=== PATIENT | female | born 1955 | race Caucasian/White ===

== ENCOUNTER 2017-01-02 12:28 | Observation (INO) | payer MEDICARE, MEDICAID ==
[~2017-01-02] VITALS: Ht 167.6 cm; Wt 125.7 kg
[2017-01-02] VITALS (7 sets, daily range): BP systolic 88–100; BP diastolic 48–63; PULSE 71–82; RESP 20; TEMP 95.6–98.7; O2SAT 95–99; Ht 167.6 cm; Wt 125.7 kg
[~2017-01-02 12:28] MED LIST: ACET-62 PO; ASPI-725 PO; CARV3.12 PO; FURO20TA4 PO; HYDR-4246 PO; LISI-625 PO; METF500T7 PO; MINO100C43 PO; NITR0.4T28 SL; POTA10TA14 PO; PRAV40TA3 PO; SODI45SP EA NOSTRIL; SOTA80TA PO; SPIR25TA4 PO
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
--- OUTSIDE RECORDS SUMMARY | 2017-01-02 12:34 | XMS REPORT | Referral Summary ---
Author Author [facility] Organization [facility] Address Unknown Phone Unavailable Care Team Providers Care Sports Teacher Name Role Phone Ady Garza Primary Care Physician [phone] Encounter VC Date(s): 05/13/15 - 05/13/15 [facility] [address] [place] [address]- Discharge Diagnosis: Hyperlipidemia Discharge Diagnosis: Benign essential hypertension Discharge Diagnosis: Type 2 diabetes mellitus Discharge Diagnosis: Congestive heart failure Discharge Disposition: 01-Home or Self Care Attending Physician: Surya Garza MD Admitting Physician: Surya Garza MD Vital Signs Most recent to 1 oldest [Reference Range]: Temperature Tympanic 36.2 degC [36.6-38.1 degC] *LOW* (05/13/15 10:17 AM) Peripheral Pulse 84 bpm Rate [60-100 bpm] (05/13/15 10:17 AM) Blood Pressure 106/60 mmHg [90-140/60-90 mmHg] (05/13/15 10:17 AM) Problem List Condition Effective Dates Status Health Status Informant Allergic Active rhinitis(Confirmed) Hay fever(Confirmed) Active Arthritis(Confirmed) Active Benign essential Active hypertension (disorder)(Confirmed ) Sleep related Active hypoventilation/hypo xemia in other disease(Confirmed) Congestive heart Active failure (disorder)(Confirmed ) Degenerative disk 1992 Active disease(Confirmed) Osteoarthritis(Confi 1981 Active rmed) Gall bladder Active disease(Confirmed) Hearing Active loss(Confirmed) Heart Active failure(Confirmed) High 2010 Active cholesterol(Confirme d) Hypertension(Confirm 2011 Active ed) Irregular heart 2010 Active rhythm(Confirmed) Hyperlipidemia(Confi Active rmed) Morbid Active patient obesity(Confirmed) Severe obstructive Active sleep apnea(Confirmed) Overweight(Confirmed Active ) Pneumonia(Confirmed) Active Rheumatic 1956 [...] 0 Refill(s) Start Date: 03/04/14 Status: Ordered Glucometer strips (DME) DME Item test strips test daily fasting dx E11.9, See Instructions, # 100 Each , 11 Refill(s), Pharmacy: [facility] [id number], test strips; test daily fasting; dx E11.9, Supply Start Date: 09/23/15 Status: Ordered Lubricant Eye Drops ophthalmic solution 1 drops, Eye-Both, BID, as needed for dry eyes, # 30 mL, 0 Refill(s) Start Date: 07/23/14 Status: Ordered metFORMIN 500 mg oral tablet, extended release See Instructions, TAKE 1 TABLET BY MOUTH EVERY DAY, # 30 tabs, 1 Refill(s), eRx : [facility] [id number], TAKE 1 TABLET BY MOUTH EVERY DAY Start Date: 09/26/15 Status: Ordered nitroglycerin 0.4 mg sublingual tablet See Instructions, as needed for chest pain, 1 tab by sublingual route at the 1st sign of attack; may repeat every 5 min until relief; if pain persists after 3 tab in 15 min prompt medical attention is reccommended, 0 Refill(s) Start Date: 03/04/14 Status: Ordered [place] 5 mg-325 mg oral tablet 1-2 tabs, Oral, q6hr, as needed for pain, # 20 tabs, 0 Refill(s) Start Date: 09/15/15 Status: Ordered potassium chloride 10 mEq oral [...] defibrillator 11/05/11 implantation of pacemaker 11/05/11 section 1976 Knee replacement R Social History Social History Type Response Smoking Status Never smoker Assessment and Plan Extracted from: Title: Ambulatory Patient Education Author: Surya Garza MD Date: Family Medicine Diabetes and Foot Care Diabetes may cause you to have problems because of poor blood supply ( circulation) to your feet and legs. This may cause the skin on your feet to become thinner, break easier, and heal more slowly. Your skin may become dry, and the skin may peel and crack. You may also have nerve damage in your legs and feet causing decreased feeling in them. You may not notice minor injuries to your feet that could lead to infections or more serious problems. Taking care of your feet is one of the most important things you can do for yourself. HOME CARE INSTRUCTIONS Wear shoes at all times, even in the house. Do not go barefoot. Bare feet are easily injured. Check your feet daily for blisters, cuts, and redness. If you cannot see the bottom of your feet, use a mirror or ask someone for help. Wash your feet with warm water (do not use hot water) and mild soap. Then pat your feet and the areas between your toes until they are completely dry. Do not soak your feet as this can dry your skin. Apply a moisturizing lotion or petroleum jelly (that does not contain alcohol and is unscented) to the skin on your feet and to dry, brittle toenails. Do not apply lotion between your toes. Trim your toenails straight across. Do not dig under them or around the cuticle. File the edges of your nails with an emery board or nail file. Do not cut corns or calluses or try to remove them with medicine. Wear clean socks or stockings every day. Make sure they are not too tight. Do not wear knee-high stockings since they may decrease blood flow to your legs. Wear shoes that fit properly and have enough cushioning. To break in new shoes, wear them for just a few hours a day. This prevents you from injuring your feet. Always look in your shoes before you put them on to be sure there are no objects inside. Do not cross your legs. This may decrease the blood flow to your feet. If you find a minor scrape, cut, or break in the skin on your feet, keep it and the skin around it clean and dry. These areas may be cleansed with mild soap and water. Do not cleanse the area with peroxide, alcohol, or iodine. When you remove an adhesive bandage, be sure not to damage the skin around it. If you have a wound, look at it several times a day to make sure it is healing. Do not use heating pads or hot water bottles. They may burn your skin. If you have lost feeling in your feet or legs, you may not know it is happening until it is too late. Make sure your health care provider performs a complete foot exam at least annually or more often if you have foot problems. Report any cuts, sores, or bruises to your health care provider immediately. SEEK MEDICAL CARE IF: You have an injury that is not healing. You have cuts or breaks in the skin. You have an ingrown nail. You notice redness on your legs or feet. You feel burning or tingling in your legs or feet. You have pain or cramps in your legs and feet. Your legs or feet are numb. Your feet always feel cold. SEEK IMMEDIATE MEDICAL CARE IF: There is increasing redness, swelling, or pain in or around a wound. There is a red line that goes up your leg. Pus is coming from a wound. You develop a fever or as directed by your health care provider. You notice a bad smell coming from an ulcer or wound. Document Released: 08/16/2001 Document Revised: 04/21/2014 Document Reviewed: ExitCare Patient Information 2015 [employer]. This information is not intended to replace advice given to you by your health care provider. Make sure you discuss any questions you have with your health care provider. No follow up information was provided. Extracted from: Title: Office Visit Note Author: Surya Garza MD Date: 05/13/15 Assessment/Plan Benign essential hypertension Blood pressures adequately controlled. Medications and treatments reviewed no changes are recommended. Report card reviewed and provided. Follow-up in 3 months. Ordered: Office Visit Level 4 Est 01850 Congestive heart failure Overall she appears to be stable and well compensated. She'll continue to follow with Dr. Caballero as well. Follow-up in 3 months. Ordered: Office Visit Level 4 Est 56095 Hyperlipidemia Recent laboratory studies reviewed overall stable continue current treatment plan. Recheck in 6 months. Ordered: Office Visit Level 4 Est 74421 Type 2 diabetes mellitus Overall stable A1c is 5.7. Medications reviewed no changes are recommended. Report card reviewed and provided. Follow-up in 3 months. Ordered: Office Visit Level 4 Est 00562
--- OUTSIDE RECORDS SUMMARY | 2017-01-02 12:34 | XMS REPORT | Referral Summary ---
Author Author [facility] Organization [facility] Address Unknown Phone Unavailable Care Team Providers Care Regional Sales Consultant Name Role Phone Ady Garza Primary Care Physician [phone] Encounter VC Date(s): 10/06/15 - 10/06/15 [facility] [address] [place] [address] [[email or web address]] Discharge Diagnosis: Strain of left knee Discharge Disposition: 01-Home or Self Care Attending Physician: Surya Garza MD Admitting Physician: Surya Garza MD Vital Signs Most recent to 1 oldest [Reference Range]: Temperature Tympanic 36.5 degC [36.6-38.1 degC] *LOW* (10/06/15 9:55 AM) Peripheral Pulse 80 bpm Rate [60-100 bpm] (10/06/15 9:55 AM) Respiratory Rate 16 br/min [14-20 br/min] (10/06/15 9:55 AM) Blood Pressure 96/66 mmHg [90-140/60-90 mmHg] (10/06/15 9:55 AM) Problem List Condition Effective Dates Status Health Status Informant Allergic Active rhinitis(Confirmed) Hay fever(Confirmed) Active Arthritis(Confirmed) Active Benign essential Active hypertension (disorder)(Confirmed ) Sleep related Active hypoventilation/hypo xemia in other disease(Confirmed) Congestive heart Active failure (disorder)(Confirmed ) Degenerative disk 1992 Active disease(Confirmed) Gall bladder Active disease(Confirmed) Hearing Active loss(Confirmed) Heart Active failure(Confirmed) High 2011 Active cholesterol(Confirme d) Hyperlipidemia(Confi Active rmed) Hypertension(Confirm 2011 Active ed) Irregular heart 2011 Active rhythm(Confirmed) Morbid Active patient obesity(Confirmed) Severe obstructive Active sleep apnea(Confirmed) Osteoarthritis(Confi 1981 Active rmed) Overweight(Confirmed Active ) Pneumonia(Confirmed) Active Rheumatic 1956 Active fever(Confirmed) Scarlet 1956 Active fever(Confirmed) Sinus 1956 Active infection(Confirmed) Sleep 2011 Active apnea(Confirmed) Type 2 diabetes 2002 Active mellitus(Confirmed) Ulcers(Confirmed) 1991 Active Chicken 1957 [...] # 100 Each , 11 Refill(s), Pharmacy: [facility] [id number], test strips; test daily fasting; dx E11.9, Supply Start Date: 09/23/15 Status: Ordered lisinopril 5 mg oral tablet 5 mg 1 tabs, Oral, Daily, ON HOLD, 0 Refill(s) Start Date: 04/15/14 Status: Ordered Lubricant Eye Drops ophthalmic solution 1 drops, Eye-Both, BID, as needed for dry eyes, # 30 mL, 0 Refill(s) Start Date: 07/23/14 Status: Ordered metFORMIN 500 mg oral tablet, extended release See Instructions, TAKE 1 TABLET BY MOUTH EVERY DAY, # 30 tabs, 1 Refill(s), eRx : [facility] [id number], TAKE 1 TABLET BY MOUTH EVERY DAY Start Date: 09/26/15 Status: Ordered nitroglycerin 0.4 mg sublingual tablet See Instructions, as needed for chest pain, 1 tab by sublingual route at the 1st sign of attack; may repeat every 5 min until relief; if pain persists after 3 tab in 15 min prompt medical attention is reccommended, 0 Refill(s) Start Date: 03/04/14 Status: Ordered [place] 5 mg-325 mg oral tablet 1-2 tabs, [...] Patient Education Author: Surya Garza MD Date: Musculoskeletal Knee Sprain A knee sprain is a tear in the strong bands of tissue that connect the bones ( ligaments) of your knee. HOME CARE Raise (elevate) your injured knee to lessen puffiness (swelling). To ease pain and puffiness, put ice on the injured area. Put ice in a plastic bag. Place a towel between your skin and the bag. Leave the ice on for 20 minutes, 23 times a day. Only take medicine as told by your doctor. Do not leave your knee unprotected until pain and stiffness go away ( usually 46 weeks). If you have a cast or splint, do not get it wet. If your doctor told you to not take it off, cover it with a plastic bag when you shower or bathe. Do not swim. Your doctor may have you do exercises to prevent or limit permanent weakness and stiffness. GET HELP RIGHT AWAY IF: Your cast or splint becomes damaged. Your pain gets worse. You have a lot of pain, puffiness, or numbness below the cast or splint. MAKE SURE YOU: Understand these instructions. Will watch your condition. Will get help right away if you are not doing well or get worse. Document Released: 08/07/2010 Document Revised: 08/24/2014 Document Reviewed: [facility] Patient Information 2015 [employer]. This information is not intended to replace advice given to you by your health care provider. Make sure you discuss any questions you have with your health care provider. No follow up information was provided. Extracted from: Title: Office Visit Note Author: Surya Garza MD Date: 10/06/15 Assessment/Plan Strain of left knee Think this is a lateral collateral ligament strain. She seems to beimproving. No further interventions are recommended. I encouraged her to be careful with her walking and twisting. I think he'll continue to improve. If she has worsening symptoms or further problems she'll let us know. She'll keep her routine follow-up for other chronic health problems. Ordered: Office Visit Level 3 Est 27591
--- OUTSIDE RECORDS SUMMARY | 2017-01-02 12:34 | XMS REPORT | Referral Summary ---
Author Author [facility] Organization [facility] Address Unknown Phone Unavailable Care Team Providers Care Home Care Associate Name Role Phone Ady Garza Primary Care Physician [phone] Encounter Date(s): 02/11/15 - 02/11/15 [facility] [address] [place] [address] Discharge Diagnosis: Type 2 diabetes mellitus Discharge Diagnosis: Congestive heart failure Discharge Diagnosis: Osteoarthritis Discharge Diagnosis: Severe obstructive sleep apnea Discharge Diagnosis: High cholesterol Discharge Diagnosis: Benign essential hypertension Discharge Disposition: 01-Home or Self Care Attending Physician: Surya Garza MD Admitting Physician: Surya Garza MD Vital Signs Most recent to 1 oldest [Reference Range]: Temperature Tympanic 36.3 degC [36.6-38.1 degC] *LOW* (02/11/15 10:27 AM) Peripheral Pulse 76 bpm Rate [60-100 bpm] (02/11/15 10:27 AM) Blood Pressure 102/74 mmHg [90-140/60-90 mmHg] (02/11/15 10:27 AM) Problem List Condition Effective Dates Status [...] DAY, # 30 tabs, 5 Refill(s), Pharmacy: [facility] #[id number], TAKE ONE TABLET BY MOUTH ONCE A [...] Garza MD Date: Family Medicine Diabetes and Exercise Exercising regularly is important. It is not just about losing weight. It has many health benefits, such as: Improving your overall fitness, flexibility, and endurance. Increasing your bone density. Helping with weight control. Decreasing your body fat. Increasing your muscle strength. Reducing stress and tension. Improving your overall health. People with diabetes who exercise gain additional benefits because exercise: Reduces appetite. Improves the body's use of blood sugar (glucose ). Helps lower or control blood glucose. Decreases blood pressure. Helps control blood lipids (such as cholesterol and triglycerides). Improves the body's use of the hormone insulin by: Increasing the body's insulin sensitivity. Reducing the body's insulin needs. Decreases the risk for heart disease because exercising: Lowers cholesterol and triglycerides levels. Increases the levels of good cholesterol (such as high-density lipoproteins [HDL]) in the body. Lowers blood glucose levels. YOUR ACTIVITY PLAN Choose an activity that you enjoy and set realistic goals. Your health care provider or clinical unit educator can help you make an activity plan that works for you. You can break activities into 2 or 3 sessions throughout the day. Doing so is as good as one long session. Exercise ideas include: Taking the dog for a walk. Taking the stairs instead of the elevator. Dancing to your favorite song. Doing your favorite exercise with a friend. RECOMMENDATIONS FOR EXERCISING WITH TYPE 1 OR TYPE 2 DIABETES Check your blood glucose before exercising. If blood glucose levels are greater than 240 mg/dL, check for urine ketones. Do not exercise if ketones are present. Avoid injecting insulin into areas of the body that are going to be exercised. For example, avoid injecting insulin into: The arms when playing tennis. The legs when jogging. Keep a record of: Food intake before and after you exercise. Expected peak times of insulin action. Blood glucose levels before and after you exercise. The type and amount of exercise you have done. Review your records with your health care provider. Your health care provider will help you to develop guidelines for adjusting food intake and insulin amounts before and after exercising. If you take insulin or oral hypoglycemic agents, watch for signs and symptoms of hypoglycemia. They include: Dizziness. Shaking. Sweating. Chills. Confusion. Drink plenty of water while you exercise to prevent dehydration or heat stroke. Body water is lost during exercise and must be replaced. Talk to your health care provider before starting an exercise program to make sure it is safe for you. Remember, almost any type of activity is better than none. Document Released: 11/08/2004 Document Revised: 04/21/2014 Document Reviewed: [facility] Patient Information 2014 [employer]. No follow up information was provided. Extracted from: Title: Office Visit Note Author: Surya Garza MD Date: 02/11/15 Assessment/Plan Benign essential hypertension Blood pressures well-controlled on current regimen. No changes recommended. Recent laboratory studies reviewed. Report card reviewed and provided. Follow-up in 3 months. Congestive heart failure She appears to be well compensated. No change in current treatment is recommended. Follow-up in 3 months. High cholesterol Previous laboratory studies reviewed no changes in current treatment recommended. Fasting lab prior to next appointment in 3 months. Osteoarthritis Stable no change in current treatment. Severe obstructive sleep apnea She continues on CPAP she has a new sleep Dr. continue current treatment plan. Type 2 diabetes mellitus Hemoglobin A1c is 5.9 indicating good control. Murmurs.. Continue current treatment plan and follow-up in 3 months. Report card reviewed and provided. Fasting lab prior to next appointment. Extracted from: Title: MED-CARE FAX Author: Suzanna Wilson Date: 11/17/14 Called patient to verify if she gets supplies from this company. Patient stated that she does not, she gets her supplies from [employer].
--- OUTSIDE RECORDS SUMMARY | 2017-01-02 12:34 | XMS REPORT | Continuity of Care Document ---
Author Author Ileana Burns [facility] Ambulatory Address [address] [place] [address] Phone Care Team Providers Care Surgical Garment Inspector Name Role Phone Surya Garza PP Unavailable Payers Payer name Insurance type Covered constitution party ID Authorization(s) Unknown Problems Condition Effective Dates (start - stop) Clinical Status Diabetes Mellitus Type 2, Uncomplicated - *Chronic Hypertension, Benign - *Chronic Other and unspecified hyperlipidemia - *Chronic Right Heart Failure - *Chronic Diabetes Mellitus Type 2, Uncomplicated - Chronic Hypertension, Benign - Chronic Other and unspecified hyperlipidemia - Chronic Right Heart Failure - Chronic Hypoxia - *Chronic Sleep Apnea - *Chronic Diabetes Mellitus Type 2, Uncomplicated - *Controlled Right Heart Failure - *Chronic Hypertension, Benign - *Controlled Other and unspecified hyperlipidemia - *Controlled Diabetes Mellitus Type 2, Uncomplicated - *Chronic Right Heart Failure - *Chronic Hypertension, Benign - *Chronic Other and unspecified hyperlipidemia - *Chronic Diabetes Mellitus Type 2, Uncomplicated - Chronic Right Heart Failure - Chronic Hypertension, Benign - Chronic Other and unspecified hyperlipidemia - Chronic Diabetes Mellitus Type 2, Uncomplicated - *Chronic Right Heart Failure - *Chronic Hypertension, Benign - *Chronic Other and unspecified hyperlipidemia - *Chronic Diabetes Mellitus Type 2, Uncomplicated - Chronic Right Heart Failure - Chronic Hypertension, Benign - Chronic Other and unspecified hyperlipidemia - Chronic Sleep Apnea, Obstructive - *Controlled Right Heart Failure - *Chronic Hypertension, Benign - *Chronic Other and unspecified hyperlipidemia - *Chronic Right Heart Failure - Chronic Hypertension, Benign - Chronic Other and unspecified hyperlipidemia - Chronic Right Heart Failure - *Chronic Hypertension, Benign - *Chronic Other and unspecified hyperlipidemia - *Chronic Sleep Apnea, Obstructive - Improved Sleep Related Hypoventilation/Hypoxemia - Improved Diabetes Mellitus Type 2, Uncomplicated - *Chronic Hypertension, Benign - *Chronic Other and unspecified hyperlipidemia - *Chronic Right Heart Failure - *Chronic Diabetes Mellitus Type 2, Uncomplicated - Chronic Hypertension, Benign - Chronic Other and unspecified hyperlipidemia - Chronic Right Heart Failure - Chronic Diabetes Mellitus Type 2, Uncomplicated - *Chronic Right Heart Failure - *Chronic Hypertension, Benign - *Chronic Other and unspecified hyperlipidemia - *Chronic Diabetes Mellitus Type 2, Uncomplicated - Chronic Right Heart Failure - Chronic Hypertension, Benign - Chronic Other and unspecified hyperlipidemia - Chronic Family History Family Member Diagnosis Age At Onset Status Unknown Social History Social History Element Description Quantity Unknown Allergies, Adverse Reactions, Alerts Substance Reaction Severity Status ASPIRIN HIGHER DOSES - ULCER Unknown CAFFEINE HIGHER DOSES - ULCER Unknown CODEINE GI problems Unknown PENICILLINS GI problems Unknown SULFANILAMIDE GI problems Unknown ASPIRIN GI Bleeding Unknown Medications Medication Instructions Dosage Effective Dates (start - stop) Status spironolactone 25 mg tablet take 1 tablet (25MG) by oral route every day 25 MG - Active carvedilol 6.25 mg tablet take 1 tablet (6.25MG) by oral route every day with food 6.25 MG - Active pravastatin 80 mg tablet take 1 tablet (80MG) by oral route every day 80 MG - Active lisinopril 5 mg tablet take 1 tablet (5MG) by oral route every day 5 MG - Active Aspirin Low Dose 81 mg tablet,delayed release take 1 tablet (81MG) by oral route every day 81 MG - Active Saline Nasal 0.65 % spray aerosol as directed - Active acetaminophen 500 mg tablet take 1 Tablet (500MG) by oral route every 6 hours as needed as needed 500 MG - Active as directed - Active nitroglycerin 0.[address] 1 tablet (0.4MG) by sublingual route at the 1st sign of attack; may repeat every 5 min until relief; if pain persists after 3 tablets in 15 min, prompt medical attention is recommended 0.4 MG - Active Immunizations Vaccine Date Status Comments Tdap completed - Completed reason: source unspecified pneumo (2 yrs or older) (PPV23) completed - Completed reason: other registry Zoster completed - Completed reason: other registry Results Test Name Date and Time Measure Units Reference Range Abnormal Flag Comments Panel Description: CBC WBC 10:54:00 11.1 K/uL 4.8-10.8 H RBC 10:54:00 4.39 M/uL 4.00-5.20 HGB 10:54:00 13.4 g/dl 12.0-16.0 HCT 10:54:00 40.9 % 37.0-47.0 MCV 10:54:00 93.2 fL 82.0-99.0 MCH 10:54:00 30.5 pg 27.0-32.0 MCHC 10:54:00 32.8 g/dL 32.0-36.0 RDW 10:54:00 13.8 % 11.5-14.5 MPV 10:54:00 10.0 fL 8.8-14.8 Platelet Count 10:54:00 259 K/uL 150-400 Immature Granulocytes 10:54:00 0.4 % 0.0-1.0 Absolute Neutrophils 10:54:00 7.10 THOUS 1.90-7.00 H Absolute Lymphocytes 10:54:00 2.42 THOUS 0.80-3.30 Absolute Monocytes 10:54:00 1.09 THOUS 0.30-1.00 H Absolute Eosinophils 10:54:00 0.36 THOUS 0.00-0.50 Absolute Basophils 10:54:00 0.06 THOUS 0.00-0.20 Neutrophils 10:54:00 64 % 51-75 Lymphocytes 10:54:00 22 % 20-46 Monocytes 10:54:00 10 % 4-11 Eosinophils 10:54:00 3 % 0-4 Basophils 10:54:00 1 % 0-2 Testing performed at [facility] Reference Lab [address] [address] Wafer Fabricator Edwin Ren MD Vital Signs Date / Time: Height Weight Pulse Rate Blood Pressure Temperature /10:18:00 67.50 in 282.00 lbs 76 /min 110/64 mm[Hg] 96.3 F Procedures Procedure Date Unknown Encounters Encounter Location Date Patient Visit [facility] Patient Visit [facility] Patient Visit [facility] Patient Visit [facility] Patient Visit [facility] Patient Visit [facility] Patient Visit [facility] Patient Visit [facility] Patient Visit [facility] Patient Visit [place] Patient Visit [facility] Shavon Armando Advance Directives Directive Effective Date Unknown
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
--- OUTSIDE RECORDS SUMMARY | 2017-01-02 12:34 | XMS REPORT | Referral Summary ---
Author Author [facility] Organization [facility] Address Unknown Phone Unavailable Care Team Providers Care Apprentice Jockey Name Role Phone Ady Garza Primary Care Physician [phone] Encounter VC Date(s): 08/12/15 - 08/12/15 [facility] [place] [address] [place] [address] Discharge Diagnosis: High cholesterol Discharge Diagnosis: Benign essential hypertension Discharge Diagnosis: Congestive heart failure Discharge Diagnosis: Sleep apnea Discharge Diagnosis: Type 2 diabetes mellitus Discharge Disposition: 01-Home or Self Care Attending Physician: Surya Garza MD Admitting Physician: Surya Garza MD Vital Signs Most recent to 1 oldest [Reference Range]: Temperature Tympanic 36.5 degC [36.6-38.1 degC] *LOW* (08/12/15 9:17 AM) Peripheral Pulse 72 bpm Rate [60-100 bpm] (08/12/15 9:17 AM) Respiratory Rate 18 br/min [14-20 br/min] (08/12/15 9:17 AM) Blood Pressure 94/60 mmHg [90-140/60-90 mmHg] (08/12/15 9:17 AM) Problem List Condition Effective Dates Status [...] Sleep 2011 Active apnea(Confirmed) Type 2 diabetes 2003 Active [...] tablet 5 mg 1 tabs, Oral, Daily, 0 Refill(s) Start Date: 04/15/14 Status: Ordered Lubricant Eye Drops ophthalmic solution 1 drops, Eye-Both, BID, as needed for dry eyes, # 30 mL, 0 Refill(s) Start Date: 07/23/14 Status: Ordered metFORMIN 500 mg oral tablet, extended release See Instructions, TAKE ONE TABLET BY MOUTH ONCE A DAY, # 30 tabs, 5 Refill(s), Pharmacy: [facility] #[id number], TAKE ONE TABLET BY MOUTH ONCE A [...] Patient Education Author: Surya Garza MD Date: 08/12/15 Family Medicine Diabetes and Foot Care Diabetes [...] 04/21/2014 Document Reviewed: ExitCare Patient Information 2015 [email or web address]. This information is not intended to replace advice given to you by your health care provider. Make sure you discuss any questions you have with your health care provider. No follow up information was provided. Extracted from: Title: Office Visit Note Author: Surya Garza MD Date: 08/12/15 Assessment/Plan Benign essential hypertension Blood pressure appears to be well controlled. Medications and treatments reviewed no changes are recommended. Report card reviewed and provided. Follow-up in 3 months. Ordered: Office Visit Level 4 Est 17395 Congestive heart failure Chronic stable compensated. Medications and treatments reviewed no changes are recommended at this time. Recheck in 3 months. Ordered: Office Visit Level 4 Est 00568 High cholesterol Overall stable no change in current treatment. Last lipid studies were done in May and were reviewed today. Ordered: Office Visit Level 4 Est 18989 Sleep apnea She continues to use CPAP no change in current treatment recommended. Ordered: Office Visit Level 4 Est 54176 Type 2 diabetes mellitus Glucometers are well-controlled. A1c is excellent at 5.5. She's not having any breakthrough low blood sugars. Continue current treatment without change. Report card reviewed and provided. Follow-up in 3 months.
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
--- OUTSIDE RECORDS SUMMARY | 2017-01-02 12:34 | XMS REPORT | Referral Summary ---
Author Author [facility] Organization [facility] Address Unknown Phone Unavailable Care Team Providers Care Compounding Assistant Name Role Phone Ady Garza Primary Care Physician [phone] Encounter Date(s): 02/11/15 - 02/11/15 [facility] [place] [address] [place] [address] Discharge Diagnosis: Type 2 diabetes mellitus Discharge [...] # 30 tabs, 5 Refill(s), Pharmacy: [facility] #[id number], TAKE ONE TABLET BY MOUTH ONCE A [...] realistic goals. Your health care provider or health educator can help you make an activity [...] Reviewed: [facility] Patient Information 2014 [place] [employer]. No follow up information was provided. Extracted [...] does not, she gets her supplies from [employer].
--- OUTSIDE RECORDS SUMMARY | 2017-01-02 12:34 | XMS REPORT | Referral Summary ---
Author Author [facility] Organization [facility] Address Unknown Phone Unavailable Care Team Providers Care Set Up Operator Name Role Phone Ady Garza Primary Care Physician [phone] Encounter Date(s): 02/11/15 - 02/11/15 [facility] [place] [address] [place] [address] Discharge Diagnosis: Type 2 diabetes mellitus [...] # 30 tabs, 5 Refill(s), Pharmacy: [facility] #[id number], TAKE ONE TABLET BY MOUTH ONCE A [...] realistic goals. Your health care provider or personal development educator can help you make an activity [...] Released: 11/08/2004 Document Revised: 04/21/2014 Document Reviewed: [facility] [place] Patient Information 2014 [employer]. No follow up information was provided. Extracted [...] does not, she gets her supplies from [employer].
--- OUTSIDE RECORDS SUMMARY | 2017-01-02 12:34 | XMS REPORT | Continuity of Care Document ---
Author Author [facility] Organization [facility] Address Unknown Phone Unavailable Allergies Medications Problems Procedures Results Encounters ACCT No. Visit Date/Time Discharge Status Pt. Type Provider Facility Loc./Unit Complaint [id number] 10/23/2013 10:44:00 10/23/2013 23 :59:59 [facility] Outpatient [id number] 10/08/2013 10:12:00 10/08/2013 23 :59:59 [facility] Outpatient [id number] 09/24/2013 13:12:00 09/24/2013 23 :59:59 CLS Outpatient
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
--- OUTSIDE RECORDS SUMMARY | 2017-01-02 12:35 | XMS REPORT | Referral Summary ---
Author Author [facility] Organization [facility] Address Unknown Phone Unavailable Care Team Providers Care Take Out Waiter/Waitress Name Role Phone Ady Garza Primary Care Physician [phone] Encounter VC Date(s): 05/23/16 - 05/23/16 [facility] [address] [place], [place] [address] Discharge Diagnosis: CONG on CPAP Discharge Disposition: 01-Home or Self Care Attending Physician: Aramis Pineda MD Admitting Physician: Aramis Pineda MD Vital Signs Most recent to 1 oldest [Reference Range]: Peripheral Pulse 84 bpm Rate [60-100 bpm] (05/23/16 11:39 AM) Blood Pressure 108/62 mmHg [90-140/60-90 mmHg] (05/23/16 11:39 AM) SpO2 92 % (05/23/16 11:39 AM) Problem List Condition Effective Dates Status [...] Status: Ordered furosemide 40 mg oral tablet 40 mg 1 tabs, Oral, Daily, # 30 tabs, 0 Refill(s) Start Date: 03/04/14 Status: Ordered Glucometer strips (DME) DME Item test strips test daily fasting dx E11.9, See Instructions, # 100 Each , 11 Refill(s), Pharmacy: [facility] [id number], test strips; test daily fasting; dx E11.9, Supply Start Date: 09/23/15 Status: Ordered lisinopril 2.5 mg oral tablet 2.5 mg 1 tabs, Oral, Daily, 0 Refill(s) Start Date: 05/11/16 Status: Ordered Lubricant Eye Drops ophthalmic solution 1 drops, Eye-Both, BID, as needed for dry eyes, # 30 mL, 0 Refill(s) Start Date: 07/23/14 Status: Ordered metFORMIN 500 mg oral tablet, extended release See Instructions, TAKE 1 TABLET BY MOUTH TWICE DAILY, # 60 tabs, 10 Refill(s), Pharmacy: [facility] [id number], TAKE 1 TABLET BY MOUTH TWICE DAILY Start Date: 05/11/16 Status: Ordered nitroglycerin 0.4 mg sublingual tablet [...] Procedures Procedure Date Related Diagnosis Body Site Diabetic foot examination1 02/10/16 Implantation of defibrillator 11/05/11 implantation of pacemaker 11/05/11 section 1976 Knee replacement R 1CALLOUSE TO RIGHT GREAT TOE. SWELLING TO LEFT FOOT AND ANKLE. DRYNESS NOTED ON BILATERAL FEET. Social History Social History Type Response Smoking Status Never smoker Assessment and Plan Extracted from: Title: Ambulatory Patient Education Author: Aramis Pineda MD Date: Family Medicine CPAP and BIPAP Information CPAP and BIPAP are methods of helping you breathe with the use of air pressure. CPAP stands for "continuous positive airway pressure." BIPAP stands for "bi- level positive airway pressure." In both methods, air is blown into your air passages to help keep you breathing well. With CPAP, the amount of pressure stays the same while you breathe in and out. CPAP is most commonly used for obstructive sleep apnea. For obstructive sleep apnea, CPAP works by holding your airways open so that they do not collapse when your muscles relax during sleep. BIPAP is similar to CPAP except the amount of pressure is increased when you inhale. This helps you take larger breaths. Your health care provider will recommend whether CPAP or BIPAP would be more helpful for you. WHY ARE CPAP AND BIPAP TREATMENTS USED? CPAP or BIPAP can be helpful if you have: Sleep apnea. Chronic obstructive pulmonary disease (COPD). Diseases that weaken the muscles of the chest, including muscular dystrophy or neurological diseases such as amyotrophic lateral sclerosis (ALS). Other problems that cause breathing to be weak, abnormal, or difficult. HOW IS CPAP OR BIPAP ADMINISTERED? Both CPAP and BIPAP are provided by a small machine with a flexible plastic tube that attaches to a plastic mask. The mask fits on your face, and air is blown into your air passages through your nose or mouth. The amount of pressure that is used to blow the air into your air passages can be set on the machine. Your health care provider will determine the pressure setting that should be used based on your individual needs. WHEN SHOULD CPAP OR BIPAP BE USED? In most cases, the mask is worn only when sleeping. Generally, you will need to wear the mask throughout the night and during the daytime if you take a nap. In a few cases involving certain medical conditions, people also need to wear the mask at other times when they are awake. Follow your health care provider's instructions for when to use the machine. USING THE MASK Because the mask needs to be snug, some people feel a trapped or closed- in feeling (claustrophobic) when first using the mask. You may need to get used to the mask gradually. To do this, you can first hold the mask loosely over your nose or mouth. Gradually apply the mask more snugly. You can also gradually increase the amount of time that you use the mask. Masks are available in various types and sizes. Some fit over your mouth and nose, and some fit over just your nose. If your mask does not fit well, talk to your health care provider about getting a different one. If you are using a nasal mask and you tend to breathe through your mouth , a chin strap may be applied to help keep your mouth closed. The CPAP and BIPAP machines have alarms that may sound if the mask comes off or develops a leak. If you have trouble with the mask, it is very important that you talk to your health care provider about finding a way to make the mask easier to tolerate. Do not stop using the mask. This could have a negative impact on your health. TIPS FOR USING THE MACHINE Place your CPAP or BIPAP machine on a secure table or stand near an electrical outlet. Know where the on-off switch is located on the machine. Follow your health care provider's instructions for how to set the pressure on your machine and when you should use it. Do not eat or drink while the CPAP or BIPAP machine is on. Food or fluids could get pushed into your lungs by the pressure of the CPAP or BIPAP. Do not smoke. Tobacco smoke residue can damage the machine. For home use, CPAP and BIPAP machines can be rented or purchased through home health care companies. Many different brands of machines are available. Renting a machine before purchasing may help you find out which particular machine works well for you. SEEK IMMEDIATE MEDICAL CARE IF: You have redness or open areas around your nose or mouth where the mask fits. You have trouble operating the CPAP or BIPAP machine. You cannot tolerate wearing the CPAP or BIPAP mask. This information is not intended to replace advice given to you by your health care provider. Make sure you discuss any questions you have with your health care provider. Document Released: 05/17/2005 Document Revised: 09/09/2015 Document Reviewed: [facility] Patient Information 2016 [email or web address], [facility]. No follow up information was provided.
--- OUTSIDE RECORDS SUMMARY | 2017-01-02 12:35 | XMS REPORT | Referral Summary ---
Author Author [facility] Organization [facility] Address Unknown Phone Unavailable Care Team Providers Care Real Estate Rep Name Role Phone Ady Garza Primary Care Physician [phone] Encounter Date(s): 04/17/16 - 04/17/16 [facility] [address] [place], [place] [address] Discharge Disposition: 01-Home or Self Care Attending Physician: Aramis Pineda MD Admitting Physician: Aramis Pineda MD Vital Signs No data available for this section Problem List Condition Effective Dates Status Health Status Informant Allergic Active rhinitis(Confirmed) Hay fever(Confirmed) Active Arthritis(Confirmed) Active Benign essential Active hypertension (disorder)(Confirmed ) Sleep related Active hypoventilation/hypo xemia in other disease(Confirmed) Congestive heart Active failure (disorder)(Confirmed ) Degenerative disk 1992 Active disease(Confirmed) Osteoarthritis(Confi 1982 Active rmed) Gall bladder Active disease(Confirmed) Hearing [...] # 100 Each , 11 Refill(s), [id number], test strips; test daily fasting; dx E11.9, Supply Start Date: 09/23/15 Status: Ordered Lubricant Eye Drops ophthalmic solution 1 drops, Eye-Both, BID, as needed for dry eyes, # 30 mL, 0 Refill(s) Start Date: 07/23/14 Status: Ordered metFORMIN 500 mg oral tablet, extended release See Instructions, TAKE 1 TABLET BY MOUTH EVERY DAY, # 30 tabs, 5 Refill(s), eRx : [id number], TAKE 1 TABLET BY MOUTH EVERY DAY [...] pacemaker 11/05/11 section 1975 Knee replacement R 1CALLOUSE TO RIGHT GREAT TOE. SWELLING TO LEFT FOOT AND ANKLE. DRYNESS NOTED ON BILATERAL FEET. Social History Social History Type Response Smoking Status Never smoker Assessment and Plan No data available for this section
--- OUTSIDE RECORDS SUMMARY | 2017-01-02 12:35 | XMS REPORT | Continuity of Care Document ---
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 Morbid obesity - *Worse Bronchiectasis - *Chronic Diabetes Mellitus Type 2, Uncomplicated - *Chronic Hypertension, Benign - *Chronic Other and unspecified hyperlipidemia - *Chronic Right Heart Failure - *Chronic Diabetes Mellitus Type 2, Uncomplicated - Chronic Hypertension, Benign - Chronic Other and unspecified hyperlipidemia - Chronic Right Heart Failure - Chronic Hypoxia - *Chronic Sleep Apnea - *Chronic Diabetes Mellitus Type 2, Uncomplicated - *Chronic [...] Dosage Effective Dates (start - stop) Status as directed - No Longer Active spironolactone 25 mg tablet take 1 tablet (25MG) by oral route every day 25 MG - Active carvedilol 6.25 mg tablet take 1 tablet (6.25MG) by oral route every day with food 6.25 MG - Active pravastatin 80 mg tablet take 1 tablet (80MG) by oral route every day 80 MG - Active Aspirin Low Dose 81 mg tablet,delayed release take 1 tablet (81MG) by oral route every day 81 MG - Active Saline Nasal 0.65 % spray aerosol as directed - Active acetaminophen 500 mg tablet take 1 Tablet (500MG) by oral route every 6 hours as needed as needed 500 MG - Active nitroglycerin 0.[address] 1 tablet (0.4MG) by sublingual route at the 1st sign of attack; may repeat every 5 min until relief; if pain persists after 3 tablets in 15 min, prompt medical attention is recommended 0.4 MG - Active CPAP with O2 @ 3LPM - Active lisinopril 10 mg tablet take 1 tablet (10MG) by oral route every day 10 MG - Active furosemide 40 mg tablet take 1 tablet (40MG) by oral route every day 40 MG - Active potassium chloride ER 10 mEq tablet,extended release take 1 Tablet (10MEQ) by oral route every day with food 10 MEQ - Active Betapace 80 mg tablet take 0.5 Tablet (40MG) by oral route 2 times every day 40 MG - Active Immunizations Vaccine Date Status Comments pneumo (2 yrs or older) (PPV23) completed - Completed reason: other registry Zoster completed - Completed reason: other registry Tdap completed - Completed reason: source unspecified Results Test Name Date and Time Measure Units Reference Range Abnormal Flag Comments Unknown Vital Signs Date / Time: Height Weight Pulse Rate Blood Pressure Temperature /11:03:00 108 /min /10:48:00 67.50 in 282.00 lbs 80 /min 90/64 mm[Hg] 97.6 F Procedures Procedure Date Unknown Encounters Encounter Location Date Patient Visit [facility] Patient [facility] Patient [facility] Patient Visit [facility] Patient Visit [facility] Patient Visit [facility] Patient Visit [facility] Patient Visit [facility] Patient Visit [facility] Patient [facility] Patient Visit [facility] Patient Visit [facility] Patient Visit [facility] Patient Visit [facility] Shavon Roberts Advance Directives Directive Effective Date Unknown
--- OUTSIDE RECORDS SUMMARY | 2017-01-02 12:35 | XMS REPORT | Referral Summary ---
Author Organization Unknown Address Unknown Phone Unavailable Care Team Providers Care Quantitative Researcher Name Role Phone Ady Garza Primary Care Physician [phone] Encounter VC Date(s): 11/05/14 - 11/05/14 [facility] [address] [place] [address] Discharge Diagnosis: Benign essential hypertension Discharge Diagnosis: Type 2 diabetes mellitus Discharge Diagnosis: Congestive heart failure Discharge Diagnosis: High cholesterol Discharge Diagnosis: Osteoarthritis Discharge Disposition: Home or Self Care Attending Physician: Surya Garza MD Admitting Physician: Surya Garza MD Vital Signs Most recent to 1 oldest [Reference Range]: Temperature Tympanic 36.1 degC [36.6-38.1 degC] *LOW* (11/05/14 10:12 AM) Peripheral Pulse 76 bpm Rate [60-100 bpm] (11/05/14 10:12 AM) Respiratory Rate 16 br/min [14-20 br/min] (11/05/14 10:12 AM) Blood Pressure 112/66 mmHg [90-140/60-90 mmHg] (11/05/14 10:12 AM) Problem List Condition Effective Dates Status [...] Active ed) Irregular heart 2011 Active rhythm(Confirmed) Severe obstructive Active sleep apnea(Confirmed) Osteoarthritis(Confi 1982 [...] Status: Ordered carvedilol 6.25 mg oral tablet 1 tabs, Oral, BID, 0 Refill(s) Start Date: 03/04/14 Status: Ordered furosemide 40 mg oral tablet 1 tabs, Oral, Daily, # 30 tabs, 0 Refill(s) Start Date: 03/04/14 Status: Ordered lisinopril 5 mg oral tablet 1 tabs, Oral, Daily, 0 Refill(s) Start Date: 04/15/14 Status: Ordered Lubricant Eye Drops ophthalmic solution 1 drops, Eye-Both, BID, as needed for dry eyes, # 30 mL, 0 Refill(s) Start Date: 07/23/14 Status: Ordered metFORMIN 500 mg oral tablet, extended release See Instructions, TAKE ONE TABLET BY MOUTH ONCE A DAY, # 30 tabs, 5 Refill(s), eRx: [facility] #[id number], TAKE ONE TABLET BY MOUTH ONCE A DAY Special Instructions: TAKE ONE TABLET BY MOUTH ONCE A DAY Start Date: 10/05/14 Status: Ordered nitroglycerin 0.4 mg sublingual tablet See Instructions, as needed for chest pain, 1 tab by sublingual route at the 1st sign of attack; may repeat every 5 min until relief; if pain persists after 3 tab in 15 min prompt medical attention is reccommended, 0 Refill(s) Special Instructions: 1 tab by sublingual route at the 1st sign of attack; may repeat every 5 min until relief; if pain persists after 3 tab in 15 min prompt medical attention is reccommended Start Date: 03/04/14 Status: Ordered potassium chloride 10 mEq oral capsule, extended release 1 caps, Oral, Daily, # 30 caps, 0 Refill(s) Start Date: 03/04/14 Status: Ordered pravastatin 80 mg oral tablet 1 tabs, Oral, Daily, # 30 tabs, 0 Refill(s) Start Date: 03/04/14 Status: Ordered Saline Mist 0.65% nasal spray See Instructions, as directed, 0 Refill(s) Special Instructions: as directed Start Date: 03/04/14 Status: Ordered spironolactone 25 [...] Author: Surya Garza MD Date: Family Medicine Hypertension As your heart beats, it forces blood through your arteries. This force is your blood pressure. If the pressure is too high, it is called hypertension (HTN) or high blood pressure. HTN is dangerous because you may have it and not know it. High blood pressure may mean that your heart has to work harder to pump blood. Your arteries may be narrow or stiff. The extra work puts you at risk for heart disease, stroke, and other problems. Blood pressure consists of two numbers, a higher number over a lower, 110/72, for example. It is stated as "110 over 72." The ideal is below 120 for the top number (systolic ) and under 80 for the bottom (diastolic ). Write down your blood pressure today. You should pay close attention to your blood pressure if you have certain conditions such as: Heart failure. Prior heart attack. Diabetes Chronic kidney disease. Prior stroke. Multiple risk factors for heart disease. To see if you have HTN, your blood pressure should be measured while you are seated with your arm held at the level of the heart. It should be measured at least twice. A one-time elevated blood pressure reading (especially in the Emergency Department) does not mean that you need treatment. There may be conditions in which the blood pressure is different between your right and left arms. It is important to see your caregiver soon for a recheck. Most people have essential hypertension which means that there is not a specific cause. This type of high blood pressure may be lowered by changing lifestyle factors such as: Stress. Smoking. Lack of exercise. Excessive weight. Drug/tobacco/alcohol use. Eating less salt. Most people do not have symptoms from high blood pressure until it has caused damage to the body. Effective treatment can often prevent, delay or reduce that damage. TREATMENT When a cause has been identified, treatment for high blood pressure is directed at the cause. There are a large number of medications to treat HTN. These fall into several categories, and your caregiver will help you select the medicines that are best for you. Medications may have side effects. You should review side effects with your caregiver. If your blood pressure stays high after you have made lifestyle changes or started on medicines, Your medication(s) may need to be changed. Other problems may need to be addressed. Be certain you understand your prescriptions, and know how and when to take your medicine. Be sure to follow up with your caregiver within the time frame advised ( usually within two weeks) to have your blood pressure rechecked and to review your medications. If you are taking more than one medicine to lower your blood pressure, make sure you know how and at what times they should be taken. Taking two medicines at the same time can result in blood pressure that is too low. SEEK IMMEDIATE MEDICAL CARE IF: You develop a severe headache, blurred or changing vision, or confusion. You have unusual weakness or numbness, or a faint feeling. You have severe chest or abdominal pain, vomiting, or breathing problems. MAKE SURE YOU: Understand these instructions. Will watch your condition. Will get help right away if you are not doing well or get worse. Document Released: 08/19/2006 Document Revised: 11/10/2012 Document Reviewed: [employer] Patient Information 2014 [employer]. No follow up information was provided. Extracted from: Title: Office Visit Note Author: Surya Garza MD Date: 11/05/14 Assessment/Plan Benign essential hypertension Blood pressure is well-controlled. Continue current medications. Recent laboratory studies reviewed. Report reviewed and provided. Follow-up in 3 months. Ordered: Office Visit Level 4 Est 82602 Congestive heart failure She appears to be stable and well-controlled. No change in current treatment plan recommended. Recheck in 3 months. Ordered: Office Visit Level 4 Est 52678 High cholesterol Recent laboratory studies reviewed cholesterol levels are reasonable. Continue current treatment without change. Follow-up in 3 months. Ordered: Office Visit Level 4 Est 12585 Osteoarthritis Stable no change in current treatment. Ordered: Office Visit Level 4 Est 66947 Diabetes mellitus type II Medications reviewed recent laboratory studies reviewed no change in current treatment plan A1c is well-controlled 5.6. Follow-up in 3 months. Future Scheduled TestsReferral* Return to Clinic 04/21/14 10:40 AM Referrals to Other Providers Referred by: Martha Mayes MD
--- OUTSIDE RECORDS SUMMARY | 2017-01-02 12:35 | XMS REPORT | Referral Summary ---
Author Author [facility] Organization [facility] Address Unknown Phone Unavailable Care Team Providers Care College Athletic Director Name Role Phone Ady Garza Primary Care Physician [phone] Encounter Date(s): 02/11/15 - 02/11/15 [facility] [place] [address] [place] [address] Discharge Diagnosis: Type 2 diabetes mellitus Discharge [...] DAY, # 30 tabs, 5 Refill(s), Pharmacy: [facility] #[id number], TAKE ONE TABLET BY MOUTH ONCE A [...] realistic goals. Your health care provider or staff development educator can help you make an [...] Released: 11/08/2004 Document Revised: 04/21/2014 Document Reviewed: [facility] Patient Information 2014 [employer]. No follow up information was provided. Extracted [...] does not, she gets her supplies from [employer].
--- OUTSIDE RECORDS SUMMARY | 2017-01-02 12:35 | XMS REPORT | Referral Summary ---
Author Author [facility] Organization [facility] Address Unknown Phone Unavailable Care Team Providers Care Sales Route Driver Name Role Phone Ady Garza Primary Care Physician [phone] Encounter VC Date(s): 02/10/16 - 02/10/16 [facility] [address] [place] [address] Discharge Diagnosis: Congestive heart failure (disorder) Discharge Diagnosis: Hyperlipidemia Discharge Diagnosis: Osteoarthritis Discharge Diagnosis: Benign essential hypertension Discharge Diagnosis: High cholesterol Discharge Disposition: 01-Home or Self Care Attending Physician: Surya Garaz MD Admitting Physician: Suray Garza MD Vital Signs Most recent to 1 oldest [Reference Range]: Temperature Tympanic 36.2 degC [36.6-38.1 degC] *LOW* (02/10/16 10:54 AM) Peripheral Pulse 68 bpm Rate [60-100 bpm] (02/10/16 10:54 AM) Blood Pressure 112/64 mmHg [90-140/60-90 mmHg] (02/10/16 10:54 AM) Problem List Condition Effective Dates Status [...] d) Hypertension(Confirm 2011 Active ed) Irregular heart 2011 Active rhythm(Confirmed) Hyperlipidemia(Confi Active rmed) Morbid Active [...] # 100 Each , 11 Refill(s), Pharmacy: [facility] [id number], test strips; test daily fasting; dx E11.9, Supply Start Date: 09/23/15 Status: Ordered Lubricant Eye Drops ophthalmic solution 1 drops, Eye-Both, BID, as needed for dry eyes, # 30 mL, 0 Refill(s) Start Date: 07/23/14 Status: Ordered metFORMIN 500 mg oral tablet, extended release See Instructions, TAKE 1 TABLET BY MOUTH EVERY DAY, # 30 tabs, 5 Refill(s), eRx : [facility] [id number], TAKE 1 TABLET BY MOUTH EVERY DAY [...] Author: Surya Garza MD Date: Family Medicine Cholesterol Cholesterol is a fat. Your body needs a small amount of cholesterol. Cholesterol may build up in your blood vessels. This increases your chance of having a heart attack or stroke. You cannot feel your cholesterol levels. The only way to know your cholesterol level is high is with a blood test. Keep your test results. Work with your doctor to keep your cholesterol at a good level. WHAT DO THE TEST RESULTS MEAN? Total cholesterol is how much cholesterol is in your blood. LDL is bad cholesterol. This is the type that can build up. You want LDL to be low. HDL is good cholesterol. It cleans your blood vessels and carries LDL away. You want HDL to be high. Triglycerides are fat that the body can burn for energy or store. WHAT ARE GOOD LEVELS OF CHOLESTEROL? Total cholesterol below 200. LDL below 100 for people at risk. Below 70 for those at very high risk. HDL above 50 is good. Above 60 is best. Triglycerides below 150. HOW CAN I LOWER MY CHOLESTEROL? Diet. Follow your diet programs as told by your doctor. Choose fish, white meat chicken, roasted turkey, or baked turkey. Try not to eat red meat, fried foods, or processed meats such as sausage and lunch meats. Eat lots of fresh fruits and vegetables. Choose whole grains, beans, pasta, potatoes, and cereals. Use only small amounts of olive, corn, or canola oils. Try not to eat butter, mayonnaise, shortening, or palm kernel oils. Try not to eat foods with trans fats. Drink skim or nonfat milk. Eat low-fat or nonfat yogurt and cheeses. Try not to drink whole milk or cream. Try not to eat ice cream, egg yolks, and full- fat cheeses. Healthy desserts include cristian food cake, get snaps, animal crackers, hard candy, popsicles, and low-fat or nonfat frozen yogurt. Try not to eat pastries, cakes, pies, and cookies. Exercise. Follow your exercise programs as told by your doctor. Be more active. You can try gardening, walking, or taking the stairs. Ask your doctor about how you can be more active. Medicine. Take medicine as told by your doctor. This information is not intended to replace advice given to you by your health care provider. Make sure you discuss any questions you have with your health care provider. Document Released: 11/15/2009 Document Revised: 09/09/2015 Document Reviewed: [facility] Patient Information 2016 [employer]. No follow up information was provided. Extracted from: Title: Office Visit Note Author: Surya Garza MD Date: 02/10/16 Assessment/Plan 1.Benign essential hypertension The pressures well-controlled. Medications and treatments reviewed no changes are recommended. Recent laboratory studies and report card reviewed and provided. Follow-up in 3 months. Ordered: Office Visit Level 4 Est 94730 2.Congestive heart failure (disorder) She appears euvolemic today. I don 't think dyspnea is related to worsening of CHF at this point. Continue current treatment plan without change. Recheck in 3 months. If she has worsening dyspneaover the next few weeks she'll let us now. Ordered: Office Visit Level 4 Est 82759 3.Hyperlipidemia Chronic stable no change in current treatment. Recent laboratory studies reviewed and provided. Ordered: Office Visit Level 4 Est 42947 5.Osteoarthritis Chronic and stable no change in current treatment is recommended. Ordered: Office Visit Level 4 Est 39459 Diabetes mellitus type 2 A1c is 6.3 showing good control. Vacations and treatments reviewed no changes are recommended. Recent laboratory studies reviewed report card reviewed and provided. Follow-up in 3 months.
--- OUTSIDE RECORDS SUMMARY | 2017-01-02 12:35 | XMS REPORT | Referral Summary ---
Author Author [facility] Organization [facility] Address Unknown Phone Unavailable Care Team Providers Care Wood Tank Erector Name Role Phone Ady Garza Primary Care Physician [phone] Encounter VC Date(s): 11/11/15 - 11/11/15 [facility] [address] [place] [address] Discharge Diagnosis: Type 2 diabetes mellitus Discharge Diagnosis: Sleep apnea Discharge Diagnosis: Osteoarthritis Discharge Diagnosis: Hyperlipidemia Discharge Diagnosis: Congestive heart failure (disorder) Discharge Diagnosis: Benign essential hypertension Discharge Disposition: 01-Home or Self Care Attending Physician: Surya Garza MD Admitting Physician: Surya Garza MD Vital Signs Most recent to 1 oldest [Reference Range]: Temperature Tympanic 36.7 degC [36.6-38.1 degC] (11/11/15 9:52 AM) Peripheral Pulse 80 bpm Rate [60-100 bpm] (11/11/15 9:52 AM) Respiratory Rate 16 br/min [14-20 br/min] (11/11/15 9:52 AM) Blood Pressure 102/64 mmHg [90-140/60-90 mmHg] (11/11/15 9:52 AM) Problem List Condition Effective Dates Status Health Status Informant Allergic Active rhinitis(Confirmed) Hay fever(Confirmed) Active Arthritis(Confirmed) Active Benign essential Active hypertension (disorder)(Confirmed ) Sleep related Active hypoventilation/hypo xemia in other disease(Confirmed) Congestive heart Active failure (disorder)(Confirmed ) Degenerative disk 1992 Active disease(Confirmed) Osteoarthritis(Confi 1981 Active rmed) Gall bladder Active disease(Confirmed) Hearing Active loss(Confirmed) Heart Active failure(Confirmed) High 2011 Active cholesterol(Confirme d) Hypertension(Confirm 2010 Active ed) Irregular heart 2010 [...] # 100 Each , 11 Refill(s), Pharmacy: [facility], test strips; test daily fasting; dx E11.9, Supply Start Date: 09/23/15 Status: Ordered Lubricant Eye Drops ophthalmic solution 1 drops, Eye-Both, BID, as needed for dry eyes, # 30 mL, 0 Refill(s) Start Date: 07/23/14 Status: Ordered metFORMIN 500 mg oral tablet, extended release See Instructions, TAKE 1 TABLET BY MOUTH EVERY DAY, # 30 tabs, 1 Refill(s), eRx : [facility] [id number], TAKE 1 TABLET BY MOUTH EVERY DAY Start Date: 09/26/15 Status: Ordered nitroglycerin 0.4 mg sublingual tablet See Instructions, as needed for chest pain, 1 tab by sublingual route at the 1st sign of attack; may repeat every 5 min until relief; if pain persists after 3 tab in 15 min prompt medical attention is reccommended, 0 Refill(s) Start Date: 03/04/14 Status: Ordered [place] 5 mg-325 mg oral tablet 1-2 tabs, [...] Visit Note Author: Surya Garza MD Date: 11/11/15 Assessment/Plan Benign essential hypertension Blood pressure gavino the low side. I think discontinuing carvedilol is reasonable. She'll continue to monitor blood pressures at home. Recent laboratory studies report card reviewed and provided. Follow-up in 3 months. Ordered: Office Visit Level 4 Est 23707 Congestive heart failure (disorder) She appears euvolemicno change in current treatment is recommended. Ordered: Office Visit Level 4 Est 43867 Hyperlipidemia Recent laboratory studies show good control oflipids. No change in current treatment is recommended. Report card reviewed and provided. Ordered: Office Visit Level 4 Est 31486 Osteoarthritis Chronic stable no change in current treatment. Sleep apnea She continues on CPAP no change in current treatment. Ordered: Office Visit Level 4 Est 95600 Type 2 diabetes mellitus Glucometers are well-controlled. A1c is 5.9. No change in current treatment is recommended. She's had nohypoglycemic episodes. Recheck in 3 months.
--- OUTSIDE RECORDS SUMMARY | 2017-01-02 12:35 | XMS REPORT | Referral Summary ---
Author Author [facility] Organization [facility] Address Unknown Phone Unavailable Care Team Providers Care Claims Collector Name Role Phone Ady Garza Primary Care Physician [phone] Encounter VC Date(s): 05/11/16 - 05/11/16 [facility] [address] [place] [address]- Discharge Diagnosis: Allergic rhinitis Discharge Diagnosis: Congestive heart failure (disorder) Discharge Diagnosis: Type 2 diabetes mellitus Discharge Diagnosis: Benign essential hypertension Discharge Diagnosis: Hyperlipidemia Discharge Disposition: 01-Home or Self Care Attending Physician: Surya Garza MD Admitting Physician: Surya Garza MD Vital Signs Most recent to 1 oldest [Reference Range]: Temperature Tympanic 36.4 degC [36.6-38.1 degC] *LOW* (05/11/16 10:39 AM) Peripheral Pulse 64 bpm Rate [60-100 bpm] (05/11/16 10:39 AM) Blood Pressure 100/54 mmHg [90-140/60-90 mmHg] (05/11/16 10:39 AM) Problem List Condition Effective Dates [...] # 100 Each , 11 Refill(s), Pharmacy: [facility] [id number], test strips; test daily fasting; dx E11.9, [...] DAILY, # 60 tabs, 10 Refill(s), Pharmacy: [facility] [id number], TAKE 1 TABLET BY MOUTH TWICE DAILY [...] smell coming from an ulcer or wound. This information is not intended to replace advice given to you by your health care provider. Make sure you discuss any questions you have with your health care provider. Document Released: 08/16/2001 Document Revised: 04/21/2014 Document Reviewed: [employer] Patient Information 2016 [employer]. No follow up information was provided. Extracted from: Title: Office Visit Note Author: Surya Garza MD Date: 05/11/16 Assessment/Plan 1.Allergic rhinitis, Allergic rhinitis, unspecified Chronic relatively stable. Mtoc-rav-npoewve antihistamines may be used as needed. Ordered: Office Visit Level 4 Est 32964 2.Benign essential hypertension, Essential (primary) hypertension Blood pressures well-controlled. Medications and treatments reviewed no changes are recommended. Follow-up in 3 months. Ordered: Office Visit Level 4 Est 08168 3.Congestive heart failure (disorder), Chronic systolic (congestive) heart failure Recent echo showed some mildworsening. She does continue to follow Dr. Caballero. She appears euvolemic no change in current treatment is recommended. Follow-up in 3 months. Ordered: Office Visit Level 4 Est 13670 4.Hyperlipidemia, Mixed hyperlipidemia Chronic and relatively stable. Medications and treatments reviewed no changes are recommendedrecent laboratory studies reviewed. Ordered: Office Visit Level 4 Est 78457 5.Type 2 diabetes mellitus, Type 2 diabetes mellitus without complications A1c shows good control at 6.5 but that is up from where she's been. I recommended increasingmetforminto 500 mgtwice daily. Vitamin know if glucometersin the a.m. don't improve. Follow-up in 3 months. Ordered: Office Visit Level 4 Est 80451 Orders: metFORMIN, See Instructions, TAKE 1 TABLET BY MOUTH TWICE DAILY, # 60 tabs, 10 Refill(s), Pharmacy: [facility] [id number], TAKE 1 TABLET BY MOUTH TWICE DAILY
--- OUTSIDE RECORDS SUMMARY | 2017-01-02 12:36 | XMS REPORT | Referral Summary ---
Author Organization Unknown Address Unknown Phone Unavailable Care Team Providers Care Certified Income Tax Preparer Name Role Phone Ady Garza Primary Care Physician [phone] Encounter VC Date(s): 09/29/14 - 09/29/14 [facility], [facility] [address] [place], [place] [address] Discharge Disposition: Home or Self Care Attending Physician: Homero Pink MD Vital Signs No data available for [...] rmed) Hypertension(Confirm 2011 Active ed) Irregular heart 2010 Active rhythm(Confirmed) Severe obstructive Active sleep apnea(Confirmed) Osteoarthritis(Confi 1981 Active rmed) Overweight(Confirmed Active ) Pneumonia(Confirmed) Active Rheumatic 1956 Active fever(Confirmed) Scarlet 1956 Active fever(Confirmed) Sinus 1956 Active infection(Confirmed) Sleep 2012 Active apnea(Confirmed) Type 2 diabetes 2003 Active mellitus(Confirmed) Ulcers(Confirmed) 1992 Active Chicken 195 Active pox(Confirmed) Allergies, Adverse Reactions, Alerts Substance [...] metFORMIN 500 mg oral tablet, extended release 1 tabs, Oral, Daily, # 90 tabs, 3 Refill(s), Pharmacy: [facility], 1 tabs Oral Daily Start Date: 07/15/14 Status: Ordered nitroglycerin 0.4 mg sublingual tablet [...] smoker Assessment and Plan Extracted from: Title: CPAP CHANGE Author: Monica Alatorre AUTO TUNE UP MECHANIC Date: 09/29/14 Decrease cpap pressure to auto 5-12 cm h20 per Violeta Ag Future Scheduled TestsReferral* Return to Clinic 04/21/14 10:40 AM Referrals to Other Providers Referred by: Martha Mayes MD
--- OUTSIDE RECORDS SUMMARY | 2017-01-02 12:36 | XMS REPORT | Referral Summary ---
Author Author [facility] Organization [facility] Address Unknown Phone Unavailable Care Team Providers Care Exhibit Display Representative Name Role Phone Ady Garza Primary Care Physician [phone] Encounter VC Date(s): 05/26/15 - 05/26/15 [facility] [address] [place], [place] [address] Discharge Disposition: 01-Home or [...] # 100 Each , 11 Refill(s), [facility]: [facility] [address], test strips; test daily fasting; dx E11.9, Supply Start Date: 09/23/15 Status: Ordered Lubricant Eye Drops ophthalmic solution 1 drops, Eye-Both, BID, as needed for dry eyes, # 30 mL, 0 Refill(s) Start Date: 07/23/14 Status: Ordered metFORMIN 500 mg oral tablet, extended release See Instructions, TAKE 1 TABLET BY MOUTH EVERY DAY, # 30 tabs, 5 Refill(s), eRx : [facility] [id number], TAKE 1 TABLET BY MOUTH EVERY DAY Start Date: 11/30/15 Status: Ordered nitroglycerin 0.4 mg sublingual tablet See Instructions, as needed for chest pain, 1 tab by sublingual route at the 1st sign of attack; may repeat every 5 min until relief; if pain persists after 3 tab in 15 min prompt medical attention is reccommended, 0 Refill(s) Start Date: 03/04/14 Status: Ordered [place] 5 mg-325 mg oral tablet 1-2 tabs, [...]
--- OUTSIDE RECORDS SUMMARY | 2017-01-02 12:36 | XMS REPORT | Referral Summary ---
Author Author [facility] Organization [facility] Address Unknown Phone Unavailable Care Team Providers Care Strategy Analyst Name Role Phone Ady Garza Primary Care Physician [phone] Encounter VC Date(s): 03/26/16 - 03/26/16 [facility], [facility] [place] [address] [place], [place] [address] Discharge Diagnosis: CONG on CPAP Discharge Diagnosis: Nocturnal hypoxemia Discharge Disposition: 01-Home or Self Care Attending Physician: Aramis Pineda MD Admitting Physician: Aramis Pineda MD Vital Signs Most recent to 1 oldest [Reference Range]: Peripheral Pulse 94 bpm Rate [60-100 bpm] (03/26/16 10:01 AM) Blood Pressure 112/60 mmHg [90-140/60-90 mmHg] (03/26/16 10:01 AM) SpO2 95 % (03/26/16 10:01 AM) Problem List Condition Effective Dates Status [...] # 100 Each , 11 Refill(s), Pharmacy: [facility] [id number], test strips; test daily fasting; dx E11.9, Supply Start Date: 09/23/15 Status: Ordered Lubricant Eye Drops ophthalmic solution 1 drops, Eye-Both, BID, as needed for dry eyes, # 30 mL, 0 Refill(s) Start Date: 07/23/14 Status: Ordered metFORMIN 500 mg oral tablet, extended release See Instructions, TAKE 1 TABLET BY MOUTH EVERY DAY, # 30 tabs, 5 Refill(s), eRx : [facility] [id number], TAKE 1 TABLET BY MOUTH EVERY DAY [...]
--- OUTSIDE RECORDS SUMMARY | 2017-01-02 12:36 | XMS REPORT | Referral Summary ---
Author Organization Unknown Address Unknown Phone Unavailable Care Team Providers Care Roller Structural Mill Name Role Phone Ady Garza Primary Care Physician [phone] Encounter VC Date(s): 09/29/14 - 09/29/14 [facility], [id number] [place] [address] Discharge Diagnosis: Sleep related hypoventilation/hypoxemia in other disease Discharge Diagnosis: Severe obstructive sleep apnea Discharge Disposition: Home or Self Care Attending Physician: Violeta Martinez Admitting Physician: Violeta Martinez Vital Signs Most recent to 1 oldest [Reference Range]: Peripheral Pulse 84 bpm Rate [60-100 bpm] (09/29/14 12:59 PM) Blood Pressure 106/66 mmHg [90-140/60-90 mmHg] (09/29/14 12:59 PM) Most recent to 1 oldest [Reference Range]: SpO2 95 % (09/29/14 12:59 PM) Problem List Condition Effective Dates Status [...] Daily, # 90 tabs, 3 Refill(s), Pharmacy: [facility], 1 tabs Oral Daily Start Date: [...] Office Visit Note Author: Violeta Martinez Date: 09/29/14 Assessment/Plan Severe obstructive sleep apnea - Adequate treatment with CPAP symptomatically and per objective download at current pressure withexcellent adherence to therapy. Continue CPAP with all sleep. Will narrow auto range to 5-12cm. Order for supplies to [facility]. -CPAP download reviewed with the patient and patient is complying with and benefitting from treatment. -Avoid driving , partaking in hazardous activities, or operating heavy machinery if drowsy. -Continue appropriate cleaning of the machine/humidifier and update of all supplies including mask , tubing , and filters . -Return for follow-up in [address] Live . Return/call sooner if any problems arise in the meantime. Sleep related hypoventilation/hypoxemia in other disease -Order for oxygen at 3LPM bled into CPAP sent to [facility]. Overnight oximetry to be done on APAP at 5-12cm and 3LPM of oxygen in 1month. Will call her with these results. F/ u in [address] Live for oxygen recertification and Medicare follow-up. Future Scheduled TestsReferral* Return to Clinic 04/21/14 10:40 AM Referrals to Other Providers Referred by: Martha Mayes MD
--- OUTSIDE RECORDS SUMMARY | 2017-01-02 12:36 | XMS REPORT | Referral Summary ---
Author Author [facility] Organization [facility] Address Unknown Phone Unavailable Care Team Providers Care Automobile Mechanic Motor Name Role Phone Ady Garza Primary Care Physician [phone] Encounter VC Date(s): 05/26/15 - 05/26/15 [facility], [facility] [address] [place], [place] [address] Discharge Disposition: 01-Home or Self Care Attending [...] DAY, # 30 tabs, 5 Refill(s), Pharmacy: [facility] #[id number], TAKE ONE TABLET BY MOUTH ONCE A [...]
--- OUTSIDE RECORDS SUMMARY | 2017-01-02 12:36 | XMS REPORT | Continuity of Care Document ---
Author Author [facility] Address Unknown Phone Unavailable Care Team Providers Care Pan Washer Name Role Phone Surya Garza PP Unavailable Payers Payer name Insurance type Covered democrat ID Authorization(s) Unknown Problems Condition Effective Dates (start - stop) Clinical Status Sleep Apnea, Obstructive - *Controlled Diabetes Mellitus Type 2, Uncomplicated - *Controlled [...] Dosage Effective Dates (start - stop) Status acetaminophen 500 mg tablet take 1 Tablet (500MG) by oral route every 6 hours as needed as needed 500 MG - Active spironolactone 25 mg tablet take 1 [...] % spray aerosol as directed - Active as directed - Active Immunizations Vaccine Date Status Comments pneumo (2 yrs or older) (PPV23) completed - Completed reason: other registry Zoster completed - Completed reason: other registry Tdap completed - Completed reason: source unspecified Results Test Name Date and Time Measure Units Reference Range Abnormal Flag Comments Unknown Vital Signs Date / Time: Height Weight Pulse Rate Blood Pressure Temperature /13:20:00 67.50 in 281.00 lbs 83 /min 120/62 mm[Hg] Procedures Procedure Date Unknown Encounters Encounter Location Date Patient Visit [facility] Patient Visit [facility] Patient Visit [facility] Patient Visit [facility] Patient Visit [facility] Patient Visit [facility] Patient Visit [facility] Patient Visit [facility] Patient Visit [facility] Patient Visit [facility] Shavon Roberts Advance Directives Directive Effective Date Unknown
--- NOTE | 2017-01-02 12:55 | NUR ---
ADMISSION PT ARRIVES THE UNIT WALKING. PT IS ALERT AND ORIENTED X3. LUNGS ARE CLEAR. BP A LITTLE BIT LOW CHARTED. PT REPORTED THAT BP USUALLY RUNS LOW. PT IS HERE BECAUSE OF VENTRICULAR TACHYCARDIA. IV IS IN THE LEFT WRIST. PT GETS UP BY HERSELF.
[2017-01-02] MEDS ORDERED: AMIODARONE 900 MG in NORMAL SALINE 500 ML IV SCH ×2 (13:06→19:45)
[2017-01-02] MEDS ORDERED: AMIODARONE 150 MG in NORMAL SALINE 100 ML IV ONE (13:06)
[2017-01-02 13:46] LABS: BASOPHILS % (AUTO) 0.5 % (0-2); EOSINOPHILS # (AUTO) 0.2 T/MM3 (0-0.5); EOSINOPHILS % (AUTO) 2.9 % (0-4); HCT - HEMATOCRIT 38.1 % (36-46); HGB - HEMOGLOBIN 12.5 GM/DL (12-16); IMMATURE GRANULOCYTE # (AUTO) 0.02 T/MM3 (0.00-0.03); IMMATURE GRANULOCYTE % (AUTO) 0.2 % (0.0-0.5); LYMPHOCYTES # (AUTO) 1.7 T/MM3 (1-4.8); LYMPHOCYTES % (AUTO) 20.1 % (23-45); MEAN CORPUSCULAR HGB 30.9 UUG (26-34); MEAN CORPUSCULAR HGB CONC(MCHC 32.8 GM/DL (31-37); MEAN CORPUSCULAR VOLUME 94.1 UM3 (80-100); MONOCYTES # (AUTO) 0.6 T/MM3 (0-0.8); MONOCYTES % (AUTO) 7.3 % (0-9.0); NEUTROPHILS #(AUTO)-ABSOLUTE 5.7 T/MM3 (1.8-7.7); RED BLOOD COUNT 4.05 M/MM3 (4.00-5.20); WBC - WHITE BLOOD COUNT 8.2 T/MM3 (4.5-11.0)
[2017-01-02 13:58] LABS: ALBUMIN 3.7 G/DL (3.5-5.0); ALBUMIN/GLOBULIN RATIO 1.1 RATIO (1.1-2.2); ALKALINE PHOSPHATASE 56 U/L (38-126); ALT (SGPT) 32 U/L (9-52); ANION GAP 12 MEQ/L (5-15); AST (SGOT) 21 U/L (14-36); BUN/CREATININE RATIO 14 RATIO (6-26); CALCIUM 9.3 MG/DL (8.4-10.2); CHLORIDE 101 MEQ/L (98-107); CO2 - CARBON DIOXIDE 29 MEQ/L (22-30); GLOMERULAR FILTRATION RATE 56; GLUCOSE 104 MG/DL (65-110); MAGNESIUM 1.9 MG/DL (1.6-2.3); SODIUM 142 MEQ/L (134-144); TOTAL PROTEIN 7.1 G/DL (6.3-8.2)
[2017-01-02] MEDS ORDERED: LISI2.5T2 PO (14:20)
[2017-01-02 14:27] LABS: THYROID STIM HORMONE-TSH 2.57 MIU/L (0.47-4.68)
[2017-01-02] MEDS: ENOXAPARIN 40 MG/0.4 ML INJECTION SQ SCH (14:30)
[2017-01-02] MEDS ORDERED: SODI88SP6 EA NOSTRIL (14:39)
[2017-01-02] MEDS ORDERED: --POM--ACETAMINOPHEN 500 MG TABLET PO PRN (15:15)
[2017-01-02] MEDS ORDERED: NITROGLYCERIN 0.4 MG SL PRN (15:15)
--- NOTE | 2017-01-02 16:00 | DI ---
INDICATION: ITS.REASON: arrhythmia PROCEDURE: CHEST 2-VIEWS UPRIGHT (PA \T\ LAT) Encounter: Initial COMPARISON: September 07, 2015 FINDINGS: Lungs are stable and grossly clear. Left cardiac pacemaker defibrillator. No pneumothorax or pleural effusion. Cardiac silhouette remains severely enlarged. Mediastinal contours are stable. Pulmonary vascularity appears normal. Impression: Stable chest with severe cardiomegaly. .
[2017-01-02] MEDS ORDERED: NORMAL SALINE 500 ML IV SCH (16:15)
--- NOTE | 2017-01-02 16:15 | NUR ---
BP PETER SOLANO, NURSE PRACTITIONER WAS NOTIFIED OF PT'S LOW BP CHARTED. ORDERS RECEIVED CHARTED.
[2017-01-02] MEDS: --POM--FUROSEMIDE 20 MG TABLET PO SCH (16:27)
--- NOTE | 2017-01-02 17:25 | NUR ---
BP NERY DIETZ, NURSE PRACTITIONER WAS NOTIFIED ABOUT THE PT 'S LOW BP AFTER BOLUS CHARTED. ORDERS RECEIVED FOR AN ONE TIME ORTHOSTATIC VITAL SIGNS AND STOP LISINOPRIL AND COREG CHARTED.
[2017-01-02] MEDS ORDERED: --POM--CARVEDILOL 3.125 MG TABLET PO SCH (17:30)
--- NOTE | 2017-01-02 17:52 | NUR ---
SHIFT SUMMARY PT IS LAYING IN THE BED AT THIS TIME WAITING FOR HER DINNER. PT IS PLEASANT AND COOPERATE WITH TREATMENTS AND CARE. PT IS ALERT AND ORIENTED. RA. IV IS IN THE LEFT WRIST. PT GETS UP BY HERSELF.
[2017-01-02] MEDS: METFORMIN 500 MG PO SCH (18:11)
[2017-01-02] MEDS ORDERED: SALINE EA NOSTRIL SCH (22:00)
[2017-01-02] MEDS ORDERED: --POM--PRAVASTATIN 40 MG TABLET PO SCH (22:00)
[2017-01-03] VITALS: BP 101/55; PULSE 70; RESP 16; TEMP 97.9; O2SAT 95
[2017-01-03 04:12] VITALS: BP 102/48; PULSE 76; RESP 16; TEMP 97.6; O2SAT 94
--- NOTE | 2017-01-03 05:20 | NUR ---
shift summary up in room with good balance. Denies dizziness as up. Sleeps off and on during night. Pt. does not have her CPAP here, O2 sats monitored all night with occasional brief drops to upper 80s, mostly mid 90s. Tele. indicated paced beats with occas. PVCs. Pt. denies chest pain or pressure
[2017-01-03 08:00] VITALS: BP 102/54; PULSE 71; PULSE 76; RESP 16; RESP 18; TEMP 96.9; O2SAT 96
[2017-01-03] MEDS ORDERED: SPIRONOLACTONE 50 MG PO SCH (08:00)
[2017-01-03] MEDS ORDERED: --POM--POTASSIUM CHLORIDE 10 MEQ TABLET PO SCH (08:00)
--- NOTE | 2017-01-03 08:00 | NUR ---
RECEIVED REPORT PATIENT IS ALERT AND ORIENTED. VERY TALKATIVE. CONTINUES WITH AMIODARONE DRIP AT 16.7ML/HR PER LEFT FOREARM PERIPHERAL IV. PATIENT DENIES PAIN OR ANY OTHER CONCERNS, PATIENT IS PACED 100%. RA. VSS AT THIS TIME.
[2017-01-03] MEDS: ENOXAPARIN 40 MG/0.4 ML INJECTION SQ SCH (08:27)
[2017-01-03] MEDS: --POM--FUROSEMIDE 20 MG TABLET PO SCH (08:28)
[2017-01-03] MEDS: METFORMIN 500 MG PO SCH (08:30)
[2017-01-03] MEDS ORDERED: --POM--ASPIRIN 81 MG CHEWABLE TABLET PO SCH (09:00)
[2017-01-03] MEDS ORDERED: --POM--LISINOPRIL 2.5 MG TABLET PO SCH (09:00)
--- NOTE | 2017-01-03 09:02 | NUR ---
CM IN TO VISIT PATIENT, SHE IS A&O. NO FAMILY IS PRESENT. PATIENT PLANS TO GO HOME UPON DISCHARGE. SHE CURRENTLY HAS A RADIO BOARD OPERATOR ANNOUNCER, BRIGITTE, WITH [employer] AND HAD PREVIOUSLY HAD HELP WITH HOUSEWORK BUT THAT DIDN'T WORK OUT, SHE WILL CONTACT BRIGITTE ABOUT FURTHER HELP. PATIENT DOES NEED TRANSPORTATION HOME, STATES THAT [facility] HELPS IF THEY HAVE 3-4 DAYS NOTICE. WILL SET UP WITH [employer] IF NEEDED. THIS CM CONTACT INFORMATION GIVEN. Addendum: 01/03/17 at 0904 by GARRETT GRAVES RN Amended: Links added.
--- NOTE | 2017-01-03 09:05 | NUR ---
CM LACE SCORE IS 3, NO FURTHER FOLLOW UP IS NEEDED.
--- NOTE | 2017-01-03 11:46 | NUR ---
DONNIE I SPOKE WITH DONNIE BRIGGS AT [facility] REGARDING TRANSPORTATION HOME. SHE STATES THAT IT IS REQUIRED TO SCHEDULE 3 DAYS IN ADVANCE. I ALSO TALKED TO HER ABOUT PATIENT WANTING TO SET BACK UP HOUSEKEEPING ASSISTANCE, SHE WILL FOLLOW UP WITH PATIENT ON SATURDAY. I RELAYED INFORMATION TO PATIENT, SHE HAS TRANSPORTATION SET UP WITH A FRIEND OF HER SON, TAXI VOUCHER FILLED OUT AND LEFT ON CHART IF TRANSPORTATION ISN'T AVAILABLE.
[2017-01-03 12:00] VITALS: BP 110/57; PULSE 76; RESP 16; TEMP 98; O2SAT 96
[2017-01-03] MEDS ORDERED: LISINOPRIL 2.5 MG TABLET PO SCH (13:00)
[2017-01-03] MEDS ORDERED: AMIODARONE 200 MG TABLET PO SCH (13:00)
[2017-01-03] MEDS ORDERED: CARVEDILOL 3.125 MG TABLET PO SCH (13:00)
[2017-01-03] MEDS ORDERED: AMIO200T7 PO (13:03)
--- NOTE | 2017-01-03 14:30 | NUR ---
DISCHARGED PATIENT DISCHARGE AND MEDICATION INSTRUCTIONS ARE GIVEN, PATIENT IS WHEELED OUT TO FROM DOOR WHERE SHE AND HER SON AWAITS IN THE LOBBY FOR A FRIEND TO PICK THEM UP TO HOME. PATIENT IS AMBULATORY. SHE IS CAPABLE OF WALKING TO THE CAR ON HER OWN. NO CONCERNS NOTED AT THIS TIME.
--- NOTE | 2017-01-08 10:46 | NUR ---
[facility]ED [facility] FOLLOW UP PHONE CALL #1, NO VOICE MESSAGE.
== END 2017-01-03 14:30 | disposition home or self-care (01) ==
LOC: MED 12:28
PROVIDERS: ADMIT Internal Medicine Cardiovascular Disease; ATTEND Internal Medicine Cardiovascular Disease
DX: I47.2 Ventricular tachycardia (principal); R55 Syncope and collapse; Z95.810 Presence of automatic (implantable) cardiac defibrillator; I42.9 Cardiomyopathy, unspecified; G47.30 Sleep apnea, unspecified; I25.10 Atherosclerotic heart disease of native coronary artery without angina pectoris; E78.2 Mixed hyperlipidemia; E11.9 Type 2 diabetes mellitus without complications; Z79.82 Long term (current) use of aspirin; Z79.84 Long term (current) use of oral hypoglycemic drugs; Z79.899 Other long term (current) drug therapy
CPT/HCPCS: 36415; 71020; 80053; 83735; 84443; 84484; 85025; 93005; 96365; 96366; 96372; 96375; A9270; G0378; G0379; J0282; J1650; J7050; 99218

== ENCOUNTER 2017-09-06 11:31 | Inpatient (IN) ==
--- OUTSIDE RECORDS SUMMARY | 2017-09-06 12:02 | External Medical Summary | Encounter Summary ---
:1955 Author Organization [facility] Address [address] [facility] [address] [place] [address] Phone Care Team Providers Name Role Phone Unavailable Primary Care Provider Unavailable Encounter Details Date Type Department Care Team Description 08/29/2017 Telephone [facility] Alban Aragon, RN [address] [facility] [address] [place], [place] [id number] Social History Tobacco Use Types Packs/Day Years Used Date Never Smoker Smokeless Tobacco: Never Used Alcohol Use Drinks/Week oz/Week Comments No Sex Assigned at Date Recorded Not on file as of this encounter Functional Status Functional Status Response Date of Assessment Does the patient have a hearing impairment: No 08/12/2017 Does the patient have a visual impairment: Yes 08/12/2017 Does the patient have impaired ambulation: No 08/12/2017 Does the patient have an activity of daily living (ADL) No 08/12/2017 impairment: Does the patient have an instrumental activity of daily No 08/12/2017 living (IADL) impairment: Cognitive Status Response Date of Assessment Does the patient have a cognitive impairment: No 08/12/2017 as of this encounter Miscellaneous Notes Telephone Encounter - Alban Aragon RN - 08/29/2017 8:59 AM CSTCase Management Note Plan/Intervention: JOSSIE verified with Jo Ann from [facility] that referral hasbeen received and that the pt is actually scheduled for PICC maintenance care on 09/03/2017. JOSSIE relayed this information to HHRN. Josie ([phone]). Outpt Infusion Clinic: [facility] ; fax: ) Home Infusion Company: [facility] ([phone]) (fax : [phone]) Alban Aragon RN, BSN Nurse [employer] [phone] in this encounter Plan of Treatment Not on fileas of this encounter Visit Diagnoses Not on filein this encounter
--- OUTSIDE RECORDS SUMMARY | 2017-09-06 12:02 | External Medical Summary | Encounter Summary ---
:1955 Author Organization [facility] Address [address] [facility] [address] [place] [address] Phone Care Team Providers Name Role Phone Unavailable Primary Care Provider Unavailable Reason for Visit Reason Comments Other LVAD Caregiver support Encounter Details Date Type Department Care Team Description 08/29/2017 Telephone Center for Veronica Rios RN Other ([facility] Caregiver Transplantation-Heart support) Clinic [address] [facility] [place] [address] Social History Tobacco Use Types Packs/Day Years [...] this encounter Miscellaneous Notes Telephone Encounter - Veronica Rios RN - 08/29/2017 1:55 PM CSTReceived a message from Judith HENSON regarding some concerns Radha had called with earlier this morning. Upon calling Radha back she states that her Home Health person from [facility] just "up and quit" this morning. She states she has her support defined, except for the 12-5pm slot on - because of Sydnie quitting. She sent an e-mail copy of her calendar of coverage from her caregiver team and states that her son will step up and do as much as is necessary. She states she can tell her heart failure symptoms are worsening. She has a cough, which is getting worse, and she's having frequent pvc'swhich she can feel and feels like she's going to pass out from these symptoms but hasn 't yet. She knows she's getting worse and the stress of finding a caregiver is making it worse. She can't drive but she's put up a sign in her apartment complex requesting someone to step up as support and will have someone help her put up signs at the grocery store and her holiness. This caller called and spoke with Lex Chance who states he is now agreeable to committing to extended support. Confirmed the timesoutlined on the calendar which he agrees to. He also verbalizes that he can't drive and relies on medicaid transportation. Radha informed this caller that her son relies on Medicaid transportation, her other caregiver Cuate relies on his mother for transportation, and her last caregiver Thomas cannot drive and walks. This caller attempted to reach Mckayla the [facility] for [place] to discuss emergencytransportation that had previously been discussed but she was on vacation. VM left. Expressed to Radha that having support that cannot drive could potentially be a barrier to implant as well. She states that Jessica another [facility] at [place] recommended she do 12 weeks of recovery in inpatient rehab.Educated Radha that there is no guarantee that she would qualify for inpatient rehab and that the PT/OT and our team have to deem it necessary for her to go to rehab she can't just go because she doesn't have support at home. She continued to state that [place] agreed to it and we just need to plana date for surgery. Informed Radha that we needed clearly defined support and two people needed to be called still, the transportation could be an issue, and that we can't schedule surgery until all other issues are worked out. She verbalized understanding. Informed her this caller would call back next Saturday after the holidays.in this encounter Plan of Treatment Not on fileas of this encounter Visit Diagnoses Not on filein this encounter
--- OUTSIDE RECORDS SUMMARY | 2017-09-06 12:02 | External Medical Summary | Clinical Summary ---
:1955 Author Organization [facility] Address [address] [place] [address] Phone Care Team Providers Name Role Phone Unavailable Primary Care Provider Unavailable Source Comments Some departments are not documenting in the electronic medical record. If you do not see the information that you expected, contact Release of Information in the Health Information Management department at [phone] for further assistance in locating additional records.[facility] Allergies Active Allergy Reactions Severity Noted Date Comments Codeine ANAPHYLAXIS High 05/22/2017 Morphine ANAPHYLAXIS High 05/22/2017 Penicillins ANAPHYLAXIS High 04/19/2017 Aspirin UNKNOWN Low 04/19/2017 Sulfa (Sulfonamide Antibiotics) UNKNOWN Low 04/19/2017 Current Medications Prescription Sig. Disp. Refills Start End Date Status Date sodium chloride Apply 2 sprays to Active (NASAL SPRAY each nostril as (SODIUM CHLORIDE)) directed daily. 0.65 % nasal spray nitroglycerin Place 0.4 mg under Active (NITROSTAT) 0.4 mg tongue every 5 tablet minutes as needed for Chest Pain. Max of 3 tablets, call 911. Miscellaneous Manual inflation 1 Device 0 Active [facility] blood pressure 7 monitor with digital reading and large adult cuff. vitamins, B complex Take 1 tablet by 90 tablet 3 Active tab mouth daily. 7 cholecalciferol Take 2 tablets by 90 tablet 1 Active (VITAMIN D-3) 1,000 mouth daily. 7 units tablet potassium chloride Take 1 tablet by 30 tablet 5 Active SR (K-DUR) 10 mEq mouth daily. Take 7 tablet with a meal and a full glass of water. rosuvastatin Take 1 tablet by 30 tablet 5 Active (CRESTOR) 10 mg mouth daily. 7 tablet 0.9 % SODIUM Administer 5-10 mL Active CHLORIDE (SODIUM through vein 7 CHLORIDE PF 0.9%) daily. 0.9 % flush metoprolol XL Take 0.5 tablets 90 tablet 3 Active (TOPROL XL) 25 mg by mouth daily. 7 extended release tablet milrinone Administer 29.975 100 mL Active (PRIMACOR) 200 mcg/min through 7 mcg/mL infusion vein Continuous (Port Captain from Rx). spironolactone Take 0.5 tablets 60 tablet 5 Active (ALDACTONE) 25 mg by mouth daily. 7 tablet amiodarone Take 2 tablets by Active (CORDARONE) 200 mg mouth daily. 7 tablet amiodarone TAKE 2 TABLETS BY 90 tablet 6 Active (CORDARONE) 200 mg MOUTH 2 TIMES A 7 tablet DAY UNTIL 06-23-17 AND THEN TAKE 2 TABS DAILY furosemide (LASIX) Take 2 tablets by 120 tablet 3 Active 20 mg tablet mouth twice daily. 7 aspirin EC 81 mg Take 1 tablet by 90 tablet 3 Active tablet mouth daily. Take 7 with food. levothyroxine TAKE 1 TABLET BY 90 tablet 0 Active (SYNTHROID) 50 mcg MOUTH DAILY 30 7 tablet MINUTES BEFORE BREAKFAST FOR HYPOTHYROIDISM ferrous gluconate TAKE 1 TABLET BY 90 tablet 0 Active 324 mg (38 mg iron) MOUTH DAILY WITH 7 tab BREAKFAST potassium chloride TK 1/2 T PO QD WF 10 Active (K-DUR) 10 mEq 7 tablet senna/docusate Take 1 tablet by 30 tablet 3 08/12/20 Discontinued (SENOKOT-S) 8.6/50 mouth daily. 7 17 mg tablet Active Problems Problem Noted Date Class 3 obesity in adult 07/18/2017 Cardiogenic shock (HCC) 06/10/2017 CHF (congestive heart failure) ([facility]) 06/07/2017 Paroxysmal VT ([facility]) 06/07/2017 Stage 3 chronic kidney disease 05/29/2017 Chronic combined systolic and diastolic congestive heart failure (HCC) 2016 Cardiorenal syndrome 05/02/2017 Dental decay 05/02/2017 Overview: Added automatically from request for surgery [id number] CONG and Central apnea treated with BiPAP 04/19/2017 Overview: a. ..2014 - CPAP - 5-12 cm H2O b. .2015 - BiPAP - 5-15 cm pressure c. 01.22.2016- BiPap - 10-18 cm median pressure 12.5cm She has central and obstructive apnea, schedule procedures with anesthesiology present. Diabetes type 2, controlled (HCC) 04/19/2017 Overview: a. Taking Metformin Essential hypertension 04/19/2017 Mixed hyperlipidemia 04/19/2017 Overview: a. Pravachol 40 mg HS Pulmonary hypertension 03/08/2014 Overview: a. ..2013 - Echo PAP 32 mmHg b. 04.19.2014 - Echo PAP 38 mmHg c. 04.19.2015 - Echo PAP 35 mmHg D. 05.14.2016 - Echo PAP Tr TR, unmeasured E. 05.14.2017 RHC - Right atrial pressure 16 mm at end-expiration. Right ventricular pressure 46/8 with end-diastolic 13 mmHg. PWP at end-expiration 25 mmHg. PAP at end-expiration 43/25, mean 27 mmHg. CO 4.8 L/min, CI 2.1 L/min per sq m. Mild coronary artery disease 08/15/2011 Overview: a. 08.15.2011 - [facility]: LVG 35% / LVEDP 9 - No significant coronary obstructive disease. b. 11.11.2013 - [facility] - LVEF 28% - abnl - multivessel dx vs cardiomyopathy c. 11.18.2013 - [facility]: No significant coronary obstructive disease --> preformed at [facility], [place], [place] via Madi Parmar MD d. 07.21.2015 - [facility] - LVEF 43% - abnl - sm perfusion defect w/ questionable mild anteroapical ischemia Nonischemic cardiomyopathy (HCC) 08/15/2011 Overview: a. 06.26.1999 - Echo - EF 52% - Nl RV b. 06.21.2011 - Echo - EF 36%, Lt atrial enlargement, ischemic CM w/ evidence suggestive of prior anterior MO, Nl PAP c. 215.2011 - Echo - EF 25-30% / LVIDd 4.7 cm, LVE, mild LVH, severe hypokinesis, diastolic dysfx, trace TR, RVSP 18 mmHgd. d. 3.5.2011 - BiV-ICD - Medtronic - Model [id number] (Serial: [id number]), Artial Lead Model 4076-52 (serial: [id number], RV lead Model 6947-65 (serial [id number] ), LV lead: pin plug implanted via Sidney Napier MD @ [place], [place] e.2.6.2012 - Echo - EF 35-40% / LVIDd 6.0 cm, mild LVE, mild LVH, mod global hypokinesis, diastolic dysfx, mod LAE, trace MR/TR/PI, RVSP 18 mmHg f. 2.11.2013 - EF 40-45% / LVIDd 5.9 cm, mild LVD, mild LVH, mod global hypokinesis, diastolic dysfx, Mild LAE/ALIREZA, trace MR/PI g. 3..2013 - LVG: Global hypokinesia w/ EF 35 - 40% w/ LV dilatation h. 7.17.2013 - EF 40% / LVIDd 5.5 cm, mod LV hypokinesis, diastolic dysfx, mild LAE, trace MR/TR, PAP 32 mmHg i. 8.18.2015 - EF 38% / LVIDd 6.0 cm, mild LVE/LAE, mod LV hypokinesis, mild MR , trace TR/PI, PAP 38 mmHg j. 8.18.2016 - EF 33%/ LVIDd 6.0 cm mild LVE, mod hypokinesis of anterseptum/ inferoseptum/anterior diastolic dysfx, mild LAE, mild MR, trace TR/PI, PAP 35 mmHg k. 8.16.2017 - EF 40%, LVE 6.3 cm, LVH, mod LAE, trace TR=23 mmHg Primary osteoarthritis of both knees 01/12/2005 Overview: a. x3 knee surgeries Calculus of gallbladder without cholecystitis 11/07/2000 Overview: a. 3.9.2000 - a. 3.9.2000 - Laparoscopic Cholecystectomy via Little Huang MD @ [facility] Resolved Problems Problem Noted Date Resolved Date Hypotension 06/07/2017 06/10/2017 Acute on chronic combined systolic (congestive) and 05/15/2017 06/10/2017 diastolic (congestive) heart failure Encounters Date Type Specialty Care Team Description 09/04/2017 Telephone Transplant Veronica Rios Other (Caregiver Surgery RN support for LVAD) 09/03/2017 Telephone Cardiology Tracy Vazquez LPN 08/29/2017 Telephone Transplant Veronica Riso Other (LVAD Caregiver Surgery RN support) 08/29/2017 Telephone Cardiology Alban Aragon RN 08/27/2017 Telephone Transplant Shanika Paz Other (LVAD discharge Surgery RN care plan) 08/24/2017 Telephone Transplant Veronica Rios Other (caregiver Surgery RN support for lvad) 08/19/2017 Telephone Transplant Veronica Rios Other Surgery RN 08/14/2017 Documentation Cardiology Alban Aragon RN 08/14/2017 Telephone Transplant Veronica Rios Other ([facility] Surgery RN Update) 08/13/2017 Telephone Cardiology Cleveland Bateman, Palliative Care WARPING MILL OPERATOR-PRINCIPAL SOFTWARE ENGINEER 08/13/2017 Documentation Transplant Veronica Rios, Surgery RN 08/13/2017 Orders Only Cardiology Shannon Murphy RN 08/12/2017 Office Visit Cardiology Cleveland Bateman, Palliative Care WARPING MILL OPERATOR-PRINCIPAL SOFTWARE ENGINEER (cooperative care coordination visit) 08/12/2017 Office Visit Transplant Yogi Fernández Pulmonary hypertension Surgery MD Carolyn (Primary Dx);Chronic combined systolic and diastolic congestive heart failure (HCC);Nonischemic cardiomyopathy (HCC);Stage 3 chronic kidney disease;Paroxysmal VT (HCC) 08/12/2017 Hospital Encounter Cardiology Yogi Fernández MD 08/12/2017 Hospital Encounter Lab Yogi Fernández MD systolic (congestive) and diastolic (congestive) heart failure (HCC) 08/09/2017 Orders Only Transplant Veronica Rios Chronic combined Surgery RN systolic and diastolic congestive heart failure (HCC) (Primary Dx) 08/08/2017 Pharmacy Visit 07/29/2017 Refill Transplant Hossein, Delfin Henson MD 07/22/2017 Telephone Cardiology Alban Aragon RN 07/19/2017 Telephone Transplant Veronica Rios Other (Status update Surgery RN for candidacy for LVAD) 07/18/2017 Telephone Transplant Breanne Colunga Financial/Insurance Surgery Questions (BENEFITS / INSURANCE INFORMATION ) 07/18/2017 Telephone Transplant Breanne Colunga Financial/Insurance Surgery Questions (BENEFITS / INSURANCE ) 07/18/2017 Telephone Transplant Breanne Colunga Financial/Insurance Surgery Questions (BENEFITS / INSURANCE INFORMATION ) 07/18/2017 Telephone Cardiology Cleveland Bateman, Palliative Care WARPING MILL OPERATOR-PRINCIPAL SOFTWARE ENGINEER 07/18/2017 Telephone Transplant Veronica Rios Other (24hr Care Surgery RN Approval by Insurance) 07/16/2017 Procedure visit Infusion Yogi Fernández MD 07/16/2017 Hospital Encounter Lab Yogi Fernández combined MD Carolyn systolic (congestive) and diastolic (congestive) heart failure (HCC) 07/16/2017 Office Visit Cardiology Yogi Fernández Palliative Care MD Fransico Leon Blake, WARPING MILL OPERATOR-PRINCIPAL SOFTWARE ENGINEER 07/16/2017 Office Visit Cardiology Yogi Fernández Cardiac Eval (5 week MD Carolyn f/u ) 07/16/2017 Pharmacy Visit 07/15/2017 Telephone Marci Doll 07/15/2017 Telephone Cardiology Taylor, Follow-up Phone Call NATIVIDAD Mckeon 07/11/2017 Documentation Cardiology Pedrito Lobo, Lab Results ADDICTION SOCIAL WORKER 07/05/2017 Pharmacy Visit 07/03/2017 Telephone Cardiology Pedrito Lobo, Lab Request ADDICTION SOCIAL WORKER 07/02/2017 Office Visit Cardiology Mukesh Emmanuel, Follow Up (3 week EVELYNE LARIOS-Vaibhav recheck); Labs Only; Heart Failure; Medications Only; Chest Pain; Palpitations; Dizziness 07/02/2017 Hospital Encounter Lab Alan Forte Other cardiomyopathies MD Vaibhav (HCC) 07/02/2017 Orders Only Cardiology Mukesh Emmanuel Chronic combined ISIDRO LARIOSP-C systolic and diastolic congestive heart failure (HCC) (Primary Dx) 06/28/2017 Pharmacy Visit 06/27/2017 Pharmacy Visit 06/25/2017 Telephone Marci Doll 06/25/2017 Pharmacy Visit 06/24/2017 Pharmacy Visit 06/21/2017 Telephone Marci Doll 06/18/2017 Pharmacy Visit 06/17/2017 Telephone Marci Doll 06/14/2017 Telephone Marci Doll 06/14/2017 Telephone Transplant Breanne Colunga Financial/Insurance Surgery Questions (BENEFITS / INSURANCE INFORMATION ) 06/13/2017 Telephone Marci Doll 06/13/2017 Telephone Transplant Roberto Albright (PICC line Surgery GEREMIAS Llamas problem) 06/12/2017 Telephone Cardiology Taylor, Medical Question (by NATIVIDAD Mckeon HHRN) 06/10/2017 Hospital Encounter Cardiology Alton Cronin MBBS 06/07/2017 Hospital Encounter Alton Cronin, CHF (congestive heart - MBBS failure) ([facility]) 06/11/2017 Evelio Catalan MD Weiford, Brian C, MD 06/07/2017 Office Visit Cardiology Lupe Couch, Follow Up (4 week PA-C recheck per July Ordaz) 06/07/2017 Documentation Cardiology Mily Su from Last 3 Months Immunizations Name Dates Previously Given Next Due Flu Vaccine=>6 Months Quadrivalent PF 06/09/2017 Pneumococcal Vaccine (23-Juliet Adult) 04/04/2012 Tdap Vaccine 07/18/2017, 09/02/2004 Varicella-Zoster Vaccine (Shingles) 04/04/2012 Social History Tobacco Use Types Packs/Day Years Used Date Never Smoker Smokeless Tobacco: Never Used Alcohol Use Drinks/Week oz/Week Comments No Sex Assigned at Date Recorded Not on file Last Filed Vital Signs Vital Sign Reading Time Taken Blood Pressure 112/56 08/12/2017 3:10 PM BUSINESS TRAVEL CONSULTANT Pulse 86 08/12/2017 3:10 PM BUSINESS TRAVEL CONSULTANT Temperature 36.3 C (97.4 F) 06/11/2017 6:26 AM CDT Respiratory Rate 18 05/22/2017 2:53 PM CDT Oxygen Saturation 93% 08/12/2017 3:10 PM BUSINESS TRAVEL CONSULTANT Inhaled Oxygen Concentration - - Weight 119.7 kg (264 lb) 08/12/2017 3:10 PM BUSINESS TRAVEL CONSULTANT Height 170.2 cm (5' 7") 08/12/2017 3:10 PM BUSINESS TRAVEL CONSULTANT Body Mass Index 41.35 08/12/2017 3:10 PM BUSINESS TRAVEL CONSULTANT Plan of Treatment Health Maintenance Due Date Last Done Comments PHYSICAL (COMPREHENSIVE) EXAM 1962 DILATED EYE EXAM 1973 FOOT EXAM 1973 CERVICAL CANCER SCREENING 1985 BREAST CANCER SCREENING 1995 COLORECTAL CANCER SCREENING 2005 HBA1C 11/11/2017 05/14/2017 MICROALBUMIN 05/14/2018 05/14/2017 TETANUS VACCINE 07/18/2027 07/18/2017, 09/02/2004 PNEUMONIA VACCINE (DM) Completed 04/04/2012 SHINGLES VACCINE Completed 04/04/2012 HEPATITIS C SCREENING Completed 05/14/2017 INFLUENZA VACCINE Completed 06/09/2017 PERTUSSIS VACCINE Completed 07/18/2017, 09/02/2004 Procedures Procedure Name Priority Date/Time Associated Diagnosis Comments ECG-SCAN 07/29/2017 2:23 PM Results for this BUSINESS TRAVEL CONSULTANT procedure are in the results section. ECG-SCAN 06/14/2017 10:43 AM Results for this CDT procedure are in the results section. ECG-SCAN 06/14/2017 10:23 AM Results for this CDT procedure are in the results section. ECG-SCAN 06/14/2017 10:23 AM Results for this CDT procedure are in the results section. ECG-SCAN 06/14/2017 10:23 AM Results for this CDT procedure are in the results section. ECG-SCAN 06/14/2017 10:23 AM Results for this CDT procedure are in the results section. ECG-SCAN 06/14/2017 10:22 AM Results for this CDT procedure are in the results section. ECG-SCAN 06/14/2017 10:22 AM Results for this CDT procedure are in the results section. ECG-SCAN 06/14/2017 10:22 AM Results for this CDT procedure are in the results section. ECG-SCAN 06/14/2017 10:22 AM Results for this CDT procedure are in the results section. ECG-SCAN 06/14/2017 10:22 AM Results for this CDT procedure are in the results section. ECG-SCAN 06/10/2017 2:15 PM Results for this CDT procedure are in the results section. CONSULT IV THERAPY STAT 06/07/2017 4:58 PM TEAM CDT from Last 3 Months Results 2-D + DOPPLER ECHOCARDIOGRAM (08/12/2017 2:39 PM) Component Value Ref Range BSA 2.38 m2 Referring Provider Surya Garza CV ECHO PV ULTRASONIC SEAMING MACHINE OPERATOR Татьяна RN LVIDD 6.3 3.9 - 5.3 cm IVS 1.0 0.6 - 0.9 cm PW 1.0 0.6 - 0.9 cm LVIDS 5.5 cm LA volume 44.0 22 - 52 mL LA size 4.6 2.7 - 3.8 cm AV peak velocity 1.2 m/s TDI e' 0.100 m/s Vn Nyquist 0.34 m/s Radius 0.4 cm Mr max gene 4.6 m/s TV rest pulmonary artery pressure 36 mmHg Right Ventricular Basal Diameter 3.1 2.5 - 4.1 cm Right Ventricular Mid Diameter 2.6 1.9 - 3.5 cm Right Ventricular Long Diameter 7.9 5.9 - 8.3 cm Right Atrial Area 14.8 <=18 cm2 Right Atrial Major Dimension 5.4 <=5.3 cm Right Heart Systolic Mmode TAPSE 1.7 cm MV Peak E Gene PW 0.900 m/s MV Peak A Gene 1.100 m/s FS 12.70 28 - 44 % EF 21.59 % Left Atrium Index 18.49 10 - 32 MR PISA EROA 0.07 cm2 E/A ratio 0.82 E/E' ratio 9.00 MV vena contracta 0.50 cm ECHO EF 25 % Specimen Performing Laboratory OTHER OUTSIDE LAB Narrative Severe LV systolic dysfunction Mild LV diastolic dysfunction Spherical, mildly dilated LV Mild bi-atrial enlargement Mild pulmonary hypertension Compared to 05/14/17 the appearance is similar CBC AND DIFF (08/12/2017 12:41 PM)Only the most recent of2 resultswithin the time period is included. Component Value Ref Range White Blood Cells 11.6 (H) 4.5 - 11.0 K/UL RBC 4.02 4.0 - 5.0 M/UL Hemoglobin 12.1 12.0 - 15.0 GM/DL Hematocrit 35.6 (L) 36 - 45 % MCV 88.5 80 - 100 FL MCH 30.1 26 - 34 PG MCHC 34.0 32.0 - 36.0 G/DL RDW 15.1 (H) 11 - 15 % Platelet Count 339 150 - 400 K/UL MPV 6.8 (L) 7 - 11 FL Neutrophils 77 41 - 77 % Lymphocytes 13 (L) 24 - 44 % Monocytes 8 4 - 12 % Eosinophils 1 0 - 5 % Basophils 1 0 - 2 % Absolute Neutrophil Count 8.90 (H) 1.8 - 7.0 K/UL Absolute Lymph Count 1.50 1.0 - 4.8 K/UL Absolute Monocyte Count 0.90 (H) 0 - 0.80 K/UL Absolute Eosinophil Count 0.10 0 - 0.45 K/UL Absolute Basophil Count 0.10 0 - 0.20 K/UL Specimen Performing Laboratory Blood MAIN LAB [address] [place] [address] BASIC METABOLIC PANEL (08/12/2017 12:41 PM)Only the most recent of12 resultswithin the time period is included. Component Value Ref Range Sodium 139 137 - 147 MMOL/L Potassium 3.6 3.5 - 5.1 MMOL/L Chloride 99 98 - 110 MMOL/L CO2 30 21 - 30 MMOL/L Anion Gap 10 3 - 12 Glucose 175 (H) 70 - 100 MG/DL Blood Urea Nitrogen 18 7 - 25 MG/DL Creatinine 1.39 (H) 0.4 - 1.00 MG/DL Calcium 9.5 8.5 - 10.6 MG/DL eGFR Non 39 (L) >60 mL/min Comment: The eGFR is not validated for use in drug dosing adjustments.Continue to use estimated creatinine clearance per dosing reference text.Please contact the Clinical Pharmacist for questions. eGFR 47 (L) >60 mL/min Comment: The eGFR is not validated for use in drug dosing adjustments.Continue to use estimated creatinine clearance per dosing reference text.Please contact the Clinical Pharmacist for questions. Specimen Performing Laboratory Blood MAIN LAB [address] [place] [id number] ECG-SCAN (07/29/2017 2:23 PM) Narrative Ordered by an unspecified provider. MAGNESIUM (07/16/2017 1:28 PM)Only the most recent of6 resultswithin the time period is included. Component Value Ref Range Magnesium 2.1 1.6 - 2.6 mg/dL Specimen Performing Laboratory Blood MAIN LAB [address] [place] [address] CBC (07/02/2017 12:31 PM)Only the most recent of5 resultswithin the time period is included. Component Value Ref Range White Blood Cells 9.1 4.5 - 11.0 K/UL RBC 4.31 4.0 - 5.0 M/UL Hemoglobin 13.1 12.0 - 15.0 GM/DL Hematocrit 38.9 36 - 45 % MCV 90.3 80 - 100 FL MCH 30.4 26 - 34 PG MCHC 33.6 32.0 - 36.0 G/DL RDW 15.0 11 - 15 % Platelet Count 309 150 - 400 K/UL MPV 6.8 (L) 7 - 11 FL Specimen Performing Laboratory Blood [facility] MAIN LAB [address] [place], [place] [address] [address] ECG-SCAN (06/14/2017 10:43 AM) Narrative Ordered by an unspecified provider. ECG-SCAN (06/14/2017 10:23 AM) Narrative Ordered by an unspecified provider. ECG-SCAN (06/14/2017 10:23 AM) Narrative Ordered by an unspecified provider. ECG-SCAN (06/14/2017 10:23 AM) Narrative Ordered by an unspecified provider. ECG-SCAN (06/14/2017 10:23 AM) Narrative Ordered by an unspecified provider. ECG-SCAN (06/14/2017 10:22 AM) Narrative Ordered by an unspecified provider. ECG-SCAN (06/14/2017 10:22 AM) Narrative Ordered by an unspecified provider. ECG-SCAN (06/14/2017 10:22 AM) Narrative Ordered by an unspecified provider. ECG-SCAN (06/14/2017 10:22 AM) Narrative Ordered by an unspecified provider. ECG-SCAN (06/14/2017 10:22 AM) Narrative Ordered by an unspecified provider. DEVICE EVALUATION - ICD (06/10/2017 5:40 PM) Component Value Ref Range Generator Solar Installer Technician Medtronic Generator Model # viva s BAGGAGE SCREENER-D [id number] Generator Serial # [id number] Generator Implnat Date 09/06/2015 Device Mode DDDR Lower Rate Limit 60 Atrial Lead Solar Installer Technician Medtronic Atrial Lead Model # 4076 52cm Atrial Lead Serial # [id number] Atrial Lead Implant Date 11/05/2011 RV Lead Solar Installer Technician Medtronic RV Lead Model # 6947 65cm RV Lead Serial # [id number] RV Lead Implant Date 11/05/2011 LV Lead Solar Installer Technician Medtronic LV Lead Model # 4968-35 (epicardial) LV Lead Serial # [id number] LV Lead Implant Date 12/06/2011 Upper Rate Limit 130 Sensor Rate Limit 120 Pace AV Delay 130 Sense AV Delay 110 VT Monitor 133 VT Detect Rate (bpm) 167 VF Detect Rate (bpm) 188 Device Type BAGGAGE SCREENER-D Device Implanted By [facility] Date of Last Programming 05/30/17 HF Patient Yes EP Device Followed By Other Device [place] Transmitter Compatible Carelink Express EP Device Followed by Name NAH Specimen Performing Laboratory OTHER OUTSIDE LAB Narrative [facility] IP Check by MDT rep for report of palpitations. Report since 06/07/17. There is no documentation of check on 06/07/17. One VT episode on 06/07/17 terminated by #1 burst. V rates 188 bpm. 18 sec duration. Optivol indicates possible fluid retention. LV outputs changed based on thresholds. Remainder of check WNL. See attached for more information. Routed to [facility] for review. ECG-SCAN (06/10/2017 2:15 PM) Narrative Ordered by an unspecified provider. TROPONIN-I (06/07/2017 11:45 PM)Only the most recent of2 resultswithin the time period is included. Component Value Ref Range Troponin-I 0.03 0.0 - 0.05 NG/ML Specimen Performing Laboratory MAIN LAB [address] [place] [address] POC GLUCOSE (06/07/2017 9:10 PM) Component Value Ref Range Glucose, POC 107 (H) 70 - 100 MG/DL Specimen Performing Laboratory MAIN LAB [address] [place] [address] LINE PLCMT 1V CXR (06/07/2017 7:37 PM) Specimen Performing Laboratory [facility] RAD RESULTS Impressions 1.Interval placement of right PICC with the distal tip obscured by the cardiac conduction leads but with the tip at least in the region of the upper to mid SVC. 2.Prominence of bilateral nay, which could represent adenopathy as seen on CT chest from May 14, 2017. 3.Stable enlargement of the cardiac silhouette. Preliminary findings were discussed with the IV therapy team at 8:45 PM on 06/07. By my electronic signature, I attest that I have personally reviewed the images for this examination and formulated the interpretations and opinions expressed in this report Finalized by Aramis Harding M.D. on 06/07/2017 9:28 PM. Dictated by Chris Trinh M.D. on 06/07/2017 8:52 PM. Narrative Procedure: LINE PLCMT 1V CXR Clinical Indication: PICC line placement Comparison: Chest radiograph from May 14, 2017. CT chest from May 14, 2017. Findings: Interval placement of right PICC with the distal tip obscured by the cardiac conduction leads. The tip of the PICC is at least within the upper to mid SVC. Left chest wall cardiac conduction device remains in similar position. There is stable enlargement of the cardiac silhouette without pulmonary vascular congestion. No pleural effusion, pneumothorax, or focal consolidation. There is prominence of bilateral nay. Procedure Note Interface, Radiant Results - 06/07/2017 9:31 PM CDT Procedure: LINE PLCMT 1V CXR Clinical Indication: PICC line placement Comparison: Chest radiograph from May 14, 2017. CT chest from May 14, 2017. Findings: Interval placement of right PICC with the distal tip obscured by the cardiac conduction leads. The tip of the PICC is at least within the upper to mid SVC. Left chest wall cardiac conduction device remains in similar position. There is stable enlargement of the cardiac silhouette without pulmonary vascular congestion. No pleural effusion, pneumothorax, or focal consolidation. There is prominence of bilateral nay. IMPRESSION 1. Interval placement of right PICC with the distal tip obscured by the cardiac conduction leads but with the tip at least in the region of the upper to mid SVC. 2. Prominence of bilateral nay, which could represent adenopathy as seen on CT chest from May 14, 2017. 3. Stable enlargement of the cardiac silhouette. Preliminary findings were discussed with the IV therapy team at 8:45 PM on 06/07. By my electronic signature, I attest that I have personally reviewed the images for this examination and formulated the interpretations and opinions expressed in this report Finalized by Aramis Harding M.D. on 06/07/2017 9:28 PM. Dictated by Chris Trinh M.D. on 06/07/2017 8:52 PM. URINALYSIS, MICROSCOPIC (06/07/2017 5:02 PM) Component Value Ref Range WBCs,UA 2-10 0 - 2 /HPF RBCs,UA 0-2 0 - 3 /HPF MucousUA TRACE Bacteria,UA PACKED (A) NEG-NEG Squamous Epithelial Cells 0-2 0 - 5 Specimen Performing Laboratory Urine MAIN LAB [address] [place] [address] URINALYSIS DIPSTICK (06/07/2017 5:02 PM) Component Value Ref Range Color,UA YELLOW Turbidity,UA 1+ (A) CLEAR-CLEAR Specific [place]-Urine 1.006 1.003 - 1.035 pH,UA 6.0 5.0 - 8.0 Protein,UA NEG NEG-NEG Glucose,UA NEG NEG-NEG Ketones,UA 1+ (A) NEG-NEG Bilirubin,UA NEG NEG-NEG Blood,UA NEG NEG-NEG Urobilinogen,UA NORMAL NORM-NORMAL Nitrite,UA POS (A) NEG-NEG Leukocytes,UA TRACE (A) NEG-NEG Urine Ascorbic Acid, UA NEG NEG-NEG Specimen Performing Laboratory Urine MAIN LAB [address] [place] [address] BNP (B-TYPE NATRIURETIC PEPTI) (06/07/2017 5:02 PM) Component Value Ref Range B Type Natriuretic Peptide 94.0 0 - 100 PG/ML Specimen Performing Laboratory Blood MAIN LAB [address] [place] [id number] LACTIC ACID(LACTATE) (06/07/2017 5:02 PM) Component Value Ref Range Lactic Acid 1.0 0.5 - 2.0 MMOL/L Specimen Performing Laboratory Blood MAIN LAB [address] [place] [address] COMPREHENSIVE METABOLIC PANEL (06/07/2017 5:02 PM) Component Value Ref Range Sodium 137 137 - 147 MMOL/L Potassium 4.1 3.5 - 5.1 MMOL/L Chloride 101 98 - 110 MMOL/L Glucose 116 (H) 70 - 100 MG/DL Blood Urea Nitrogen 11 7 - 25 MG/DL Creatinine 1.18 (H) 0.4 - 1.00 MG/DL Calcium 9.5 8.5 - 10.6 MG/DL Total Protein 7.4 6.0 - 8.0 G/DL Total Bilirubin 0.7 0.3 - 1.2 MG/DL Albumin 3.8 3.5 - 5.0 G/DL Alk Phosphatase 42 25 - 110 U/L AST (SGOT) 16 7 - 40 U/L CO2 26 21 - 30 MMOL/L ALT (SGPT) 5 (L) 7 - 56 U/L Anion Gap 10 3 - 12 eGFR Non 47 (L) >60 mL/min Comment: The eGFR is not validated for use in drug dosing adjustments.Continue to use estimated creatinine clearance per dosing reference text.Please contact the Clinical Pharmacist for questions. eGFR 56 (L) >60 mL/min Comment: The eGFR is not validated for use in drug dosing adjustments.Continue to use estimated creatinine clearance per dosing reference text.Please contact the Clinical Pharmacist for questions. Specimen Performing Laboratory Blood MAIN LAB [address] [place] [id number] from Last 3 Months
--- OUTSIDE RECORDS SUMMARY | 2017-09-06 12:02 | External Medical Summary | Encounter Summary ---
:1955 Author Organization [facility] Address [address] [place] [address] Phone Care Team Providers Name Role Phone Unavailable Primary Care Provider Unavailable Reason for Visit Reason Comments Weight Gain Encounter Details Date Type Department Care Team Description 09/03/2017 Telephone [facility] Linda Vazquez LPN Weight Gain [address] [facility] BH [address] [place], [place] [id number] Social History Tobacco Use Types Packs/Day Years [...] this encounter Miscellaneous Notes Telephone Encounter - Linda Vazquez LPN - 09/03/2017 10:56 AM AUTO BODY WORKER Formatting of this note may be different from the original. Call received from pt reporting weight gain over night. Pt reports weights below. BS running high ranging from 134-185. Pt reports she had 5 pre-syncopal episodes with nausea and visual changes lastingabout 10 minutes then she had a "a little" chest pain. Pt describes as "just a little discomfort". Pt did not need to take any nitrates. Pt admits she is having increased SOA that is worse when she first lies down then resolves. Pt report palpitations when she first lies down that resolves after 20-30minutes. Increase dry cough. Pt reports increased edema to ankles and increased abdominal ankles. Reviewed medications with pt and pt reports compliance. Pt reports compliance with low Na diet and 1.5 L fluid restriction. Pt reports "aching" to L chest rating 6.5/10. Pt states she will try a nitrate. Pt advised is chest pain is significant and will call 911 if CP/SOA does not resolve. Routing to JESSICA pool. Date Weight B/P Pulse 09/03/17 260.4 113/69 77 09/02/17 260.2 110/70 77 09/01/17 257.8 117/70 77 08/31/17 256.6 107/80 79 08/30/17 256.0 111/74 79 08/29/17 256.8 111/67 80 08/28/17 257.0 112/69 79 08/25/17 257.2 114/62 77 08/12/17 OV weight 264.0 in this encounter Plan of Treatment Not on fileas of this encounter Visit Diagnoses Not on filein this encounter
--- OUTSIDE RECORDS SUMMARY | 2017-09-06 12:02 | External Medical Summary | Continuity of Care Document ---
:1955 Author Organization [facility] Care Team Providers Name Role Phone [employer] Unavailable Unavailable Encounters Location Location Encounter Encounter Reason Attending ADM DC Status Source Details Type Number For Provider Date Date Visit OUTPATIENT [id number] SEBAS 05/01 05/01 Active The DENISE /2016 [facility] OP SURGERY [id number] YESI 05/17 Active The SWETABACH [facility] OUTPATIENT [id number] MARIO 05/22 05/22 Active The JAYLYN /2016 [facility] OUTPATIENT [id number] DANYEL KEAST 05/30 05/30 Active The [facility] OUTPATIENT [id number] DANYEL KEAST 05/30 05/30 Active The [facility] OUTPATIENT [id number] PEMA GAMA 06/07 Active [facility] INPATIENT [id number] DELIO 06/07 06/11 Active The JORDI /2016 [facility] OUTPATIENT [id number] SIOBHAN 06/10 Active The MUÑIZ [facility] OUTPATIENT [id number] SEP 11 Active The MARCIA [facility] OUTPATIENT [id number] SEBAS 07/16 07/16 Active The DENISE [facility] OUTPATIENT [id number] JOSTIN 07/16 07/16 Active The RAJI /2016 [facility] OUTPATIENT [id number] SEBAS 07/16 07/16 Active The DENISE [facility] OUTPATIENT [id number] SEBAS 08/12 08/12 Active The [facility] O Active The [facility]
--- OUTSIDE RECORDS SUMMARY | 2017-09-06 12:03 | External Medical Summary | Encounter Summary ---
:1955 Author Organization [facility] Address [address] [facility] [address] [place] [address] Phone Care Team Providers Name Role Phone Unavailable Primary Care Provider Unavailable Reason for Visit Reason Comments Palliative Care Encounter Details Date Type Department Care Team Description 08/13/2017 Telephone [facility] Cleveland Bateman, Palliative Care [address] FRANCISCON-PARLIAMENTARY ARCHIVIST [facility] [address] [place] [address] [place] [address] [phone] Social History Tobacco Use Types Packs/Day Years [...] this encounter Miscellaneous Notes Telephone Encounter - Cleveland Bateman APRN-NP - 08/13/2017 4:19 PM INTERNET SOURCER Palliative Care Note Spoke with Renetta Bowers ([phone]), [facility] Palliative HH Nurse, in f/u to yesterday's OV. Reviewed that patient does not have social support to allow for proceeding with LVAD & is not a transplant candidate. Ongoing supportive plan of care continuous inotrope infusion for symptom palliation, and assessment of evolution of condition and related goals of care discussions. May contact myself orHF team for support as care progresses. Verbalizes understanding. Renetta explains that patient will actually likely not continue to qualify for ongoing HH support in the next couple/few weeks. She is working with patient on proper pump use, med bag change, etc and plan for outpatient establishment for PICC line care. She will contact team when aware of discharge date. Informed Renetta that we have an RNCM as a good contact for related arrangements. Will provide update to RNCM. Cleveland Bateman APRN, PARLIAMENTARY ARCHIVIST-C Palliative Care--Outpatient Heart Failure Pager: Office: in this encounter Plan of Treatment Not on fileas of this encounter Visit Diagnoses Not on filein this encounter
--- OUTSIDE RECORDS SUMMARY | 2017-09-06 12:03 | External Medical Summary | Encounter Summary ---
:1955 Author Organization [facility] Address [address] [place] [address] Phone Care Team Providers Name Role Phone Unavailable Primary Care Provider Unavailable Encounter Details Date Type Department Care Team Description 08/12/2017 Hospital Encounter Clinlab Yogi Fernández, Chronic combined [address] MD systolic [place], [place] [address] [place] (congestive) and [address] diastolic [place] [address] (congestive) heart [place], [place] failure (HCC) [address] [phone] Social History Tobacco Use Types Packs/Day Years [...] impairment: No 08/12/2017 as of this encounter Medications at Time of Discharge Medication Sig. Disp. Refills Start Date End Date 0.9 % SODIUM CHLORIDE Administer 5-10 mL 06/11/2017 (SODIUM CHLORIDE PF through vein daily. 0.9%) 0.9 % flush amiodarone (CORDARONE) TAKE 2 TABLETS BY 90 tablet 6 06/11/2017 200 mg tablet MOUTH 2 TIMES A DAY UNTIL 06-23-17 AND THEN TAKE 2 TABS DAILY amiodarone (CORDARONE) Take 2 tablets by 07/02/2017 200 mg tablet mouth daily. aspirin EC 81 mg tablet Take 1 tablet by mouth 90 tablet 3 07/16/2017 daily. Take with food. cholecalciferol (VITAMIN Take 2 tablets by 90 tablet 1 05/17/2017 D-3) 1,000 units tablet mouth daily. ferrous gluconate 324 mg TAKE 1 TABLET BY MOUTH 90 tablet 0 07/29/2017 (38 mg iron) tab DAILY WITH BREAKFAST furosemide (LASIX) 20 mg Take 2 tablets by 120 tablet 3 07/16/2017 tablet mouth twice daily. levothyroxine TAKE 1 TABLET BY MOUTH 90 tablet 0 07/29/2017 (SYNTHROID) 50 mcg DAILY 30 MINUTES tablet BEFORE BREAKFAST FOR HYPOTHYROIDISM metoprolol XL (TOPROL Take 0.5 tablets by 90 tablet 3 06/12/2017 XL) 25 mg extended mouth daily. release tablet milrinone (PRIMACOR) 200 Administer 29.975 100 mL 06/11/2017 mcg/mL infusion mcg/min through vein Continuous (Atmospheric Sciences Professor from Rx). Miscellaneous Medical Manual inflation blood 1 Device 0 05/07/2017 Supply [facility] pressure monitor with digital reading and large adult cuff. nitroglycerin Place 0.4 mg under (NITROSTAT) 0.4 mg tongue every 5 minutes tablet as needed for Chest Pain. Max of 3 tablets, call 911. potassium chloride TK 1/2 T PO QD WF 10 07/03/2017 (K-DUR) 10 mEq tablet potassium chloride SR Take 1 tablet by mouth 30 tablet 5 05/30/2017 (K-DUR) 10 mEq tablet daily. Take with a meal and a full glass of water. rosuvastatin (CRESTOR) Take 1 tablet by mouth 30 tablet 5 05/30/2017 10 mg tablet daily. sodium chloride (NASAL Apply 2 sprays to each SPRAY (SODIUM CHLORIDE)) nostril as directed 0.65 % nasal spray daily. spironolactone Take 0.5 tablets by 60 tablet 5 07/02/2017 (ALDACTONE) 25 mg tablet mouth daily. vitamins, B complex tab Take 1 tablet by mouth 90 tablet 3 05/17/2017 daily. as of this encounter Plan of Treatment Not on fileas of this encounter Results CBC AND DIFF (08/12/2017 12:41 PM) Component Value Ref Range White Blood Cells [...] - 0.20 K/UL Specimen Performing Laboratory Blood [facility] MAIN LAB [address] [place] [address] BASIC METABOLIC PANEL (08/12/2017 12:41 PM) Component Value Ref Range Sodium 139 137 [...] Pharmacist for questions. Specimen Performing Laboratory Blood [facility] MAIN LAB [address] [place] [address] in this encounter Visit Diagnoses Diagnosis Chronic combined systolic and diastolic congestive heart failure (HCC) Chronic combined systolic and diastolic heart failure in this encounter Admitting Diagnoses Diagnosis Chronic combined systolic (congestive) and diastolic (congestive) heart failure (HCC) Chronic combined systolic (congestive) and diastolic (congestive) heart failure in this encounter
--- OUTSIDE RECORDS SUMMARY | 2017-09-06 12:03 | External Medical Summary | Encounter Summary ---
:1955 Author Organization [facility] Address [address] [facility] [address] [place] [address] Phone Care Team Providers Name Role Phone Unavailable Primary Care Provider Unavailable Encounter Details Date Type Department Care Team Description 08/14/2017 Documentation [facility] Ablan Aragon, RN [address] [facility] [address] [place], [place] [id number] Social History Tobacco Use Types Packs/Day Years [...] impairment: No 08/12/2017 as of this encounter Progress Notes Alban Aragon RN - 08/14/2017 9:43 AM CSTCase Management Note Plan: Pt on inotrope drip. HH will stop soon and pt will need maintenance PICC care set up at an outpt infusion clinic. NCM to assist with referral. Intervention: EMR reviewed. Pt familiar to NCM from previous encounter. Pt is a 61 y/o F who has combined systolic and diastolic HF. She is currently on continuous milrinone infusion. [facility] [place] follows pt and has informed the clinic that pt will meet her HH goal soon and therefore will not qualify for HH by next month. SERGE spoke with Phuong her plan was to see pt in the next couple of weeks to reassess pt's competency in changing the bag, battery, and flushing the line daily. Phuong stated that pt has been used to managing the line minus the dressing changes. SERGEM has reached out to [facility] and spoke to Katrina. Per Katrina, they accept outside provider's order and just have their hospitalist sign off on it. [facility] verified that pt has active Medicare and [place] Medicaid ([place]). The infusion clinic accepts pt's insurance and will be able to provide weekly maintenance PICC care. [facility] notified pt of above plan. Pt stated she is getting used to the PICC care and understands that the dressing changes and biweekly lab draws will be performed at [facility]. NC spent over half an hour on the phone redirecting pt on above plan. Pt is apprehensive after hisappointment with Dr. Fernández when she was informed that she will not be candidate for VAD due to lack of home support. Pt stated several times that she is a fighter and will not give up. Pt will have a family meeting in a month to address these concerns. Pt verbalized understanding of above PICC maintenance care. Pt denied current CM needs. NCM will f/u with pt before the end of the month to remind herof the set up for the outpt infusion clinic. HH Agency: [facility] (O) [phone] --stopping by the end of the month.-- Home Infusion Company: [facility] ([phone]) (fax: [phone]) Outpt Infusion Clinic beginning September 02: [facility] ; fax: [phone]) Alban Aragon RN, BSN Nurse Electrical Appliance Servicer [phone] this encounter Plan of Treatment Not on fileas of this encounter Visit Diagnoses Diagnosis Combined systolic and diastolic heart failure, unspecified heart failure chronicity (HCC) - Primary in this encounter
--- OUTSIDE RECORDS SUMMARY | 2017-09-06 12:03 | External Medical Summary | Encounter Summary ---
:1955 Author Organization [facility] Address [address] [facility] [address] [place] [address] Phone Care Team Providers Name Role Phone Unavailable Primary Care Provider Unavailable Reason for Visit Reason Comments Other LVAD discharge care plan Encounter Details Date Type Department Care Team Description 08/27/2017 Telephone Center for Shanika Paz RN Other (LVAD discharge Transplantation-Heart [phone] care plan) Clinic (Fax) [address] [facility] [place] [address] Social History Tobacco Use Types [...] this encounter Miscellaneous Notes Telephone Encounter - Shanika Paz RN - 08/27/2017 10:27 AM CSTReceived call back from Hillary, staff director, at [facility] (call back number ext [phone]). Clarified [facility] involvement with care planning for Radha with Hillary. [facility] does not provide nursing care. Radha is moving to a self-directed plan, which means Radha is in charge of hiring & firing care givers. Radha fills out a time sheet, then [facility] is responsible to distribute Medicare/ Medicaid funds appropriately according to the time sheet. [facility] would not assume liability for the conduct of Radha's caregivers, nor the training. Anyone who works at [facility] but is also providing care to Radha would be as a layperson, not as an [facility] employee.in this encounter Plan of Treatment Not on fileas of this encounter Visit Diagnoses Not on filein this encounter
--- OUTSIDE RECORDS SUMMARY | 2017-09-06 12:03 | External Medical Summary | Encounter Summary ---
:1955 Author Organization [facility] Address [address] [facility] [address] [place] [address] Phone Care Team Providers Name Role Phone Unavailable Primary Care Provider Unavailable Reason for Visit Reason Comments Other caregiver support for lvad Encounter Details Date Type Department Care Team Description 08/24/2017 Telephone Center for Veronica Rios RN Other (caregiver support Transplantation-Heart for lvad) Clinic [address] [facility] [place] [address] Social History Tobacco Use Types [...] Telephone Encounter - Veronica Rios RN - 08/24/2017 9:38 AM CSTReceived a call from Radha regarding defining support for the VAD. She states she has a cousin thatcan work on the weekends when needed and her son and his friend are going to split the weekends 6-6 shifts. She also has a few other friends in the apartment complex that will split shifts and her primary caregiver is Sydnie who will do 8 hour shifts throughout the week so she can get paid by [employer]. I expressed that I appreciate her having worked on defining support however she still needs firm support people for 16 hours out of 24 hours in a day during the week. She began crying and stated, "I don't know what you guys want from me! Zora threw this in my lap too and there's only so much I can do. " She also informed this caller that she's only getting sicker, she's throwing PVCs all thetime now. She verbalizes her frustration which this caller acknowledged and informed her that it's understandable that she feels stressed during this, however she has define support before we can moveforward with placing the VAD. She discusses that she will be in the hospital for a few weeks and then probably go to a SNF or rehab facility for a few weeks and then she would only need a few weeks ofsupport and it's difficult to get people to agree if they don't know the dates. She then stated, "I'll probably just while I wait for the VAD." Informed Radha that this caller doesn't want that to happen and will call back tomorrow while Sydnie is there to see if Sydnie can help nail down some firm support. Radha states, "No, it's fine, I' ll just go " and hung up on this caller. Upon calling Radha back, she was crying and continued to state that she was going to . Instructed Radha that this caller was working just as hard as her to get this aligned and that our team would call back tomorrow while Sydnie was there. Another call was received on by the coronary clinical specialist that stated that Radha has requested to speak with a different caller due to Veronica mistreating her. All information relayed to Vaibhav Kumar NP who states she will call Radha and speak with her when she has time today.in this encounter Plan of Treatment Not on fileas of this encounter Visit Diagnoses Not on filein this encounter
--- OUTSIDE RECORDS SUMMARY | 2017-09-06 12:03 | External Medical Summary | Encounter Summary ---
:1955 Author Organization [facility] Address [address] [facility] [address] [place] [address] Phone Care Team Providers Name Role Phone Unavailable Primary Care Provider Unavailable Encounter Details Date Type Department Care Team Description 08/13/2017 Documentation Center Veronica Rodriguez RN Transplantation-Heart Clinic [address] [facility] [place], [place] [id number] Social History Tobacco Use Types Packs/Day Years [...] impairment: No 08/12/2017 as of this encounter Plan of Treatment Not on fileas of this encounter Visit Diagnoses Not on filein this encounter
--- OUTSIDE RECORDS SUMMARY | 2017-09-06 12:03 | External Medical Summary | Encounter Summary ---
:1955 Author Organization [facility] Address [address] [place] [address] Phone Care Team Providers Name Role Phone Unavailable Primary Care Provider Unavailable Encounter Details Date Type Department Care Team Description 08/13/2017 Orders Only [facility] Shannon Murphy, RN [address] [place] [facility] [address] [place] [address] Social History Tobacco Use Types Packs/Day Years [...]
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
--- OUTSIDE RECORDS SUMMARY | 2017-09-06 12:03 | External Medical Summary | Encounter Summary ---
:1955 Author Organization [facility] Address [address] [facility] [address] [place] [address] Phone Care Team Providers Name Role Phone Unavailable Primary Care Provider Unavailable Reason for Visit Reason Comments Other [facility] Update Encounter Details Date Type Department Care Team Description 08/14/2017 Telephone Center for Veronica Rios RN Other ([facility] Transplantation-Heart Update) Clinic [address] [facility] [place] [address] Social History Tobacco Use Types [...] Telephone Encounter - Veronica Rios RN - 08/14/2017 8:22 AM CSTReceived a call from Elen from [facility] regarding follow up from Radha's office visit on Saturday. She expressed that she had recently spoken with Radha and was receiving mixed messages. Clarified with Mckayla that per our discussion on Saturday in clinic Radha is currently unable to establish a solid support plan. Her son accompanied her to the clinic and verbalized that him living with Radha was not a good idea for either of them. They lived together for almost 30 years and he cannot go back. He's enjoyed his freedom and independence and wouldn't want to cause stress on his mother after getting the VAD. He also stated that he currently lives in a one bedroom apartment that is section 8 housing and per their standards he cannot have another person living with him or he could lose his section 8 standing. He is also too young to move in with his mother because she lives in a senior housing center. Dr Fernández explained at length that his mother is dying and that if a support system cannot be determined then we are left with home inotropes and no one can give an exact estimate of how long those will help to continue giving her the quality of life she's currently experiencing. Radha stated that per her [facility] Zora she should look for assisted living spaces but not tell them she is going to be a VAD candidate so they can't deny her return once implanted. Dr Fernández educated Kellyat this is not the best way to approach this situation. He would encourage honesty with assisted living facilities and that finding an assisted living facility that would take ownership and liability of a VAD would be very difficult. They concluded the meeting with explaining to Radha that our office ([facility]) would continue to see her and she should inform us if anything changes with defining support system. Discussed with Mckayla that per Saturday's Echo Jias EF is now estimated per Dr Fernández at 10-15% which would approve her for a DT VAD per our financial coordinators assessment. Mckayla verbalized that she would forward this information to Zora the other [facility] for [facility] and be in contact with this caller if any changes came about. Radha's care has been transferred back to Dr Fernández's Heart Failure RN Shannon.in this encounter Plan of Treatment Not on fileas of this encounter Visit Diagnoses Not on filein this encounter
--- OUTSIDE RECORDS SUMMARY | 2017-09-06 12:03 | External Medical Summary | Encounter Summary ---
:1955 Author Organization [facility] Address [address] [place] [address] Phone Care Team Providers Name Role Phone Unavailable Primary Care Provider Unavailable Reason for Visit Reason Comments Cardiac Eval Encounter Details Date Type Department Care Team Description 08/12/2017 Office Visit Center for Yogi Fernández, Pulmonary hypertension Transplantation-[facility] (Primary Dx);Chronic t Clinic [address] combined systolic and [address] [place] [address] diastolic congestive [facility] [place] heart failure TRANSPLANTATION [address] (HCC);Nonischemic [place] [phone] cardiomyopathy [address] (HCC);Stage 3 chronic kidney disease;Paroxysmal VT ([facility]) Social History Tobacco Use Types Packs/Day Years Used Date Never Smoker Smokeless Tobacco: Never Used Alcohol Use Drinks/Week oz/Week Comments No Sex Assigned at Date Recorded Not on file as of this encounter Last Filed Vital Signs Vital Sign Reading Time Taken Blood Pressure 112/56 08/12/2017 2:43 PM CLARIFIER OPERATOR HELPER Pulse 86 08/12/2017 2:43 PM CLARIFIER OPERATOR HELPER Temperature - - Respiratory Rate - - Oxygen Saturation 93% 08/12/2017 2:43 PM CLARIFIER OPERATOR HELPER Inhaled Oxygen Concentration - - Weight 119.7 kg (264 lb) 08/12/2017 2:43 PM CLARIFIER OPERATOR HELPER Height 170 cm (5' 6.93") 08/12/2017 2:43 PM CLARIFIER OPERATOR HELPER Body Mass Index 41.43 08/12/2017 2:43 PM CLARIFIER OPERATOR HELPER in this encounter Functional Status Functional Status Response Date of Assessment Does the patient have a hearing impairment: Yes 08/12/2017 Does the patient have a visual impairment: Yes 08/12/2017 Does the patient have impaired ambulation: Yes 08/12/2017 Does the patient have an activity of daily living (ADL) No 08/12/2017 impairment: Does the patient have an instrumental activity of daily Yes 08/12/2017 living (IADL) impairment: Cognitive Status Response Date of Assessment Does the patient have a cognitive impairment: No 08/12/2017 as of this encounter Instructions Patient Instructions - Loly Loredo - 08/12/2017 3:30 PM CSTFormatting of this note may be different from the original. Center for Transplantation: [facility] [phone] Heart Failure Team Please bring a current list of medications, and daily weights with you to every clinic appointment. Visit Summary 1. Review of Systems, Review of Medications, Review Labs 2. Medication Changes: none today We look forward to seeing you for your next clinic visit! We will call you to schedule you an appointment with Dr. Fernández and Palliative. Heart Failure Education Summary You have been diagnosed with heart failure. The termheart failuresounds scary because it suggests the heart is no longer working. But it actually means the heart isn't doing its job as well as it should. Heart failure happens when your heart muscle can't keep up with your body's need for blood flow. Symptoms of heart failure can be controlled by changes in your lifestyle and by following your doctor's advice. Additional education resources are available. Please contact your nurse if you would like more information. Home care Activity Ask your health care provider about an exercise program. You can benefit from simple activities suchas walking or gardening. Exercising most days of the week can make you feel better. Don't be discouraged if your progress is slow at first. Rest as needed and stop activity if you develop symptoms suchas chest pain, lightheadedness, or significant shortness of breath. Diet Follow a heart healthy diet. And make sure to limit the salt (sodium) in your diet. Salt causes yourbody to hold water. This makes your heart work harder. Limit your salt by doing the following: Limit canned, dried, packaged, and fast foods. Don't add salt to your food. Season foods with herbs instead of salt. Watch how much liquids you drink. Drinking too much can make heart failure worse. Talk with your health care provider about how much you should drink each day. Limit the amount of alcohol you drink. It may harm your heart. Women should have no more than 1 drink a day and men should have no more than two. Tobacco If you smoke, you'll need to quit. Smoking increases your chances of having a heart attack, which makes heart failure worse. Quitting smoking is the number one thing you can do to improve your health. Enroll in a stop-smoking program to improve your chances of success. Talk with your health care providerabout medicines or nicotine replacement therapy to help you quit smoking. Medicine Take your medicines exactly as prescribed. Learn the names and purpose of each of your medicines. Keep an accurate medicine list and current dosages with you at all times. Don't skip doses. If you quang dose of your medicine, take it as soon as you remember. If you miss a dose andit's almost time for your next dose, just wait and take your next dose at the normal time. Don't take a double dose. Ifyou are unsure, call your doctor's office. Beta-blockers (examples: carvedilol, metoprolol XL, bisoprolol) These medicines help reduce heart rate and blood pressure. Taking a beta- isaura long-term may reduce the harmful effects of heart failure and may stop it from getting worse. Possible side effects: Fatigue, low blood pressure, dizziness, feeling lightheaded How to take: Take carvedilol (Coreg) with food. All others may be taken without regards to meals Angiotensin-converting enzyme inhibitors (GISSELLE inhibitors examples: lisinopril, ramipril, fosinopril) or Angiotensin-receptor blockers (ARBs examples: losartan, valsartan, olmesartan) They help to decrease blood pressure and block certain hormones that can put stress on the heart. Like beta-blockers, taking an GISSELLE inhibitor or an ARB may reduce the harmful effects of heart failure and may prevent heart failure from getting worse. Possible side effects: Dry cough, low blood pressure, dizziness How to take: Take captopril and moexipril on an empty stomach. All others may be taken without regards to meals. Vasodilators (examples: hydralazine, nitrates) These medicines open up blood vessels in the body. This makes it easier for the heart to pump blood.These medicines improve heart failure symptoms and may prevent your heart failure from getting worse. Hydralazine and a nitrate may be used when an GISSELLE inhibitor or ARB cannot be taken. Possible side effects: Headache, dizziness, low blood pressure How to take: Do not crush or chew. Imdur and Isordil may be cut in half. Take with a full glass of water Digoxin Digoxin is a medicine that helps the heart pump. It can help patients with heart failure stay out ofthe hospital. It may also help improve heart failure symptoms. Possible side effects: nausea, vomiting, blurred vision, low heart rate, dizziness How to take: Take without regards to meals. Diuretics (examples: furosemide, bumetanide, torsemide) Also known as water pills, these medications help to rid the body of extra water and salt. They can also reduce swelling. Diuretics make it easier for your heart to pump, because there is less fluid in your body that the heart has to pump. Possible side effects: Increased urination, headache, muscle cramps, dizziness, photosensitivity How to take: Take early in the day, with or without food. Aldosterone Antagonists (examples: spironolactone, eplerenone) Aldosterone antagonists work by blocking certain hormones that can put stress on the heart. Possible side effects: rash, muscle cramps, dizziness, enlarged or tender breasts How to take: Spironolactone should be taken with food to increase absorption. Eplerenone can be taken without regards to meals. Weight monitoring Weigh yourself every day. A sudden weight gain can mean your heart failure is getting worse. Weigh yourself at the same time of day and in the same kind of clothes. Ideally, weigh yourself first thing in the morning after you empty your bladder, but before you eat breakfast. Your health care provider will show you how to track your weight. He or she will also discuss with you when you should call if you have a sudden, unexpected increase in your weight. In general your health care provider may ask you to report if your weight goes up by more than3 pounds in 1 day or 5 pounds in 1 week, or whatever weight gain you were told by your doctor. This is a sign that you are retaining more fluid than you should be. Follow-up care Make a follow-up appointment as directed. Depending on the type and severity of heart failure you have, you may need follow-up as early as 7 days from hospital discharge. Keep appointments for checkupsand lab tests that are needed to check your medicines and condition. Recognize that your health and even survival depend on your following medical recommendations. Symptoms Heart failure can cause a variety of symptoms, including: Shortness of breath Difficulty breathing at night Swelling in the legs and feet or in the belly (abdomen) Becoming easily fatigued Irregular or rapid heartbeat Weakness or lightheadedness It is important to know what to do if symptoms get worse or if you develop signs of worsening heart failure. When to call your doctor Call your doctor right away if you have any of these signs of worsening heart failure: Sudden weight gain (more than3 pounds in 1 day or 5pounds in 1 week, or whatever weight gain you were told to report by your doctor) Trouble breathing not related to being active New or increased swelling of your legs or ankles Swelling or pain in your abdomen Breathing trouble at night (waking up short of breath, needing more pillows to breathe) Frequent coughing that doesn't go away Feeling much more tired than usual When to seek emergency medical attention Call 911 right away if you have: Severe shortness of breath, such that you can't catch your breath even while resting Severe shortness of breath Severe chest pain that does not resolve with rest or nitroglycerin [place], foamy mucus with cough and shortness of breath A continuous rapid or irregular heartbeat Passing out or fainting Stroke symptoms such as sudden numbness or weakness on one side of your face , arm, or leg or sudden confusion, trouble speaking or vision changes Heart Failure in this encounter Progress Notes Yogi Fernández MD - 08/12/2017 3:30 PM CSTFormatting of this note may be different from the original. Date of Service: 08/12/2017 Radha Chance is a 61 y.o. female. HPI I had the pleasure of seeing Ms Chance for follow-up consultation at [facility]. She was initially referred by Dr.Hossein Johansen at [facility] [place], [place]. Her PCP is Dr. Surya Garza. Her PMH is significant for pulmonary hypertension, chronic combined heart failure, LV dilatation with LVIDD6.3 cm,ventricular tachycardia on Amiodarone (previously was on Sotalol), ischemic cardiomyopathy, prior anterior SC per MPI on 07/21/15, non-obstructive CAD per heart cath on 3/19/14, Medtronic BiV-ICD implantation on 11/05/11with generator change in 09/2015, obstructive sleep apneauses CPAP, DM II, hypertension, dyslipidemia, prior rheumatic fever, and obesity. She denies tobacco, alcohol, and drug use. Her EF used to be 25-30% per echo on 10/17/2011.However, the most recent echocardiogram on 04/17/17in [place], [place] showed EFhas improved to 40%. She also had LV dilatation with LVIDD6.3 cm,LV diastolic dysfunction, normal RV size &function, LVH, mod LAE, trace TR, and PASP of 23 mmHg. She has been following with her primary paint spray inspector, Dr. Johansen on routine basis and has been on guideline-directed medical therapies. On 04/17, Dr. Johansen started her on Entresto 24/26 mg BID (after discontinuing Lisinopril), increased her Coreg to 6.25 mg BID, and FINANCIAL CONTROLLER Spironolactone 25 mg daily,Lasix 20 mg daily, and KCl 5 mEq daily, ASA 81 mg daily, Amiodarone 200 mg daily, and Pravastatin 40mg daily were continued. Patient currently reports NHYA class IIIb-IVsymptoms with dyspnea on rest and with exertion, fatigue, decreased appetite, abdominal fullness, palpitation, and positional dizziness. She reports her symptoms have been worsening over last 6-9 months despite being on GDMT. She denies orthopnea, PND,edema, chest pain, palpitation, syncope, or receiving shocks from her device. Clinic weight today is 272.4 lbs, BP 111/65, and pulse 83. She states she eatsa low-salt diet and watches herfluid intake. She has one son, Lex, who is 41 years old and is mentally challenged due to complication during that lead to emergent . She does have a lot of community and friend support although. Her son Lex comes to clinic today to discuss support and he states that he cannot allow patient to live with him or vice versa as they do not get along when living together. He requests that we not implant an LVAD if it will require or be dependent on his contribution to her care. He is aware that his mother may while on inotropic infusion at home. Vitals: 08/12/17 1443 BP: 112/56 Pulse: 86 SpO2: 93% Weight: 119.7 kg (264 lb) Height: 1.7 m (5' 6.93") Body mass index is 41.43 kg/(m^2). Past Medical History Patient Active Problem List Diagnosis Date Noted Class 3 obesity in adult 07/18/2017 Cardiogenic shock ([facility]) 06/10/2017 CHF (congestive heart failure) ([facility]) 06/07/2017 Paroxysmal VT ([facility]) 06/07/2017 Stage 3 chronic kidney disease 05/29/2017 Chronic combined systolic and diastolic congestive heart failure ([facility]) 05/02 Cardiorenal syndrome 05/02/2017 Dental decay 05/02/2017 Added automatically from request for surgery [id number] CONG and Central apnea treated with BiPAP 04/19/2017 a. 1..2014 - CPAP - 5-12 cm H2O b. 9.2015 - BiPAP - 5-15 cm pressure c. ..2016- BiPap - 10-18 cm median pressure 12.5cm She has central and obstructive apnea, schedule procedures with anesthesiology present. Diabetes type 2, controlled ([facility]) 04/19/2017 a. Taking Metformin Essential hypertension 04/19/2017 Mixed hyperlipidemia 04/19/2017 a. Pravachol 40 mg HS Pulmonary hypertension 03/08/2014 a. 7.17.2013 - Echo PAP 32 mmHg b. .18.2014 - Echo PAP 38 mmHg c. .18.2015 - Echo PAP 35 mmHg D. 05.14.2016 - Echo PAP Tr TR, unmeasured E. 05.14.2017 RHC - Right atrial pressure 16 mm at end-expiration. Right ventricular pressure 46/8 with end-diastolic 13 mmHg. PWP at end-expiration 25 mmHg. PAP at end-expiration 43/25, mean 27 mmHg. CO 4.8 L/min, CI 2.1 L/min per sq m. Mild coronary artery disease 08/15/2011 a. ..2010 - LHC: LVG 35% / LVEDP 9 - No significant coronary obstructive disease. b. 11.11.2013 - MPI - LVEF 28% - abnl - multivessel dx vs cardiomyopathy c. 11.18.2013 - LHC: No significant coronary obstructive disease --> preformed at [facility], [place], [place] via MD samara Esteves. 07.21.2014 - MPI - LVEF 43% - abnl - sm perfusion defect w/ questionable mild anteroapical ischemia Nonischemic cardiomyopathy (HCC) 08/15/2011 a. 10..1999 - Echo - EF 52% - Nl RV b. 06.21.2010 - Echo - EF 36%, Lt atrial enlargement, ischemic CM w/ evidence suggestive of prior anterior SC, Nl PAP c. 2.15.2011 - Echo - EF 25-30% / LVIDd 4.7 cm, LVE, mild LVH, severe hypokinesis, diastolic dysfx, trace TR, RVSP 18 mmHgd. d. 3.5.2011 - BiV-ICD - Medtronic - Model [id number] (Serial: [id number]), Artial Lead Model 4076-52 (serial: [id number], RV lead Model 6947-65 (serial [id number] ), LV lead: pin plug implanted via Sidney Napier MD @ [facility], [place], [place] e.2..2012 - Echo - EF 35-40% / LVIDd 6.0 cm, mild LVE, mild LVH, mod global hypokinesis, diastolic dysfx, mod LAE, trace MR/TR/PI, RVSP 18 mmHg f. 10.13.2013 - EF 40-45% / LVIDd 5.9 cm, mild LVD, mild LVH, mod global hypokinesis, diastolic dysfx, Mild LAE/ALIREZA, trace MR/PI g. 11.18.2013 - LVG: Global hypokinesia w/ EF 35 - 40% w/ LV dilatation h. 7..2013 - EF 40% / LVIDd 5.5 cm, mod LV hypokinesis, diastolic dysfx, mild LAE, trace MR/TR, PAP 32 mmHg i. 8.2014 - EF 38% / LVIDd 6.0 cm, mild LVE/LAE, mod LV hypokinesis, mild MR , trace TR/PI, PAP 38mmHg j. 8.2015 - EF 33%/ LVIDd 6.0 cm mild LVE, mod hypokinesis of anterseptum/ inferoseptum/anterior diastolic dysfx, mild LAE, mild MR, trace TR/PI, PAP 35 mmHg k. 8.16.2017 - EF 40%, LVE 6.3 cm, LVH, mod LAE, trace TR=23 mmHg Primary osteoarthritis of both knees 01/12/2005 a. x3 knee surgeries Calculus of gallbladder without cholecystitis 11/07/2000 a. 3.9.2000 - a. 3.9.2000 - Laparoscopic Cholecystectomy via Little Huang MD @ [facility] Review of Systems Constitution: Negative. HENT: Negative. Eyes: Negative. Cardiovascular: Positive for chest pain, dyspnea on exertion and palpitations. No present chest pain, but she c/o symptoms 08/11/17, but believes that it may be due to her recent fall Respiratory: Negative. Endocrine: Negative. Hematologic/Lymphatic: Negative. Skin: Negative. Musculoskeletal: Negative. Gastrointestinal: Negative. Genitourinary: Negative. Neurological: Negative. Psychiatric/Behavioral: Negative. Allergic/Immunologic: Negative. Physical Exam Vitals: 08/12/17 1443 BP: 112/56 Pulse: 86 SpO2: 93% General Appearance: well-appearing, in no acute distress Skin: warm, dry Digits: no cyanosis or clubbing Eyes: conjunctivae and lids normal, pupils are equal and round, sclera non- icteric Lips &Oral Mucosa: no pallor or cyanosis Neck: JVP ~8cm, -HJR Pulmonology/Chest: CTAB, no rales/ rhonchi/ wheezing, cardiac device in left upper chest with well-healed scar Cardiac: RRR, no rub or gallop noted, no obvious murmur GI: soft, non-tender, normal bowel sounds Musculoskeletal: minimal edema in right ankle, otherwise no edema Neurological: A&O x3, no focal deficits, seems to comprehend information Cardiovascular Studies Problems Addressed Today Encounter Diagnoses Name Primary? Pulmonary hypertension Yes Chronic combined systolic and diastolic congestive heart failure (HCC) Nonischemic cardiomyopathy (HCC) Stage 3 chronic kidney disease Paroxysmal VT (HCC) Assessment and Plan We had a family meeting today discussing risks/benefits/alternatives to LVAD implantation as DT. HerEF remains 10-20% on inotropes. She does not have the requisite support at home lined up for her VADcare and her son presents to the family meeting today but does not feel he can contribute to the support. He does understand that this means his mother may prematurely from advanced / Stage D heartfailure. She is still trying to work out options for support but it is looking less likely to occur.Cleveland Bateman and our VAD team were present for the family meeting. WRITTEN INSTRUCTIONS FOR PATIENT: Please bring a current list of medications, and daily weights with you to every clinic appointment. Visit Summary 1. Review of Systems, Review of Medications, Review Labs 2. Medication Changes: none today We look forward to seeing you for your next clinic visit! We will call you to schedule you an appointment with Dr. Fernández and Palliative. Total time 40 minutes. Estimated counseling time 25 minutes including risks/ benefits/alternatives discussion related to plan as outlined and answering all questions related to the care plan while educating on the importance of adherence to recommended therapies, outpatient follow-up, and also addressing prognosis specific to the patient/family concerns. We addressed many questions as a family meetingappointment. Thank you for allowing us to participate in the shared care of your patient. Yogi Fernández MD [facility] Banquet Food Server Design Engineer Productsstacker driver Director, [facility] Primary Transplant Physician Email Producer, Heart Transplantation [facility] [email or web address] Current Medications (including today's revisions) 0.9 % SODIUM CHLORIDE (SODIUM CHLORIDE PF [...] infusion Administer 29.975 mcg/min through vein Continuous ([employer] from Rx). Miscellaneous Medical Supply [employer] Manual inflation blood pressure monitor with digital [...] tab Take 1 tablet by mouth daily. in this encounter Plan of Treatment Not on fileas of this encounter Visit Diagnoses Diagnosis Pulmonary hypertension - Primary Other chronic pulmonary heart diseases Chronic combined systolic and diastolic congestive heart failure (HCC) Chronic combined systolic and diastolic heart failure Nonischemic cardiomyopathy (HCC) Other primary cardiomyopathies Stage 3 chronic kidney disease Paroxysmal VT (HCC) Paroxysmal ventricular tachycardia in this encounter
--- OUTSIDE RECORDS SUMMARY | 2017-09-06 12:04 | External Medical Summary | Encounter Summary ---
:1955 Author Organization [facility] Address [address] [place] [address] Phone Care Team Providers Name Role Phone Unavailable Primary Care Provider Unavailable Reason for Visit Reason Comments Medication Refill Encounter Details Date Type Department Care Team Description 07/29/2017 Refill Center for Evelio Catalan MD Transplantation-Heart Clinic [address] [facility] [address] [place] [address] [facility] [phone] [place] [address] [phone] Social History Tobacco Use Types Packs/Day Years Used Date Never Smoker Smokeless Tobacco: Never Used Alcohol Use Drinks/Week oz/Week Comments No Sex Assigned at Date Recorded Not on file as of this encounter Functional Status Functional Status Response Date of Assessment Does the patient have a hearing impairment: No 07/16/2017 Does the patient have a visual impairment: Yes 07/16/2017 Does the patient have impaired ambulation: No 07/02/2017 Does the patient have an activity of daily living (ADL) No 07/02/2017 impairment: Does the patient have an instrumental activity of daily No 07/02/2017 living (IADL) impairment: Cognitive Status Response Date of Assessment Does the patient have a cognitive impairment: No 07/02/2017 as of this encounter Plan of Treatment Not on fileas of this encounter Visit Diagnoses Not on filein this encounter
--- OUTSIDE RECORDS SUMMARY | 2017-09-06 12:04 | External Medical Summary | Encounter Summary ---
:1955 Author Organization [facility] Address [address] [place] [address] Phone Care Team Providers Name Role Phone Unavailable Primary Care Provider Unavailable Encounter Details Date Type Department Care Team Description 08/09/2017 Orders Only Center for Veronica Rios, [place] combined Transplantation-Heart RN systolic and diastolic Clinic congestive heart [address] failure (HCC) (Primary [facility]) [place] [address] Social History Tobacco Use Types [...] Performing Laboratory Blood [facility] [address] [place] [address] BASIC METABOLIC PANEL (08/12/2017 12:41 PM) Component [...] Performing Laboratory Blood [facility] [address] [place] [address] in this encounter Visit Diagnoses Diagnosis Chronic combined systolic and diastolic congestive heart failure (HCC) - Primary Chronic combined systolic and diastolic heart failure in this encounter
--- OUTSIDE RECORDS SUMMARY | 2017-09-06 12:04 | External Medical Summary | Encounter Summary ---
:1955 Author Organization [facility] Address [address] [place] [address] Phone Care Team Providers Name Role Phone Unavailable Primary Care Provider Unavailable Reason for Referral Test Status Reason Specialty Diagnoses / Procedures Referred By Referred To Contact Contact Closed Cardiology Diagnoses Nonischemic cardiomyopathy (HCC) Yogi Fernández, Bhg Card Echopv Procedures 2-D + DOPPLER ECHOCARDIOGRAM [place] ECHO TTHRC R-T 2D W/WOM-MODE COMPL SPEC&COLR D [address] [place] [address] [place] [address] Phone: Test Status Reason Specialty Diagnoses / Procedures Referred By Referred To Contact Contact Closed Cardiology Diagnoses Nonischemic cardiomyopathy (HCC) Yogi Fernández, Sherry Card Echopv Procedures 2-D + DOPPLER ECHOCARDIOGRAM W[place] ECHO TTHRC R-T 2D W/WOM-MODE COMPL SPEC&COLR Nevin JOAQUIN [address] [place] [address] Phone: Reason for Visit Test Status Reason Specialty Diagnoses / Procedures Referred By Referred To Contact Contact Closed Cardiology Diagnoses Nonischemic cardiomyopathy (HCC) Yogi Fernández Bhg Card Echopv Procedures 2-D + DOPPLER ECHOCARDIOGRAM W[place] ECHO TTHRC R-T 2D W/WOM-MODE COMPL SPEC&COLR D [address] [place] [address] Phone: Encounter Details Date Type Department Care Team Description 08/12/2017 Hospital Encounter [facility] Cardiology Yogi Fernández MD [address] [place] [address] [address] [place] [address] [phone] Social History Tobacco Use Types Packs/Day Years Used Date Never Smoker Smokeless Tobacco: Never Used Alcohol Use Drinks/Week oz/Week Comments No Sex Assigned at Date Recorded Not on file as of this encounter Last Filed Vital Signs Vital Sign Reading Time Taken Blood Pressure 112/62 08/12/2017 2:39 PM HEARING INSTRUMENT SPECIALIST Pulse - - Temperature - - Respiratory Rate - - Oxygen Saturation - - Inhaled Oxygen Concentration - - Weight 120 kg (264 lb 8.8 oz) 08/12/2017 2:39 PM HEARING INSTRUMENT SPECIALIST Height 170 cm (5' 6.93") 08/12/2017 2:39 PM HEARING INSTRUMENT SPECIALIST Body Mass Index 41.52 08/12/2017 2:39 PM HEARING INSTRUMENT SPECIALIST in this encounter Functional Status Functional Status [...] 06/11/2017 mcg/mL infusion mcg/min through vein Continuous (Supervisor [place] from Rx). Miscellaneous Medical Manual inflation blood 1 Device 0 05/07/2017 Supply misc pressure monitor with digital reading and large [...] 3 05/17/2017 daily. as of this encounter Progress Notes Татьяна Cano RN - 08/12/2017 2:20 PM CSTProcedure explained, questions answered and Definity administered per standard without complications. Total of 4 ml of Definity/NS given slow IVP per industrial chemistry teacher direction. in this encounter Plan of Treatment Not on fileas of this encounter Results 2-D + DOPPLER ECHOCARDIOGRAM (08/12/2017 2:39 PM) Component Value Ref Range BSA 2.38 m2 Referring Provider Surya Garza CV ECHO PV BOX PRINTER Татьяна ARCHULETA LVIDD 6.3 3.9 - 5.3 cm IVS [...] Compared to 05/14/17 the appearance is similar in this encounter Visit Diagnoses Diagnosis Nonischemic cardiomyopathy (HCC) Other primary cardiomyopathies in this encounter Administered Medications Inactive Administered Medications - up to 3 most recent administrations Medication Order MAR Action Action Date Dose Rate Site perflutren lipid microspheres Given 08/12/2017 14:20 HEARING INSTRUMENT SPECIALIST 4 Diluted mL (DEFINITY) injection 1-20 Diluted mL 1-20 Diluted mL, Intravenous, ONCE, 1 dose, 12/11/17 at 1415, NOTE: This is a HIGH ALERT Medication. in this encounter
--- OUTSIDE RECORDS SUMMARY | 2017-09-06 12:04 | External Medical Summary | Encounter Summary ---
:1955 Author Organization [facility] Address [address] [facility] [address] [place] [address] Phone Care Team Providers Name Role Phone Unavailable Primary Care Provider Unavailable Reason for Visit Reason Comments Financial/Insurance Questions BENEFITS / INSURANCE Encounter Details Date Type Department Care Team Description 07/18/2017 Telephone Center for Breanne Colunga Financial/Insurance Transplantation-Kidney/Pa Questions (BENEFITS / ncreas Nep INSURANCE ) [address] [facility] [place], [place] [id number] Social History Tobacco Use Types Packs/Day Years [...] impairment: No 07/02/2017 as of this encounter Miscellaneous Notes Telephone Encounter - Breanne Colunga - 07/18/2017 3:52 PM CSTCLD FREDERICK SETHI FARZAD # [phone] OPT 9 in this encounter Plan of Treatment Not on fileas of this encounter Visit Diagnoses Not on filein this encounter
--- OUTSIDE RECORDS SUMMARY | 2017-09-06 12:04 | External Medical Summary | Encounter Summary ---
:1955 Author Organization [facility] Address [address] [place] [address] Phone Care Team Providers Name Role Phone Unavailable Primary Care Provider Unavailable Encounter Details Date Type Department Care Team Description 07/22/2017 Telephone [facility] CARDIOLOGY Alban Aragon, GEREMIAS [address] [facility] [address] [place], [place] [id number] Social History Tobacco Use Types Packs/Day Years [...] Telephone Encounter - Alban Aragon RN - 07/22/2017 10:58 AM CSTNCM received call from pt this am. Pt provided DONNIE Blakely, # [phone]. Pt informed that Veronica, VAD coordinator has already touched base with DONNIE Block. Pt shared with [facility] that she is looking into getting to an AL. Per pt, she was advised not to let AL know that she is a potential VAD candidate as most AL insurance may see her as a potential liability. Pt plans to get in to an AL first pending VAD approval. Pt added that she will bring son, Lex to her appointment with Dr. Fernández on .Pt advised that her questions and concerns will be addressed during the appointment. Telephone call concluded. Alban Aragon RN, BSN Nurse Tutorial Laboratory Supervisor [phone] in this encounter Plan of Treatment Not on fileas of this encounter Visit Diagnoses Not on filein this encounter
--- OUTSIDE RECORDS SUMMARY | 2017-09-06 12:04 | External Medical Summary | Encounter Summary ---
:1955 Author Organization [facility] Address [address] [facility] [address] [place] [address] Phone Care Team Providers Name Role Phone Unavailable Primary Care Provider Unavailable Reason for Referral Test Status Reason Specialty Diagnoses / Procedures Referred By Referred To Contact Contact Closed Cardiology Diagnoses Nonischemic cardiomyopathy (HCC) Yogi Fernández, Bhg Card Echopv Procedures 2-D + DOPPLER ECHOCARDIOGRAM [place] ECHO TTHRC R-T 2D W/WOM-MODE COMPL SPEC&COLR D [address] [place] [address] [facility] [address] [place] [address] Phone: Reason for Visit Reason Comments Other Status update for candidacy for LVAD Encounter Details Date Type Department Care Team Description 07/19/2017 Telephone Center Veronica Rodriguez RN Other (Status update for Transplantation-Heart candidacy for LVAD) Clinic [address] [facility] [place] [address] Social History Tobacco Use Types Packs/Day Years [...] Telephone Encounter - Veronica Rios RN - 07/19/2017 9:35 AM CSTReceived a call from Mckayla SETHI with [employer] regarding Radha. She states there have been multiple people involved in this case and wanted to get some information for herself. Upon talking, we discussed that radha is not a transplant candidate at this time due to her BMI and support status. Mckayla states that there is a program they are looking to enroll Radha in called the [employer] program which works with patients on diet and weight loss. We also discussed insurance approval being a barrier to her receiving an LVAD. Our patient financial counselor Breanne is working on determining eligibility for LVAD coverage. Previous notes state that DT/BTT VAD are covered through medicare. Most recent communication states that her EF must be <25% to be covered for DT VAD. This caller updated Mckayla that Radha has been on Milrinone home IV infusion for the last month and is on Metoprololand attempted Entresto trial in the past. We discussed Radha's support being an issue as well. Herdevelopmentally disabled son is not able to provide the care and support necessary post-op as well as transport Radha to and from appointments. Mckayla advised that Radha is working on potentially moving to [facility] if she is approved for the VAD and they agree to take on the liability of caring for a VAD pt post-op. She also states that they can apply for a crisis exception for emergent transportation if necessary so she won't have to wait the full three days to receive a ride through Medicaid. This caller informed Mckayla that I would update her as soon as there is a final answer from Financial on approval and coverage. Her follow up email is [email or web address]. Also updated Mckayla that our department would schedule a follow up ECHO the same day as herfollow up appt with Dr Fernández on 08/12.in this encounter Plan of Treatment Not on fileas of this encounter Results 2-D + DOPPLER ECHOCARDIOGRAM (08/12/2017 2:39 PM) Component Value Ref Range BSA 2.38 m2 Referring Provider Surya Garza CV ECHO PV DIE MOUNTER Татьяна ARCHULETA LVIDD 6.3 3.9 - 5.3 [...] encounter Visit Diagnoses Diagnosis Nonischemic cardiomyopathy (HCC) - Primary Other primary cardiomyopathies in this encounter
--- OUTSIDE RECORDS SUMMARY | 2017-09-06 12:05 | External Medical Summary | Encounter Summary ---
:1955 Author Organization [facility] Address [address] [place] [address] Phone Care Team Providers Name Role Phone Unavailable Primary Care Provider Unavailable Reason for Visit Reason Comments Cardiac Eval 5 week f/u Encounter Details Date Type Department Care Team Description 07/16/2017 Office Visit [facility] Yogi Fernández, Cardiac Eval (5 week CARDIOLOGY MD f/u ) [address] [place] [address] [place] [address] [facility] [address] [place] [address] [phone] Social History Tobacco Use Types Packs/Day Years Used Date Never Smoker Smokeless Tobacco: Never Used Alcohol Use Drinks/Week oz/Week Comments No Sex Assigned at Date Recorded Not on file as of this encounter Last Filed Vital Signs Vital Sign Reading Time Taken Blood Pressure 130/79 07/16/2017 1:51 PM BILLBOARD POSTER HELPER Pulse 96 07/16/2017 1:51 PM BILLBOARD POSTER HELPER Temperature - - Respiratory Rate - - Oxygen Saturation 99% 07/16/2017 1:51 PM BILLBOARD POSTER HELPER Inhaled Oxygen Concentration - - Weight 120.7 kg (266 lb) 07/16/2017 1:51 PM BILLBOARD POSTER HELPER Height - - Body Mass Index 41.66 07/16/2017 1:51 PM BILLBOARD POSTER HELPER in this encounter Functional Status Functional [...] impairment: No 07/02/2017 as of this encounter Instructions Patient Instructions - Darlene Lerma - 07/16/2017 2:30 PM CSTFormatting of this note may be different from the original. Lets go to lasix 40 mg twice daily (increase from once daily). See me again in 1 month with your son Lex and we can talk together with Palliative care. Lets try to get an hour long meeting in total. We will also work on your PICC. Heart Failure Education Summary You have been [...] does not resolve with rest or nitroglycerin [place], foamy mucus with cough and shortness of breath A continuous rapid or irregular heartbeat Passing out or fainting Stroke symptoms such as sudden numbness or weakness on one side of your face , arm, or leg or sudden confusion, trouble speaking or vision changes Heart Failure in this encounter Progress Notes Yogi Fernández MD - 07/16/2017 2:30 PM CSTFormatting of this note may be different from the original. Date of Service: 07/16/2017 Radha Chance is a 61 y.o. female. HPI I had the pleasure of seeing Ms Chance for follow-up consultation at the [facility]. She was initially referred by Dr.Hossein Johansen at [facility] [place] [place]. Her PCP is Dr. Surya Garza. Her PMH is significant for pulmonary hypertension, chronic combined heart failure, LV dilatation with LVIDD6.3 cm, ventricular tachycardia on Amiodarone (previously was on Sotalol), ischemic cardiomyopathy, prior anterior NJ per MPI on 07/21/15, non-obstructive CAD per heart cath on 11/18/13, Medtronic BiV-ICD implantation on 11/05/11 with generator change in 09/2015, obstructive sleep apnea uses CPAP,DM II, hypertension, dyslipidemia, prior rheumatic fever, and obesity. She denies tobacco, alcohol,and drug use. Her EF used to be 25-30% per echo on 10/17/2011. However, the most recent echocardiogram on 04/17/17 in [place], [place] showed EF has improved to 40%. She also had LV dilatation with LVIDD6.3 cm, LV diastolic dysfunction, normal RV size & amp; function, LVH, mod LAE, trace TR, and PASP of 23 mmHg. She has been following with her primary apartment community manager, Dr. Johansen on routine basis and has been on guideline-directed medical therapies. On 04/17, Dr. Johansen started her on Entresto 24/26 mg BID (after discontinuing Lisinopril), increased her Coreg to 6.25 mg BID, and RUBBER COMPOUNDER FORMULATOR Spironolactone 25 mg daily, Lasix 20 mg daily, and KCl 5 mEq daily, ASA 81 mg daily, Amiodarone 200 mg daily, and Pravastatin 40 mg daily were continued. Patient currently reports NHYA class IIIb-IV symptoms with dyspnea on rest and with exertion, fatigue, decreased appetite, abdominal fullness, palpitation, and positional dizziness. She reports her symptoms have been worsening over last 6-9 months despite being on GDMT. She denies orthopnea, PND, edema, chest pain, palpitation, syncope, or receiving shocks from her device. Clinic weight today is 272.4 lbs, BP 111/65, and pulse 83. She states she eats a low-salt diet and watches her fluid intake. She has one son, Lex, who is 41 years old and is mentally challenged due to complication during that lead to emergent . She does have a lot of community and friend support although. Vitals: 07/16/17 1351 BP: 130/79 Pulse: 96 SpO2: 99% Weight: 120.7 kg (266 lb) Body mass index is 41.66 kg/(m^2). Past Medical History Patient Active Problem List Diagnosis Date Noted Cardiogenic shock (HCC) 06/10/2017 CHF (congestive heart failure) (HCC) 06/07/2017 Paroxysmal VT (HCC) 06/07/2017 Stage 3 chronic kidney disease 05/29/2017 Chronic combined systolic and diastolic congestive heart failure (HCC) 05/02 Cardiorenal syndrome 05/02/2017 Dental decay 05/02/2017 Added automatically from request for surgery [id number] CONG and Central apnea treated with BiPAP 04/19/2017 a. ..2014 - CPAP - 5-12 cm H2O b. 9.2015 - BiPAP - 5-15 cm pressure c. 5.23.2016- BiPap - 10-18 cm median pressure 12.5cm She has central and obstructive apnea, schedule procedures with anesthesiology present. Diabetes type 2, controlled (HCC) 04/19/2017 a. Taking Metformin Essential hypertension 04/19/2017 Mixed hyperlipidemia 04/19/2017 a. Pravachol 40 mg HS Pulmonary hypertension 03/08/2014 a. 7.17.2013 - Echo PAP 32 mmHg b. 8.18.2014 - Echo PAP 38 mmHg c. 04.19.2015 [...] m. Mild coronary artery disease 08/15/2011 a. 08.15.2010 - [facility]: LVG 35% / LVEDP 9 - No significant coronary obstructive disease. b. 11.11.2013 - MPI - LVEF 28% - abnl - multivessel dx vs cardiomyopathy c. 11.18.2013 - [facility]: No significant coronary obstructive disease --> preformed at [facility], [place], [place] via Madi Parmar MD d. 07.21.2015 - MPI - LVEF 43% - abnl - sm perfusion defect w/ questionable mild anteroapical ischemia Nonischemic cardiomyopathy (HCC) 08/15/2011 a. 10..1999 - Echo - EF 52% - Nl RV b. 06.21.2010 - Echo - EF 36%, Lt atrial enlargement, ischemic CM w/ evidence suggestive of prior anterior NJ, Nl PAP c. 2.15.2011 - Echo - EF 25-30% / LVIDd 4.7 cm, LVE, mild LVH, severe hypokinesis, diastolic dysfx, trace TR, RVSP 18 mmHgd. d. 3.5.2011 - BiV-ICD - Medtronic - Model [id number] (Serial: [id number]), Artial Lead Model 4076-52 (serial: [id number], RV lead Model 6947-65 (serial [id number] ), LV lead: pin plug implanted via Sidney Napier MD @ [facility], [place], [place] e.2.6.2012 - Echo - EF 35-40% / LVIDd 6.0 cm, mild LVE, mild LVH, mod global hypokinesis, diastolic dysfx, mod LAE, trace MR/TR/PI, RVSP 18 mmHg f. 2..2013 - EF 40-45% / LVIDd 5.9 cm, mild LVD, mild LVH, mod global hypokinesis, diastolic dysfx, Mild LAE/ALIREZA, trace MR/PI g. 3..2013 - LVG: Global hypokinesia w/ EF 35 - 40% w/ LV dilatation h. 7..2013 - EF 40% / LVIDd 5.5 cm, mod LV hypokinesis, diastolic dysfx, mild LAE, trace MR/TR, PAP 32 mmHg i. 8.18.2014 - EF 38% / LVIDd 6.0 cm, mild LVE/LAE, mod LV hypokinesis, mild MR , trace TR/PI, PAP 38mmHg j. 8.18.2015 - EF 33%/ LVIDd 6.0 cm mild LVE, mod hypokinesis of anterseptum/ inferoseptum/anterior diastolic dysfx, mild LAE, mild MR, trace TR/PI, PAP 35 mmHg k. 8.16.2017 - EF 40%, LVE 6.3 cm, LVH, mod LAE, trace TR=23 mmHg Primary osteoarthritis of both knees 01/12/2005 a. x3 knee surgeries Calculus of gallbladder without cholecystitis 11/07/2000 a. 3.9.2001 - a. 3.9.2000 - Laparoscopic Cholecystectomy via Little Huang MD @ [facility] Review of Systems Constitution: Negative. HENT: Negative. Eyes: Negative. Cardiovascular: Negative. Respiratory: Positive for shortness of breath. Endocrine: Negative. Hematologic/Lymphatic: Negative. Skin: Negative. Musculoskeletal: Negative. Gastrointestinal: Negative. Genitourinary: Negative. Neurological: Negative. Psychiatric/Behavioral: Negative. Allergic/Immunologic: Negative. Physical Exam Vitals: 07/16/17 1351 BP: 130/79 Pulse: 96 SpO2: 99% General Appearance: well-appearing, in no acute distress Skin: warm, dry Digits: no cyanosis or clubbing Eyes: conjunctivae and lids normal, pupils are equal and round, sclera non- icteric Lips & Oral Mucosa: no pallor or cyanosis Neck: JVP ~8 cm, -HJR Pulmonology/Chest: CTAB, no rales/ rhonchi/ wheezing, cardiac device in left upper chest with well-healed scar Cardiac: RRR, no rub or gallop noted, no obvious murmur GI: soft, non-tender, normal bowel sounds Musculoskeletal: minimal edema in right ankle, otherwise no edema Neurological: A&O x3, no focal deficits, seems to comprehend information Cardiovascular Studies Problems Addressed Today Encounter Diagnoses Name Primary? Chronic combined systolic and diastolic congestive heart failure (HCC) Yes Cardiogenic shock (HCC) Paroxysmal VT (HCC) Pulmonary hypertension Nonischemic cardiomyopathy (HCC) Assessment and Plan She has evidence of volume expansion of exam and by history with increased weight discussed increasing her diuretics and she continues on inotropes which she is dependent upon at this point in time. She still has questions about LVAD candidacy and she understands that she has been deemed not a candidate due to lack of support at home she is working with her son to outline possible support. She will also be with her plan of care team today. Would like her to return in 1 month to have a family meeting with patient and her son care team. Continue to have discussions about goals of care prognosis. Total time 40 minutes. Estimated counseling time 25 minutes including risks/ benefits/alternatives discussion related to plan as outlined and answering all questions related to the care plan while educating on the importance of adherence to recommended therapies, outpatient follow-up, and also addressing prognosis specific to the patient/family concerns. Thank you for allowing us to participate in the shared care of your patient. Yogi Fernández MD [facility] Cognos Developer Covering Machine Operator Helpertrains service conductor Director, [facility] Primary Transplant Physician Head Of Academic Technology, Heart Transplantation [facility] [email or web address] Current Medications (including today's revisions) 0.9 % [...] gluconate 324 mg (38 mg iron) tab Take 1 tablet by mouth daily with breakfast. furosemide (LASIX) 20 mg tablet Take 2 tablets by mouth twice daily. levothyroxine (SYNTHROID) 50 mcg tablet Take 1 tablet by mouth daily 30 minutes before breakfast. Indications: HYPOTHYROIDISM metoprolol XL (TOPROL XL) 25 mg extended release tablet Take 0.5 tablets by mouth daily. milrinone (PRIMACOR) 200 mcg/mL infusion Administer 29.975 mcg/min through vein Continuous (Cork Grinder from Rx). Miscellaneous Medical Supply [facility] Manual inflation blood pressure monitor with digital reading and large adult cuff. nitroglycerin (NITROSTAT) 0.[address] 0.4 mg under tongue every 5 minutes as needed for Chest Pain. Max of 3 tablets, call 911. potassium chloride SR (K-DUR) 10 mEq tablet Take 1 tablet by mouth daily. Take with a meal and afull glass of water. rosuvastatin (CRESTOR) 10 mg tablet Take 1 tablet by mouth daily. senna/docusate (SENOKOT-S) 8.6/50 mg tablet Take 1 tablet by mouth daily. sodium chloride (NASAL SPRAY (SODIUM CHLORIDE)) 0.65 % nasal spray Apply 2 sprays to each nostril as directed daily. spironolactone (ALDACTONE) 25 mg tablet Take 0.5 tablets by mouth daily. vitamins, B complex tab Take 1 tablet by mouth daily. in this encounter Plan of Treatment Scheduled Tests Name Priority Associated Diagnoses Order Schedule PICC LINE REPLACEMENT Routine Chronic combined systolic and Ordered: 2016 diastolic congestive heart failure (HCC) Cardiogenic shock (HCC) Paroxysmal VT (HCC) Pulmonary hypertension Nonischemic cardiomyopathy (HCC) as of this encounter Visit Diagnoses Diagnosis Chronic combined systolic and diastolic congestive heart failure (HCC) - Primary Chronic combined systolic and diastolic heart failure Cardiogenic shock (HCC) Cardiogenic shock Paroxysmal VT (HCC) Paroxysmal ventricular tachycardia Pulmonary hypertension Other chronic pulmonary heart diseases Nonischemic cardiomyopathy (HCC) Other primary cardiomyopathies in this encounter
--- OUTSIDE RECORDS SUMMARY | 2017-09-06 12:05 | External Medical Summary | Encounter Summary ---
:1955 Author Organization [facility] Address [address] [facility] [address] [place] [address] Phone Care Team Providers Name Role Phone Unavailable Primary Care Provider Unavailable Reason for Visit Reason Comments Palliative Care Encounter Details Date Type Department Care Team Description 07/18/2017 Telephone [facility] CARDIOLOGY Cleveland Bateman, Palliative Care [address] CAMP ASSISTANT-PIGMENT PUSHER [facility] [address] [place] [address] [place] [address] [phone] Social History Tobacco Use Types Packs/Day Years [...] this encounter Miscellaneous Notes Telephone Encounter - Pedrito Lobo LPN - 07/18/2017 12:54 PM CSTPt returned call, called from [phone] Telephone Encounter - Alban Aragon RN - 07/18/2017 12:45 PM CSTAttempted to contact CM at the # provided. It was not a working extension. Called pt but VM was not set up. Will attempt to contact pt again before the end of the day. Alban Aragon RN, BSN Nurse Technical Specialist Cytology [phone] Telephone Encounter - Cleveland Bateman APRN-PIGMENT PUSHER - 07/18/2017 12:19 PM GARMENT SEWING MACHINE OPERATOR Palliative Care Note Received message from patient requesting HF CM team to contact pt's porter sample case through for ongoingcare coordination to help with social support needs. Will relay to outpatient case management team members. human resources talent managermanager chinese #[phone] (no name provided). Cleveland Bateman APRN, PIGMENT PUSHER-C Palliative Care--Outpatient Heart Failure Pager: Office: in this encounter Plan of Treatment Not on fileas of this encounter Visit Diagnoses Not on filein this encounter
--- OUTSIDE RECORDS SUMMARY | 2017-09-06 12:05 | External Medical Summary | Encounter Summary ---
:1955 Author Organization [facility] Address [address] [place] [address] Phone Care Team Providers Name Role Phone Unavailable Primary Care Provider Unavailable Encounter Details Date Type Department Care Team Description 07/16/2017 Hospital Encounter Clinlab Yogi Fernández, Chronic combined [address] MD systolic [place], [place] [address] (congestive) [address] diastolic [place] 40[address] (congestive) heart [place], [place] failure (HCC) [address] [phone] Social History Tobacco Use Types Packs/Day Years [...] impairment: No 07/02/2017 as of this encounter Medications at Time [...] 81 mg tablet Take 1 tablet by 90 tablet 3 07/16/2017 mouth daily. Take with food. cholecalciferol Take 2 tablets by 90 tablet 1 05/17/2017 (VITAMIN D-3) 1,000 mouth daily. units tablet furosemide (LASIX) 20 Take 2 tablets by 120 tablet 3 07/16/2017 mg tablet mouth twice daily. metoprolol XL (TOPROL Take 0.5 tablets by 90 tablet 3 06/12/2017 XL) 25 mg extended mouth daily. release tablet milrinone (PRIMACOR) Administer 29.975 100 mL 06/11/2017 200 mcg/mL infusion mcg/min through vein Continuous (Appeals Reviewer Veteran from Rx). [facility] inflation 1 Device 0 05/07/2017 Supply [facility] blood pressure monitor with digital reading and large adult cuff. nitroglycerin Place 0.4 mg under (NITROSTAT) 0.4 mg tongue every 5 tablet minutes as needed for Chest Pain. Max of 3 tablets, call 911. potassium chloride TK 1/2 T PO QD WF 10 07/03/2017 (K-DUR) 10 mEq tablet potassium chloride SR Take 1 tablet by 30 tablet 5 05/30/2017 (K-DUR) 10 mEq tablet mouth daily. Take with a meal and a full glass of water. rosuvastatin (CRESTOR) Take 1 tablet by 30 tablet 5 05/30/2017 10 mg tablet mouth daily. sodium chloride (NASAL Apply 2 sprays to SPRAY (SODIUM each nostril as CHLORIDE)) 0.65 % nasal directed daily. spray spironolactone Take 0.5 tablets by 60 tablet 5 07/02/2017 (ALDACTONE) 25 mg mouth daily. tablet vitamins, B complex tab Take 1 tablet by 90 tablet 3 05/17/2017 mouth daily. ferrous gluconate 324 Take 1 tablet by 90 tablet 3 05/17/2017 07/29/2017 mg (38 mg iron) tab mouth daily with breakfast. levothyroxine Take 1 tablet by 90 tablet 3 05/17/2017 07/29/2017 (SYNTHROID) 50 mcg mouth daily 30 tabletIndications: minutes before HYPOTHYROIDISM breakfast. Indications: HYPOTHYROIDISM senna/docusate Take 1 tablet by 30 tablet 3 07/16/2017 08/12/2017 (SENOKOT-S) 8.6/50 mg mouth daily. tablet as of this encounter Plan of Treatment Not on fileas of this encounter Results MAGNESIUM (07/16/2017 1:28 PM) Component Value Ref Range Magnesium 2.1 1.6 - 2.6 mg/dL Specimen Performing Laboratory Blood [facility] [address] [place] [address] BASIC METABOLIC PANEL (07/16/2017 1:28 PM) Component Value Ref Range Sodium 138 137 - 147 MMOL/L Potassium 3.7 3.5 - 5.1 MMOL/L Chloride 100 98 - 110 MMOL/L CO2 27 21 - 30 MMOL/L Anion Gap 11 3 - 12 Glucose 123 (H) 70 - 100 MG/DL Blood Urea Nitrogen 19 7 - 25 MG/DL Creatinine 1.27 (H) 0.4 - 1.00 MG/DL Calcium 10.1 8.5 - 10.6 MG/DL eGFR Non 43 (L) >60 mL/min Comment: The eGFR is not validated for use in drug dosing adjustments.Continue to use estimated creatinine clearance per dosing reference text.Please contact the Clinical Pharmacist for questions. eGFR 52 (L) >60 mL/min Comment: The eGFR is not validated for use in drug dosing adjustments.Continue to use estimated creatinine clearance per dosing reference text.Please contact the Clinical Pharmacist for questions. Specimen Performing Laboratory Blood [facility] [address] [place] [address] in this encounter Visit Diagnoses Diagnosis Chronic combined systolic and diastolic congestive heart failure (HCC) Chronic combined systolic and diastolic heart failure Stage 3 chronic kidney disease in this encounter Admitting Diagnoses Diagnosis Chronic combined systolic (congestive) and diastolic (congestive) heart failure (HCC) Chronic combined systolic (congestive) and diastolic (congestive) heart failure Chronic kidney disease, stage 3 (moderate) in this encounter
--- OUTSIDE RECORDS SUMMARY | 2017-09-06 12:05 | External Medical Summary | Encounter Summary ---
:1955 Author Organization [facility] Address [address] [facility] [address] [place] [address] Phone Care Team Providers Name Role Phone Unavailable Primary Care Provider Unavailable Reason for Visit Reason Comments Financial/Insurance Questions BENEFITS / INSURANCE INFORMATION Encounter Details Date Type Department Care Team Description 07/18/2017 Telephone Center for Breanne Colunga Financial/Insurance Transplantation-Kidney/Pa Questions (BENEFITS / ncreas Nep INSURANCE INFORMATION ) [address] [facility] [place], [place] [id number] Social History Tobacco Use Types Packs/Day Years [...] Telephone Encounter - Breanne Colunga - 07/18/2017 3:50 PM CSTRECEIVED PHONE CALL FROM [facility] REQUESTING CLARIFICATION ON DT AND BTT VAD COVERAGE ON PLAN.in this encounter Plan of Treatment Not on fileas of this encounter Visit Diagnoses Not on filein this encounter
--- OUTSIDE RECORDS SUMMARY | 2017-09-06 12:05 | External Medical Summary | Encounter Summary ---
:1955 Author Organization [facility] Address [address] [facility] [address] [place] [address] Phone Care Team Providers Name Role Phone Unavailable Primary Care Provider Unavailable Encounter Details Date Type Department Care Team Description 07/16/2017 Pharmacy Visit [facility] [address] [place] [address] Social History Tobacco Use Types Packs/Day Years [...]
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
--- OUTSIDE RECORDS SUMMARY | 2017-09-06 12:05 | External Medical Summary | Encounter Summary ---
:1955 Author Organization [facility] Address [address] [facility] [address] [place] [address] Phone Care Team Providers Name Role Phone Unavailable Primary Care Provider Unavailable Encounter Details Date Type Department Care Team Description 07/16/2017 Procedure visit Infusion Therapy Clinic Yogi Fernández MD [address] [facility]. [address] [place] [address] [place] [address] [place] [address] [phone] Social History Tobacco Use Types Packs/Day Years [...] 07/02/2017 as of this encounter Progress Notes Tatiana Garza - 07/16/2017 3:15 PM CSTPICC Line Insertion Procedure Note NAME:Radha Chance :1955 AGE: 61 y.o. ADMISSION DATE: (Not on file) DAYS ADMITTED: @[facility]@ Procedure Details: Informed consent was obtained for the procedure. Risks of infection, blood clot,and nerve or vessel damage were discussed. Indications: Home IV therapy Procedure: Under sterile conditions the skin at the insertion site was prepped with chlorhexadineandcovered with a sterile drape. Local anesthesia was applied to the skin and subcutaneous tissues. A #4 FR, Double, PICC was inserted in theRight Basilic vein per hospital protocol. Blood return: Yes Catheter trimmed , inserted to 43 cm, with 0 cm external. Catheter was flushed with 20 mL NS. Patient did tolerate procedure well. Mid upper arm circumference is 47 cm. Verification: Ada RN over the wire exchanged the PICC and Carmen VAT assisted.Placement confirmed with ECG., Patency verified by positive blood return., Venous location confirmed by ultrasound., Educational material/ teaching instruction given to patient and/or left at bedside. and ACJ/SVC per 3CG in this encounter Plan of Treatment Not on fileas of this encounter Procedures Procedure Name Priority Date/Time Associated Diagnosis Comments ECG-SCAN 07/29/2017 2:23 PM Results for this END FRAZER procedure are in the results section. in this encounter Results ECG-SCAN (07/29/2017 2:23 PM) Narrative Ordered by an unspecified provider. in this encounter Visit Diagnoses Not on filein this encounter
--- OUTSIDE RECORDS SUMMARY | 2017-09-06 12:05 | External Medical Summary | Encounter Summary ---
:1955 Author Organization [facility] Address [address] [facility] [address] [place] [address] Phone Care Team Providers Name Role Phone Unavailable Primary Care Provider Unavailable Reason for Visit Reason Comments Other 24hr Care Approval by Insurance Encounter Details Date Type Department Care Team Description 07/18/2017 Telephone Center for Veronica Rios RN Other (24hr Care Transplantation-Heart Approval by Insurance) Clinic [address] [facility] [place], [place] [id number] Social History Tobacco Use Types Packs/Day Years [...] Telephone Encounter - Veronica Rios RN - 07/18/2017 11:23 AM CSTReceived a call from Radha yesterday stating that she had her support planned out with her son. Upon calling Radha today, she states that Zora braden SW from [facility] needs a doctors order for 24hrs a day 7 days per week care to be provided. Received Zora's phone number and informed Radha that this caller will reach out to Zora to see what can be done to expedite this request. InformedCarol that we set up a follow up appt for her on Aug 12 at 2:30pm with Dr Fernández to discuss moving forward with the VAD.in this encounter Plan of Treatment Not on fileas of this encounter Visit Diagnoses Not on filein this encounter
--- OUTSIDE RECORDS SUMMARY | 2017-09-06 12:06 | External Medical Summary | Encounter Summary ---
:1955 Author Organization [facility] Address [address] [facility] [address] [place] [address] Phone Care Team Providers Name Role Phone Unavailable Primary Care Provider Unavailable Encounter Details Date Type Department Care Team Description 07/15/2017 Telephone Case Management - Social Work Marci Doll [address] [facility] [place] [address] Social History Tobacco Use Types Packs/Day Years Used Date Never Smoker Smokeless Tobacco: Never Used Alcohol Use Drinks/Week oz/Week Comments No Sex Assigned at Date Recorded Not on file as of this encounter Functional Status Functional Status Response Date of Assessment Does the patient have a hearing impairment: No 07/02/2017 Does the patient have a visual impairment: Yes 07/02/2017 Does the patient have impaired ambulation: No 07/02/2017 Does the patient have an activity of daily living (ADL) No 07/02/2017 impairment: Does the patient have an instrumental activity of daily No 07/02/2017 living (IADL) impairment: Cognitive Status Response Date of Assessment Does the patient have a cognitive impairment: No 07/02/2017 as of this encounter Miscellaneous Notes Telephone Encounter - Marci Doll - 07/15/2017 1:05 PM CSTContinuum of Care Case Management Note Continuum of Care CM attempted to contact patient by phone for 30 day post discharge follow up. CM was unable to a message requesting a return call. Marci Doll LMSW [phone] in this encounter Plan of Treatment Not on fileas of this encounter Visit Diagnoses Not on filein this encounter
--- OUTSIDE RECORDS SUMMARY | 2017-09-06 12:06 | External Medical Summary | Encounter Summary ---
:1955 Author Organization [facility] Address [address] [place] [address] Phone Care Team Providers Name Role Phone Unavailable Primary Care Provider Unavailable Reason for Visit Reason Comments Lab Request Encounter Details Date Type Department Care Team Description 07/03/2017 Telephone [facility] Pedrito Lobo LPN Lab Request [address] [facility] [address] [place] [address] Social History Tobacco Use Types Packs/Day Years [...] Telephone Encounter - Pedrito Lobo LPN - 07/08/2017 12:27 PM CSTAlyssa with [facility] called to report that they are seeing the pt on 07/09 and will draw BMP.Telephone Encounter - Pedrito Lobo LPN - 07/03/2017 10:15 AM CDT Formatting of this note may be different from the original. Faxed orders for BMP to be drawn to [facility]. Mukesh Emmanuel APRN,MACHINE STACKER-C P [facility] Nurse Hf Hi; Saw her in clinic today; creat is elevated and I asked her to cut her monika in 1 /2 to 12.5 mg. Please can we ask her [facility] to check BMP next week? She says they typically come out on Tuesdays. Thanks JOSH in this encounter Plan of Treatment Scheduled Tests Name Priority Associated Diagnoses Order Schedule BASIC METABOLIC PANEL Routine Chronic combined systolic Expected: 07/08/2017 and diastolic congestive (Approximate), Expires: heart failure (HCC) 07/03/2018 as of this encounter Visit Diagnoses Diagnosis Chronic combined systolic and diastolic congestive heart failure (HCC) - Primary Chronic combined systolic and diastolic heart failure in this encounter
--- OUTSIDE RECORDS SUMMARY | 2017-09-06 12:06 | External Medical Summary | Encounter Summary ---
:1955 Author Organization [facility] Address [address] [place] [address] Phone Care Team Providers Name Role Phone Unavailable Primary Care Provider Unavailable Encounter Details Date Type Department Care Team Description 06/28/2017 Pharmacy Visit [facility] [address] [place] [address] Social History Tobacco Use Types Packs/Day Years Used Date Never Smoker Smokeless Tobacco: Never Used Alcohol Use Drinks/Week oz/Week Comments No Sex Assigned at Date Recorded Not on file as of this encounter Functional Status Functional Status Response Date of Assessment Does the patient have a hearing impairment: No 06/11/2017 Does the patient have a visual impairment: No 06/11/2017 Does the patient have impaired ambulation: No 06/11/2017 Does the patient have an activity of daily living (ADL) No 06/11/2017 impairment: Does the patient have an instrumental activity of daily No 06/11/2017 living (IADL) impairment: Cognitive Status Response Date of Assessment Does the patient have a cognitive impairment: No 06/11/2017 as of this encounter Plan of Treatment Not on fileas of this encounter Visit Diagnoses Not on filein this encounter
--- OUTSIDE RECORDS SUMMARY | 2017-09-06 12:06 | External Medical Summary | Encounter Summary ---
:1955 Author Organization [facility] Address [address] [place] [address] [place] [address] Phone Care Team Providers Name Role Phone Unavailable Primary Care Provider Unavailable Reason for Visit Reason Comments Follow Up 3 week recheck Labs Only Heart Failure Medications Only Chest Pain Palpitations Dizziness Encounter Details Date Type Department Care Team Description 07/02/2017 Office Visit [facility] Mukseh Emmanuel, Follow Up (3 week CARDIOLOGY FARMWORKER [employer],CRISIS WORKER-C recheck); Labs Only; [address] Heart Failure; [place], [place] Medications Only; [address] [address] Chest Pain; [place] [address] Palpitations; [phone] Dizziness Social History Tobacco Use Types Packs/Day Years Used Date Never Smoker Smokeless Tobacco: Never Used Alcohol Use Drinks/Week oz/Week Comments No Sex Assigned at Date Recorded Not on file as of this encounter Last Filed Vital Signs Vital Sign Reading Time Taken Blood Pressure 100/62 07/02/2017 1:34 PM CDT Pulse 92 07/02/2017 1:34 PM CDT Temperature - - Respiratory Rate - - Oxygen Saturation - - Inhaled Oxygen Concentration - - Weight 119.1 kg (262 lb 9.6 oz) 07/02/2017 1:34 PM CDT Height 170.2 cm (5' 7") 07/02/2017 1:34 PM CDT Body Mass Index 41.13 07/02/2017 1:34 PM CDT in this encounter Functional Status Functional Status [...] of this encounter Instructions Patient Instructions - Rafael Hanna, MA - 07/02/2017 3:00 PM CDT Formatting of this note may be different from the original. Your fluid levels are stable today. Keep working on eating low sodium diet and drinking under 64 ounces of fluid per day. Keep weighing yourself daily and checking your blood pressure daily, bring these values back with you to your next office visit. Your instructions today include: 1. Medications: Start taking 12.5 mg (1/2 tablet) of spironolactone. Try to take your Toprol XL medication before you go to bed. 2. Labs: Your kidney function is slightly elevated today; we will plan to re- check labs in 1 week to make sure your kidney function has improved. 3. Next follow up appointment already scheduled to see Dr Fernández on 07/16/17. 4. Call for any worsening symptoms of shortness of breath, swelling, sudden weight gain, lightheadedness, heart racing or chest pain. 5. Remember to weigh your self daily and call for weight increase greater than 3 pounds overnight or5 pounds in one week. 6. It is very helpful for us to treat you if you keep a log of your weights and blood pressures, andbring with you to your next clinic visit. 7. It is also very helpful for you to bring your medications with you to your next clinic visit. 8. Taking your medications as directed helps keep you out of the hospital: please call if you have concerns about the side effects, cost or refills. 9. Follow low sodium dietary restriction- 2000 mg daily. Thank you for coming to [facility]. Mukesh Emmanuel APRN Nurse Practitioner [phone] Heart Failure Education Summary You have been [...] does not resolve with rest or nitroglycerin Stephen, foamy mucus with cough and shortness of breath A continuous rapid or irregular heartbeat Passing out or fainting Stroke symptoms such as sudden numbness or weakness on one side of your face , arm, or leg or sudden confusion, trouble speaking or vision changes Heart Failure in this encounter Progress Notes Mukesh Emmanuel APRN,CRISIS WORKER-C - 07/02/2017 3:00 PM CDTFormatting of this note may be different from the original. Date of Service: 07/02/2017 Radha Chance is a 61 y.o. female. HPI Ms. Chance was seen today in heart failure clinic as a posthospitalization follow -up visit. She was recently hospitalized from 06/07-06/11/17 for decompensated heart failure and chest discomfort. She had previously been hospitalized in May and underwent right heart catheterization as part of Advanced therapy evaluation. Ultimately it was decided she was not a transplant candidate and she was considered to be a questionable LVAD candidate due to poor social support. With most recent hospitalization she was determined to be in low flow state and initiated on dobutamine infusion however had an episode of NSVT. Dobutamine was discontinued and she was transitioned to milrinone at 0.25 mcg/kg /min.She discharged taking Toprol-XL, spironolactone, and Lasix daily. She had increased dose of amiodarone 400 mg bid for 14 days with instructions to decrease dose to 400 mg daily. Echocardiogram on 05/14/17 shows mildly dilated LV, EF 30-35%, grade I LV diastolic dysfunction, trace TR, trace MR. Today Ms. Chance reports since she left the hospital she has been feeling fairly well. Denies having any shortness of breath, reports occasional cough at night. Describes occasional lightheadedness related to position changes. Reports chest pain and occasional palpitations. Reports her lower extremity edema has improved however continues to have occasional abdominal bloating. Currently sleeping with head of bed flat using one pillow, wearing her CPAP and denies PND. She states she tries to adhere to 1500 mg low-sodium diet and drinks less than 64 ounces of fluid per day. She is multiple concerns including her glucose and her bowel system. Home SBP averaging 93-121 mmHg, HR has been averaging 60-90 bpm. Home weight log shows weights averaging 259-262 pounds. She is upset because home health RN came to change her PICC line dressing and she was concerned about the way they remove the dressingand pulled on the line. She reported this to the reception manager and the home health nurse has not returned to her house. Past medical history includes CAD, NICM, pulmonary HTN, HTN, HLD, cardiorenal syndrome, paroxysmal VT, cardiogenic shock, DM 2, osteoarthritis, dental decay, CONG and central apnea with BiPAP therapy, CKD. Vitals: 07/02/17 1334 BP: 100/62 Pulse: 92 Weight: 119.1 kg (262 lb 9.6 oz) Height: 1.702 m (5' 7") Body mass index is 41.13 kg/(m^2). Review of Systems Constitution: Negative. HENT: Negative. Eyes: Negative. Cardiovascular: Negative. Respiratory: Negative. Endocrine: Negative. Hematologic/Lymphatic: Negative. Skin: Negative. Musculoskeletal: Negative. Gastrointestinal: Negative. Genitourinary: Negative. Neurological: Negative. Psychiatric/Behavioral: Negative. Allergic/Immunologic: Negative. All other systems reviewed and are negative. Physical Exam General Appearance: obese female, in no acute distress Skin: warm, dry Eyes: conjunctivae and lids normal, pupils are equal and round Lips & Oral Mucosa: no pallor or cyanosis Neck Veins: JVP 6 cm, no HJR Chest Inspection: chest is normal in appearance Respiratory Effort: breathing comfortably, no respiratory distress Auscultation: lungs clear to auscultation, no rales or rhonchi, no wheezing Cardiac Rhythm: regular rhythm and normal rate Cardiac Auscultation: S1, S2 normal, no rub, no definite S3 or S4 Murmurs: no murmur Peripheral Circulation: normal peripheral circulation Radial Arteries: normal symmetric radial pulses Pedal Pulses: normal symmetric pedal pulses Lower Extremity Edema: trace bilateral lower extremity edema Abdominal Exam: soft, round, obese, non-tender, no masses, bowel sounds normal Gait & Station: walks without assistance Orientation: oriented to time, place and person Affect & Mood: appropriate and sustained affect Language and Memory: patient responsive and seems to comprehend information Neurologic Exam: neurological assessment grossly intact Vital signs were reviewed Other: R dbl lumen PICC line w/o redness to cath tip insertion site, drsg c/d/i Cardiovascular Studies EKG shows V paced rhythm, HR 74. Problems Addressed Today Encounter Diagnoses Name Primary? Chronic combined systolic and diastolic HFrEF Yes Paroxysmal VT NICM HTN CKD Assessment and Plan 1. HFrEF. Ms. hCance today presents with NYHA functional class IV and AHA stage D symptoms. Medications include Toprol-XL 12.5 mg daily, spironolactone 25 mg daily, furosemide is 40 mg daily, inotrope infusion of milrinone currently infusing at 0.25 mcg/kg/min. Today on exam her volume status is stable , weight has decreased 1 lb since she was discharged. Instructed to start taking her Toprol XL dose at night to prevent symptoms of dizziness/ lightheadness. No medication changes today. 2. Paroxysmal VT. She was recently treated for her VT and is currently taking amiodarone 400 mg daily. Since she was switched from dobutamine to milrinone the VT has resolved. 3. NICM. Recent echocardiogram shows EF of 30-35% with grade I LV diastolic dysfunction. She willneed to remain on her current medications to optimize her medical therapies. 4. HTN. Blood pressure today in clinic is 100/62. Home SBP has been averaging 93-121mmHg. No medication changes today. 5. CKD. Creatinine today is 1.36, recently range has been from 1.01-1.18. Instructed to decrease her Spironolactone dose to 12.5 mg daily. Will plan to have home health recheck labs in approximately 1 week to follow up on renal function. 6. Follow-up. Appointment scheduled to return our clinic to see Dr. Fernández on 07/16/17. Will plan to reassess volume status and renal function at that time. Ms. Chance is in agreement states understanding of this plan. Please see AVS for full patient teaching. Education/care coordination and counseling time spent: 40 minutes of 50 minute visit. Topics included HF disease process, treatment options, treatment risks and benefits, medication instructions, medication interactions, daily weight monitoring, sodium restriction, understanding of HF symptoms, awareness of when and whom call, and when to schedule next office visit. Thank you for the opportunity to participate in this pleasant patient's care. Please contact me withany concerns or questions. Mukesh Emmanuel APRN Pager #[phone] Collaborating MD:AJS Current Medications (including today's revisions) 0.9 % SODIUM CHLORIDE (SODIUM CHLORIDE PF 0.9%) 0.9 % flush Administer 5-10 mL through vein daily. amiodarone (CORDARONE) 200 mg tablet TAKE 1 TABLET BY MOUTH DAILY. (Patient taking differently: Take 400 mg by mouth daily.) aspirin EC 81 mg tablet Take 81 [...] infusion Administer 29.975 mcg/min through vein Continuous (Commercial Sales Director from Rx). Miscellaneous Medical Supply [facility] [place] inflation blood pressure monitor with digital [...] Tests Name Priority Associated Diagnoses Order Schedule ECG 12-LEAD Routine Chronic combined systolic and diastolic Ordered: 2016 HFrEF NICM as of this encounter Visit Diagnoses Diagnosis Chronic combined systolic and diastolic HFrEF - Primary Chronic combined systolic and diastolic heart failure Paroxysmal VT Paroxysmal ventricular tachycardia NICM Other primary cardiomyopathies HTN Unspecified essential hypertension CKD in this encounter
--- OUTSIDE RECORDS SUMMARY | 2017-09-06 12:06 | External Medical Summary | Encounter Summary ---
:1955 Author Organization [facility] Address [address] [place] [address] Phone Care Team Providers Name Role Phone Unavailable Primary Care Provider Unavailable Encounter Details Date Type Department Care Team Description 07/02/2017 [facility] Alan Forte Other cardiomyopathies Encounter [address] MD ([facility]) [place], [place] [address] [place] [address] [phone] Social History Tobacco Use Types Packs/Day Years [...] by 07/02/2017 200 mg tablet mouth daily. cholecalciferol Take 2 tablets by 90 tablet 1 05/17/2017 (VITAMIN D-3) 1,000 mouth daily. units tablet metoprolol XL (TOPROL Take 0.5 tablets by 90 tablet 3 06/12/2017 XL) 25 mg extended mouth daily. release tablet milrinone (PRIMACOR) Administer 29.975 100 mL 06/11/2017 200 mcg/mL infusion mcg/min through vein Continuous (Operations Research Manager from Rx). Miscellaneous Medical Manual inflation blood 1 Device 0 05/07/2017 Supply [facility] [place] monitor with digital reading and large adult cuff. nitroglycerin Place 0.4 mg under (NITROSTAT) 0.4 mg tongue every 5 minutes tablet as needed for Chest Pain. Max of 3 tablets, call 911. potassium chloride SR Take 1 tablet by mouth 30 tablet 5 05/30/2017 (K-DUR) 10 mEq tablet daily. Take with a meal and a full glass of water. rosuvastatin (CRESTOR) Take 1 tablet by mouth 30 tablet 5 05/30/2017 10 mg tablet daily. sodium chloride (NASAL Apply 2 sprays to each SPRAY (SODIUM nostril as directed CHLORIDE)) 0.65 % nasal daily. spray spironolactone Take 0.5 tablets by 60 tablet 5 07/02/2017 (ALDACTONE) 25 mg mouth daily. tablet vitamins, B complex tab Take 1 tablet by mouth 90 tablet 3 05/17/2017 daily. aspirin EC 81 mg tablet Take 81 mg by mouth 07/16/2017 daily. Take with food. ferrous gluconate 324 Take 1 tablet by mouth 90 tablet 3 05/17/20172016 mg (38 mg iron) tab daily with breakfast. furosemide (LASIX) 20 Take 2 tablets by 60 tablet 5 06/11/2017 07/16/2017 mg tablet mouth every morning. levothyroxine Take 1 tablet by mouth 90 tablet 3 05/17/2017 07/29/2017 (SYNTHROID) 50 mcg daily 30 minutes tabletIndications: before breakfast. HYPOTHYROIDISM Indications: HYPOTHYROIDISM spironolactone Take 1 tablet by mouth 60 tablet 5 06/11/2017 07/15/2017 (ALDACTONE) 25 mg daily. take with food tablet as of this encounter Plan of Treatment Not on fileas of this encounter Results BASIC METABOLIC PANEL (07/02/2017 12:31 PM) Component Value Ref Range Sodium 138 137 - 147 MMOL/L Potassium 3.9 3.5 - 5.1 MMOL/L Chloride 101 98 - 110 MMOL/L CO2 28 21 - 30 MMOL/L Anion Gap 9 3 - 12 Glucose 112 (H) 70 - 100 MG/DL Blood Urea Nitrogen 19 7 - 25 MG/DL Creatinine 1.36 (H) 0.4 - 1.00 MG/DL Calcium 10.0 8.5 - 10.6 MG/DL eGFR Non 40 (L) >60 mL/min Comment: The eGFR is not validated for use in drug dosing adjustments.Continue to use estimated creatinine clearance per dosing reference text.Please contact the Clinical Pharmacist for questions. eGFR 48 (L) >60 mL/min Comment: The eGFR is not validated for use in drug dosing adjustments.Continue to use estimated creatinine clearance per dosing reference text.Please contact the Clinical Pharmacist for questions. Specimen Performing Laboratory [facility] [address] [place] [address] CBC (07/02/2017 12:31 PM) Component Value Ref Range White Blood [...] Performing Laboratory [facility] [address] [place] [address] in this encounter Visit Diagnoses Diagnosis Nonischemic cardiomyopathy (HCC) Other primary cardiomyopathies Acute on chronic combined systolic and diastolic congestive heart failure (HCC) Acute on chronic combined systolic and diastolic heart failure Cardiogenic shock (HCC) Cardiogenic shock Chronic combined systolic and diastolic congestive heart failure (HCC) Chronic combined systolic and diastolic heart failure in this encounter Admitting Diagnoses Diagnosis Other cardiomyopathies (HCC) Other cardiomyopathies Acute on chronic combined systolic (congestive) and diastolic (congestive) heart failure (HCC) Acute on chronic combined systolic (congestive) and diastolic (congestive) heart failure Cardiogenic shock (HCC) Cardiogenic shock in this encounter
--- OUTSIDE RECORDS SUMMARY | 2017-09-06 12:06 | External Medical Summary | Encounter Summary ---
:1955 Author Organization [facility] Address [address] [facility] [address] [place] [address] Phone Care Team Providers Name Role Phone Unavailable Primary Care Provider Unavailable Encounter Details Date Type Department Care Team Description 07/05/2017 Pharmacy Visit [facility] [address] [place] [address] Social History Tobacco Use Types Packs/Day Years [...]
--- OUTSIDE RECORDS SUMMARY | 2017-09-06 12:06 | External Medical Summary | Encounter Summary ---
:1955 Author Organization [facility] Address [address] [place] [address] Phone Care Team Providers Name Role Phone Unavailable Primary Care Provider Unavailable Encounter Details Date Type Department Care Team Description 07/02/2017 Orders Only [facility] Emmanuel, Mukesh, Chronic combined [address] [place] WHITE LEAD GRINDER,FIRST SAMPLER-C systolic and diastolic [facility] [address] [place] [address] [place] failure (HCC) (Primary [phone] [id number] Dx) [phone] Social History Tobacco Use Types Packs/Day Years [...] Performing Laboratory Blood [facility] [address] [place] [address] in this encounter Visit Diagnoses Diagnosis Chronic combined systolic and diastolic congestive heart failure (HCC) - Primary Chronic combined systolic and diastolic heart failure in this encounter
--- OUTSIDE RECORDS SUMMARY | 2017-09-06 12:06 | External Medical Summary | Encounter Summary ---
:1955 Author Organization [facility] Address [address] [place] [address] Phone Care Team Providers Name Role Phone Unavailable Primary Care Provider Unavailable Reason for Visit Reason Comments Follow-up Phone Call Encounter Details Date Type Department Care Team Description 07/15/2017 Telephone [facility] Linda Vazquez, Follow-up Phone Call [address] CARTON PACKAGING MACHINE OPERATOR [facility] [address] [place] [address] Social History Tobacco Use Types Packs/Day Years [...] Telephone Encounter - Linda Vazquez LPN - 07/15/2017 4:14 PM ART LIBRARIAN Formatting of this note may be different from the original. Call placed to Dr. Kimble's office and spoke to nurse, Georgette. She informed pt did have some VT episodes for about 3 days prior to 07/03/17. No episodes since then. Georgette will route device report to R fax. Remote monitoring Received: Today GEREMIAS Crabtree LPN; Shannon Murphy, GEREMIAS Caller: Unspecified (Today, 12:14 PM) Remote is not followed by MAC. Per chart - Device is followed by Dr Kimble in [facility]. You would need to contact Dr Kimble office for remote transmission. Telephone Encounter - Linda Vazquez LPN - 07/15/2017 12:14 PM ART LIBRARIAN Formatting of this note may be different from the original. Call placed to pt to follow up on symptoms reported in a MyChart message below. Pt reports she has been having chest pain a couple times a day. Pt states her ICD fired last Saturday night and woke her up. Pt states pain is just under her L breast. Pt describes pain "more like a pressure", "or pinching". Pt states she has not taken any Nitrostat as pain has not been that severe. Pt reports increased abdominal bloating, BLE edema. Pt reports persistent cough with occasional clear expectorant. Pt reports increased SOA at rest, orthopnea. Weights and vitals below. Pt has been compliant with medications, 1500 mg Na and 64 oz fluid restriction. Pt also reports recent low blood sugars. Last low blood sugar was 66. Review with Shannon Murphy, GEREMIAS in clinic. Pt was asked to send remote transmission. Pt willcome in at 2:00 pm 07/17/17 before OV with LIZANDRO and Cleveland Bateman APRN for BMP, Mag. Pt educated sheshould go to nearest ED or call 911 if chest pain, SOA continues to worsen. Pt advised to call us inthe future when she has increased symptoms or weight gains and not to send MyChart message. Labs ordered and scheduled. Routing update to RN and to [facility] techs to watch for transmission. Date Weight B/P Pulse 07/15 265.0 107/75 80 07/14 263.6 108/67 88 07/13 262.6 106/63 69 07/12 260.8 109/62 71 07/11 261.6 114/63 84 07/10 260.0 107/78 88 07/10 95/85 Telephone Encounter - Linda Vazquez LPN - 07/15/2017 12:14 PM ART LIBRARIAN----- Message from Una Faustin RN sent at 07/10/2017 5:24 PM ART LIBRARIAN ----- Regarding: FW: Non-Urgent Medical Question Contact: ----- Message ----- From: Radha Chance Sent: 07/10/2017 4:47 PM To: Dick Nurse Triage [place] Subject: Non-Urgent Medical Question Hi this is Radha Chance birthday 1955 This morning when I took my blood pressure it was 95/85 I know this isn't right what may be going on? I also woke to some chest pains, shortly after I took my blood pressure, I will be there next Saturday. Next time if my pressure is like this what should I do? Sincerely Radha Glasgow Robson p.s. my cell phone is charging at this time. It should be charge in about an hour [phone] [email or web address] Plan of Treatment Not on fileas of this encounter Results MAGNESIUM (07/16/2017 1:28 PM) Component Value Ref Range Magnesium 2.1 1.6 - 2.6 mg/dL Specimen Performing Laboratory [facility] [address] [place] [address] BASIC METABOLIC PANEL (07/16/2017 1:28 PM) Component [...] Performing Laboratory Blood [facility] [address] [place] [address] in this encounter Visit Diagnoses Diagnosis Chronic combined systolic and diastolic congestive heart failure (HCC) Chronic combined systolic and diastolic heart failure Stage 3 chronic kidney disease in this encounter
--- OUTSIDE RECORDS SUMMARY | 2017-09-06 12:06 | External Medical Summary | Encounter Summary ---
:1955 Author Organization [facility] Address [address] [place] [address] Phone Care Team Providers Name Role Phone Unavailable Primary Care Provider Unavailable Reason for Visit Reason Comments Lab Results Encounter Details Date Type Department Care Team Description 07/11/2017 Documentation [facility] Pedrito Lobo LPN Lab Results [address] [facility] [address] [place] [address] Social History Tobacco Use Types Packs/Day Years [...] of this encounter Results BASIC METABOLIC PANEL (07/09/2017) Component Value Ref Range Sodium 137 Potassium 3.8 Chloride 101 CO2 27 Blood Urea Nitrogen 19 Creatinine 1.27 (H) 0.57 - 1.11 Glucose 138 (H) 70 - 99 Calcium 9.5 eGFR Non 43 eGFR Anion Gap 9 Specimen Performing Laboratory Blood OTHER OUTSIDE LAB in this encounter Visit Diagnoses Not on filein this encounter
--- OUTSIDE RECORDS SUMMARY | 2017-09-06 12:07 | External Medical Summary | Encounter Summary ---
:1955 Author Organization [facility] Address [address] [facility] [address] [place] [address] Phone Care Team Providers Name Role Phone Unavailable Primary Care Provider Unavailable Encounter Details Date Type Department Care Team Description 06/18/2017 Pharmacy Visit [facility] [address] [place] [address] Social History Tobacco Use Types Packs/Day Years [...]
--- OUTSIDE RECORDS SUMMARY | 2017-09-06 12:07 | External Medical Summary | Encounter Summary ---
:1955 Author Organization [facility] Address [address] [facility] [address] [place] [address] Phone Care Team Providers Name Role Phone Unavailable Primary Care Provider Unavailable Encounter Details Date Type Department Care Team Description 06/27/2017 Pharmacy Visit [facility] [address] [place] [address] Social History Tobacco Use Types Packs/Day Years [...]
--- OUTSIDE RECORDS SUMMARY | 2017-09-06 12:07 | External Medical Summary | Encounter Summary ---
:1955 Author Organization [facility] Address [address] [facility] [address] [place] [address] Phone Care Team Providers Name Role Phone Unavailable Primary Care Provider Unavailable Encounter Details Date Type Department Care Team Description 06/13/2017 Telephone Case Management - Social Work Marci Doll [address] [facility] [place] [address] Social History Tobacco Use Types Packs/Day Years [...] impairment: No 06/11/2017 as of this encounter Miscellaneous Notes Telephone Encounter - Marci Doll - 06/13/2017 2:25 PM [facility] of Care Case Management Note [facility] CM attempted to contact patient by phone for 24-48 hour post discharge follow up. CM left a message requesting a return call. CM will continue attempts to contact patient. Marci Doll LMSW [id number] this encounter Plan of Treatment Not on fileas of this encounter Visit Diagnoses Not on filein this encounter
--- OUTSIDE RECORDS SUMMARY | 2017-09-06 12:07 | External Medical Summary | Encounter Summary ---
:1955 Author Organization [facility] Address [address] [facility] [address] [place] [address] Phone Care Team Providers Name Role Phone Unavailable Primary Care Provider Unavailable Encounter Details Date Type Department Care Team Description 06/14/2017 Telephone Case Management - Social Work Marci Doll [address] [facility] [place] [address] Social History Tobacco Use Types Packs/Day Years [...] Notes Telephone Encounter - Marci Doll - 06/14/2017 1:41 PM CDTContinuum of Care Case Management Note [...]
--- OUTSIDE RECORDS SUMMARY | 2017-09-06 12:07 | External Medical Summary | Encounter Summary ---
:1955 Author Organization [facility] Address [address] [facility] [address] [place] [address] Phone Care Team Providers Name Role Phone Unavailable Primary Care Provider Unavailable Encounter Details Date Type Department Care Team Description 06/21/2017 Telephone Case Management - Social Work Marci Doll [address] [facility] [place] [address] Social History Tobacco Use Types Packs/Day Years [...] Notes Telephone Encounter - Marci Doll - 06/21/2017 2:36 PM CDTContinuum of Care Case Management Note [facility] CM attempted to contact patient by phone for 7-10 day post discharge follow up. CMleft a message requesting a return call. CM will continue attempts to contact patient. Marci Doll LMSW [id number] this encounter Plan of Treatment Not on fileas of this encounter Visit Diagnoses Not on filein this encounter
--- OUTSIDE RECORDS SUMMARY | 2017-09-06 12:07 | External Medical Summary | Encounter Summary ---
:1955 Author Organization [facility] Address [address] [facility] [address] [place] [address] Phone Care Team Providers Name Role Phone Unavailable Primary Care Provider Unavailable Encounter Details Date Type Department Care Team Description 06/24/2017 Pharmacy Visit [facility] [address] [place] [address] Social History Tobacco Use Types Packs/Day Years [...]
--- OUTSIDE RECORDS SUMMARY | 2017-09-06 12:07 | External Medical Summary | Encounter Summary ---
:1955 Author Organization [facility] Address [address] [place] [address] Phone Care Team Providers Name Role Phone Unavailable Primary Care Provider Unavailable Reason for Visit Reason Comments Medical Question by DARINRN Encounter Details Date Type Department Care Team Description 06/12/2017 Telephone [facility] [place] Medical Question (by [address]) [facility] [address] [place] [address] Social History Tobacco Use Types Packs/Day Years [...] Telephone Encounter - Linda Vazquez LPN - 06/12/2017 10:27 AM CDTMessage received from CHRISTOPHER Heart with [employer] requesting cb from Dr. Fernández's nurse. Called Una back and she informed she had just spoken with Judith regarding her question.in this encounter Plan of Treatment Not on fileas of this encounter Visit Diagnoses Not on filein this encounter
--- OUTSIDE RECORDS SUMMARY | 2017-09-06 12:07 | External Medical Summary | Encounter Summary ---
:1955 Author Organization [facility] Address [address] [facility] [address] [place] [address] Phone Care Team Providers Name Role Phone Unavailable Primary Care Provider Unavailable Encounter Details Date Type Department Care Team Description 06/25/2017 Telephone Case Management - Social Work Marci Doll [address] [facility] [place] [address] Social History Tobacco Use Types Packs/Day Years [...] Notes Telephone Encounter - Marci Doll - 06/25/2017 2:56 PM CDTContinuum of Care Case Management Note [facility] CM attempted to contact patient by phone for 7-10 day post discharge follow up. CMwas unable to leave a message requesting a return call. CM will continue attempts to contact patient. Marci Doll LMSW [phone] this encounter Plan of Treatment Not on fileas of this encounter Visit Diagnoses Not on filein this encounter
--- OUTSIDE RECORDS SUMMARY | 2017-09-06 12:07 | External Medical Summary | Encounter Summary ---
:1955 Author Organization [facility] Address [address] [facility] [address] [place] [address] Phone Care Team Providers Name Role Phone Unavailable Primary Care Provider Unavailable Encounter Details Date Type Department Care Team Description 06/25/2017 Pharmacy Visit [facility] [address] [place] [address] Social History Tobacco Use Types Packs/Day Years [...]
--- OUTSIDE RECORDS SUMMARY | 2017-09-06 12:08 | External Medical Summary | Encounter Summary ---
:1955 Author Organization [facility] Address [address] [place] [address] Phone Care Team Providers Name Role Phone Unavailable Primary Care Provider Unavailable Reason for Visit Auth/Cert Status Reason Specialty Diagnoses / Procedures Referred By Contact Referred To Contact Diagnoses Heart failure CHF (congestive heart failure) (HCC) Hypotension Encounter Details Date Type Department Care Team Description 06/07/2017 - Hospital Encounter CARDIAC AND FAMILY Alton Cronin MBBS [address] [place] [address] [phone] CHF (congestive 06/11/2017 MEDICINE Evelio Catalan MD [address] [place] [address] [phone] heart failure) PROGRESSIVE CARE Delio Bacon MD [address] [facility] [place] [address] [place] [address] [phone] (HCC) [address] [place] [address] Social History Tobacco Use Types Packs/Day Years Used Date Never Smoker Smokeless Tobacco: Never Used Alcohol Use Drinks/Week oz/Week Comments No Sex Assigned at Date Recorded Not on file as of this encounter Last Filed Vital Signs Vital Sign Reading Time Taken Blood Pressure 94/48 06/11/2017 6:26 AM CDT Pulse 77 06/11/2017 7:25 AM CDT Temperature 36.3 C (97.4 F) 06/11/2017 6:26 AM CDT Respiratory Rate - - Oxygen Saturation 95% 06/11/2017 6:26 AM CDT Inhaled Oxygen Concentration - - Weight 119.6 kg (263 lb 9.6 oz) 06/11/2017 4:49 AM CDT Height 170.2 cm (5' 7") 06/07/2017 4:57 PM CDT Body Mass Index 41.29 06/11/2017 4:49 AM CDT in this encounter Functional Status Functional [...] impairment: No 06/11/2017 as of this encounter Discharge Summaries Surya Walsh DO - 06/11/2017 3:09 PM CDTFormatting of this note may be different from the original. Physician Discharge Summary Name: Radha Chance Date Of : 1955 Age: 61 years Admit date: 06/07/2017 Discharge date: 06/11/2017 Attending Physician: Delio Bacon MD Service: Cardiology- Heart Failure Round- 2520 Physician Summary completed by: Surya Walsh DO Reason for hospitalization: chest discomfort, palpitations, and borderline hypotension; admitted forinotrope initiation and continued LVAD/transplant evaluation Radha Chance was admitted 06/07/2017 for fatigue, shortness of breath, dyspnea on exertion, palpitations and chest pain. She was followed by the Advanced Heart Failure Rounding Service for acute on chronic HFrEF heart failure. Echocardiogram Not repeated from 05/14/17 RHC results: Not repeated from 05/14/17 ("Patient had evidence of a normal to low blood pressure throughout the procedure and it was ranging from 98 systolic to 112 systolic. Right atrial pressure was noted to be 16 mm at end-expiration. Right ventricular pressure was noted to be 46/8 with an end-diastolic pressure of 13 mmHg. Pulmonary wedge pressure at end-expiration was 25 mmHg. Pulmonary arterypressure at end-expiration was 43/25 with a mean of 27 mmHg. Cardiac output was noted to be 4.8 L/min with a cardiac index of 2.1 L/min per sq m.)" Inotrope therapy: Milrinone: 0.25 mcg/kg/min was started during the stay and was continued at discharge. Dobutamine 3mcg/kg/min started on admission, but after episode of NSVT that resolved with ATP, Dobutamine was stopped. She will be seen by Heart Failure provider LORRAINE Oliva in post hospital follow up on 07/01/17. Follow up labs will be performed 06/18/17. She will see Dr. Johansen on 06/18/[address] Fernández on 07/16/17. Heart Failure Hospitalization Summary: Admission Discharge Weight 264 lbs Wt Readings from Last 1 Encounters: 06/11/17 119.6 kg (263 lb 9.6 oz) Goal dry weight <263 lbs Diuretic Regimen GEOSPATIAL ANALYST furosemide (Lasix) 20mg twice a day :furosemide (Lasix) 40mg daily BNP 94.0 N/A Creatinine 1.13mg/dL 1.15mg/dL Net I/O for hospitalization -1.5L Significant PMH: Past Medical History: Diagnosis Date CAD (coronary artery disease) 08/15/2011 [facility]: no significant obst. disease Chronic combined systolic and diastolic congestive heart failure (HCC) 2016 Diabetes type 2, controlled ([facility]) Dyslipidemia HTN (hypertension) Ischemic cardiomyopathy 2010 LV dysfunction 06/21/2011 EF 36% Mild coronary artery disease 08/15/2011 a. 08.15.2011 - [facility]: LVG 35% / LVEDP 9 - No significant coronary obstructive disease. b. 11.11.2013 - MPI - LVEF 28% - abnl - multivessel dx vs cardiomyopathy c. 11.18.2013 - [facility]: No significant coronary obstructive disease --> preformed at [facility], [place], [place] via Madi Parmar MD d. 07.21.2015 - MPI - LVEF 43% - abnl - sm perfusion defect w/ questionable mild anteroapical ischemia Nonischemic cardiomyopathy (HCC) 08/15/2011 a. 06.26.2000 - Echo - EF 52% - Nl RV b. 06.21.2011 - Echo - EF 36%, Lt atrial enlargement, ischemic CM w/ evidence suggestive of prior anterior VT, Nl PAP c. 2.15.2011 - Echo - EF 25-30% / LVIDd 4.7 cm, LVE, mild LVH, severe hypokinesis, diastolic dysfx, trace TR, RVSP 18 mmHgd. d. 3.5 - BiV-ICD - Medtronic - Model [id number] (Serial: [id number]), Artial Lead Model 4076-52 (serial: [id number], Pulmonary hypertension 03/08/2014 PAP 38 mmHg via echo Sleep apnea Allergies: Codeine; Morphine; Penicillins; Aspirin; and Sulfa (sulfonamide antibiotics) Admission Physical Exam notable for: Temp 98.3F, HR 68, RR 14, BP 105/46, SpO2 96% w/o supplemental O2 - CONSTITUTIONAL: no acute distress, calm, cooperative, appropriately participative in exam; no diaphoresis; vital signs as above - HEAD: normocephalic and atraumatic; obese neck - EYES: PERRL; EOMI b/l - ENT: moist mucous membranes; no mouth sores; no thrush; poor dentition with multiple areas of decay - VASCULAR: radial pulses 2/4 and regular b/l - LUNGS: clear to auscultation bilaterally; no wheezes, no rales, no rhonchi; no accessory muscle use; no pleurisy; normal respiratory effort; not on supplemental O2 - HEART: normal rate, regular rhythm; no murmur, no rub, no gallop; chest non- tender to palpation; 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 upper 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 - ABD: obese abdomen; soft, non-tender, non-distended; bowel sounds present; no guarding - EXTREMITIES: no lower extremity edema b/l; warm extremities; +5/5 customer complaint clerk strength b/l; +5/5 dorsiflexion b/l; +5/5 plantarflexion b/l - HEME/LYMPH: no active bleeding; no cervical lymphadenopathy; no supraclavicular or infraclavicularlymphadenopathy - SKIN: no rashes; no lesions - NEURO: alert and oriented; converses appropriately; follows simple commands Lines: PICC line RUE Admission Lab/Radiology studies notable for: Na 137, K 4.1, Cl 101, BUN 11, Cr 1.18, AST 16, ALT 5, Alk Phos 42, Total Bili 0.7; BNP 94.0, Troponin-I 0.04, LA 1.0 Brief Hospital Course: 61 y/o female with combined systolic and diastolic CHF who was previously admitted from 05/14/17-05/17/17 for LVAD/transplant evaluation, but deemed non- candidate for transplant due to excessive BMI (~41) was admitted on 06/07/17 for for palpitations, dyspnea, and combined systolic and diastolic CHF who was admitted for inotrope initiation and borderline hypotension. Her RHC (05/14/17) report indicated:"Patient had evidence of a normal to low blood pressure throughout the procedure and it was ranging from 98 systolic to 112 systolic. Right atrial pressure was noted to be 16 mm at end-expiration. Right ventricular pressure was noted to be 46/8 with an end-diastolic pressure of 13 mmHg. Pulmonary wedge pressure at end-expiration was 25 mmHg. Pulmonary artery pressure at end-expiration was 43/25 with a mean of 27 mmHg. Cardiac output was noted to be 4.8 L/min with a cardiac index of 2.1 L/min persq m." The patient was started on Dobutamine 3mcg/kg/min upon admission, but then developed a single episode of non-sustained VT that terminated with ATP. Dobutamine was stopped and Amiodarone gtt was started. After demonstration of adequate urine output with IV diuresis, she was started on Milrinone instead. The patient tolerated the first night of Milrinone without recurrent episodes of VT and seemingly less ectopy. She reported feeling better over the next few days and was able to ambulate to the bathroom and throughout the unit with more endurance than previously. The patient also reported fewer palpitations and less intermittent chest discomfort. At her previous admission, she was deemed not a candidate for transplant and was also a questionable LVAD candidate due to her lack of social support. There were concerns for her lack of commitment to 24 hour post-operative care if she were to get an LVAD. The patient met with the social work administrator multiple times during this brief admission, but still struggled to come up with a dependable plan for LVAD. She will continue to talk to friends and family aboutthis. The patient well educated multiple times about the importance and she admitted she was afraid to burden others (family, friends ) for that level of care. If she is to get an LVAD in the future, she still needs teeth extraction and colonoscopy. She was discharged to home on 06/11/17 after Milrinone pump education. Her rate was and will be 0.25mcg/kg/min (initiated at 0.125mcg/kg/min). GEOSPATIAL ANALYST Heart Failure Medications: Spironolactone 25mg qday, Coreg 3.125mg BID, Lasix 20mg BID, and Amiodarone 200mg qday Discharge Heart Failure Medications: Metoprolol XL 12.5mg qday, Spironolactone 25mg qday, and Lasix 40mg qday; other CHF medications were limited due to hypotension. Amiodarone was also increased to 400g BID x14 days and then 400mg qday. Condition at Discharge: Stable Discharge Diagnoses: Hospital Problems Active Problems Mild coronary artery disease Nonischemic cardiomyopathy (HCC) Pulmonary hypertension CONG and Central apnea treated with BiPAP Diabetes type 2, controlled ([facility]) Chronic combined systolic and diastolic congestive heart failure (HCC) Stage 3 chronic kidney disease CHF (congestive heart failure) ([facility]) Paroxysmal VT ([facility]) Cardiogenic shock ([facility]) Resolved Problems RESOLVED: Hypotension Surgical Procedures: None Significant Diagnostic Studies and Procedures: noted in brief hospital course Consults: None Patient Disposition: Home with Home Health Care Patient instructions/medications: BASIC METABOLIC PANEL Standing Status: Future Standing Exp. Date: 06/10/18 Please have BMP drawn on 06/18 and results faxed to [phone]. Attn. Dr. Fernández and fax to fax # [phone] CBC Standing Status: Future Standing Exp. Date: 06/10/18 Please have CBC drawn on 06/18 and results faxed to [phone]. Attn[address] Dr. Fernández and fax to fax # [phone] Activity as Tolerated It is important to keep increasing your activity level after you leave the hospital. Moving around can help prevent blood clots, lung infection (pneumonia ) and other problems. Gradually increasing the number of times you are up moving around will help you return to your normal activity level more quickly. Continue to increase the number of times you are up to the chair and walking daily to return to your normal activity level. Begin to work towards your normal activity level at discharge. Return Appointment This is a heart failure hospital follow-up visit with a heart failure specialist at the [facility] HF Clinic on the 1st floor of the hospital within the [facility] [address] [place] . This appointment is very important to assess your fluid status, adjust medications, and prevent re-admission to the hospital. Please make every attempt to make it to the appointment. Provider SEBAS FERNÁNDEZ [[id number]] Location Cardiology Clinic Appointment date: 07/16/2017 Appointment time: 2:20 PM Return Appointment This is a heart failure hospital follow-up visit with a heart failure specialist at the [facility] Clinic on the 1st floor of the hospital within [facility] [address] [facility] [address] [place] [facility] This appointment is very important to assess your fluid status, adjust medications, and prevent re-admission to the hospital. Please make every attempt to make it to the appointment. Provider PEMA COUCH [[id number]] Location Cardiology Clinic Appointment date: 07/01/2017 Appointment time: 2:30 PM Return Appointment Outside Provider Dr. Maya in [place] clinic Appointment date: 06/18/2017 Appointment time: 8:40 AM Report These Signs and Symptoms Please contact your doctor if you have any of the following symptoms: *Continue medicines as direct on your discharge medication list. Get an up to date list with every visit and take as instructed. DoNOT stop taking any medications without speaking with your doctor or nurse who knows you. *Remember to weigh yourself first thing in the morning after using the restroom and write it down. Take this record to your doctor appointment. *Chart symptoms such as fatigue, trouble breathing, or swelling. Call your doctor right away if these symptoms get worse. *Remember, do not eat more than 2000 milligrams of sodium a day. Watch out for packaged, processed, canned and restaurant foods. Call your doctor (your stationary engineer, if you have one) if: -you gain more than 2 pounds in 24 hours. -you gain more than 5 pounds in 1 week. -any of your symptoms get worse Do NOT wait to let your doctor know about these changes. and persistent nausea and/or vomiting, difficulty breathing, chest pain or severe abdominal pain Questions About Your Stay For questions or concerns regarding your hospital stay: - DURING BUSINESS HOURS (8:00 AM - 4:30 PM): Call [phone] and asked to be transferred to your discharge attending physician. - AFTER BUSINESS HOURS (4:30 PM - 8:00 AM, on weekends, or holidays): Call [phone] and ask the mold press operator to page the on-call doctor for the discharge attending physician. Discharging attending physician: DELIO BACON [[id number]] Cardiac Diet Limiting unhealthy fats and cholesterol is the most important step you can take in reducing your risk for cardiovascular disease. Unhealthy fats include saturated and trans fats. Monitor your sodium and cholesterol intake. Restrict your sodium to 2g (grams) or 2000mg (milligrams) daily, and your cholesterol to 200mg daily. If you have questions regarding your diet at home, you may contact a dietitian at . Current Discharge Medication List START taking these medications Details 0.9 % SODIUM CHLORIDE (SODIUM CHLORIDE PF 0.9%) 0.9 % flush Administer 5-10 mL through vein daily. PRESCRIPTION TYPE: No Print metoprolol XL (TOPROL XL) 25 mg extended release tablet Take 0.5 tablets by mouth daily. Qty: 90 tablet, Refills: 3 PRESCRIPTION TYPE: Normal milrinone (PRIMACOR) 200 mcg/mL infusion Administer 29.975 mcg/min through vein Continuous (Director Client Services from Rx). Qty: 100 mL PRESCRIPTION TYPE: No Print CONTINUE these medications which have been CHANGED or REFILLED Details amiodarone (CORDARONE) 200 mg tablet Take 400mg (#2-200mg tabs) twice per day until 06/23/17 and then take 400mg (#2-200mg tabs) daily. Qty: 90 tablet, Refills: 6 PRESCRIPTION TYPE: Normal furosemide (LASIX) 20 mg tablet Take 2 tablets by mouth every morning. Qty: 60 tablet, Refills: 5 PRESCRIPTION TYPE: Normal spironolactone (ALDACTONE) 25 mg tablet Take 1 tablet by mouth daily. Take with food. Qty: 60 tablet, Refills: 5 PRESCRIPTION TYPE: Normal CONTINUE these medications which have NOT CHANGED Details aspirin EC 81 mg tablet Take 81 mg by mouth daily. Take with food. PRESCRIPTION TYPE: Historical Med cholecalciferol (VITAMIN D-3) 1,000 units tablet Take 2 tablets by mouth daily. Qty: 90 tablet, Refills: 1 PRESCRIPTION TYPE: Normal ferrous gluconate 324 mg (38 mg iron) tab Take 1 tablet by mouth daily with breakfast. Qty: 90 tablet, Refills: 3 PRESCRIPTION TYPE: Normal levothyroxine (SYNTHROID) 50 mcg tablet Take 1 tablet by mouth daily 30 minutes before breakfast. Indications: HYPOTHYROIDISM Qty: 90 tablet, Refills: 3 PRESCRIPTION TYPE: Normal Miscellaneous Medical Supply [facility] [place] Manual inflation blood pressure monitor with digital reading and large adult cuff. Qty: 1 Device, Refills: 0 PRESCRIPTION TYPE: No Print nitroglycerin (NITROSTAT) 0.[address] 0.4 mg under tongue every 5 minutes as needed for Chest Pain. Max of 3 tablets, call 911. PRESCRIPTION TYPE: Historical Med potassium chloride SR (K-DUR) 10 mEq tablet Take 1 tablet by mouth daily. Take with a meal and a full glass of water. Qty: 30 tablet, Refills: 5 PRESCRIPTION TYPE: Normal rosuvastatin (CRESTOR) 10 mg tablet Take 1 tablet by mouth daily. Qty: 30 tablet, Refills: 5 PRESCRIPTION TYPE: Normal sodium chloride (NASAL SPRAY (SODIUM CHLORIDE)) 0.65 % nasal spray Apply 2 sprays to each nostril asdirected daily. PRESCRIPTION TYPE: Historical Med vitamins, B complex tab Take 1 tablet by mouth daily. Qty: 90 tablet, Refills: 3 PRESCRIPTION TYPE: Normal The following medications were removed from your list. 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 Johansen on 06/18/17 in [place], [place]. Pending items needing follow up: BMP and CBC on 06/18/17 Signed: Surya Walsh DO 06/14/2017 cc: Sebas Fernández MD; Evelio Catalan MD; LORRAINE Oliva; Madi Johansen MD Primary Care Physician: Surya Garza Verified Referring physicians: Surya Garza DO Additional provider(s): Alton Cronin MD; Evelio Catalan MD Associated attestation - Delio Bacon MD - 06/14/2017 7:22 PM CDTI have reviewed the DC summary and agree with the DC plans as expressed by the resident. Delio Bacon M.D., Cardiology Staff Physicianin this encounter Discharge Instructions Discharge Instr - Case Management - Shannon Albright RN - 06/10/2017 3:49 PM CDTYour Home Health Services will be resumed by [facility]. They will contact you to resume your home visits. If you have any questions or concerns, please call them at [phone]. Your Home Infusion Services will be provided by [facility]. They will provide your IV pump and will deliver your IV medications to your home. If you have any questions or problems with yourIV pump or medications, please call them at [phone]. If you have any questions, concerns, or need assistance after discharge, please call claims adjuster crop: Shannon Albright MSN, RN, CCRN [facility] claims adjuster cropChemist Internship Heart Failure Services [email or web address] [phone] Discharge Instr - Appointments - Surya Walsh DO - 06/10/2017 11:44 AM CDT You will have an appointment with Dr. Johansen on 06/18/17 in [place], [place].in this encounter Medications at Time of Discharge Medication Sig. Disp. Refills Start Date End Date 0.9 % SODIUM CHLORIDE Administer 5-10 mL 06/11/2017 (SODIUM CHLORIDE PF through vein daily. 0.9%) 0.9 % flush amiodarone (CORDARONE) TAKE 2 TABLETS BY 90 tablet 6 06/11/2017 200 mg tablet MOUTH 2 TIMES A DAY UNTIL 06-23-17 AND THEN TAKE 2 TABS DAILY cholecalciferol Take 2 tablets by 90 tablet 1 05/17/2017 (VITAMIN D-3) 1,000 mouth daily. units tablet metoprolol XL (TOPROL Take 0.5 tablets by 90 tablet 3 06/12/2017 XL) 25 mg extended mouth daily. release tablet milrinone (PRIMACOR) Administer 29.975 100 mL 06/11/2017 200 mcg/mL infusion mcg/min through vein Continuous (Director Client Services from Rx). Miscellaneous Medical Manual inflation blood 1 Device 0 05/07/2017 Supply [facility] [place] pressure monitor with digital [...] directed CHLORIDE)) 0.65 % nasal daily. spray vitamins, B complex tab Take 1 tablet by mouth 90 tablet 3 05/17/2017 daily. amiodarone (CORDARONE) TAKE 1 TABLET BY MOUTH 30 tablet 5 06/11/201707/02 200 mg tablet DAILY. aspirin EC 81 mg tablet Take 81 [...] 25 mg daily. take with food tablet spironolactone TAKE 1 TABLET BY MOUTH 60 tablet 5 06/12/2017 07/02/2017 (ALDACTONE) 25 mg 2 TIMES A DAY WITH tablet FOOD. as of this encounter Progress Notes Pastora Jung, PHARMD - 06/11/2017 3:09 PM [facility] Medication Delivery Date/Time: Milrinone 0.25 mcg/kg/min (29.975 mcg/min), equipment and supplies delivered to pt room 06.10.17 by [facility] home infusion liaison Start of Care: Patient hooked up to 7 day milrinone bag by NICK WEBSTER RN on 06.11.17 prior to discharge. Teach/Nursing: [facility] Home Infusion liaison discussed home infusion process, home therapy expectations, equipment and supplies with patient prior to discharge. NICK WEBSTER RN hooked up patient to milrinone bag and conducteda bedside teach prior to discharge. [facility] [[phone]] to conduct thorough teach at patient home and will provide ongoing HH nursing.Raegan Cramer RN - 06/11/2017 3:09 PM CDTCarol Myah Chance discharged on 06/11/2017. Equipment Removed: Telepack. Discharge instructions reviewed with patient. Valuables returned: Personal Items / Valuables: Electronics, Clothing, CPAP Machine, Eyeglasses/ Contacts, Valuables/Belongings home with patient, Luggage Electronic Devices: Cell Phone. Pt did not take CPAP machine; the one in room was provided by the hospital. Home medications: Functional assessment at discharge complete: Yes . Raegan Cramer RN - 06/11/2017 2:50 PM CDTFormatting of this note may be different from the original. Heart Failure Nursing Progress Note Admission Date: 06/07/2017 LOS: 4 days Admission Weight: 119.9 kg (264 lb 6.4 oz) Most recent weights (inpatient): Vitals: 06/09/17 0700 06/10/17 1635 06/11/17 0449 Weight: 119.7 kg (264 lb) 119.9 kg (264 lb 6.4 oz) 119.6 kg (263 lb 9.6 oz) Weight change from previous day: - 0.3 kg Fluid restriction ordered: 1.5L Intake/Output Summary: (Last 24 hours) Intake/Output Summary (Last 24 hours) at 06/11/17 1530 Last data filed at 06/11/17 1230 Gross per 24 hour Intake 1205.25 ml Output 900 ml Net 305.25 ml Is patient incontinent No Anticipated discharge date: 06/11 Discharge goals: HF management Daily Assessment of Patient Stated Goals: Short Term Goal Identified by patient (Short Term=during hospitalization): "To stay out of the hospital and manage this medicine by myself." Surya Walsh, DO - 06/11/2017 7:51 AM CDTFormatting of this note may be different from the original. Heart Failure Service Daily Progress Note Name: Radha Chance Admission Date: 06/07/2017 Location: [place] [address] Assessment/Plan: Active Problems: Mild coronary artery disease Nonischemic cardiomyopathy (HCC) Pulmonary hypertension CONG and Central apnea treated with BiPAP Diabetes type 2, controlled (HCC) Chronic combined systolic and diastolic congestive heart failure (HCC) Stage 3 chronic kidney disease CHF (congestive heart failure) (HCC) Paroxysmal VT (HCC) Cardiogenic shock (HCC) Radha Chance is a 61 y.o. female on LOS: 4 days admitted for palpitations, dyspnea, and combined systolic and diastolic CHF who was admitted for inotrope initiation and borderline hypotension. Acute on chronic systolic and diastolic HFrEF, EF: 30%. Major Complications or Comorbidities (SENIOR CARE): acute/ acute on chronic systolic and /or diastolic heart failure NYHA functional class III (marked limitation of physical activity - comfortable at rest, but less than ordinary activity causes symptoms of HF), *arguably clas IV ACC Stage D (refractory HF requiring specialized interventions). She presents with signs of hypervolemia with left ventricular failure without signs of low flow state. Admission BNP: 94.0 Prior to admission diuretic regimen: Lasix 20mg BID Goal Output: -1-2L/24hr Intake/Output: Entire stay net: -2.1L, Last 24 hr net: -533.0mL Goal Dry Weight: ~263lbs; patient will report ~254lbs, but that appears inaccurate Vitals: 06/09/17 0700 06/10/17 1635 06/11/17 0449 Weight: 119.7 kg (264 lb) 119.9 kg (264 lb 6.4 oz) 119.6 kg (263 lb 9.6 oz) Plan: Guideline Based Heart Failure Therapies: HF approved beta blockers: Yes (Carvedilol) Additions/Changes: Discontinued Carvedilol. Continue Metoprolol XL. 12.5mg qday on 06/09/17 (Coreg d/c) GISSELLE-I/ARB: No Hypotension Additions/Changes:none Angiotensin II Receptor Munira Neprilysin Inhibitor:No Additions/Changes: none Aldosterone antagonist: Yes Additions/Changes: Spironolactone 25mg qday Isordil/hydralazine: No (N/A - patient not Black/) Additions/Changes: none Diuretics: Yes Additions/Changes: Lasix 40mg qday PO Ivabradine:No; Not treated with maximally tolerated dose beta blockers or beta blockers contraindicated Additions/Changes: none HRM Device Therapy: Yes (AUTOMATIC OVEN OPERATOR-D) Anticoagulation for current or history of atrial fibrillation/flutter: No A-fib Testing/Procedures: Device Interrogration, more to come BMP twice a day. Magnesium level daily. Keep Potassium greater than 4.0 and Magnesium greater than2.0. 2000mg sodium dietary restriction. Fluid Restriction 1.5L Yes Strict I/O. Standing scale daily weight. Therapeutic Riding Instructor consultation to discuss sodium restricted diet recommended. Pharmacy/Medication counseling recommended. Case Management/Social Work recommended. Co-morbidities: No consult recommended at this time Physical Therapy consult recommended. Will evaluate. Patient Adherence and self-management: No additional plans or changes. Follow Up: appointment with a member of the HF team or PCP within 7 calendar days of discharge. Patient stated goal: to get better, to get an LVAD Acute on chronic combined systolic and diastolic congestive heart failure NICM, EF 30-35% (05/14/17) Paroxysmal VT Pulmonary HTN (group II) - Admission EKG (sinus rhythm with V-pace, rate ~70, PVCs present); troponins 0.03 and 0.04 - Per chart review, EF previously 25-30% in 2011 - Echo at [facility] 05/14/17, please see full report - s/p [employer] Bi-V AUTOMATIC OVEN OPERATOR-D 11/05/11, generator changed September 2015 - Not a candidate for transplant due to BMI; currently undergoing LVAD work-up - Last dose of PO Amiodarone on 06/06/17 - Started Dobutamine at 3mcg/kg/min on admission, but patient had episode of VT ; fortunately ATP outof rhythm; stopped Dobutamine; loaded with Amiodarone and started on continuous gtt (switched to PO on 06/09/17) - Started Milrinone at 0.125mcg/kg/min evening of 06/07/17, increased to 0.250mcg /kg/min on 06/08/17 - PICC line placed 06/07/17 - Device interrogated at bedside and only 1 episode of VT (06/07/17) within detection range since interrogation last week - Home Regimen: Spironolactone 25mg qday, Coreg 3.125mg BID, Lasix 20mg BID, and Amiodarone 200mg qday *PLAN - Continue Milrinone at 0.25 mcg/kg/min at home - Continue Metoprolol XL 12.5mg qday (Coreg d/c) - Continue Spironolactone 25mg qday (from 25mg BID) - Continue Lasix 40mg PO; appears euvolemic - Continue Amiodarone 400mg BID x14 days (first day 06/09/17) and then continue Amiodaorne 400mg qdayindefinitely - Refer to previous admission from 05/14/17-05/17/17 for additional details of LVAD work-up; still needs colonoscopy and teeth extractions; social work administrator met with patient multiple times over the last 3 days trying to help figure out an appropriate perioperative LVAD plan; the patient still demonstrates significant social barriers for candidacy - Optimize electrolytes, Mg and K - Multiple f/u scheduled with Heart Failure team and her primary stationary engineer Dr. Johansen within next few weeks Coronary artery disease - Anterior VT per MPI on 07/21/15 - Non-obstructive per heart cath on 11/18/13 *PLAN - Continue GEOSPATIAL ANALYST Aspirin and Crestor History of Elevated TSH - TSH 18.178 on 05/14/17 - FT4 WNL on 05/14/17 - Per notes, suspicion of Amiodarone induced *PLAN - Continue Levothyroxine 50 mcg qday CONG/Central Sleep Apnea - BPAP qhs Diabetes mellitus type 2 - A1c 5.7 05/14/2017 *PLAN - Hold off on insulin initiation unless sugars on chemistry are persistently elevated to spare patient unnecessary finger stick glucose checks Thrombocytopenia- resolved - Plts 306 on 05/01/17 and 226 on admisison - Plts 129 on 06/08/17; plts increased to 207 on 06/10/17 - Lovenox for DVT prophylaxis, first dose 06/07/17 night *PLAN - Continue to monitor Asymptomatic Bacteriuria - UA 06/07/17 w/ packed bacteria, trace LE, and positive nitrite - Denied symptoms of dysuria, hematuria, or muscle spasms - Was started on Ciprofloxin BID *PLAN - Completed 6th dose of Ciprofloxacin on 06/10/17; denies dysuria and hematuria on 06/11/17 orbid Obesity, Body mass index is 41.29 kg/(m^2). CKD Hypertension Dyslipidemia Normocytic anemia Hepatic Steatosis (biopsy proven 05/17/17) FEN: No IV fluids; Replace lytes PRN; Cardiac + Diabetic +1.5 L fluid restriction Ppx: SCDs, Lovenox Code Status: Full Code Disposition/Family: Discharge to home today after Milrinone teaching. She will follow-up with cardiology as outpatient (in [place] and at ). Patient seen and discussed with Dr. Bacon. Surya Walsh, DO Internal Medicine PGY-3 Pager [phone] Subjective: History of Present Illness: Radha Chance is a 61 y.o. female on day 4. No events overnight. The patient had introductory teaching last night of her Milrinone pump and willhave part two prior to discharge today. Appetite is still poor. She is walking around the unit a little bit and feels a lot less fatigued than on admission. Seems to be tolerating Milrinone just fine. We previously discussed her medication changes yesterday. She is aware she needs to have a better perioperative plan if she were to get an LVAD in the future. Denies fever, chest pain, shortness of breath, abdominal pain, N/V/D, and dysuria. Reports intermittent palpitations and anorexia. Allergies: Codeine; Morphine; Penicillins; Aspirin; and Sulfa (sulfonamide antibiotics) Medications: Scheduled: amiodarone (CORDARONE) tablet 400 mg 400 mg Oral BID aspirin EC tablet 81 mg 81 mg Oral QDAY cholecalciferol (VITAMIN D-3) tablet 2,000 Units 2,000 Units Oral QDAY enoxaparin (LOVENOX) syringe 40 mg 40 mg Subcutaneous BID furosemide (LASIX) tablet 40 mg 40 mg Oral QDAY levothyroxine (SYNTHROID) tablet 50 mcg 50 mcg Oral QDAY 30 min before breakfast metoprolol XL (TOPROL XL) tablet 12.5 mg 12.5 mg Oral QDAY rosuvastatin (CRESTOR) tablet 10 mg 10 mg Oral QHS sodium chloride PF 0.9% flush 5-10 mL 5-10 mL Intravenous FLUSH TID spironolactone (ALDACTONE) tablet 25 mg 25 mg Oral QDAY vitamins, B complex tablet 1 tablet 1 tablet Oral QDAY IV: milrinone (PRIMACOR) 20 mg/D5W 100 mL infusion 0.25 mcg/kg/min (06/11/17 0840) PRN: Objective: Vital Signs (Last Filed) Vital Signs (24-Hour Range) BP: 94/48 (06/11 626) Temp: 36.3 C (97.4 F) (06/11 626) Pulse: 77 (06/11 725) Respirations: 18 PER MINUTE (06/11 626) SpO2: 95 % (06/11 626) O2 Delivery: CPAP/BiPAP (Pt Owned) (06/11 626) BP: (90-119)/(43-63) Temp: [36.3 C (97.4 F)-37 C (98.6 F)] Pulse: [72-110] Respirations: [16 PER MINUTE-20 PER MINUTE] SpO2: [95 %-100 %] O2 Delivery: CPAP/BiPAP (Pt Owned) Vital signs reviewed on 06/11/2017. Intake/Output Summary: (Last 24 hours) Intake/Output Summary (Last 24 hours) at 06/11/17 0954 Last data filed at 06/11/17 0835 Gross per 24 hour Intake 790 ml Output 1500 ml Net -710 ml Physical Exam: - CONSTITUTIONAL: no acute distress, calm, cooperative, appropriately participative in exam; vital signs as above - HEAD: normocephalic and atraumatic; obese neck - ENT: no mouth sores; no thrush; poor dentition with multiple areas of decay - VASCULAR: radial pulses 2/4 and regular b/l - LUNGS: clear to auscultation bilaterally; no wheezes, no rales; no pleurisy; not on supplemental O2 - HEART: normal rate, regular rhythm with intermittent PVCs; no murmur; chest non-tender to palpation; palpable Bi-V AUTOMATIC OVEN OPERATOR-D - ABD: obese abdomen; soft, non-tender, non-distended; bowel sounds present - EXTREMITIES: no lower extremity edema b/l; warm extremities; +5/5 customer complaint clerk strength b/l - NEURO: alert and oriented; converses appropriately; follows simple commands Lines: PICC line RUE Telemetry: brief runs of non-sustained VT (4-6 beats), intermittent PVCs Lab: Labs reviewed on 06/11/2017. 24-hour labs: Results for orders placed or performed during the hospital encounter of (from the past 24 hour(s)) BASIC METABOLIC PANEL Collection Time: 06/10/17 4:25 PM Result Value Ref Range Sodium 137 137 - 147 MMOL/L Potassium 4.0 3.5 - 5.1 MMOL/L Chloride 104 98 - 110 MMOL/L CO2 30 21 - 30 MMOL/L Anion Gap 3 3 - 12 Glucose 132 (H) 70 - 100 MG/DL Blood Urea Nitrogen 8 7 - 25 MG/DL Creatinine 1.13 (H) 0.4 - 1.00 MG/DL Calcium 9.5 8.5 - 10.6 MG/DL eGFR Non 49 (L) >60 mL/min eGFR 59 (L) >60 mL/min CBC Collection Time: 06/11/17 4:45 AM Result Value Ref Range White Blood Cells 6.5 4.5 - 11.0 K/UL RBC 3.67 (L) 4.0 - 5.0 M/UL Hemoglobin 11.1 (L) 12.0 - 15.0 GM/DL Hematocrit 33.3 (L) 36 - 45 % MCV 90.9 80 - 100 FL MCH 30.4 26 - 34 PG MCHC 33.4 32.0 - 36.0 G/DL RDW 15.2 (H) 11 - 15 % Platelet Count 206 150 - 400 K/UL MPV 7.7 7 - 11 FL MAGNESIUM Collection Time: 06/11/17 4:45 AM Result Value Ref Range Magnesium 2.0 1.6 - 2.6 mg/dL BASIC METABOLIC PANEL Collection Time: 06/11/17 4:45 AM Result Value Ref Range Sodium 138 137 - 147 MMOL/L Potassium 4.0 3.5 - 5.1 MMOL/L Chloride 104 98 - 110 MMOL/L CO2 28 21 - 30 MMOL/L Anion Gap 6 3 - 12 Glucose 125 (H) 70 - 100 MG/DL Blood Urea Nitrogen 9 7 - 25 MG/DL Creatinine 1.15 (H) 0.4 - 1.00 MG/DL Calcium 9.4 8.5 - 10.6 MG/DL eGFR Non 48 (L) >60 mL/min eGFR 58 (L) >60 mL/min Glucose: (!) 125 (06/11/17 0445) Radiology and Other Diagnostic Procedures Review: No pertinent radiology on 06/11/2017. Surya Walsh, DO Heart Failure Pager [phone] Associated attestation - Delio Bacon MD - 06/11/2017 9:40 PM CDTTeaching Physician Attestation: I have personally interviewed and examined the patient, have reviewed the documentation, and agree with the assessment and plan of the resident. I believe she is stable for DC. VS stable. Discharge plans, medications, activity , and follow-up discussed with patient. The importance of weight monitoring, Na + restriction, medication compliance, and close follow up for prevention of decompensated heartfailure was discussed in detail. All questions answered. Georgette Ochoa RN - 06/11/2017 6:36 AM CDTFormatting of this note may be different from the original. Heart Failure Nursing Progress Note Admission Date: 06/07/2017 LOS: 4 days Admission Weight: 119.9 kg (264 lb 6.4 oz) Most recent weights (inpatient): Vitals: 06/09/17 0700 06/10/17 1635 06/11/17 0449 Weight: 119.7 kg (264 lb) 119.9 kg (264 lb 6.4 oz) 119.6 kg (263 lb 9.6 oz) Weight change from previous day: -0.3kg Fluid restriction ordered: 1.5L Intake/Output Summary: (Last 24 hours) Intake/Output Summary (Last 24 hours) at 06/11/17 0637 Last data filed at 06/11/17 0500 Gross per 24 hour Intake 967 ml Output 1500 ml Net -533 ml Is patient incontinent No Anticipated discharge date: 06/11 to home on milrinone drip Discharge goals: Better management of heart failure in order to prevent exacerbations, and to complete education in order to be able to discharge on milrinone drip Daily Assessment of Patient Stated Goals: Short Term Goal Identified by patient (Short Term=during hospitalization): To complete education from pharmacy in order to be able to manage milrinone drop at homeSZora sanchez RN - 06/10/2017 4:58 PM CDTFormatting of this note may be different from the original. Heart Failure Nursing Progress Note Admission Date: 06/07/2017 LOS: 3 days Admission Weight: 119.9 kg (264 lb 6.4 oz) Most recent weights (inpatient): Vitals: 06/08/17 0600 06/09/17 0700 06/10/17 1635 Weight: 119.3 kg (263 lb) 119.7 kg (264 lb) 119.9 kg (264 lb 6.4 oz) Weight change from previous day: -0.181 Fluid restriction ordered: 1.5 L Intake/Output Summary: (Last 24 hours) Intake/Output Summary (Last 24 hours) at 06/10/17 1658 Last data filed at 06/10/17 1500 Gross per 24 hour Intake 1160 ml Output 1400 ml Net -240 ml Is patient incontinent No Anticipated discharge date: 06/11 Discharge goals: Comprehensive understanding of HF Daily Assessment of Patient Stated Goals: Short Term Goal Identified by patient (Short Term=during hospitalization): To be able to learn and manage pump at home Lucinda Bundy - 06/10/2017 4:30 PM CDTChaplain Note: Admit Date: 06/07/2017 Reason for visit: Patient request (Shift Production Supervisor referral: 3) Synopsis of visit: Patient is familiar from previous hospitalization and LVAD/ transplant evaluation.Patient talked about her health and the improvement she has made after being admitted to this facility. Patient is very spiritual. She does not feel comfortable referring to herself as "episcopalian." Patient said, "I follow God, not man." Patient's edward is very strong and is a source of meaning and importance in her life. Patient also talked about how she learns, especially in regard to medical information. Patient says she likes to have written material to read before extensive conversation about the topic. She then feels more prepared to both listen and ask questions. Shift Production Supervisor listened actively and offered support regarding patient's edward and health. Shift Production Supervisor also affirmed patient's ability to continue educating herself regarding her health issue. Patient is open and receptive to spiritual support. Shift Production Supervisor will continue to follow for spiritual and emotional support. Please page or use consult order if patient requests visit. Date/Time: User: Pager: [phone] 06/10/2017 4:30 PM Lucinda Bundy U 4 PCU Steele, Tete, RT - 06/10/2017 8:10 AM CDTFormatting of this note may be different from the original. RESPIRATORY THERAPY ADULT PROTOCOL EVALUATION RESPIRATORY PROTOCOL PLAN Medications Note: If indicated by protocol, medication orders will be placed by therapist. Procedures Oxygen/Humidity: O2 to keep SpO2 > 92% PATIENT EVALUATION RESULTS Chart Review * Pulmonary Hx: No pulmonary diagnosis OR no smoking hx * Surgical Hx: No surgery OR last surgery > 6 weeks ago OR trach/stoma (BA) * Chest X-Ray: Clear OR not available * PFT/Oxygenation: FEV1, PEFR > 80% predicted OR physically unable to perform OR Pa02 >80 RA OR Sp02 >95% RA (96% RA) Patient Assessment * Respiratory Pattern: Regular pattern and rate OR good chest excursion with deep breathing * Breath Sounds: Clear and able to auscultate bases posteriorly * Cough / Sputum: Strong, effective cough OR nonproductive * Mental Status: Alert, oriented, cooperative * Activity Level: Non-ambulatory (LE) Priority Index Total Points: 2 Points * Priority Index: 1 PRIORITY INDEX GUIDELINES* Priority Points 1 0-9 points 2 9-18 points 3 > 18 points + Pulm Dx or Home Rx *Higher points indicate higher acuity. Therapist: Tete Steele, Date: 06/10/2017 [place] AC=Airway clearance AM=Aerosolized medication BA=[place] aerosol DB&C=Deep breathe & cough FEV1=Forced expiratory volume in first second) IC=Inspiratory capacity LE=Lung expansion MDI=Metered dose inhaler Neb=Nebulizer O2=Oxygen Oxim=Oximetry PEFR=Peak expiratory flow rate CHOPPER OPERATOR=Rapid Response Team Surya Walsh, DO - 06/10/2017 5:49 AM CDTFormatting of this note may be different from the original. Heart Failure Service Daily Progress Note Name: Radha Chance Admission Date: 06/07/2017 Location: [place] [address] Assessment/Plan: Active Problems: Mild coronary artery disease Nonischemic cardiomyopathy (HCC) Pulmonary hypertension CONG and Central apnea treated with BiPAP Diabetes type 2, controlled (HCC) Chronic combined systolic and diastolic congestive heart failure (HCC) Stage 3 chronic kidney disease CHF (congestive heart failure) ([facility]) Paroxysmal VT (HCC) Cardiogenic shock (HCC) Radha Chance is a 61 y.o. female on LOS: 3 days admitted for palpitations, dyspnea, and combined systolic and diastolic CHF who was admitted for inotrope initiation and borderline hypotension. Acute on chronic systolic and diastolic HFrEF, EF: 30%. Major Complications or Comorbidities ([facility]): acute/ acute on chronic systolic and /or diastolic heart failure NYHA functional class III (marked limitation of physical activity - comfortable at rest, but less than ordinary activity causes symptoms of HF), *arguably clas IV ACC Stage D (refractory HF requiring specialized interventions). She presents with signs of hypervolemia with left ventricular failure without signs of low flow state. Admission BNP: 94.0 Prior to admission diuretic regimen: Lasix 20mg BID Goal Output: -1-2L/24hr Intake/Output: Entire stay net: -1.63L, Last 24 hr net: +263mL Goal Dry Weight: ~263lbs; patient will report ~254lbs, but that appears inaccurate Vitals: 06/07/17 1657 06/08/17 0600 06/09/17 0700 Weight: 119.9 kg (264 lb 6.4 oz) 119.3 kg (263 lb) 119.7 kg (264 lb) Plan: Guideline Based Heart Failure Therapies: HF approved beta blockers: Yes (Carvedilol) Additions/Changes: Discontinued carvedilol. Metoprolol XL 12.5mg qday on 06/09/17 (Coreg d/c) GISSELLE-I/ARB: No Hypotension Additions/Changes:none Angiotensin II Receptor Munira Neprilysin Inhibitor:No Additions/Changes: none Aldosterone antagonist: Yes Additions/Changes: Restarted Spironolactone 25mg qday Isordil/hydralazine: No (N/A - patient not Black/) Additions/Changes: none Diuretics: Yes Additions/Changes: Lasix 40mg qday PO Ivabradine:No; Not treated with maximally tolerated dose beta blockers or beta blockers contraindicated Additions/Changes: none HRM Device Therapy: Yes (AUTOMATIC OVEN OPERATOR-D) Anticoagulation for current or history of atrial fibrillation/flutter: No A-fib Testing/Procedures: Device Interrogration, more to come BMP twice a day. Magnesium level daily. Keep Potassium greater than 4.0 and Magnesium greater than2.0. 2000mg sodium dietary restriction. Fluid Restriction 1.5L Yes Strict I/O. Standing scale daily weight. Therapeutic Riding Instructor consultation to discuss sodium restricted diet recommended. Pharmacy/Medication counseling recommended. Case Management/Social Work recommended. Co-morbidities: No consult recommended at this time Physical Therapy consult recommended. Will evaluate. Patient Adherence and self-management: No additional plans or changes. Follow Up: appointment with a member of the HF team or PCP within 7 calendar days of discharge. Patient stated goal: to get better, to get an LVAD Acute on chronic combined systolic and diastolic congestive heart failure NICM, EF 30-35% (05/14/17) Paroxysmal VT Pulmonary HTN (group II) - Admission EKG (sinus rhythm with V-pace, rate ~70, PVCs present); troponins 0.03 and 0.04 - Per chart review, EF previously 25-30% in 2011 - Echo at [facility] 05/14/17, please see full report - s/p [employer] Bi-V AUTOMATIC OVEN OPERATOR-D 11/05/11, generator changed September 2015 - Not a candidate for transplant due to BMI; currently undergoing LVAD work-up - Last dose of PO Amiodarone on 06/06/17 - Started Dobutamine at 3mcg/kg/min on admission, but patient had episode of VT ; fortunately ATP outof rhythm; stopped Dobutamine; loaded with Amiodarone and started on continuous gtt (switched to PO on 06/09/17) - Started Milrinone at 0.125mcg/kg/min evening of 06/07/17, increased to 0.250mcg /kg/min on 06/08/17 - PICC line placed 06/07/17 - Device interrogated at bedside and only 1 episode of VT (06/07/17) within detection range since interrogation last week - Home Regimen: Spironolactone 25mg qday, Coreg 3.125mg BID, Lasix 20mg BID, and Amiodarone 200mg qday *PLAN - Continue Milrinone at 0.25 mcg/kg/min; this is discharge dose - Continue Metoprolol XL 12.5mg qday (Coreg d/c) - Restarted Spironolactone 25mg qday (from 25mg BID) - Lasix PRN; appears euvolemic, may consider maintenance dose on discharge; ordered Lasix 40mg qday PO - Continue Amiodarone 400mg BID x14 days (first day 06/09/17) and then continue Amiodaorne 400mg qdayindefinitely - Refer to previous admission from 05/14/17-05/17/17 for additional details of LVAD work-up; still needs colonoscopy and teeth extractions; social work administrator met with patient multiple times over the last 3 day trying to help figure out an appropriate perioperative LVAD plan; the patient still demonstrates significant social barriers for candidacy - Optimize electrolytes, Mg and K - Multiple f/u scheduled with Heart Failure team and her primary stationary engineer Dr. Johansen within next few weeks Coronary artery disease - Anterior VT per MPI on 07/21/15 - Non-obstructive per heart cath on 11/18/13 *PLAN - Continue GEOSPATIAL ANALYST Aspirin and Crestor History of Elevated TSH - TSH 18.178 on 05/14/17 - FT4 WNL on 05/14/17 - Per notes, suspicion of Amiodarone induced *PLAN - Continue Levothyroxine 50 mcg qday CONG/Central Sleep Apnea - BPAP qhs Diabetes mellitus type 2 - A1c 5.7 05/14/2017 *PLAN - Hold off on insulin initiation unless sugars on chemistry are persistently elevated to spare patient unnecessary finger stick glucose checks Thrombocytopenia- resolved - Plts 306 on 05/01/17 and 226 on admisison - Plts 129 on 06/08/17; plts increased to 207 on 06/10/17 - Lovenox for DVT prophylaxis, first dose 06/07/17 night *PLAN - Continue to monitor - Consider peripheral smear if there is further decrease Asymptomatic Bacteriuria - UA 06/07/17 w/ packed bacteria, trace LE, and positive nitrite - Denied symptoms of dysuria, hematuria, or muscle spasms - Was started on Ciprofloxin BID *PLAN - Complete 6th dose of Ciprofloxacin on 06/10/17 orbid Obesity, Body mass index is 41.35 kg/(m^2).. CKD Hypertension Dyslipidemia Normocytic anemia Hepatic Steatosis (biopsy proven 05/17/17) FEN: No IV fluids; Replace lytes PRN; Cardiac + Diabetic +1.5 L fluid restriction Ppx: SCDs, Lovenox Code Status: Full Code Disposition/Family: Likely discharge to home today if can get approval for Milrinone as outpatient and transportation back home to [place], [place]. Patient seen and discussed with Dr. Bacon. Surya Walsh, Internal Medicine PGY-3 Pager [phone] Subjective: History of Present Illness: Radha Chance is a 61 y.o. female on day 3. No acute events overnight. She is feeling much better than on admission and walked around the unit today. Previously she could only walk from the restroom to her bed before getting winded, but now she was able to ambulate for even longer distances before feeling symptoms. Her appetite is still poor. The patient reports fewer palpitations, but still notices them intermittently. We discussed her medication changes and follow-up appointments. We also discussed her status with LVAD candidacy. She does not seem to understand that she really needs to figure out a 24 hour care planfor her. The patient is reluctant to ask family members to commit to 24 hour care in the perioperative period. Denies fever, chest pain, shortness of breath, abdominal pain, N/V/D, and dysuria. Allergies: Codeine; Morphine; Penicillins; Aspirin; and Sulfa (sulfonamide antibiotics) Medications: Scheduled: amiodarone (CORDARONE) tablet 400 mg 400 mg Oral BID aspirin EC tablet 81 mg 81 mg Oral QDAY cholecalciferol (VITAMIN D-3) tablet 2,000 Units 2,000 Units Oral QDAY enoxaparin (LOVENOX) syringe 40 mg 40 mg Subcutaneous BID furosemide (LASIX) tablet 40 mg 40 mg Oral QDAY levothyroxine (SYNTHROID) tablet 50 mcg 50 mcg Oral QDAY 30 min before breakfast metoprolol XL (TOPROL XL) tablet 12.5 mg 12.5 mg Oral QDAY rosuvastatin (CRESTOR) tablet 10 mg 10 mg Oral QHS sodium chloride PF 0.9% flush 5-10 mL 5-10 mL Intravenous FLUSH TID spironolactone (ALDACTONE) tablet 25 mg 25 mg Oral QDAY vitamins, B complex tablet 1 tablet 1 tablet Oral QDAY IV: milrinone (PRIMACOR) 20 mg/D5W 100 mL infusion 0.25 mcg/kg/min (06/10/171199) PRN: Objective: Vital Signs (Last Filed) Vital Signs (24-Hour Range) BP: 119/59 (06/10 1200) Temp: 36.8 C (98.3 F) (06/10 1200) Pulse: 72 (06/10 1200) Respirations: 20 PER MINUTE (06/10 1200) SpO2: 95 % (06/10 1200) O2 Delivery: None (Room Air) (06/10 1200) SpO2 Pulse: 68 (06/10 0403) BP: (83-123)/(47-60) Temp: [36.6 C (97.8 F)-36.8 C (98.3 F)] Pulse: [68-89] Respirations: [14 PER MINUTE-26 PER MINUTE] SpO2: [95 %-97 %] O2 Delivery: None (Room Air) Vital signs reviewed on 06/10/2017. Intake/Output Summary: (Last 24 hours) Intake/Output Summary (Last 24 hours) at 06/10/17 1216 Last data filed at 06/10/17 1200 Gross per 24 hour Intake 1196 ml Output 1000 ml Net 196 ml Physical Exam: - CONSTITUTIONAL: no acute distress, calm, cooperative, appropriately participative in exam; vital signs as above - HEAD: normocephalic and atraumatic; obese neck - ENT: no mouth sores; no thrush; poor dentition with multiple areas of decay - NECK: obese, difficult to appreciate JVD - VASCULAR: radial pulses 2/4 and regular b/l - LUNGS: clear to auscultation bilaterally; no wheezes, no rales; no pleurisy; not on supplemental O2 - HEART: normal rate, regular rhythm with intermittent PVCs; no murmur; chest non-tender to palpation; palpable Bi-V AUTOMATIC OVEN OPERATOR-D - ABD: obese abdomen; soft, non-tender, non-distended; bowel sounds present - EXTREMITIES: no lower extremity edema b/l; warm extremities; +5/5 customer complaint clerk strength b/l - NEURO: alert and oriented; converses appropriately; follows simple commands Lines: PICC line RUE, PIV in left AC Telemetry: brief runs of non-sustained VT, intermittent PVCs Lab: Labs reviewed on 06/10/2017. 24-hour labs: Results for orders placed or performed during the hospital encounter of (from the past 24 hour(s)) BASIC METABOLIC PANEL Collection Time: 06/09/17 4:44 PM Result Value Ref Range Sodium 135 (L) 137 - 147 MMOL/L Potassium 4.1 3.5 - 5.1 MMOL/L Chloride 102 98 - 110 MMOL/L CO2 28 21 - 30 MMOL/L Anion Gap 5 3 - 12 Glucose 158 (H) 70 - 100 MG/DL Blood Urea Nitrogen 10 7 - 25 MG/DL Creatinine 1.09 (H) 0.4 - 1.00 MG/DL Calcium 9.8 8.5 - 10.6 MG/DL eGFR Non 51 (L) >60 mL/min eGFR >60 >60 mL/min CBC Collection Time: 06/10/17 4:05 AM Result Value Ref Range White Blood Cells 6.1 4.5 - 11.0 K/UL RBC 3.45 (L) 4.0 - 5.0 M/UL Hemoglobin 10.7 (L) 12.0 - 15.0 GM/DL Hematocrit 31.1 (L) 36 - 45 % MCV 90.3 80 - 100 FL MCH 31.1 26 - 34 PG MCHC 34.4 32.0 - 36.0 G/DL RDW 15.4 (H) 11 - 15 % Platelet Count 207 150 - 400 K/UL MPV 7.5 7 - 11 FL MAGNESIUM Collection Time: 06/10/17 4:05 AM Result Value Ref Range Magnesium 2.1 1.6 - 2.6 mg/dL BASIC METABOLIC PANEL Collection Time: 06/10/17 4:05 AM Result Value Ref Range Sodium 137 137 - 147 MMOL/L Potassium 3.8 3.5 - 5.1 MMOL/L Chloride 104 98 - 110 MMOL/L CO2 28 21 - 30 MMOL/L Anion Gap 5 3 - 12 Glucose 127 (H) 70 - 100 MG/DL Blood Urea Nitrogen 9 7 - 25 MG/DL Creatinine 1.01 (H) 0.4 - 1.00 MG/DL Calcium 9.3 8.5 - 10.6 MG/DL eGFR Non 56 (L) >60 mL/min eGFR >60 >60 mL/min Glucose: (!) 127 (06/10/17 0405) Radiology and Other Diagnostic Procedures Review: No pertinent radiology on 06/10/2017. Surya Walsh DO Heart Failure Pager [phone] Associated attestation - Delio Bacon MD - 06/10/2017 2:10 PM CDTTeaching Physician Attestation: I have personally interviewed and examined the patient, have reviewed the documentation, and agree with the assessment and plan of the resident. We are trying to finalize arrangements for home inotrope therapy, but once that is done , she will be ready to go home. I believe she is stable for DC. VS stable. Discharge plans, medications, activity, and follow-up discussed with patient. The importanceof weight monitoring, Na+ restriction, medication compliance, and close follow up for prevention of decompensated heart failure was discussed in detail. All questions answered. Deja Gonzalez MD - 06/09/2017 4:01 PM CDTFormatting of this note may be different from the original. Heart Failure Service Daily Progress Note Name: Radha Chance Admission Date: 06/07/2017 Location: [place] [address] Assessment/Plan: Active Problems: Mild coronary artery disease Nonischemic cardiomyopathy (HCC) Pulmonary hypertension CONG and Central apnea treated with BiPAP Diabetes type 2, controlled (HCC) Chronic combined systolic and diastolic congestive heart failure (HCC) Stage 3 chronic kidney disease CHF (congestive heart failure) (HCC) Hypotension Paroxysmal VT (HCC) Radha Chance is a 61 y.o. female on LOS: 2 days admitted for palpitations, dyspnea, and combined systolic and diastolic CHF who was admitted for inotrope initiation and borderline hypotension. Acute on chronic systolic and diastolic HFrEF, EF: 30%. Major Complications or Comorbidities (SENIOR CARE): acute/ acute on chronic systolic and /or diastolic heart failure NYHA functional class III (marked limitation of physical activity - comfortable at rest, but less than ordinary activity causes symptoms of HF), *arguably clas IV ACC Stage D (refractory HF requiring specialized interventions). She presents with signs of hypervolemia with left ventricular failure without signs of low flow state. Admission BNP: 94.0 Prior to admission diuretic regimen: Lasix 20mg BID Goal Output: -1-2L/24hr Intake/Output: Entire stay net: -1,563 ml, Last 24 hr net: -695 ml Goal Dry Weight: ~263lbs; patient will report ~254lbs, but that appears inaccurate Vitals: 06/07/17 1657 06/08/17 0600 06/09/17 0700 Weight: 119.9 kg (264 lb 6.4 oz) 119.3 kg (263 lb) 119.7 kg (264 lb) Plan: Guideline Based Heart Failure Therapies: HF approved beta blockers: Yes (Carvedilol) Additions/Changes: Discontinued carvedilol. Started metoprolol XL 12.5mg QD on 06/09/17, with plans to titrate up as tolerated. GISSELLE-I/ARB: No Hypotension Additions/Changes:none Angiotensin II Receptor Munira Neprilysin Inhibitor:No Additions/Changes: none Aldosterone antagonist: Yes Additions/Changes: none Isordil/hydralazine: No (N/A - patient not Black/) Additions/Changes: none Diuretics: Yes Additions/Changes: Holding PO Lasix, No diuresis today, 06/09/17 as patient isfelt to be euvolemic. Ivabradine:No; Not treated with maximally tolerated dose beta blockers or beta blockers contraindicated Additions/Changes: none HRM Device Therapy: Yes (AUTOMATIC OVEN OPERATOR-D) Anticoagulation for current or history of atrial fibrillation/flutter: No A-fib Testing/Procedures: Device Interrogration, more to come BMP twice a day. Magnesium level daily. Keep Potassium greater than 4.0 and Magnesium greater than2.0. 2000mg sodium dietary restriction. Fluid Restriction 1.5L Yes Strict I/O. Standing scale daily weight. Therapeutic Riding Instructor consultation to discuss sodium restricted diet recommended. Pharmacy/Medication counseling recommended. Case Management/Social Work recommended. Co-morbidities: No consult recommended at this time Physical Therapy consult recommended. Will evaluate. Patient Adherence and self-management: No additional plans or changes. Follow Up: appointment with a member of the HF team or PCP within 7 calendar days of discharge. Patient stated goal: to get better Acute on chronic combined systolic and diastolic congestive heart failure NICM, EF 30-35% (05/14/17) Paroxysmal VT Pulmonary HTN (group II) - Per chart review, EF previously 25-30% in 2012 - Echo at [facility] 05/14/17, please see full report - s/p [employer] Bi-V AUTOMATIC OVEN OPERATOR-D 11/05/11, generator changed September 2015 - Not a candidate for transplant due to BMI; currently undergoing LVAD work-up - Last dose of PO Amiodarone on 06/06/17 - Started Dobutamine at 3mcg/kg/min on admission, but patient had episode of VT ; fortunately ATP outof rhythm; stopped Dobutamine; loaded with Amiodarone and started on continuous gtt - Reviewed admission EKG (sinus rhythm with V-pace, rate ~70, PVCs present); troponins 0.03 and 0.04 - PICC line placed 06/07/17 - Device interrogated at bedside and only 1 episode of VT (06/07/17) within detection range since interrogation last week Plan: - Holding GEOSPATIAL ANALYST Spironolactone 25mg qday, Coreg 3.125mg BID, Lasix 20mg BID, and Amiodarone 200mg qday; - Started metoprolol XL 12.5mg QD on 06/09. - Lasix PRN; appears euvolemic, may consider maintenance dose on discharge. No diuresis today 06/09. - Amiodarone gtt 0.5mg/min discontinued on 06/09 and started on amiodarone 400mg BID. - Started Milrinone at 0.125mcg/kg/min evening of 06/07/17, increased to 0.250mcg /kg/min on 06/08. Continue at 0.250 mcg/kg/min, patient will minimal ectopy. - Refer to previous admission from 05/14/17-05/17/17 for additional details of LVAD work-up; still needs colonoscopy and teeth extractions; SW met with patient on 06/08; will continue to f/u on 06/09 at [facility] with RN CM and SW re: initiation of continuous inotropic therapy and social support barriers to LVAD. - Optimize electrolytes, Mg and K Coronary artery disease - Anterior VT per MPI on 07/21/15 - Non-obstructive per heart cath on 11/18/13 Plan: - Continue GEOSPATIAL ANALYST Aspirin and Crestor History of Elevated TSH - TSH 18.178 on 05/14/17 - FT4 WNL on 05/14/17 - Per notes, suspicion of Amiodarone induced Plan: - Continue Levothyroxine 50 mcg qday CONG/Central Sleep Apnea - BPAP [facility] Diabetes mellitus type 2 - A1c 5.7 05/14/2017 Plan: - Hold off on insulin initiation unless sugars on chemistry are persistently elevated to spare patient unnecessary finger stick glucose checks. Blood glucose mildly increased on AM labs compared to previous, 176. Will continue to monitor. If >180 may need to restart POC glucose checks QAM and AC TID. Thrombocytopenia - Plts 306 on 05/01/17 and 226 on admisison - Plts 129 on 06/08/17. Platelets increased to 198K on 06/09. - Lovenox for DVT prophylaxis, first dose 06/07/17 night Plan: - Continue to monitor on AM CBC - Consider peripheral smear if there is further decrease. Morbid Obesity, Body mass index is 41.41 kg/(m^2). CKD Hypertension Dyslipidemia Normocytic anemia Hepatic Steatosis (biopsy proven 05/17/17) FEN: No IV fluids; Replace lytes PRN; Cardiac + Diabetic +1.5 L fluid restriction Ppx: SCDs, Lovenox Code Status: Full Code Disposition/Family: Continue admission to Cardiology for evaluation and treatment of hypotension with know NICM and paroxysmal VT. Transfer to floor on 06/09/17. Possible discharge on 06/10/17 once milrinone continuos therapy is set up for d/c. Patient seen and discussed with Dr. Catalan. Deja Lovelace MD Internal Medicine, PGY-1 Pager Subjective: History of Present Illness: Radha Chance is a 61 y.o. female on day 2. No acute events overnight. She continues to tolerate the milrinone well, even at increased dose. Discussed with the patient barriers to LVAD. She voiced she considered moving to to be closer to [facility]. However, upon further reflection shared she would have even less social support here than athome. She admits her son is reluctant to take on the responsibility of being her caregiver if she were to undergo LVAD. Explained to patient we would continue to have SW explore these issues with her prior to discharge. Denies fever, chills, shortness of breath, abdominal pain, and N/V/D. Allergies: Codeine; Morphine; Penicillins; Aspirin; and Sulfa (sulfonamide antibiotics) Medications: Scheduled: amiodarone (CORDARONE) tablet 400 mg 400 mg Oral BID aspirin EC tablet 81 mg 81 mg Oral QDAY cholecalciferol (VITAMIN D-3) tablet 2,000 Units 2,000 Units Oral QDAY ciprofloxacin (CIPRO) tablet 250 mg 250 mg Oral BID(07-23) enoxaparin (LOVENOX) syringe 40 mg 40 mg Subcutaneous BID influenza (=>6 Months)(QUADrivalent) (FLULAVAL) PF syringe 0.5 mL 0.5 mL Intramuscular ONCE levothyroxine (SYNTHROID) tablet 50 mcg 50 mcg Oral QDAY 30 min before breakfast metoprolol XL (TOPROL XL) tablet 12.5 mg 12.5 mg Oral QDAY rosuvastatin (CRESTOR) tablet 10 mg 10 mg Oral QHS sodium chloride PF 0.9% flush 5-10 mL 5-10 mL Intravenous FLUSH TID vitamins, B complex tablet 1 tablet 1 tablet Oral QDAY IV: milrinone (PRIMACOR) 20 mg/D5W 100 mL infusion 0.25 mcg/kg/min (06/09/17 1200) PRN: albuterol 0.5% Q4H PRN Objective: Vital Signs (Last Filed) Vital Signs (24-Hour Range) BP: 96/58 (06/09 1156) Temp: 36.7 C (98.1 F) (06/09 1156) Pulse: 69 (06/09 1156) Respirations: 18 PER MINUTE (06/09 1156) SpO2: 95 % (06/09 1156) O2 Delivery: None (Room Air) (06/09 1156) SpO2 Pulse: 71 (06/09 1156) BP: (90-115)/(43-71) Temp: [36.4 C (97.5 F)-36.8 C (98.2 F)] Pulse: [69-85] Respirations: [12 PER MINUTE-24 PER MINUTE] SpO2: [93 %-99 %] O2 Delivery: None (Room Air) Vital signs reviewed on 06/09/2017. Intake/Output Summary: (Last 24 hours) Intake/Output Summary (Last 24 hours) at 06/09/17 1602 Last data filed at 06/09/17 1500 Gross per 24 hour Intake 618.27 ml Output 900 ml Net -281.73 ml Physical Exam: - CONSTITUTIONAL: no acute distress, calm, cooperative, appropriately participative in exam; vital signs as above - HEAD: normocephalic and atraumatic; obese neck - ENT: no mouth sores; no thrush; poor dentition with multiple areas of decay - NECK: obese, no JVD, no HJR - VASCULAR: radial pulses 2/4 and regular b/l - LUNGS: clear to auscultation bilaterally; no wheezes, no rales; no pleurisy; normal respiratory effort; not on supplemental O2 - HEART: normal rate, regular rhythm with rare PVCs; no murmur; chest non- tender to palpation; 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 upper chest - ABD: obese abdomen; soft, non-tender, non-distended; bowel sounds present - EXTREMITIES: no lower extremity edema b/l; warm extremities; +5/5 customer complaint clerk strength b/l - HEME/LYMPH: no active bleeding - NEURO: alert and oriented; converses appropriately; follows simple commands Lines: PICC line RUE, PIV in left AC Lab: Labs reviewed on 06/09/2017. 24-hour labs: Results for orders placed or performed during the hospital encounter of (from the past 24 hour(s)) BASIC METABOLIC PANEL Collection Time: 06/08/17 4:16 PM Result Value Ref Range Sodium 137 137 - 147 MMOL/L Potassium 3.8 3.5 - 5.1 MMOL/L Chloride 102 98 - 110 MMOL/L CO2 29 21 - 30 MMOL/L Anion Gap 6 3 - 12 Glucose 152 (H) 70 - 100 MG/DL Blood Urea Nitrogen 11 7 - 25 MG/DL Creatinine 1.07 (H) 0.4 - 1.00 MG/DL Calcium 9.4 8.5 - 10.6 MG/DL eGFR Non 52 (L) >60 mL/min eGFR >60 >60 mL/min CBC Collection Time: 06/09/17 5:15 AM Result Value Ref Range White Blood Cells 6.1 4.5 - 11.0 K/UL RBC 3.62 (L) 4.0 - 5.0 M/UL Hemoglobin 11.3 (L) 12.0 - 15.0 GM/DL Hematocrit 33.0 (L) 36 - 45 % MCV 91.1 80 - 100 FL MCH 31.1 26 - 34 PG MCHC 34.1 32.0 - 36.0 G/DL RDW 15.3 (H) 11 - 15 % Platelet Count 198 150 - 400 K/UL MPV 7.1 7 - 11 FL MAGNESIUM Collection Time: 06/09/17 5:15 AM Result Value Ref Range Magnesium 2.1 1.6 - 2.6 mg/dL BASIC METABOLIC PANEL Collection Time: 06/09/17 5:15 AM Result Value Ref Range Sodium 136 (L) 137 - 147 MMOL/L Potassium 3.8 3.5 - 5.1 MMOL/L Chloride 103 98 - 110 MMOL/L CO2 27 21 - 30 MMOL/L Anion Gap 6 3 - 12 Glucose 176 (H) 70 - 100 MG/DL Blood Urea Nitrogen 9 7 - 25 MG/DL Creatinine 1.09 (H) 0.4 - 1.00 MG/DL Calcium 9.4 8.5 - 10.6 MG/DL eGFR Non 51 (L) >60 mL/min eGFR >60 >60 mL/min Glucose: (!) 176 (06/09/17 0515) Radiology and Other Diagnostic Procedures Review: No pertinent radiology on 06/09/2017. Deja Lovelace MD Heart Failure Pager [phone] Associated attestation - Evelio Catalan MD - 06/10/2017 4:56 AM CDTI personally interviewed and examined the patient. I have reviewed the history, physical examination, impression and plan as outlined by the resident. Ms. Chance is known to me from recent prior admission. She has advanced, nonischemic cardiomyopathy,morbid obesity, cardiorenal syndrome, obstructive sleep apnea on BiPAP, and diabetes type 2, who wasrecently evaluated for LVAD and transplant, and deemed not to be a transplant candidate secondary tomorbid obesity and was deferred in regards to LVAD candidacy given poor social support. She was recently readmitted secondary to palpitations and shortness of breath with mild volume overload. Initially she was started on dobutamine, however this caused multiple runs of NSVT it was discontinued, secondarily she was initiated on milrinone, which she appears to be tolerating at present. JVP 6 cm Warm ext BL No significant PVC/VT events on telemetry on 0.25 mcg milrinone. A/P: Continue milrinone 0.25 mcg/kg/min via RUE PICC (placed this admission). Maintenance PO diuretic as she is currently euvolemic. She will require hospitalization until Saturday, so that home infusion services can be arranged, and social work team can reevaluate her historically poor social / caregiver support options in regards topotential future LVAD therapy. I spent a total of 30 minutes with the patient, of which 20 minutes was spent counseling the patientabout HF. Thank you for involving us in this patient's care. Please call with any questions. Evelio Catalan MD Advanced Heart Failure and Heart Transplant [facility] [email or web address] Walsh DO - 06/08/2017 6:56 AM CDTFormatting of this note may be different from the original. Heart Failure Service Daily Progress Note Name: Radha Chance Admission Date: 06/07/2017 Location: [place] [address] Assessment/Plan: Active Problems: Mild coronary artery disease Nonischemic cardiomyopathy (HCC) Pulmonary hypertension CONG and Central apnea treated with BiPAP Diabetes type 2, controlled (HCC) Chronic combined systolic and diastolic congestive heart failure (HCC) Stage 3 chronic kidney disease CHF (congestive heart failure) ([facility]) Hypotension Paroxysmal VT (HCC) Radha Chance is a 61 y.o. female on LOS: 1 day admitted for palpitations, dyspnea, and combined systolic and diastolic CHF who was admitted for inotrope initiation and borderline hypotension. Acute on chronic systolic and diastolic HFrEF, EF: 30%. Major Complications or Comorbidities (SENIOR CARE): acute/ acute on chronic systolic and /or diastolic heart failure NYHA functional class III (marked limitation of physical activity - comfortable at rest, but less than ordinary activity causes symptoms of HF), *arguably clas IV ACC Stage D (refractory HF requiring specialized interventions). She presents with signs of hypervolemia with left ventricular failure without signs of low flow state. Admission BNP: 94.0 Prior to admission diuretic regimen: Lasix 20mg BID Goal Output: -1-2L/24hr Intake/Output: Entire stay net: +910mL, Last 24 hr net: -1.1L Goal Dry Weight: ~263lbs; patient will report ~254lbs, but that appears inaccurate Vitals: 06/07/17 1657 06/08/17 0600 Weight: 119.9 kg (264 lb 6.4 oz) 119.3 kg (263 lb) Plan: Guideline Based Heart Failure Therapies: HF approved beta blockers: Yes (Carvedilol) Additions/Changes: Likely switch to Metoprolol Tartrate and then to Metoprolol Succinate GISSELLE-I/ARB: No Hypotension Additions/Changes:none Angiotensin II Receptor Munira Neprilysin Inhibitor:No Additions/Changes: none Aldosterone antagonist: Yes Additions/Changes: none Isordil/hydralazine: No (N/A - patient not Black/) Additions/Changes: none Diuretics: Yes Additions/ChangesHolding PO Lasix Ivabradine:No; Not treated with maximally tolerated dose beta blockers or beta blockers contraindicated Additions/Changes: none HRM Device Therapy: Yes (AUTOMATIC OVEN OPERATOR-D) Anticoagulation for current or history of atrial fibrillation/flutter: No A-fib Testing/Procedures: Device Interrogration, more to come BMP twice a day. Magnesium level daily. Keep Potassium greater than 4.0 and Magnesium greater than2.0. 2000mg sodium dietary restriction. Fluid Restriction 1.5L Yes Strict I/O. Standing scale daily weight. Therapeutic Riding Instructor consultation to discuss sodium restricted diet recommended. Pharmacy/Medication counseling recommended. Case Management/Social Work recommended. Co-morbidities: No consult recommended at this time Physical Therapy consult recommended. Will evaluate. Patient Adherence and self-management: No additional plans or changes. Follow Up: appointment with a member of the HF team or PCP within 7 calendar days of discharge. Patient stated goal: to get better Acute on chronic combined systolic and diastolic congestive heart failure NICM, EF 30-35% (05/14/17) Paroxysmal VT Pulmonary HTN (group II) - Per chart review, EF previously 25-30% in 2011 - Echo at [facility] 05/14/17, please see full report - s/p [employer] Bi-V AUTOMATIC OVEN OPERATOR-D 11/05/11, generator changed September 2015 - Not a candidate for transplant due to BMI; currently undergoing LVAD work-up - Last dose of PO Amiodarone on 06/06/17 - Started Dobutamine at 3mcg/kg/min on admission, but patient had episode of VT ; fortunately ATP outof rhythm; stopped Dobutamine; loaded with Amiodarone and started on continuous gtt - Reviewed admission EKG (sinus rhythm with V-pace, rate ~70, PVCs present); troponins 0.03 and 0.04 - PICC line placed 06/07/17 - Device interrogated at bedside and only 1 episode of VT (06/07/17) within detection range since interrogation last week Plan: - Holding GEOSPATIAL ANALYST Spironolactone 25mg qday, Coreg 3.125mg BID, Lasix 20mg BID, and Amiodarone 200mg qday; will consider Metoprolol tartrate 12.5mg BID (and then Metoprolol succinate at discharge) due to blood pressure instead of Coreg - Lasix PRN; appears euvolemic, may consider maintenance dose - Amiodarone gtt 0.5mg/min - Started Milrinone at 0.125mcg/kg/min evening of 06/07/17, increased to 0.250mcg /kg/min - Refer to previous admission from 05/14/17-05/17/17 for additional details of LVAD work-up; still needs colonoscopy and teeth extractions; has social barriers and social work administrator will meet with the patient prior to discharge - Optimize electrolytes, Mg and K Coronary artery disease - Anterior VT per MPI on 07/21/15 - Non-obstructive per heart cath on 11/18/13 Plan: - Continue GEOSPATIAL ANALYST Aspirin and Crestor History of Elevated TSH - TSH 18.178 on 05/14/17 - FT4 WNL on 05/14/17 - Per notes, suspicion of Amiodarone induced Plan: - Continue Levothyroxine 50 mcg qday CONG/Central Sleep Apnea - BPAP qhs Diabetes mellitus type 2 - A1c 5.7 05/14/2017 Plan: - Hold off on insulin initiation unless sugars on chemistry are persistently elevated to spare patient unnecessary finger stick glucose checks Thrombocytopenia - Plts 306 on 05/01/17 and 226 on admisison - Plts 129 on 06/08/17 - Lovenox for DVT prophylaxis, first dose 06/07/17 night Plan: - Repeat CBC with BMP later this afternoon - Consider peripheral smear if still low Morbid Obesity, Body mass index is 41.41 kg/(m^2). CKD Hypertension Dyslipidemia Normocytic anemia Hepatic Steatosis (biopsy proven 05/17/17) FEN: No IV fluids; Replace lytes PRN; DIET CUSTOM COMBINATIONS Ppx: SCDs, Lovenox Code Status: Full Code Disposition/Family: Continue admission to Cardiology for evaluation and treatment of hypotension with know NICM and paroxysmal VT. Likely transfer to floor on 06/09/17. Possible discharge on 06/10/17. Patient seen and discussed with Dr. Catalan. Surya Walsh, DO Internal Medicine PGY-3 Pager [phone] Subjective: History of Present Illness: Radha Chance is a 61 y.o. female on day 1. Still had ectopy on telemetry overnight, but only few episodes of non-sustained VT, also shorter than initial episode on admission. Milrinone started last night and the patient is feeling better with less frequent and shorter PVCs. Still has some chest tightness intermittently. Ate some food last night and this morning, but hesitant because of her history of previous nausea. Despite her UA results, she denies symptoms of dysuria, hematuria, discharge, urgency, back pain, and muscle spasms. Denies fever, chills, shortness of breath, abdominal pain, and N/V/D. Allergies: Codeine; Morphine; Penicillins; Aspirin; and Sulfa (sulfonamide antibiotics) Medications: Scheduled: aspirin EC tablet 81 mg 81 mg Oral QDAY cholecalciferol (VITAMIN D-3) tablet 2,000 Units 2,000 Units Oral QDAY ciprofloxacin (CIPRO) tablet 250 mg 250 mg Oral BID(07-23) enoxaparin (LOVENOX) syringe 40 mg 40 mg Subcutaneous BID influenza (=>6 Months)(QUADrivalent) (FLULAVAL) PF syringe 0.5 mL 0.5 mL Intramuscular ONCE levothyroxine (SYNTHROID) tablet 50 mcg 50 mcg Oral QDAY 30 min before breakfast rosuvastatin (CRESTOR) tablet 10 mg 10 mg Oral QHS sodium chloride PF 0.9% flush 5-10 mL 5-10 mL Intravenous FLUSH TID vitamins, B complex tablet 1 tablet 1 tablet Oral QDAY IV: amiodarone (CORDARONE) 360 mg in dextrose, iso-osm 200 ml infusion 0.5 mg/ min (06/08/17 1034) milrinone (PRIMACOR) 20 mg/D5W 100 mL infusion 0.25 mcg/kg/min (06/08/17 0912) PRN: albuterol 0.5% Q4H PRN Objective: Vital Signs (Last Filed) Vital Signs (24-Hour Range) BP: 107/57 (06/08 1200) Temp: 36.6 C (97.9 F) (06/08 1200) Pulse: 73 (06/08 1200) Respirations: 22 PER MINUTE (06/08 1200) SpO2: 92 % (06/08 1200) O2 Delivery: None (Room Air) (06/08 800) SpO2 Pulse: 75 (06/08 1200) Height: 170.2 cm (67") (06/07 1657) BP: (86-127)/(46-70) Temp: [36.6 C (97.9 F)-36.9 C (98.5 F)] Pulse: [63-97] Respirations: [12 PER MINUTE-22 PER MINUTE] SpO2: [92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 ventilation. 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 BASIC METABOLIC PANEL (06/11/2017 4:45 AM) Component Value Ref Range Sodium 138 137 - 147 MMOL/L Potassium 4.0 3.5 - 5.1 MMOL/L Chloride 104 98 - 110 MMOL/L CO2 28 21 - 30 MMOL/L Anion Gap 6 3 - 12 Glucose 125 (H) 70 - 100 MG/DL Blood Urea Nitrogen 9 7 - 25 MG/DL Creatinine 1.15 (H) 0.4 - 1.00 MG/DL Calcium 9.4 8.5 - 10.6 MG/DL eGFR Non 48 (L) >60 mL/min Comment: The eGFR is not validated for use in drug dosing adjustments.Continue to use estimated creatinine clearance per dosing reference text.Please contact the Clinical Pharmacist for questions. eGFR 58 (L) >60 mL/min Comment: The eGFR is not validated for use in drug dosing adjustments.Continue to use estimated creatinine clearance per dosing reference text.Please contact the Clinical Pharmacist for questions. Specimen Performing Laboratory [facility] [address] [place] [address] MAGNESIUM (06/11/2017 4:45 AM) Component Value Ref Range Magnesium 2.0 1.6 - 2.6 mg/dL Specimen Performing Laboratory [facility] [address] [place] [address] CBC (06/11/2017 4:45 AM) Component Value Ref Range White Blood Cells 6.5 4.5 - 11.0 K/UL RBC 3.67 (L) 4.0 - 5.0 M/UL Hemoglobin 11.1 (L) 12.0 - 15.0 GM/DL Hematocrit 33.3 (L) 36 - 45 % MCV 90.9 80 - 100 FL MCH 30.4 26 - 34 PG MCHC 33.4 32.0 - 36.0 G/DL RDW 15.2 (H) 11 - 15 % Platelet Count 206 150 - 400 K/UL MPV 7.7 7 - 11 FL Specimen Performing Laboratory [facility] [address] [place] [address] DEVICE EVALUATION - ICD (06/10/2017 5:40 PM) Component Value Ref Range Generator [employer] Med[employer]onic Generator Model # viva s AUTOMATIC OVEN OPERATOR-D [id number] Generator Serial # [id number] Generator Implnat Date 09/06/2015 Device Mode DDDR Lower Rate Limit 60 Atrial Lead Nursing [employer] Medtronic Atrial Lead Model # 4076 52cm Atrial Lead Serial # [id number] Atrial Lead Implant Date 11/05/2011 RV Lead Nursing [employer] Medtronic RV Lead Model # 6947 65cm RV Lead Serial # [id number] RV Lead Implant Date 11/05/2011 LV Lead Nursing [employer] Medtronic LV Lead Model # 4968-35 (epicardial) LV Lead Serial # [id number] LV Lead Implant Date 12/06/2011 Upper Rate Limit 130 Sensor Rate Limit 120 Pace AV Delay 130 Sense AV Delay 110 VT Monitor 133 VT Detect Rate (bpm) 167 VF Detect Rate (bpm) 188 Device Type AUTOMATIC OVEN OPERATOR-D Device Implanted By [facility] Date of Last Programming 05/30/17 HF Patient Yes EP Device Followed By Other Device Berthold Transmitter Compatible Carelink Express EP Device Followed [...] See attached for more information. Routed to [facility] for review. BASIC METABOLIC PANEL (06/10/2017 4:25 PM) Component Value Ref Range Sodium 137 137 - 147 MMOL/L Potassium 4.0 3.5 - 5.1 MMOL/L Chloride 104 98 - 110 MMOL/L CO2 30 21 - 30 MMOL/L Anion Gap 3 3 - 12 Glucose 132 (H) 70 - 100 MG/DL Blood Urea Nitrogen 8 7 - 25 MG/DL Creatinine 1.13 (H) 0.4 - 1.00 MG/DL Calcium 9.5 8.5 - 10.6 MG/DL eGFR Non 49 (L) >60 mL/min Comment: The eGFR is not validated for use in drug dosing adjustments.Continue to use estimated creatinine clearance per dosing reference text.Please contact the Clinical Pharmacist for questions. eGFR 59 (L) >60 mL/min Comment: The eGFR is not validated for use in drug dosing adjustments.Continue to use estimated creatinine clearance per dosing reference text.Please contact the Clinical Pharmacist for questions. Specimen Performing Laboratory [facility] [address] [place] [address] ECG-SCAN (06/10/2017 2:15 PM) Narrative Ordered by an unspecified provider. BASIC METABOLIC PANEL (06/10/2017 4:05 AM) Component Value Ref Range Sodium 137 137 - 147 MMOL/L Potassium 3.8 3.5 - 5.1 MMOL/L Chloride 104 98 - 110 MMOL/L CO2 28 21 - 30 MMOL/L Anion Gap 5 3 - 12 Glucose 127 (H) 70 - 100 MG/DL Blood Urea Nitrogen 9 7 - 25 MG/DL Creatinine 1.01 (H) 0.4 - 1.00 MG/DL Calcium 9.3 8.5 - 10.6 MG/DL eGFR Non 56 (L) >60 mL/min Comment: The eGFR is not validated for use in drug dosing adjustments.Continue to use estimated creatinine clearance per dosing reference text.Please contact the Clinical Pharmacist for questions. eGFR >60 >60 mL/min Comment: The eGFR is not validated for use in drug dosing adjustments.Continue to use estimated creatinine clearance per dosing reference text.Please contact the Clinical Pharmacist for questions. Specimen Performing Laboratory [facility] [address] [place] [address] MAGNESIUM (06/10/2017 4:05 AM) Component Value Ref Range Magnesium 2.1 1.6 - 2.6 mg/dL Specimen Performing Laboratory [facility] [address] [place] [address] CBC (06/10/2017 4:05 AM) Component Value Ref Range White Blood Cells 6.1 4.5 - 11.0 K/UL RBC 3.45 (L) 4.0 - 5.0 M/UL Hemoglobin 10.7 (L) 12.0 - 15.0 GM/DL Hematocrit 31.1 (L) 36 - 45 % MCV 90.3 80 - 100 FL MCH 31.1 26 - 34 PG MCHC 34.4 32.0 - 36.0 G/DL RDW 15.4 (H) 11 - 15 % Platelet Count 207 150 - 400 K/UL MPV 7.5 7 - 11 FL Specimen Performing Laboratory [facility] [address] [place] [address] BASIC METABOLIC PANEL (06/09/2017 4:44 PM) Component Value Ref Range Sodium 135 (L) 137 - 147 MMOL/L Potassium 4.1 3.5 - 5.1 MMOL/L Chloride 102 98 - 110 MMOL/L CO2 28 21 - 30 MMOL/L Anion Gap 5 3 - 12 Glucose 158 (H) 70 - 100 MG/DL Blood Urea Nitrogen 10 7 - 25 MG/DL Creatinine 1.09 (H) 0.4 - 1.00 MG/DL Calcium 9.8 8.5 - 10.6 MG/DL eGFR Non 51 (L) >60 mL/min Comment: The eGFR is not validated for use in drug dosing adjustments.Continue to use estimated creatinine clearance per dosing reference text.Please contact the Clinical Pharmacist for questions. eGFR >60 >60 mL/min Comment: The eGFR is not validated for use in drug dosing adjustments.Continue to use estimated creatinine clearance per dosing reference text.Please contact the Clinical Pharmacist for questions. Specimen Performing Laboratory [facility] [address] [place] [address] BASIC METABOLIC PANEL (06/09/2017 5:15 AM) Component Value Ref Range Sodium 136 (L) 137 - 147 MMOL/L Potassium 3.8 3.5 - 5.1 MMOL/L Chloride 103 98 - 110 MMOL/L CO2 27 21 - 30 MMOL/L Anion Gap 6 3 - 12 Glucose 176 (H) 70 - 100 MG/DL Blood Urea Nitrogen 9 7 - 25 MG/DL Creatinine 1.09 (H) 0.4 - 1.00 MG/DL Calcium 9.4 8.5 - 10.6 MG/DL eGFR Non 51 (L) >60 mL/min Comment: The eGFR is not validated for use in drug dosing adjustments.Continue to use estimated creatinine clearance per dosing reference text.Please contact the Clinical Pharmacist for questions. eGFR >60 >60 mL/min Comment: The eGFR is not validated for use in drug dosing adjustments.Continue to use estimated creatinine clearance per dosing reference text.Please contact the Clinical Pharmacist for questions. Specimen Performing Laboratory [facility] [address] [place] [address] MAGNESIUM (06/09/2017 5:15 AM) Component Value Ref Range Magnesium 2.1 1.6 - 2.6 mg/dL Specimen Performing Laboratory [facility] [address] [place] [address] CBC (06/09/2017 5:15 AM) Component Value Ref Range White Blood Cells 6.1 4.5 - 11.0 K/UL RBC 3.62 (L) 4.0 - 5.0 M/UL Hemoglobin 11.3 (L) 12.0 - 15.0 GM/DL Hematocrit 33.0 (L) 36 - 45 % MCV 91.1 80 - 100 FL MCH 31.1 26 - 34 PG MCHC 34.1 32.0 - 36.0 G/DL RDW 15.3 (H) 11 - 15 % Platelet Count 198 150 - 400 K/UL MPV 7.1 7 - 11 FL Specimen Performing Laboratory [facility] [address] [place] [address] BASIC METABOLIC PANEL (06/08/2017 4:16 PM) Component Value Ref Range Sodium 137 137 - 147 MMOL/L Potassium 3.8 3.5 - 5.1 MMOL/L Chloride 102 98 - 110 MMOL/L CO2 29 21 - 30 MMOL/L Anion Gap 6 3 - 12 Glucose 152 (H) 70 - 100 MG/DL Blood Urea Nitrogen 11 7 - 25 MG/DL Creatinine 1.07 (H) 0.4 - 1.00 MG/DL Calcium 9.4 8.5 - 10.6 MG/DL eGFR Non 52 (L) >60 mL/min Comment: The eGFR is not validated for use in drug dosing adjustments.Continue to use estimated creatinine clearance per dosing reference text.Please contact the Clinical Pharmacist for questions. eGFR >60 >60 mL/min Comment: The eGFR is not validated for use in drug dosing adjustments.Continue to use estimated creatinine clearance per dosing reference text.Please contact the Clinical Pharmacist for questions. Specimen Performing Laboratory [facility] [address] [place] [address] BASIC METABOLIC PANEL (06/08/2017 4:05 AM) Component Value Ref Range Sodium 137 137 - 147 MMOL/L Potassium 3.2 (L) 3.5 - 5.1 MMOL/L Chloride 102 98 - 110 MMOL/L CO2 27 21 - 30 MMOL/L Anion Gap 8 3 - 12 Glucose 129 (H) 70 - 100 MG/DL Blood Urea Nitrogen 12 7 - 25 MG/DL Creatinine 1.18 (H) 0.4 - 1.00 MG/DL Calcium 8.8 8.5 - 10.6 MG/DL eGFR Non 47 (L) >60 mL/min Comment: [...] Pharmacist for questions. Specimen Performing Laboratory Blood [facility] [address] [place] [address] MAGNESIUM (06/08/2017 4:05 AM) Component Value Ref Range Magnesium 2.0 1.6 - 2.6 mg/dL Specimen Performing Laboratory Blood [facility] [address] [place] [address] CBC (06/08/2017 4:05 AM) Component Value Ref Range White Blood Cells 10.7 4.5 - 11.0 K/UL RBC 3.82 (L) 4.0 - 5.0 M/UL Hemoglobin 11.6 (L) 12.0 - 15.0 GM/DL Hematocrit 34.8 (L) 36 - 45 % MCV 91.0 80 - 100 FL MCH 30.4 26 - 34 PG MCHC 33.4 32.0 - 36.0 G/DL RDW 15.2 (H) 11 - 15 % Platelet Count 129 (L) 150 - 400 K/UL MPV 8.2 7 - 11 FL Specimen Performing Laboratory Blood [facility] [address] [place] [address] TROPONIN-I (06/07/2017 11:45 PM) Component Value Ref Range Troponin-I 0.03 0.0 - 0.05 NG/ML Specimen Performing Laboratory [facility] [address] [place] [address] POC GLUCOSE (06/07/2017 9:10 PM) Component Value Ref Range Glucose, POC 107 (H) 70 - 100 MG/DL Specimen Performing Laboratory [facility] [address] [place] [address] CBC AND DIFF (06/07/2017 9:10 PM) Component Value Ref Range White Blood Cells 9.2 4.5 - 11.0 K/UL RBC 3.83 (L) 4.0 - 5.0 M/UL Hemoglobin 11.5 (L) 12.0 - 15.0 GM/DL Hematocrit 35.2 (L) 36 - 45 % MCV 91.8 80 - 100 FL MCH 30.0 26 - 34 PG MCHC 32.7 32.0 - 36.0 G/DL RDW 15.6 (H) 11 - 15 % Platelet Count 226 150 - 400 K/UL MPV 7.4 7 - 11 FL Neutrophils 73 41 - 77 % Lymphocytes 16 (L) 24 - 44 % Monocytes 8 4 - 12 % Eosinophils 2 0 - 5 % Basophils 1 0 - 2 % Absolute Neutrophil Count 6.70 1.8 - 7.0 K/UL Absolute Lymph Count 1.50 1.0 - 4.8 K/UL Absolute Monocyte Count 0.70 0 - 0.80 K/UL Absolute Eosinophil Count 0.20 0 - 0.45 K/UL Absolute Basophil Count 0.10 0 - 0.20 K/UL Specimen Performing Laboratory [facility] [address] [place] [address] LINE PLCMT 1V CXR (06/07/2017 7:37 PM) [...] Chris Trinh M.D. on 06/07/2017 8:52 PM. TROPONIN-I (06/07/2017 5:02 PM) Component Value Ref Range Troponin-I 0.04 0.0 - 0.05 NG/ML Specimen Performing Laboratory [facility] [address] [place] [address] URINALYSIS, MICROSCOPIC (06/07/2017 5:02 PM) Component Value Ref Range WBCs,UA 2-10 0 - 2 /HPF RBCs,UA 0-2 0 - 3 /HPF MucousUA TRACE Bacteria,UA PACKED (A) NEG-NEG Squamous Epithelial Cells 0-2 0 - 5 Specimen Performing Laboratory [facility] [address] [place] [address] URINALYSIS DIPSTICK (06/07/2017 5:02 PM) Component Value Ref Range Color,UA YELLOW Turbidity,UA 1+ (A) CLEAR-CLEAR Specific [place]-Urine 1.006 1.003 - 1.035 pH,UA 6.0 5.0 - 8.0 Protein,UA NEG NEG-NEG Glucose,UA NEG NEG-NEG Ketones,UA 1+ (A) NEG-NEG Bilirubin,UA NEG NEG-NEG Blood,UA NEG NEG-NEG Urobilinogen,UA NORMAL NORM-NORMAL Nitrite,UA POS (A) NEG-NEG Leukocytes,UA TRACE (A) NEG-NEG Urine Ascorbic Acid, UA NEG NEG-NEG Specimen Performing Laboratory [facility] [address] [place] [address] BNP (B-TYPE NATRIURETIC PEPTI) (06/07/2017 5:02 PM) Component Value Ref Range B Type Natriuretic Peptide 94.0 0 - 100 PG/ML Specimen Performing Laboratory [facility] [address] [place] [address] MAGNESIUM (06/07/2017 5:02 PM) Component Value Ref Range Magnesium 2.1 1.6 - 2.6 mg/dL Specimen Performing Laboratory [facility] [address] [place] [address] LACTIC ACID(LACTATE) (06/07/2017 5:02 PM) Component Value Ref Range Lactic Acid 1.0 0.5 - 2.0 MMOL/L Specimen Performing Laboratory [facility] [address] [place] [address] COMPREHENSIVE METABOLIC PANEL (06/07/2017 5:02 PM) Component [...] Performing Laboratory [facility] [address] [place] [address] in this encounter Visit Diagnoses Diagnosis Nonischemic cardiomyopathy (HCC) - Primary Other primary cardiomyopathies Acute on chronic combined systolic and diastolic congestive heart failure (HCC) Acute on chronic combined systolic and diastolic heart failure Cardiogenic shock (HCC) Cardiogenic shock CHF (congestive heart failure) (HCC) Congestive heart failure, unspecified Hypotension Hypotension, unspecified Stage 3 chronic kidney disease Pulmonary hypertension Other chronic pulmonary heart diseases CONG and Central apnea treated with BiPAP Mild coronary artery disease Diabetes type 2, controlled (HCC) Type II or unspecified type diabetes mellitus without mention of complication, not stated as uncontrolled Chronic combined systolic and diastolic congestive heart failure (HCC) Chronic combined systolic and diastolic heart failure Paroxysmal VT (HCC) Paroxysmal ventricular tachycardia in this encounter Admitting Diagnoses Diagnosis Heart failure CHF (congestive heart failure) (HCC) Hypotension in this encounter Administered Medications Inactive Administered Medications - up to 3 most recent administrations Medication Order MAR Action Action Date Dose Rate Site amiodarone (CORDARONE) 150 mg in Given 06/07/2017 18:43 CDT 150 mg dextrose 5% (D5W) 100 mL IVPB (load) 150 mg, Intravenous, ONCE, 1 dose, Sat06/07/17 at 1830, Bolus Dose amiodarone (CORDARONE) 360 Given - New Bag 06/08/2017 21:33 CDT 0.5 mg/min 17 mL/hr mg in dextrose, iso-osm 200 ml infusion 0.5-1 mg/min (16.6667-33.3333 mL/hr, rounded to 17-33 mL/hr) 200 mL, at 17-33 mL/hr, Intravenous, TITRATE DIRECTED , Starting Sat06/07/17 at 1845, Until Sat06/09/17 at 0907, Std conc=1.8mg/mL. Initiate infusion at 1mg/min for the first 6 hours, followed by 0.5mg/min maint rate. Dose/Rate Verify 06/09/2017 03:06 CDT 0.5 mg/min 17 mL/hr Dose/Rate Verify 06/09/2017 08:00 CDT 0.5 mg/min 17 mL/hr amiodarone (CORDARONE) tablet 400 mg Given 06/10/2017 09:11 CDT 400 mg 400 mg, Oral, TWICE DAILY, First dose on 06/09/17 at 1015, Until Discontinued Given 06/10/2017 20:52 CDT 400 mg Given 06/11/2017 08:37 CDT 400 mg aspirin EC tablet 81 mg Given 06/09/2017 08:06 CDT 81 mg 81 mg, Oral, DAILY, First dose on 06/07/17 at 1930, Until Discontinued Given 06/10/2017 09:11 CDT 81 mg Given 06/11/2017 08:35 CDT 81 mg cholecalciferol (VITAMIN D-3) tablet 2,000 Given 06/09/2017 08:06 CDT 2,000 Units Units 2,000 Units, Oral, DAILY, First dose on 06/07/17 at 1930, Until Discontinued Given 06/10/2017 09:10 CDT 2,000 Units Given 06/11/2017 08:34 CDT 2,000 Units ciprofloxacin (CIPRO) tablet 250 mg Given 06/09/2017 10:18 CDT 250 mg 250 mg, Oral, TWICE DAILY, First dose on 06/08/17 at 0200, Until Discontinued, NURSING: Please educate patient and document: Give 1 hour before or 2 hours after meals. If patient is receiving tube feedings, hold tube feedings 1 hour before and 2 hours after dose. Do not give within 2 hours of antacids, magnesium, calcium, iron, zinc, or vitamins containing these minerals. Given 06/09/2017 20:22 CDT 250 mg Given 06/10/2017 10:48 CDT 250 mg DOBUTamine (DOBUTREX) 1 Given - New Bag 06/07/2017 18:00 3 mcg/kg/min 5.4 mL /hr g/D5W 250 mL infusion (std CDT conc)(premade) 3 mcg/kg/min 120.5 kg (5.4225 mL/hr, rounded to 5.4 mL/hr) 250 mL, at 5.4 mL/hr, Intravenous, CONTINUOUS, Starting Sat06/07/17 at 1700, Until 06/07/17 at 1912, Initiate at 3 mcg/kg/min Titrate to keep: Do not titrate Call MD for ventricular ectopy. Std Pogh=4040 mcg/ml NOTE: For weight-based dosing, use patient dosing weight. enoxaparin (LOVENOX) syringe 40 mg Given 06/10/2017 09:11 CDT 40 mg Abdominal Tissue 40 mg, Subcutaneous, TWICE DAILY, First dose on Sat06/07/17 at 2115, Until Discontinued, For patients undergoing surgery: Consult physician in advance -- enoxaparin is an anticoagulant and may need to be held for 12hr prior to surgery or invasive procedures. NOTE: This is a HIGH ALERT Medication. Given 06/10/2017 20:51 CDT 40 mg Abdominal Tissue Given 06/11/2017 08:37 CDT 40 mg Abdomen:LLQ furosemide (LASIX) injection 40 mg Given 06/07/2017 21:14 CDT 40 mg 40 mg, Intravenous, ONCE, 1 dose, Sat06/07/17 at 1800, PROTECT FROM LIGHT furosemide (LASIX) tablet 40 mg Given 06/10/2017 12:04 CDT 40 mg 40 mg, Oral, DAILY, First dose on Sat06/10/17 at 1200, Until Discontinued Given 06/11/2017 08:37 CDT 40 mg influenza (=>6 Given 06/09/2017 21:20 CDT 0.5 mL Deltoid, Left Months)(QUADrivalent) (FLULAVAL) PF syringe 0.5 mL 0.5 mL, Intramuscular, ONCE - UNTIL ADMIN, 1 dose, Sat06/07/17 at 2015, - Administer when stable and temp <38.3 C (afebrile) for 24 hours. Reschedule for 0900 the next day if unable to administer. - Per hospital protocol, please discuss risks and benefits with patient prior to administration of the vaccine(s). - SQ administration is reserved for patients with bleeding disorders at the discretion of the prescriber. - NOTE: If dose unavailable, send InwiMAN message to pharmacy levothyroxine (SYNTHROID) tablet 50 mcg Given 06/09/2017 06:27 CDT 50 mcg 50 mcg, Oral, DAILY 30MIN BEFORE BREAKFAST, First dose on 06/08/17 at 0630, Until Discontinued, Give 1 hour before a meal. If patient is receiving tube feedings, hold tube feed 1hr before and 1hr after dose. Given 06/10/2017 06:47 CDT 50 mcg Given 06/11/2017 06:26 CDT 50 mcg metoprolol XL (TOPROL XL) tablet 12.5 mg Given 06/09/2017 10:15 CDT 12.5 mg 12.5 mg, Oral, DAILY, First dose on 06/09/17 at 1015, Until Discontinued, Hold for heart rate < 60 bpm tablets may be cut in half, DO NOT CRUSH or CHEW Given 06/10/2017 09:10 CDT 12.5 mg Given 06/11/2017 08:33 CDT 12.5 mg milrinone (PRIMACOR) 20 Given - New Bag 06/10/2017 21:02 CDT 0.25 mcg/kg/min 9 mL/hr mg/D5W 100 mL infusion 0.25 mcg/kg/min 119.9 kg (8.9925 mL/hr, rounded to 9 mL/hr) 100 mL, at 9 mL/hr, Intravenous, TITRATE DIRECTED , Starting Sat06/07/17 at 2145, Until Sat06/11/17 at 1710, Initiate at 0.25 mcg/kg/min Titrate to keep: Do not titrate Call MD if rate exceeds 0.75 mcg/kg/min NOTE: For weight-based dosing, use patient dosing weight. Dose/Rate Verify 06/11/2017 07:11 CDT 0.25 mcg/kg/min 9 mL/hr Given - New Bag 06/11/2017 08:40 CDT 0.25 mcg/kg/min 9 mL/hr potassium chloride IVPB 10 mEq Given - New Bag 06/08/2017 07:01 CDT 10 mEq 50 mL/hr 10 mEq, Intravenous, 50 mL, Administer over 60 Minutes, EVERY 1 HOUR FOR 4 DOSES, 4 doses, First dose on 06/08/17 at 0600, Last dose on 06/08/17 at 0900, NOTE: This is a HIGH ALERT Medication. Given - New Bag 06/08/2017 07:33 CDT 10 mEq 50 mL/hr Given - New Bag 06/08/2017 08:20 CDT 10 mEq 50 mL/hr potassium chloride SR (K-DUR) tablet 20 mEq Given 06/10/2017 12:04 CDT 20 mEq 20 mEq, Oral, ONCE, 1 dose, 06/10/17 at 1200, Do NOT break or crush tablet Aware of 6am dose potassium chloride SR (K-DUR) tablet 40 mEq Given 06/08/2017 06:16 CDT 40 mEq 40 mEq, Oral, ONCE, 1 dose, 06/08/17 at 0600, Do NOT break or crush tablet potassium chloride SR (K-DUR) tablet 40 mEq Given 06/08/2017 21:20 CDT 40 mEq 40 mEq, Oral, ONCE, 1 dose, 06/08/17 at 2115, Do NOT break or crush tablet potassium chloride SR (K-DUR) tablet 40 mEq Given 06/09/2017 08:05 CDT 40 mEq 40 mEq, Oral, ONCE, 1 dose, 06/09/17 at 0900, Do NOT break or crush tablet potassium chloride SR (K-DUR) tablet 40 mEq Given 06/10/2017 06:47 CDT 40 mEq 40 mEq, Oral, ONCE, 1 dose, 06/10/17 at 0600, Do NOT break or crush tablet potassium chloride SR (K-DUR) tablet 40 mEq Given 06/11/2017 08:34 CDT 40 mEq 40 mEq, Oral, ONCE, 1 dose, 06/11/17 at 0800, Do NOT break or crush tablet rosuvastatin (CRESTOR) tablet 10 mg Given 06/08/2017 20:21 CDT 10 mg 10 mg, Oral, AT BEDTIME DAILY, First dose on Sat06/07/17 at 2100, Until Discontinued Given 06/09/2017 20:22 CDT 10 mg Given 06/10/2017 20:52 CDT 10 mg sodium chloride PF 0.9% flush 5-10 mL Given 06/10/2017 16:22 CDT 10 mL 5-10 mL, Intravenous, FLUSH THREE TIMES DAILY, First dose on 06/08/17 at 0000, Until Discontinued, Flush central, Midline or PICC line, with 5-10 mL every 8 hours using the push-pause (turbulent) method. Flush all lumens that do not have a continuous infusion. After obtaining blood specimen, flush catheter with 20 mL. Given 06/10/2017 20:52 CDT 10 mL Given 06/11/2017 08:42 CDT 10 mL spironolactone (ALDACTONE) tablet 25 mg Given 06/10/2017 12:04 CDT 25 mg 25 mg, Oral, DAILY, First dose on 06/10/17 at 1200, Until Discontinued, NURSING: Please educate patient and document: Avoid using salt substitutes which have a high potassium content (Nu-Salt). Given 06/11/2017 08:35 CDT 25 mg vitamins, B complex tablet 1 tablet Given 06/09/2017 08:06 CDT 1 tablet 1 tablet, Oral, DAILY, First dose on 06/08/17 at 0900, Until Discontinued Given 06/10/2017 09:10 CDT 1 tablet Given 06/11/2017 08:34 CDT 1 tablet in this encounter
--- OUTSIDE RECORDS SUMMARY | 2017-09-06 12:08 | External Medical Summary | Encounter Summary ---
:1955 Author Organization [facility] Address [address] [facility] [address] [place] [address] Phone Care Team Providers Name Role Phone Unavailable Primary Care Provider Unavailable Encounter Details Date Type Department Care Team Description 06/10/2017 Hospital Encounter [facility] Alton Cronin MBBS [address] [place] [address] [place], [place] [phone] [phone] Social History Tobacco Use Types Packs/Day Years Used Date Never Smoker Smokeless Tobacco: Never Used Alcohol Use Drinks/Week oz/Week Comments No Sex Assigned at Date Recorded Not on file as of this encounter Functional Status Functional Status Response Date of Assessment Does the patient have a hearing impairment: No 06/07/2017 Does the patient have a visual impairment: Yes 06/07/2017 Does the patient have impaired ambulation: No 06/07/2017 Does the patient have an activity of daily living (ADL) No 06/07/2017 impairment: Does the patient have an instrumental activity of daily No 06/07/2017 living (IADL) impairment: Cognitive Status Response Date of Assessment Does the patient have a cognitive impairment: No 06/07/2017 as of this encounter Plan of Treatment Not on fileas of this encounter Visit Diagnoses Not on filein this encounter
--- OUTSIDE RECORDS SUMMARY | 2017-09-06 12:09 | External Medical Summary | Encounter Summary ---
:1955 Author Organization [facility] Address [address] [facility] [address] [place] [address] Phone Care Team Providers Name Role Phone Unavailable Primary Care Provider Unavailable Reason for Visit Reason Comments Follow Up 4 week recheck per July Ordaz Auth/Cert Status Reason Specialty Diagnoses / Procedures Referred By Contact Referred To Contact Diagnoses Heart failure CHF (congestive heart failure) (HCC) Hypotension Encounter Details Date Type Department Care Team Description 06/07/2017 Office Visit [facility] Lupe Couch PA-C Follow Up (4 week CARDIOLOGY [address] recheck per July [address] [place], [place] [facility]) [place] [id number] [facility] [address] [place] [address] [phone] Social History Tobacco Use Types Packs/Day Years Used Date Never Smoker Smokeless Tobacco: Never Used Alcohol Use Drinks/Week oz/Week Comments No Sex Assigned at Date Recorded Not on file as of this encounter Last Filed Vital Signs Vital Sign Reading Time Taken Blood Pressure 96/68 06/07/2017 2:53 PM CDT Pulse 97 06/07/2017 2:53 PM CDT Temperature - - Respiratory Rate - - Oxygen Saturation 96% 06/07/2017 2:53 PM CDT Inhaled Oxygen Concentration - - Weight 120.5 kg (265 lb 9.6 oz) 06/07/2017 2:53 PM CDT Height 170.2 cm (5' 7") 06/07/2017 2:53 PM CDT Body Mass Index 41.6 06/07/2017 2:53 PM CDT in this encounter Functional Status [...] impairment: No 06/07/2017 as of this encounter Instructions Patient Instructions - Hanna Hall MA - 06/07/2017 4:00 PM CDT Formatting of this note may be different from the original. * ADMIT TO THE HOSPITAL IN CICU FOR INOTROPE (DOBUTMAINE) INITIATION. Heart Failure Education Summary You have been [...] does not resolve with rest or nitroglycerin [place], foamy mucus with cough and shortness of breath A continuous rapid or irregular heartbeat Passing out or fainting Stroke symptoms such as sudden numbness or weakness on one side of your face , arm, or leg or sudden confusion, trouble speaking or vision changes Heart Failure in this encounter Progress Notes Lupe Couch PA-C - 06/07/2017 4:00 PM CDTFormatting of this note may be different from the original. Date of Service: 06/07/2017 Radha Chance is a 61 y[address] female[address] HPI Dr. Fernández and I had the pleasure of seeing Mr. Chance at the [place] [facility]. Ms. 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 She was recently admitted to [facility] 05/14-05/17 after abnormal right heart catheterization which showed evidence for pulmonary venous hypertension, mild to moderate pulmonary arterial hypertension without significant elevation of PVR. Her RA was 16 mm at end-expiration, RV pressure 46/8 with EDP 13, PCWP 25, PA 43/25 with mean 27, CO 4.8 L/min and CI 2.1 L/min per sq m. Liver biopsydemonstrated mild steatosis of 5%, with minimal fibrosis (stage 0-1). She was evaluated for advanced heart failure therapies, but was not a candidate for transplant due to BMI >35. The LVAD was considered and patient to instructed to have CPET and colonoscopies as outpatient. She underwent CPET on 05/22/17 and exercised 4.6 minutes and stopped primarily due to leg fatigue andknee pain. Her peak VO2, corrected for obesity, was ~18 mls/kg/min. Her ACT was normal. Her VE/VCO2 was 29. She had some PVCs that did not increase or worsen with exercise. Her blood pressure did not change throughout the study. She was seen in the clinic on 05/30/17 with c/o frequent palpitations. Device check revealed normalfunction and no shock delivery. Her carvedilol was decreased to 3.125 mg BID, furosemide was increased to 20 mg BID, and spironolactone was increased to 25 mg BID. On 06/06/17, she called our clinic with c/o chest pain and hypotension. Was instructed to hold Carvedilol and go to ED. She presented to ED at [facility]. Troponin x1 was negative (0.051),creatinine was 1.4, Na 145, and K+ 3.7. She was given IV fluid due to low BP. Later, Dr. Johansen was contacted and since BNP was 1090, she was given IV Lasix 20 mg once with some improvement in her symptoms, hence was discharge to home same day. Today, she presents with dyspnea, dry cough, chest pain, nausea, lightheadedness , and intermittent abdominal fullness. Her BP is 96/68. She denies syncope or receiving shocks from her device. There is a concern that she might be in low- flow state with her symptoms deteriorating. Vitals: 06/07/17 1453 BP: 96/68 Pulse: 97 SpO2: 96% Weight: 120.5 kg (265 lb 9.6 oz) Height: 1.702 m (5' 7") Body mass index is 41.6 kg/(m^2). Past Medical History Patient Active Problem List Diagnosis Date Noted Stage 3 chronic kidney disease 05/29/2017 Acute on chronic combined systolic (congestive) and diastolic (congestive) heart failure 05/15/2017 Chronic combined systolic and diastolic congestive heart failure (HCC) 05/02 Cardiorenal syndrome 05/02/2017 Dental decay 05/02/2017 Added automatically from request for surgery [id number] CONG and Central apnea treated with BiPAP 04/19/2017 a. 1.28.2014 - CPAP - 5-12 cm H2O b. 9.2015 - BiPAP - 5-15 cm pressure c. 5.23.2016- BiPap - 10-18 cm median pressure 12.5cm She has central and obstructive apnea, schedule procedures with anesthesiology present. Diabetes type 2, controlled ([facility]) 04/19/2017 a. Taking Metformin Essential hypertension 04/19/2017 Mixed hyperlipidemia 04/19/2017 a. Pravachol 40 mg HS Pulmonary hypertension 03/08/2014 a. 7.17.2013 - Echo PAP 32 mmHg b. 8.18.2014 - Echo PAP 38 mmHg c. 8.18.2015 - Echo PAP 35 mmHg D. ..2016 - Echo PAP Tr TR, unmeasured E. ..2016 RHC - Right atrial pressure 16 mm at end-expiration. Right ventricular pressure 46/8 with end-diastolic 13 mmHg. PWP at end-expiration 25 mmHg. PAP at end-expiration 43/25, mean 27 mmHg. CO 4.8 L/min, CI 2.1 L/min per sq m. Mild coronary artery disease 08/15/2011 a. 08.15.2010 - [facility]: LVG 35% / LVEDP 9 - No significant coronary obstructive disease. b. 11.11.2013 - MPI - LVEF 28% - abnl - multivessel dx vs cardiomyopathy c. 11.18.2013 - LH: No significant coronary obstructive disease --> preformed at [facility], [place], [place] via Madi Parmar MD d. 07.21.2015 - [facility] - LVEF 43% - abnl - sm perfusion defect w/ questionable mild anteroapical ischemia Nonischemic cardiomyopathy (HCC) 08/15/2011 a. ..1999 - Echo - EF 52% - Nl RV b. 06.21.2010 - Echo - EF 36%, Lt atrial enlargement, ischemic CM w/ evidence suggestive of prior anterior AR, Nl PAP c. 2.15.2011 - Echo - EF 25-30% / LVIDd 4.7 cm, LVE, mild LVH, severe hypokinesis, diastolic dysfx, trace TR, RVSP 18 mmHgd. d. 3.5.2011 - BiV-ICD - Medtronic - Model [id number] (Serial: [id number]), Artial Lead Model 4076-52 (serial: [id number], RV lead Model 6947-65 (serial [id number] ), LV lead: pin plug implanted via Sidney Napier MD @ [place], [place] e.2.6.2012 - Echo - EF 35-40% / LVIDd 6.0 cm, mild LVE, mild LVH, mod global hypokinesis, diastolic dysfx, mod LAE, trace MR/TR/PI, RVSP 18 mmHg f. 2.11.2013 - EF 40-45% / LVIDd 5.9 cm, mild LVD, mild LVH, mod global hypokinesis, diastolic dysfx, Mild LAE/ALIREZA, trace MR/PI g. 3.19.2013 - LVG: Global hypokinesia w/ EF 35 - 40% w/ LV dilatation h. 7.17.2013 - EF 40% / LVIDd 5.5 cm, mod LV hypokinesis, diastolic dysfx, mild LAE, trace MR/TR, PAP 32 mmHg i. 8.18.2014 - EF 38% / LVIDd 6.0 cm, mild LVE/LAE, mod LV hypokinesis, mild MR , trace TR/PI, PAP 38mmHg j. 8.18.2016 - EF 33%/ LVIDd 6.0 [...] Laparoscopic Cholecystectomy via Little Huang MD @ [facility] Review of Systems Constitution: Negative. Eyes: Negative. Cardiovascular: Positive for dyspnea on exertion. Respiratory: Positive for shortness of breath. Hematologic/Lymphatic: Negative for bleeding problem. Skin: Negative for rash. Musculoskeletal: Negative for muscle cramps and muscle weakness. Gastrointestinal: Positive for bloating and nausea. Genitourinary: Negative for dysuria. Neurological: Positive for dizziness. All other systems reviewed and are negative. Physical Exam General Appearance: well-appearing, in no acute distress Skin: warm, dry Digits: no cyanosis or clubbing Eyes: conjunctivae and lids normal, pupils are equal and round, sclera non- icteric Lips & Oral Mucosa: no pallor or cyanosis Neck: JVP ~7 cm, +HJR Pulmonology/Chest: CTAB, no rales/ rhonchi/ wheezing, cardiac device in left upper chest with well-healed scar Cardiac: RRR, no rub or gallop noted, no obvious murmur GI: soft, obese, non-tender, normal bowel sounds Musculoskeletal: minimal edema in right ankle, otherwise none Neurological: A&O x3, no focal deficits, seems to comprehend information Cardiovascular Studies Problems Addressed Today No diagnosis found. Assessment and Plan Assessment: 1. Acute on chronic systolic & diastolic HFrEF with possible low flow state. Echo 05/14 showed EF 35%, mild LVDD, and LVIDD of 6.2 cm. RHC results as above. 2. Pulmonary hypertension group II. 3. H/o VT s/p Medtronic BiV-ICD implantation on 11/05/11 with generator change in 09/2015. 4. Ischemic cardiomyopathy with prior anterior AR per MPI on 07/21/15. Her LHC on 11/18/13 showed non-obstructive CAD. 5. CKD II with possible Cardiorenal syndrome. 6. Hypotension with h/o Hypertension. 7. Obstructive sleep apnea, uses CPAP. 8. DM II. 9. Morbid Obesity. BMI >41. 10. Deconditioning Plan: 1. Admit to CICU under HF service for Inotrope initiation and IV diuresis. Will determine if she will need to be discharged on inotrope therapy. 2. Close labs and vitals monitoring. 3. Will continue guideline-directed medical therapies. 4. Dr. Fernández had a long discussion with her regarding HF disease process and possible candidacy evaluation for LVAD therapy. It was discussed that she will need to show close family support and she/her son may need to move in together. Thank you for involving me to participate in this patient's care. Please call with questions and concerns. MD Lupe Dumont PA-C [facility] [phone] Late entry patient seen June 07, 2017. I personally interviewed and examined the patient. I have reviewed the history, physical examination, impression and plan as outlined by the advanced practice nurse / nurse practitioner / PRINCESS and I concur unless otherwise noted. Patient has evidence of low cardiac output state and cardiorenal syndrome. Plan to admit for IV inotropes I discussed the case with the accepting attending Dr. Cronin; We will reconsider evaluation for the LVAD as destination therapy she has been previously evaluated for heart transplant and was deemed not a candidate due to morbid obesity. She also did not have a clear outline support for the LVAD home and I again addressed this with the patient that she needs to establish support system for LVAD therapy. I discussed the case with the referring counseling department chair and will continue to work with the patient to support her with her stage D heart failure and evidence of advanced heart failure and need for advanced heart failure therapies. Total time 40 minutes. Estimated counseling time [...] Fernández MD [facility] Shared Services Representative Sales/Marketingplaster machine tender Director, [facility] Primary Transplant Physician Bread Room Hand, Heart Transplantation [facility] [email or web address] Current Medications (including today's revisions) amiodarone (CORDARONE) 200 mg tablet Take 1 tablet by mouth daily. TAKE ONE TABLET BY MOUTH EVERY DAY aspirin EC 81 mg tablet Take 81 mg by mouth daily. Take with food. carvedilol (COREG) 3.125 mg tablet Take 1 tablet by mouth twice daily. Take with food. cholecalciferol (VITAMIN D-3) 1,000 units tablet Take 2 tablets by mouth daily. ferrous gluconate 324 mg (38 mg iron) tab Take 1 tablet by mouth daily with breakfast. furosemide (LASIX) 20 mg tablet Take 1 tablet by mouth twice daily. levothyroxine (SYNTHROID) 50 mcg tablet Take 1 tablet by mouth daily 30 minutes before breakfast. Indications: HYPOTHYROIDISM Miscellaneous Medical [employer] [facility] Manual inflation blood pressure monitor with digital [...] daily. spironolactone (ALDACTONE) 25 mg tablet Take 1 tablet by mouth twice daily. Take with food. vitamins, B complex tab Take 1 tablet by mouth daily. in this encounter Plan of Treatment Not on fileas of this encounter Visit Diagnoses Diagnosis Chronic combined systolic and diastolic congestive heart failure (HCC) - Primary Chronic combined systolic and diastolic heart failure Cardiogenic shock (HCC) Cardiogenic shock Cardiorenal syndrome with renal failure, stage 1-4 or unspecified chronic kidney disease, with heart failure (HCC) Pulmonary hypertension Other chronic pulmonary heart diseases in this encounter
--- OUTSIDE RECORDS SUMMARY | 2017-09-06 12:09 | External Medical Summary | Encounter Summary ---
:1955 Author Organization [facility] Address [address] [place] [address] Phone Care Team Providers Name Role Phone Unavailable Primary Care Provider Unavailable Encounter Details Date Type Department Care Team Description 06/07/2017 Documentation [facility] Mily Su [address] [facility] [address] [place], [place] [id number] Social History Tobacco Use Types Packs/Day Years [...] impairment: No 06/07/2017 as of this encounter Progress Notes Mily Su - 06/07/2017 4:36 PM CDTSocial Work Note Plan: Patient to be admitted to CICU for inotrope initiation. SW assisting for any CM needs. Intervention: SW met with patient to follow up on previous conversation regarding support post LVAD.Patient informed that she has been approved for 24 hours of HCBS support and is active with [facility], who visits two times a week , but has been unable to find anyone for overnight support. Dr. Fernández also discussed with patient need to confirm support prior to LVAD implant. Patient discussed possibility of moving in with son, Lex, however reports concerns as his rent is double the esqueda of her rent. She also states she does not know how he would be able to get to for teaching prior to her discharge as he does not have transportation. Patient states she has friends within her apartment complexwho can be available to assist with home care needs and errands, however , are unable to assist with medical needs. Patient admitted to CICU from clinic for inotrope initiation. SW encouraged patient tocontinue conversation with inpatient CM team and notified inpt SW of above conversation. While patient was waiting for bed to become available, she called son, Lex, to discuss moving back in together. Patient also requested SW call Medicaid van driver helper, Moris, that she is admitted as he is waiting for her to return to [place]. SW to continue to follow and assist with any future needs. Mily Su LMSW [id number] in this encounter Plan of Treatment Not on fileas of this encounter Visit Diagnoses Not on filein this encounter
--- NOTE | 2017-09-06 12:35 | XRay Report ---
Indication: Fever PROCEDURE: XR chest 1V: Encounter: Initial Comparison: June 12, 2017 Findings: Elevated right hemidiaphragm. Hypoinflation Left pacemaker defibrillator. Right PICC line in place. The tip is not able to be definitively localized. No focal consolidative pneumonia. No pleural effusion or pneumothorax. Cardiac silhouette remains moderately enlarged. Mediastinal contours are stable. Pulmonary vascularity is grossly normal. Impression: No focal pneumonia or overt congestive failure. .
--- NOTE | 2017-09-06 12:45 | Emergency Department Report ---
Fever HPI - General Chief Complaint: Fever Stated Complaint: Fever, cough, and low oxygen stats Time Seen by Provider: 09/06/17 11:55 Source: patient, RN notes reviewed Mode of arrival: ambulatory Limitations: no limitations - History of Present Illness HPI Narrative: 62yo woman referred to the ER for evaluation of a fever. Pt is in end-stage CHF with a milrinone drip and pump assist device. Was at the infusion clinic today when she was found to have a temp of 103'F. Pt was referred to the ER for further eval. Pt has had several days of chills. Denies other sx at this time. complaint: fever Onset (ago): hour(s) Maximum Temperature: 103 F Temperature Source: oral Associated symptoms: chills, rigors Relieving factors: nothing Exacerbating factors: nothing Treatments prior to arrival fever: none - Related Data Home Medications Medication Instructions Recorded Confirmed Nitroglycerin [Nitrostat] 0.4 mg SL Q5MIN PRN #0 08/15/11 09/06/17 Aspirin [Aspirin EC] 81 mg PO DAILY 06/06/17 09/06/17 Cholecalciferol (Vitamin D3) 2,000 unit PO DAILY 06/06/17 09/06/17 [Vitamin D3] Ferrous Gluconate 324 mg PO WB 06/06/17 09/06/17 Levothyroxine Sodium 50 mcg PO ACB 06/06/17 09/06/17 Rosuvastatin Calcium 10 mg PO DAILY 06/06/17 09/06/17 Sodium Chloride [Saline Nasal 2 spray EA NOSTRIL DAILY 06/06/17 09/06/17 [place]] Vitamin B Complex [Balanced B-100] 1 tab PO DAILY 06/06/17 09/06/17 Metoprolol Succinate 12.5 mg PO DAILY 06/12/17 09/06/17 0.9 % Sodium Chloride [Sodium 5 - 10 ml IV BID 09/06/17 09/06/17 Chloride] Amiodarone [Pacerone] 400 mg PO DAILY 09/06/17 09/06/17 Furosemide [Lasix] 40 mg PO BID 09/06/17 09/06/17 Milrinone Drip [Milrinone Drip 1 dose IV DAILY 09/06/17 09/06/17 Premix] Potassium Chloride [K-Tab ER] 5 meq PO DAILY 09/06/17 09/06/17 Spironolactone [Aldactone] 12.5 mg PO DAILY 09/06/17 09/06/17 Allergies Allergy/AdvReac Type Severity Reaction Status Date / Time codeine Allergy Severe Anaphylactic Verified 09/06/17 11:36 Shock morphine Allergy Severe Anaphylactic Verified 09/06/17 11:36 Shock Penicillins Allergy Severe Anaphylactic Verified 09/06/17 11:36 Shock soybean Allergy Intermediate DIARRHEA Verified 09/06/17 11:36 aspirin Allergy Mild HX Verified 09/06/17 11:36 BLEEDING ULCER Sulfa (Sulfonamide Allergy Mild N/V Verified 09/06/17 11:36 Antibiotics) Review of Systems All systems: reviewed and negative except as stated Constitutional: Reports: as per HPI, fever, chills, weakness. Denies: weight change, night sweats ENT: Reports: as per HPI. Denies: ear pain, throat pain, dental pain, hearing loss, epistaxis, congestion, dysphagia Respiratory: Reports: as per HPI, cough (Chronic), dyspnea (Chronic). Denies: wheezes, hemoptysis, stridor PFSH Patient Stated Medical History Angina Yes Cardiac Arrhythmia Yes Congestive Heart Failure Yes Coronary Artery Disease Yes Other Cardiology Yes: Nonischemic Cardiomyopathy, Pulmonary Hypertension Sleep Apnea Yes Other Respiratory Yes: Pulmonary Hypertension Diabetes Mellitus Type 2 Yes Other GI Yes: Steatosis Hx Renal Disease Yes: CKD STAGE 3 Surgical History: Heart Catherization. ICD - Social History Smoking status: Never smoker Physical Exam - Limitations Limitations: no limitations - General General appearance: alert, in no apparent distress, obese - Normal Exams: Head:: Normocephalic without trauma Eyes:: Pupils are PERRLA w/ EOMI, No scleral icterus, irritation, or foreign bodies noted ENMT:: No facial trauma, nasal exudates, pharyngeal erythema, or exudates are noted Neck:: Full range of motion, without adenopathy Chest/Respirations:: Clear all mc[place], with good airflow, and symmetry bilaterally Abdomen:: Bowel sounds positive, soft, non-tender, non-distended, no hepatosplenomegaly Lymphatic:: No lymphadenopathy Musculoskeletal:: No tenderness, or deformity noted, good range of motion Integumentary:: No rashes, hives, or bruising noted Neurological:: Patient is alert, and oriented, cranial nerves, motor/sensory/ cerebellar, exams w/o gross deficits Psychiatric:: Patient exhibits, appropriate attention - Cardiovascular Cardiovascular exam: Present: regular rate, normal rhythm, systolic murmur. Absent: normal heart sounds Course - Consultations Consultation #1: Dr. Garza: Can give atbx and good precautions or admit for overnight obs. Time: 13:15 Consultation #2: Hospitalist: Will accept pt for further eval/treatment. Time: 13:25 Vital Signs Temperature 103.2 F H 09/06/17 11:36 Pulse Rate 106 H 09/06/17 11:36 Respiratory Rate 20 09/06/17 11:36 Blood Pressure 130/62 09/06/17 11:36 Pulse Oximetry 91 09/06/17 11:36 Temperature 97.6 F 09/08/17 07:21 Pulse Rate 81 09/08/17 10:20 Respiratory Rate 16 09/08/17 07:21 Blood Pressure 123/60 09/08/17 10:20 Pulse Oximetry 92 09/08/17 07:21 Fever - MDM Narrative Medical decision making narrative: Woman with elevated white count, fever, end-stage CHF, and CRF. No clear source of infection. Hospitalist will admit pt for further eval/treatment. - Differential Diagnosis Likely: fever of unknown origin, gastroenteritis, community acquired pneumonia, viral infection, sepsis, influenza - Medical Records Attestation: I reviewed the patient's medical records. - Lab Data Attestation: I reviewed the patient's lab results. Result diagrams: 09/08/17 05:07 09/08/17 05:07 Lab Results 09/06/17 09/06/17 09/06/17 Range/Units 12:05 12:05 12:42 WBC 15.2 H (4.5-11.0) T/MM3 RBC 3.92 L (4.00-5.20) M/MM3 Hgb 11.1 L (12-16) GM/DL Hct 35.2 L (36-46) % MCV 89.8 (80-100) UM3 MCH 28.3 (26-34) UUG MCHC 31.5 (31-37) GM/DL RDW Std Deviation 49.8 (36.9-50.2) FL Plt Count 207 (130-400) T/MM3 MPV 8.7 L (9.4-12.4) UM3 Immature Gran % (Auto) Not performed Neut % (Auto) Not performed Lymph % (Auto) Not performed [place] % (Auto) Not performed Eos % (Auto) Not performed Baso % (Auto) Not performed Neut # (Auto) Not performed Lymph # (Auto) Not performed [place] # (Auto) Not performed Eos # (Auto) Not performed Baso # (Auto) Not performed Abs Immat Gran (auto) Not performed Neutrophils % (Manual) 87.0 H (33-66) % Band Neutrophils % 7.0 H (0-6) % Lymphocytes % (Manual) 3.0 L (23-45) % Monocytes % (Manual) 3.0 (0-9.0) % Neutrophils # (Manual) 13.2 H (1.8-7.7) T/MM3 Band Neutrophils # 1.1 T/MM3 Lymphocytes # (Manual) 0.5 L (1-4.8) T/MM3 Monocytes # (Manual) 0.5 (0-0.8) T/MM3 RBC Morph Comment Normal Turbidity < 20 (0-20) Sodium 139 (134-144) MEQ/L Potassium 3.3 L (3.6-5) MEQ/L Chloride 92 L (98-107) MEQ/L Carbon Dioxide 33 H (22-30) MEQ/L Anion Gap 14 (5-15) MEQ/L BUN 14.0 (7-17) MG/DL Creatinine 1.2 (0.7-1.2) MG/DL GFR Calculation 46 BUN/Creatinine Ratio 12 (6-26) RATIO Glucose 183 H (65-110) MG/DL Glucometer (65-110) mg/dL Calculated Osmolality 274 (261-280) MOSM/KG Calcium 9.0 (8.4-10.2) MG/DL Total Bilirubin 0.90 (0.20-1.30) MG/DL Icterus Index < 2 (0-7) AST 21 (14-36) U/L ALT 21 (9-52) U/L Alkaline Phosphatase 77 (38-126) U/L C-Reactive Protein (0-9) MG/L Total Protein 7.9 (6.3-8.2) G/DL Albumin 3.9 (3.5-5.0) G/DL Globulin 4.0 H (2.4-3.6) G/DL Albumin/Globulin Ratio 1.0 L (1.1-2.2) RATIO Lipase 22 L (23-300) U/L Plasma Lactate 1.7 (0.6-2.2) MMOL/L Specimen Hemolysis < 15 (0-25) Ur Collection Type Urine, clean catch Urine Color [place] (YELLOW) Urine Clarity Sl cloudy Urine pH 5.5 (5.0-8.0) Ur Specific [place] 1.025 (1.015-1.025) Urine Protein 1+ A (NEGATIVE) Urine Glucose (UA) Trace A (NEGATIVE) Urine Ketones Trace A (NEGATIVE) Urine Occult Blood Negative (NEGATIVE) Urine Nitrate Negative (NEGATIVE) Urine Bilirubin Negative (NEGATIVE) Urine Urobilinogen 1.0 (NORMAL) EU/DL Ur Leukocyte Esterase Negative (NEGATIVE) Urine RBC 1-3 (0-3) /HPF Urine WBC 1-3 (0-5) /HPF Ur Squamous Epith Cells 5-10 Urine Bacteria Trace H (NEGATIVE) Ur Culture Indicated? Cult not indicated Adenovirus (PCR) (Negative) B.parapertussis DNA PCR (Negative) C. pneumoniae DNA (PCR) (Negative) Coronavirus OC43 (PCR) (Negative) Coronavirus HKU1 (PCR) (Negative) Coronavirus 229E (PCR) (Negative) Coronavirus NL63 (PCR) (Negative) Human Metapneumovir PCR (Negative) Influenza Type A (PCR) (Negative) Influenza Type B (PCR) (Negative) M. pneumoniae (PCR) (Negative) Parainfluenza 1 (PCR) (Negative) Parainfluenza 2 (PCR) (Negative) Parainfluenza 3 (PCR) (Negative) Parainfluenza 4 (PCR) (Negative) RSV (PCR) (Negative) Entero/Rhino (PCR) (Negative) 09/06/17 09/06/17 09/06/17 Range/Units 13:35 16:46 19:55 WBC (4.5-11.0) T/MM3 RBC (4.00-5.20) M/MM3 Hgb (12-16) GM/DL Hct (36-46) % MCV (80-100) UM3 MCH (26-34) UUG MCHC (31-37) GM/DL RDW Std Deviation (36.9-50.2) FL Plt Count (130-400) T/MM3 MPV (9.4-12.4) UM3 Immature Gran % (Auto) Neut % (Auto) Lymph % (Auto) [place] % (Auto) Eos % (Auto) Baso % (Auto) Neut # (Auto) Lymph # (Auto) [place] # (Auto) Eos # (Auto) Baso # (Auto) Abs Immat Gran (auto) Neutrophils % (Manual) (33-66) % Band Neutrophils % (0-6) % Lymphocytes % (Manual) (23-45) % Monocytes % (Manual) (0-9.0) % Neutrophils # (Manual) (1.8-7.7) T/MM3 Band Neutrophils # T/MM3 Lymphocytes # (Manual) (1-4.8) T/MM3 Monocytes # (Manual) (0-0.8) T/MM3 RBC Morph Comment Turbidity (0-20) Sodium (134-144) MEQ/L Potassium (3.6-5) MEQ/L Chloride (98-107) MEQ/L Carbon Dioxide (22-30) MEQ/L Anion Gap (5-15) MEQ/L BUN (7-17) MG/DL Creatinine (0.7-1.2) MG/DL GFR Calculation BUN/Creatinine Ratio (6-26) RATIO Glucose (65-110) MG/DL Glucometer 200 (65-110) mg/dL Calculated Osmolality (261-280) MOSM/KG Calcium (8.4-10.2) MG/DL Total Bilirubin (0.20-1.30) MG/DL Icterus Index (0-7) AST (14-36) U/L ALT (9-52) U/L Alkaline Phosphatase (38-126) U/L C-Reactive Protein (0-9) MG/L Total Protein (6.3-8.2) G/DL Albumin (3.5-5.0) G/DL Globulin (2.4-3.6) G/DL Albumin/Globulin Ratio (1.1-2.2) RATIO Lipase (23-300) U/L Plasma Lactate 1.0 (0.6-2.2) MMOL/L Specimen Hemolysis (0-25) Ur Collection Type Urine Color (YELLOW) Urine Clarity Urine pH (5.0-8.0) Ur Specific [place] (1.015-1.025) Urine Protein (NEGATIVE) Urine Glucose (UA) (NEGATIVE) Urine Ketones (NEGATIVE) Urine Occult Blood (NEGATIVE) Urine Nitrate (NEGATIVE) Urine Bilirubin (NEGATIVE) Urine Urobilinogen (NORMAL) EU/DL Ur Leukocyte Esterase (NEGATIVE) Urine RBC (0-3) /HPF Urine WBC (0-5) /HPF Ur Squamous Epith Cells Urine Bacteria (NEGATIVE) Ur Culture Indicated? Adenovirus (PCR) Negative (Negative) B.parapertussis DNA PCR Negative (Negative) C. pneumoniae DNA (PCR) Negative (Negative) Coronavirus OC43 (PCR) Negative (Negative) Coronavirus HKU1 (PCR) Negative (Negative) Coronavirus 229E (PCR) Negative (Negative) Coronavirus NL63 (PCR) Negative (Negative) Human Metapneumovir PCR Negative (Negative) Influenza Type A (PCR) Negative (Negative) Influenza Type B (PCR) Negative (Negative) M. pneumoniae (PCR) Negative (Negative) Parainfluenza 1 (PCR) Negative (Negative) Parainfluenza 2 (PCR) Negative (Negative) Parainfluenza 3 (PCR) Negative (Negative) Parainfluenza 4 (PCR) Negative (Negative) RSV (PCR) Negative (Negative) Entero/Rhino (PCR) Negative (Negative) 09/07/17 09/07/17 09/07/17 Range/Units 04:00 04:00 05:57 WBC 14.1 H (4.5-11.0) T/MM3 RBC 3.57 L (4.00-5.20) M/MM3 Hgb 10.1 L (12-16) GM/DL Hct 32.6 L (36-46) % MCV 91.3 (80-100) UM3 MCH 28.3 (26-34) UUG MCHC 31.0 (31-37) GM/DL RDW Std Deviation 50.2 (36.9-50.2) FL Plt Count 211 (130-400) T/MM3 MPV 9.5 (9.4-12.4) UM3 Immature Gran % (Auto) Not performed Neut % (Auto) Not performed Lymph % (Auto) Not performed [place] % (Auto) Not performed Eos % (Auto) Not performed Baso % (Auto) Not performed Neut # (Auto) Not performed Lymph # (Auto) Not performed [place] # (Auto) Not performed Eos # (Auto) Not performed Baso # (Auto) Not performed Abs Immat Gran (auto) Not performed Neutrophils % (Manual) 87.0 H (33-66) % Band Neutrophils % 3.0 (0-6) % Lymphocytes % (Manual) 9.0 L (23-45) % Monocytes % (Manual) 1.0 (0-9.0) % Neutrophils # (Manual) 12.3 H (1.8-7.7) T/MM3 Band Neutrophils # 0.4 T/MM3 Lymphocytes # (Manual) 1.3 (1-4.8) T/MM3 Monocytes # (Manual) 0.1 (0-0.8) T/MM3 RBC Morph Comment Normal Turbidity < 20 (0-20) Sodium 137 (134-144) MEQ/L Potassium 3.5 L (3.6-5) MEQ/L Chloride 94 L (98-107) MEQ/L Carbon Dioxide 34 H (22-30) MEQ/L Anion Gap 9 (5-15) MEQ/L BUN 15.0 (7-17) MG/DL Creatinine 1.2 (0.7-1.2) MG/DL GFR Calculation 46 BUN/Creatinine Ratio 13 (6-26) RATIO Glucose 136 H (65-110) MG/DL Glucometer 135 (65-110) mg/dL Calculated Osmolality 267 (261-280) MOSM/KG Calcium 8.8 (8.4-10.2) MG/DL Total Bilirubin (0.20-1.30) MG/DL Icterus Index < 2 (0-7) AST (14-36) U/L ALT (9-52) U/L Alkaline Phosphatase (38-126) U/L C-Reactive Protein 184.0 H (0-9) MG/L Total Protein (6.3-8.2) G/DL Albumin (3.5-5.0) G/DL Globulin (2.4-3.6) G/DL Albumin/Globulin Ratio (1.1-2.2) RATIO Lipase (23-300) U/L Plasma Lactate (0.6-2.2) MMOL/L Specimen Hemolysis < 15 (0-25) Ur Collection Type Urine Color (YELLOW) Urine Clarity Urine pH (5.0-8.0) Ur Specific [place] (1.015-1.025) Urine Protein (NEGATIVE) Urine Glucose (UA) (NEGATIVE) Urine Ketones (NEGATIVE) Urine Occult Blood (NEGATIVE) Urine Nitrate (NEGATIVE) Urine Bilirubin (NEGATIVE) Urine Urobilinogen (NORMAL) EU/DL Ur Leukocyte Esterase (NEGATIVE) Urine RBC (0-3) /HPF Urine WBC (0-5) /HPF Ur Squamous Epith Cells Urine Bacteria (NEGATIVE) Ur Culture Indicated? Adenovirus (PCR) (Negative) B.parapertussis DNA PCR (Negative) C. pneumoniae DNA (PCR) (Negative) Coronavirus OC43 (PCR) (Negative) Coronavirus HKU1 (PCR) (Negative) Coronavirus 229E (PCR) (Negative) Coronavirus NL63 (PCR) (Negative) Human Metapneumovir PCR (Negative) Influenza Type A (PCR) (Negative) Influenza Type B (PCR) (Negative) M. pneumoniae (PCR) (Negative) Parainfluenza 1 (PCR) (Negative) Parainfluenza 2 (PCR) (Negative) Parainfluenza 3 (PCR) (Negative) Parainfluenza 4 (PCR) (Negative) RSV (PCR) (Negative) Entero/Rhino (PCR) (Negative) - Radiology Data Attestation: I reviewed the patient's radiology results. CXR: Impression: No focal pneumonia or overt congestive failure. - EKG Data EKG #1 EKG attestation: Yes: I reviewed and interpreted this EKG. EKG results narrative: Electronically paced. Disposition Clinical Impression: Fever Qualifiers: Fever type: unspecified Qualified Code(s): R50.9 - Fever, unspecified Disposition: 02 To [facility] Condition: Stable for Transport - Seen By: physician
--- NOTE | 2017-09-06 16:25 | Progress Note ---
- Date 09/06/17 Objective Vital signs: Temperature 101.2 F H 09/06/17 15:10 Pulse Rate 90 09/06/17 15:00 Respiratory Rate 27 H 09/06/17 15:00 Blood Pressure 97/46 09/06/17 15:00 Pulse Oximetry 94 09/06/17 15:00 - Constitutional Present: no acute distress, well nourished, well developed, obese - Routine HEENT Exam Head: Present: normocephalic, atraumatic Eye: Present: EOMI, PERRL ENT: Present: mucous membranes moist, oropharynx clear - Routine Respiratory Exam Present: CTA bilaterally. Absent: wheezes - Routine Cardiovascular Exam Present: RRR. Absent: murmur - Routine Abdominal Exam Present: soft, normoactive bowel sounds, non distended. Absent: tenderness Comments: implanted device upper L chest - Routine Extremities Exam Present: no edema, normal capillary refill Comments: PICC RUE - Routine Skin Exam Present: dry, warm - Routine Neurological Exam Present: alert, oriented X3, CN II-XII intact, moving all extremities - Routine Lymphatic Exam Lymphatic: Absent: adenopathy - Routine Psychiatric Exam Present: normal affect, cooperative Results - Labs CBC & Chem 7: 09/06/17 12:05 09/06/17 12:05 - Imaging and Cardiology Chest x-ray Additional comments: Date of Exam: 09/06/17 Type of Exam(s): XR chest 1V Indication: Fever PROCEDURE: XR chest 1V: Findings: Elevated right hemidiaphragm. Hypoinflation Left pacemaker defibrillator. Right PICC line in place. The tip is not able to be definitively localized. No focal consolidative pneumonia. No pleural effusion or pneumothorax. Cardiac silhouette remains moderately enlarged. Mediastinal contours are stable. Pulmonary vascularity is grossly normal. Impression: No focal pneumonia or overt congestive failure. Assessment and Plan (1) Fever Current visit: Yes Status: Acute (2) Heart failure Current visit: Yes Status: Acute Assessment and Plan: Assessment Fever of unknown origin SIRS criteria of fever 103.2, leukocytosis, tachycardia, but no obvious source of infection and normal lactate Hypokalemia - POA End stage CHF Stage III CKD Diabetes mellitus, Type 2 Hypothyroidism HLD iron deficiency anemia Vitamin D deficiency Plan Admit to [facility] status under the hospitalist service for further evaluation and monitoring. Dr. Khalil attending. Patient requests full code status. Care to return to Dr. Garza on discharge. DVT Prophylaxis: SCD's Resuscitation Status: Full Code - Physician Narrative Narrative: Date: 09/06/17 Time: 161 Hospital Course Summary Disclaimer: The visit summary below is not to be considered part of the above Progress Note.
[2017-09-06 16:29] VITALS: BMI 40.3
--- NOTE | 2017-09-06 16:40 | History & Physical Report ---
History of Present Illness Date: 09/06/17 Chief complaint: fever, chills HPI: Patient is a 62 yo female patient with end-stage CHF who presented to infusion center to have her PICC line flushed today (she is on a milrinone drip)and was found to have a fever of 103. She was sent to the ER where she had a neg respiratory panel, WBC 15.2 with 7% bands, CXR neg for overt failure or pneumonia, neg UA and potassium of 3.3 She states she has had several days of severe chills and "shakes" but doesn't have a thermometer to check her fever. She has a dry cough. No SOA. Mild "ache" in her chest which she states she gets when she has frequent PVCs. She states her fasting BS's have been elevated for the past month. Patient is currently on a milrinone drip (320mg/400ml D5W at 2.2ml/hr) started Aug 07 (date when PICC line placed). She has a CRTD. SHe sees Dr. Fernández in (heart failure specialist) and Dr. Johansen. SHe is not on home O2. She uses CPAP at night for sleep apnea. THinks her EF is 15% and her A1C is 5.3. Review of Systems All systems PM: 10-point ROS was reviewed, no additional remarkable complaints except (rigors, chills, dry cough) Past Medical History Patient Stated Medical History End stage CHF Stage III CKD Diabetes mellitus, Type 2 Hypothyroidism HLD iron deficiency anemia Vitamin D deficiency CAD Cardiomyopathy Pulmonary HTN Sleep apnea - CPAP Surgical History: Heart Catherization, GB, , liver bx -neg per pt, CRTD (cardiac resynchronization therapy device) Family History: Pt grew up in [facility]. Does not know any bio history. Her son has diabetes. Family History Updates: updated - Social History Smoking status: Never smoker Substance use type: does not use Alcohol intake frequency: does not drink Housing: apartment Household members: none Current occupational status: disabled Social history: Patient is Son Jessica Burnett is pt's POA-H PCP - Dr. Garza Gear Hobber Operator-Dr. Johansen -Dr. Fernández (at [facility] in ) Sleep specialist - Dr. Aramis Pineda Medications Home Medications Medication Instructions Recorded Confirmed Type Nitroglycerin [Nitrostat] 0.4 mg SL Q5MIN PRN #0 08/15/11 09/06/17 History Aspirin [Aspirin EC] 81 mg PO DAILY 06/06/17 09/06/17 History Cholecalciferol (Vitamin D3) 2,000 unit PO DAILY 06/06/17 09/06/17 History [Vitamin D3] Ferrous Gluconate 324 mg PO WB 06/06/17 09/06/17 History Levothyroxine Sodium 50 mcg PO ACB 06/06/17 09/06/17 History Rosuvastatin Calcium 10 mg PO DAILY 06/06/17 09/06/17 History Sodium Chloride [Saline Nasal 2 spray EA NOSTRIL DAILY 06/06/17 09/06/17 History [place]] Vitamin B Complex [Balanced B-100] 1 tab PO DAILY 06/06/17 09/06/17 History Metoprolol Succinate 12.5 mg PO DAILY 06/12/17 09/06/17 History 0.9 % Sodium Chloride [Sodium 5 - 10 ml IV BID 09/06/17 09/06/17 History Chloride] Amiodarone [Pacerone] 400 mg PO DAILY 09/06/17 09/06/17 History Furosemide [Lasix] 40 mg PO BID 09/06/17 09/06/17 History Milrinone Drip [Milrinone Drip 1 dose IV DAILY 09/06/17 09/06/17 History Premix] Potassium Chloride [K-Tab ER] 5 meq PO DAILY 09/06/17 09/06/17 History Spironolactone [Aldactone] 12.5 mg PO DAILY 09/06/17 09/06/17 History Allergies Allergy/AdvReac Type Severity Reaction Status Date / Time codeine Allergy Severe Anaphylactic Verified 09/06/17 11:36 Shock morphine Allergy Severe Anaphylactic Verified 09/06/17 11:36 Shock Penicillins Allergy Severe Anaphylactic Verified 09/06/17 11:36 Shock soybean Allergy Intermediate DIARRHEA Verified 09/06/17 11:36 aspirin Allergy Mild HX Verified 09/06/17 11:36 BLEEDING ULCER Sulfa (Sulfonamide Allergy Mild N/V Verified 09/06/17 11:36 Antibiotics) Exam Vital Signs: Temperature 98.5 F 09/06/17 16:13 Pulse Rate 86 09/06/17 16:13 Respiratory Rate 20 09/06/17 16:13 Blood Pressure 105/51 01/05/18 16:13 Pulse Oximetry 91 09/06/17 16:13 Height/Weight/BMI: Height 1.7 m Weight 116.7 kg Body Mass Index 40.3 - Constitutional Present: no acute distress, well nourished, well developed, obese - Routine HEENT Exam Head: Present: normocephalic, atraumatic Eye: Present: EOMI, PERRL ENT: Absent: dentition normal (poor dentition) Comments: lips dry - Routine Neck Exam Present: supple. Absent: lymphadenopathy, thyromegaly - Routine Respiratory Exam Present: CTA bilaterally. Absent: wheezes - Routine Cardiovascular Exam Present: RRR. Absent: murmur - Routine Abdominal Exam Present: soft, normoactive bowel sounds, non distended. Absent: tenderness - Routine Extremities Exam Present: no edema, normal capillary refill - Routine Skin Exam Present: dry, warm Comments: CRTD left upper chest - Routine Neurological Exam Present: alert, oriented X3, CN II-XII intact - Routine Psychiatric Exam Present: normal affect, cooperative Results - Labs CBC & Chem 7: 09/06/17 12:05 09/06/17 12:05 Labs: Laboratory Tests 09/06/17 12:05 Plasma Lactate 1.7 Urinalysis 1+ protein, trace glucose, trace ketones, specific gravity 1.025 - Imaging and Cardiology Chest x-ray Additional comments: Date of Exam: 09/06/17 Ordering Provider: Virgil De Leon DO Type of Exam(s): XR chest 1V Reason for Exam(s): Fever Indication: Fever PROCEDURE: XR chest 1V: Encounter: Initial Comparison: June 12, 2017 Findings: Elevated right hemidiaphragm. Hypoinflation Left pacemaker defibrillator. Right PICC line in place. The tip is not able to be definitively localized. No focal consolidative pneumonia. No pleural effusion or pneumothorax. Cardiac silhouette remains moderately enlarged. Mediastinal contours are stable. Pulmonary vascularity is grossly normal. Impression: No focal pneumonia or overt congestive failure. Assessment and Plan (1) Fever Current visit: Yes Status: Acute (2) Heart failure Current visit: Yes Status: Acute Assessment and Plan: Assessment Fever of unknown origin SIRS criteria of fever 103.2, leukocytosis, tachycardia, but no obvious source of infection and normal lactate Hypokalemia - POA End stage CHF with CRTD (cardiac resynchronization therapy device) Stage III CKD Diabetes mellitus, Type 2 Iron deficiency anemia Vitamin D deficiency CAD Cardiomyopathy Pulmonary HTN Sleep apnea - CPAP Hypothyroidism HLD iron deficiency anemia Vitamin D deficiency Plan Admit to OBS status under the hospitalist service for further evaluation and monitoring. Dr. Arriaza attending. Respiratory panel, CXR, UA, labs performed in ER. Draw blood cultures if temp >101.5 - take 1 from PICC and 1 from other peripheral site Accuchecks and SSI. Replace potassium. SCD's for DVT prophylaxis. Patient requests full code status. Care to return to Dr. Garza on discharge. DVT Prophylaxis: SCD's Resuscitation Status: Full Code - Physician Narrative Physician: Cj Arriaza MD Narrative: Date: 09/06/17 Time: 1834 I have independently interviewed and examined pt. Chart reviewed. Case discussed with PA. Care plan developed with my supervision; agree with above. 62 yo with end-stage CHF was sent to ER from infusion center d/t f/c. Patient has a PICC line for a milrinone drip. She says she has had chills and subjective fever for about a week. She reports a dry cough but isn't sure whether it is worse than usual. CXR, UA, viral screen negative. Blood cx drawn. She reports having frequent PVCs and thinks she had V-tach on Saturday. She sees Dr. Johansen locally and Dr. Fernández at [facility] Lungs: diminished breath sounds, no use of accessory muscles. CV: regular ABD: s/nt/nd MSE: awake alert appropriate Plan: Observation secondary to fever, chills. d/w Dr. Johansen and patient's biventricular device will be interrogated. Monitor on tele. Monitor blood cx. Repeat CBC. Check CRP. Patient will take her home meds. Replace K and recheck. SCDs for DVT ppx. Hospital Course Summary Disclaimer: The visit summary below is not to be considered part of the above Progress Note. Hospital Course: Assessment Fever of unknown origin SIRS criteria of fever 103.2, leukocytosis, tachycardia, but no obvious source of infection and normal lactate Hypokalemia - POA End stage CHF with CRTD (cardiac resynchronization therapy device) Stage III CKD Diabetes mellitus, Type 2 Iron deficiency anemia Vitamin D deficiency CAD Cardiomyopathy Pulmonary HTN Sleep apnea - CPAP Hypothyroidism HLD iron deficiency anemia Vitamin D deficiency 09/06/16 - Hospital admission Admit to OBS status under the hospitalist service for further evaluation and monitoring. Dr. Arriaza attending. Respiratory panel, CXR, UA, labs performed in ER. Draw blood cultures if temp >101.5 - take 1 from PICC and 1 from other peripheral site Accuchecks and SSI. Replace potassium. SCD's for DVT prophylaxis. Patient requests full code status. Care to return to Dr. Garza on discharge.
[2017-09-06] MEDS ORDERED: NITROGLYCERIN 0.4 MG SL PRN (18:16)
[2017-09-06] MEDS: MILRINONE DRIP 20 MG/100 ML BAG IV SCH (18:41)
[2017-09-06] MEDS ORDERED: INSULIN ASPART 100unit/ml INJECTION SQ PRN (19:56)
--- NOTE | 2017-09-06 20:26 | Cardiology Consult Note ---
<Una Dorantes - Last Filed: 09/09/17 11:42> History of Present Illness Consult date: 09/06/17 Requesting physician: Cj Arriaza IV Consult reason: congestive heart failure Chief complaint: fever, chills History of present illness: Radha is a 62 year old female who is well known to Dr. Johansen with a history of CM with Medtronic ICD, CAD, VTach, HLD and DM type II with end-stage CHF who presented to [facility] to have her PICC line flushed today and was found to have a fever of 103. She was sent to the ER where she had a neg respiratory panel, WBC 15.2 with 7% bands, CXR neg for overt failure or pneumonia, neg UA and potassium of 3.3 She states she has had several days of severe chills and "shakes" but doesn't have a thermometer to check her fever. She has a dry cough. No SOA. Mild "ache" in her chest which she states she gets when she has frequent PVCs. She states her fasting BS's have been elevated for the past month. She is currently on a milrinone drip (320mg/400ml D5W at 2.2ml/hr) started Aug 07 (date when PICC line placed). She has a CRTD. She sees Dr. Fernández in ( heart failure specialist) She is not on home O2. She uses CPAP at night for sleep apnea. Her last echo 04/2017 EF 40%, TDS, LVE 6.3cm, LVH, Impaired relaxation, mod LAE, MAC, Trace TR Review of Systems - Constitutional Constitutional: Present: chills, fatigue, fever(s) - EENMT Eyes: Absent: change in vision Balance: Absent: vertigo Mouth/Throat: Absent: sore throat - Cardiovascular Cardiovascular: Absent: chest pain, palpitations, syncope, dyspnea on exertion Rhythm: Present: abnormal rhythm - Respiratory Respiratory: Present: cough. Absent: dyspnea, dyspnea on exertion - Gastrointestinal Gastrointestinal: Absent: constipation, diarrhea, nausea, vomiting - Genitourinary Genitourinary: Absent: dysuria - Integumentary/Breasts Integumentary: Absent: rash - Neurological Neurological: Absent: dizziness - Endocrine Endocrine: Absent: palpitations PFSH Patient Stated Medical History Angina Yes Cardiac Arrhythmia Yes Congestive Heart Failure Yes Coronary Artery Disease Yes Other Cardiology Yes: Nonischemic Cardiomyopathy, Pulmonary Hypertension Sleep Apnea Yes Other Respiratory Yes: Pulmonary Hypertension Diabetes Mellitus Type 2 Yes Other GI Yes: Steatosis Hx Renal Disease Yes: CKD STAGE 3 Surgical History: Heart Catherization, GB, , liver bx -neg per pt, CRTD (cardiac resynchronization therapy device) Family History: Radha is adopted - No known family history - Social History Smoking status: Never smoker Substance use type: does not use Alcohol intake frequency: does not drink Housing: apartment Household members: none Current occupational status: retired Current residence: Apartment/Private Home Medications Home Medications Medication Instructions Recorded Confirmed Type Nitroglycerin [Nitrostat] 0.4 mg SL Q5MIN PRN #0 08/15/11 09/06/17 History Aspirin [Aspirin EC] 81 mg PO DAILY 06/06/17 09/06/17 History Cholecalciferol (Vitamin D3) 2,000 unit PO DAILY 06/06/17 09/06/17 History [Vitamin D3] Ferrous Gluconate 324 mg PO WB 06/06/17 09/06/17 History Levothyroxine Sodium 50 mcg PO ACB 06/06/17 09/06/17 History Rosuvastatin Calcium 10 mg PO DAILY 06/06/17 09/06/17 History Sodium Chloride [Saline Nasal 2 spray EA NOSTRIL DAILY 06/06/17 09/06/17 History [place]] Vitamin B Complex [Balanced B-100] 1 tab PO DAILY 06/06/17 09/06/17 History Metoprolol Succinate 12.5 mg PO DAILY 06/12/17 09/06/17 History 0.9 % Sodium Chloride [Sodium 5 - 10 ml IV BID 09/06/17 09/06/17 History [place]] Amiodarone [Pacerone] 400 mg PO DAILY 09/06/17 09/06/17 History Furosemide [Lasix] 40 mg PO BID 09/06/17 09/06/17 History Milrinone Drip [Milrinone Drip 1 dose IV DAILY 09/06/17 09/06/17 History Premix] Potassium Chloride [K-Tab ER] 5 meq PO DAILY 09/06/17 09/06/17 History Spironolactone [Aldactone] 12.5 mg PO DAILY 09/06/17 09/06/17 History Allergies Allergy/AdvReac Type Severity Reaction Status Date / Time codeine Allergy Severe Anaphylactic Verified 09/06/17 11:36 Shock morphine Allergy Severe Anaphylactic Verified 09/06/17 11:36 Shock Penicillins Allergy Severe Anaphylactic Verified 09/06/17 11:36 Shock soybean Allergy Intermediate DIARRHEA Verified 09/06/17 11:36 aspirin Allergy Mild HX Verified 09/06/17 11:36 BLEEDING ULCER Sulfa (Sulfonamide Allergy Mild N/V Verified 09/06/17 11:36 Antibiotics) Exam Vital signs: Temperature 98.5 F 09/06/17 16:13 Pulse Rate 86 09/06/17 16:13 Respiratory Rate 20 09/06/17 16:13 Blood Pressure 105/51 09/06/17 16:13 Pulse Oximetry 91 09/06/17 16:13 - Constitutional no acute distress, obese, cooperative - Routine HEENT Exam Head: Present: normocephalic ENT: Present: mucous membranes moist - Routine Neck Exam Absent: JVD, carotid bruit - Routine Chest/Breast/Axilla Exam Chest wall: Present: pacemaker. Absent: tenderness - Routine Respiratory Exam Present: decreased breath sounds, CTA bilaterally. Absent: rales, wheezes - Routine Cardiovascular Exam Present: RRR. Absent: JVD - Routine Abdominal Exam Present: soft, normoactive bowel sounds - Routine Extremities Exam Present: no edema - Routine Skin Exam Present: intact, dry, warm - Routine Neurological Exam Present: alert, oriented X3 - Routine Psychiatric Exam Present: normal affect, normal thought process Results 09/08/17 05:07 09/08/17 05:07 Intake and Output 09/06/17 09/06/17 09/06/17 06:59 14:59 22:59 Intake Total 120 / 120 Balance 120 / 120 Intake: Oral 120 / 120 Other: Weight 257 lb 4.471 oz Patient Weight 09/07/17 06:59 Weight 257 lb 4.471 oz - Imaging and Cardiology Imaging & Cardiology Narrative: Date of Exam: 09/06/17 Ordering Provider: Virgil De Leon DO Type of Exam(s): XR chest 1V Reason for Exam(s): Fever Indication: Fever PROCEDURE: XR chest 1V: Encounter: Initial Comparison: June 12, 2017 Findings: Elevated right hemidiaphragm. Hypoinflation Left pacemaker defibrillator. Right PICC line in place. The tip is not able to be definitively localized. No focal consolidative pneumonia. No pleural effusion or pneumothorax. Cardiac silhouette remains moderately enlarged. Mediastinal contours are stable. Pulmonary vascularity is grossly normal. Impression: No focal pneumonia or overt congestive failure. 09/06/17 20:39 EKG interpretations - VT, pacemaker, normal Pacemaker: ventricular pacing w/capture (except when refractory) Assessment and Plan - Assessment and Plan (1) Ventricular tachycardia Status: Acute Interrogation of BiV ICD shows multiple runs of NS VT - Add Sotalol 40mg po BID to existing Amiodarone and Metoprolol for antiarrhythmia - Repeat EKG tomorrow (2) Fever Status: Acute (3) Cardiomyopathy Status: Chronic (4) Presence of automatic implantable cardioverter-defibrillator Status: Chronic Medtronic Rep to interrogate Interrogation of BiV ICD shows multiple runs of NS VT (5) Mixed hyperlipidemia Status: Chronic (6) Type 2 diabetes mellitus without complications Status: Chronic - Assessment and Plan Ventricular Tachycardia: Interrogation of BiV ICD shows multiple runs of NS VT - Add Sotalol 40mg po BID to existing Amiodarone and Metoprolol for antiarrhythmia - Repeat EKG tomorrow Thank you for allowing us to participate in the care of this patient. Hospital Course Summary Disclaimer: The visit summary below is not to be considered part of the above Progress Note. Hospital Course: Assessment Fever of unknown origin SIRS criteria of fever 103.2, leukocytosis, tachycardia, but no obvious source of infection and normal lactate Hypokalemia - POA End stage CHF with CRTD (cardiac resynchronization therapy device) Stage III CKD Diabetes mellitus, Type 2 Iron deficiency anemia Vitamin D deficiency CAD Cardiomyopathy Pulmonary HTN Sleep apnea - CPAP Hypothyroidism HLD iron deficiency anemia Vitamin D deficiency 09/06/16 - Hospital admission Admit to OBS status under the hospitalist service for further evaluation and monitoring. Dr. Arriaza attending. Respiratory panel, CXR, UA, labs performed in ER. Draw blood cultures if temp >101.5 - take 1 from PICC and 1 from other peripheral site Accuchecks and SSI. Replace potassium. SCD's for DVT prophylaxis. Patient requests full code status. Care to return to Dr. Garza on discharge. <Madi Johansen - Last Filed: 09/11/17 09:25> [facility] Patient Stated Medical History Hx Renal Disease Yes Exam Vital signs: Temperature 97.6 F 09/08/17 07:21 Pulse Rate 81 09/08/17 10:20 Respiratory Rate 16 09/08/17 07:21 Blood Pressure 123/60 09/08/17 10:20 Pulse Oximetry 92 09/08/17 07:21 Results 09/08/17 05:07 09/08/17 05:07 Assessment and Plan - Attestation Attestation Narrative: 09/11/17 09:25 Recommendation After examining the patient I agree with the above assessment. I am involved in the formulation of the patient's plan of care. - Assessment and Plan (1) Fever Status: Acute (2) Cardiomyopathy Status: Chronic (3) Presence of automatic implantable cardioverter-defibrillator Status: Chronic (4) Ventricular tachycardia Status: Acute (5) Mixed hyperlipidemia Status: Chronic (6) Type 2 diabetes mellitus without complications Status: Chronic Hospital Course Summary Disclaimer: The visit summary below is not to be considered part of the above Progress Note.
[2017-09-06] MEDS: INSULIN ASPART 100unit/ml INJECTION SQ PRN (20:34)
[2017-09-06] MEDS: SOTALOL 80 MG TABLET PO SCH (22:01)
[2017-09-06] MEDS: SALINE FLUSH 10ml SYRINGE IV SCH (22:03)
[2017-09-06] MEDS: FUROSEMIDE 20 MG PO SCH (22:03)
[2017-09-07] MEDS: MEROPENEM 1 GM in NS 100 ML IV SCH ×3 (01:07→17:01)
[2017-09-07] MEDS: SALINE FLUSH 10ml SYRINGE IV SCH ×3 (01:08→21:10)
[2017-09-07] MEDS: SOTALOL 80 MG TABLET PO SCH ×3 (06:58→17:41)
[2017-09-07] MEDS: LEVOTHYROXINE 50 MCG TAB PO SCH (07:00)
[2017-09-07] MEDS: FERROUS GLUCONATE 324 MG TAB PO SCH (07:54)
[2017-09-07] MEDS: SALINE 0.65% NASAL SPRAY 44 ML BOTTLE EA NOSTRIL SCH (07:59)
[2017-09-07] MEDS: SPIRONOLACTONE 25 MG TAB PO SCH (08:00)
[2017-09-07] MEDS: METOPROLOL SUCCINATE 25 MG PO SCH (08:02)
[2017-09-07] MEDS: FUROSEMIDE 20 MG PO SCH (08:02)
[2017-09-07] MEDS ORDERED: ASPIRIN *EC* 81 MG TAB - PT OWN PO SCH (09:00)
[2017-09-07] MEDS ORDERED: [UNRECOGNIZED DRUG - OTHER] IV SCH (09:00)
[2017-09-07] MEDS ORDERED: CHOLECALCIFEROL 1000 UNIT PO SCH (09:00)
[2017-09-07] MEDS ORDERED: ROSUVASTATIN 10 MG PO SCH (09:00)
[2017-09-07] MEDS ORDERED: AMIODARONE 200 MG PO SCH (09:00)
[2017-09-07] MEDS ORDERED: VITAMIN B COMPLEX PO SCH (09:00)
[2017-09-07] MEDS ORDERED: [UNRECOGNIZED DRUG - OTHER] PO SCH (09:00)
[2017-09-07] MEDS: INSULIN ASPART 100unit/ml INJECTION SQ PRN ×2 (10:47→21:09)
[2017-09-07] MEDS ORDERED: GUAIFENESIN 200mg/10ml ORAL LIQUID PO PRN (12:16)
--- NOTE | 2017-09-07 12:20 | Progress Note ---
- Date 09/07/17 Subjective: Patient up to chair. Says she had trouble sleeping b/c of cough and the bed. Reports chills this AM. Objective Vital signs: Temperature 98.5 F 09/07/17 07:29 Pulse Rate 78 09/07/17 10:52 Respiratory Rate 20 09/07/17 10:52 Blood Pressure 93/47 09/07/17 07:29 Pulse Oximetry 95 09/07/17 10:52 - Constitutional Present: no acute distress - Routine HEENT Exam Head: Present: normocephalic, atraumatic Eye: Present: EOMI, PERRL ENT: Present: mucous membranes moist - Routine Respiratory Exam Present: CTA bilaterally - Routine Cardiovascular Exam Present: RRR - Routine Abdominal Exam Present: soft, normoactive bowel sounds, non distended, non tender - Routine Extremities Exam Present: no edema - Routine Skin Exam Comments: no erythema visible at PICC site - Routine Neurological Exam Present: alert, oriented X3, moving all extremities - Routine Psychiatric Exam Present: normal affect Results - Labs CBC & Chem 7: 09/07/17 04:00 09/07/17 04:00 Assessment and Plan (1) Fever Current visit: Yes Status: Acute (2) Heart failure Current visit: Yes Status: Acute Assessment and Plan: Assessment Klebsiella oxytoca septicemia SIRS criteria of fever 103.2, leukocytosis, tachycardia, but no obvious source of infection and normal lactate NSVT Hypokalemia - POA End stage CHF with CRTD (cardiac resynchronization therapy device) Stage III CKD Diabetes mellitus, Type 2 Iron deficiency anemia Vitamin D deficiency CAD Cardiomyopathy Pulmonary HTN Sleep apnea - CPAP Hypothyroidism HLD iron deficiency anemia Vitamin D deficiency Plan Admit to inpatient status. Blood cx positive x 2. Meropenem started. PICC placed about a week before patient began having chills and subjective fevers. Will DC PICC and have tip cultured. Repeat blood cultures in AM. Sotalol added for NSVT. Apprecite Dr. Johansen's consult. Accuchecks and SSI. Replace potassium. SCD's for DVT prophylaxis. - Physician Narrative Narrative: Date: 09/07/17 Time: 1215 Hospital Course Summary Disclaimer: The visit summary below is not to be considered part of the above Progress Note. Hospital Course: Assessment Fever of unknown origin SIRS criteria of fever 103.2, leukocytosis, tachycardia, but no obvious source of infection and normal lactate Hypokalemia - POA End stage CHF with CRTD (cardiac resynchronization therapy device) Stage III CKD Diabetes mellitus, Type 2 Iron deficiency anemia Vitamin D deficiency CAD Cardiomyopathy Pulmonary HTN Sleep apnea - CPAP Hypothyroidism HLD iron deficiency anemia Vitamin D deficiency 09/06/16 - Hospital admission Admit to OBS status under the hospitalist service for further evaluation and monitoring. Dr. Arriaza attending. Respiratory panel, CXR, UA, labs performed in ER. Draw blood cultures if temp >101.5 - take 1 from PICC and 1 from other peripheral site Accuchecks and SSI. Replace potassium. SCD's for DVT prophylaxis. Patient requests full code status. Care to return to Dr. Garza on discharge. 09/07 Admit to inpatient status. Blood cx positive x 2. Meropenem started. PICC placed about a week before patient began having chills and subjective fevers. Will DC PICC and have tip cultured. Repeat blood cultures in AM. Sotalol added for NSVT. Apprecite Dr. Johansen's consult. Accuchecks and SSI. Replace potassium. SCD's for DVT prophylaxis.
[2017-09-07] MEDS: FUROSEMIDE 20 MG TABLET PO SCH (17:41)
[2017-09-07] MEDS ORDERED: FALL RISK - PHARMACY CONSULT XX ONE (22:02)
[2017-09-07] MEDS: MILRINONE DRIP 20 MG/100 ML BAG IV SCH (22:56)
--- NOTE | 2017-09-07 23:01 | Cardiology Progress Note ---
<Charleen Mcdonough - Last Filed: 09/07/17 23:17> Subjective Principal diagnosis: VTACH, Cardiomyopathy Interval history: Pt is resting in bed upon exam. She reports she continues to chill and feel feverish. Her PICC line was pulled today. She denies chest pain, palpitations. She continues to persistently cough. Exam Vital signs: Temperature 98.4 F 09/07/17 17:12 Pulse Rate 71 09/07/17 17:41 Respiratory Rate 20 09/07/17 17:12 Blood Pressure 84/54 09/07/17 17:12 Pulse Oximetry 95 09/07/17 17:12 - Constitutional no acute distress, obese, cooperative - Routine HEENT Exam Head: Present: normocephalic Eye: Present: PERRL ENT: Present: mucous membranes moist - Routine Neck Exam Absent: JVD - Routine Chest/Breast/Axilla Exam Chest wall: Present: pacemaker - Routine Respiratory Exam Present: decreased breath sounds - Routine Cardiovascular Exam Present: RRR - Routine Abdominal Exam Present: normoactive bowel sounds - Routine Extremities Exam Present: no edema - Routine Skin Exam Present: intact, warm - Routine Neurological Exam Present: alert, oriented X3 - Routine Psychiatric Exam Present: normal affect, normal thought process Results 09/07/17 04:00 09/07/17 04:00 Intake and Output 09/07/17 09/07/17 09/07/17 06:59 14:59 22:59 Intake Total 650 / 990 549.097 / 549.097 Balance 650 / 990 549.097 / 549.097 Intake: IV 149.097 / 149.097 Meropenem 1 gm In Ns 100 ml @ 100 / 100 200 mls/hr IV Q8HR [facility] Rx#: [id number] Milrinone Drip 20 mg In 100 ml 49.097 / 49.097 @ 2.2 mls/hr IV .Q24H [facility] Rx#: [id number] Oral 650 / 890 400 / 400 Other: Urine Appearance Clear Urine Color Yellow Urine Odor Normal Stool Color Brown Stool Consistency Liquid Size of Bowel Movement Moderate # Voids 1 1 # Bowel Movements 1 Amiodarone HCl (Pacerone) 400 mg PO 0630 [facility] Aspirin (Ecotrin) 81 mg PO 0630 [facility] Cholecalciferol (Vit. D-3) 2,000 unit PO 0630 [facility] Ferrous Gluconate (Fergon) 324 mg PO WB [facility] Last Admin: 09/07/17 07:54 Dose: 324 mg Furosemide (Lasix) 40 mg PO 0630,1600 [facility] Last Admin: 09/07/17 17:41 Dose: Not Given Guaifenesin (Robitussin Liq) 200 mg PO Q4H PRN PRN Reason: Cough /Congestion Last Admin: 09/07/17 21:09 Dose: 200 mg Milrinone Lactate/Dextrose (Milrinone Drip Premix) 20 mg in 100 mls @ 2.2 mls/ hr IV .Q24H [facility] Last Admin: 09/07/17 22:56 Dose: Not Given Meropenem 1 gm/ Sodium (Chloride) 100 mls @ 200 mls/hr IV Q8HR [facility] Last Infusion: 09/07/17 17:34 Dose: Infused Insulin Aspart (Novolog) 1 - 5 unit SQ SS PRN; Protocol PRN Reason: Hyperglycemia Last Admin: 09/07/17 21:09 Dose: 2 unit Insulin Aspart (Novolog) 1 - 5 unit SQ SS PRN; Protocol PRN Reason: Hyperglycemia Levothyroxine Sodium (Synthroid) 50 mcg PO ACB [facility] Last Admin: 09/07/17 07:00 Dose: 50 mcg Metoprolol Succinate (Toprol Xl) 12.5 mg PO DAILY [facility] Last Admin: 09/07/17 08:02 Dose: 12.5 mg Multivitamins (Total B + C) 1 tab PO 0630 [facility] Nitroglycerin (Nitrostat) 0.4 mg SL Q5MIN PRN PRN Reason: CP Pharmacy Consult (Pharmacy Consult - Fall Risk) each ONE TIME ONE Stop: 09/07/17 22:03 Potassium Chloride (K-Dur) 5 meq PO WB [facility] Last Admin: 09/07/17 07:55 Dose: 5 meq Rosuvastatin Calcium (Crestor) 10 mg PO 0630 [facility] Sodium Chloride (Deep Sea Nasal Moisturizing [place]) 2 spray EA NOSTRIL DAILY [facility] Last Admin: 09/07/17 07:59 Dose: 2 spray Sodium Chloride (Iv Flush) 5 - 10 ml IV BID [facility] Last Admin: 09/07/17 21:10 Dose: 10 ml Sotalol HCl (Betapace) 40 mg PO ACBID [facility] Last Admin: 09/07/17 17:41 Dose: Not Given Spironolactone (Aldactone) 12.5 mg PO DAILY [facility] Last Admin: 09/07/17 08:00 Dose: 12.5 mg - Imaging and Cardiology EKG results: image reviewed - EKG Interpretation EKG: sinus rhythm (V paced. QT 546) Assessment and Plan - Assessment and Plan (1) Fever Status: Acute (2) Cardiomyopathy Status: Chronic (3) Presence of automatic implantable cardioverter-defibrillator Status: Chronic (4) Ventricular tachycardia Status: Acute (5) Mixed hyperlipidemia Status: Chronic (6) Type 2 diabetes mellitus without complications Status: Chronic - Assessment and Plan FEVER CARDIOMYOPATHY VTACH AICD W/BIV PACING HTN HLD DM2 BC positive, PICC line pulled today. Antibiotic therapy per attending. Continues to have fever and chills. Metoprolol succinate 12.5mg daily, Pt refusing sotalol, she states Dr. Fernández dc' d that med and told her not to take it. Continue Amiodarone. Recommend replace K up to 4. Will check a Mag in AM. Continue Milrinone drip. Hypotensive today w/sepsis, monitor closely. Statin. Attending managing DM2. Hospital Course Summary Disclaimer: The visit summary below is not to be considered part of the above Progress Note. Hospital Course: Assessment Fever of unknown origin SIRS criteria of fever 103.2, leukocytosis, tachycardia, but no obvious source of infection and normal lactate Hypokalemia - POA End stage CHF with CRTD (cardiac resynchronization therapy device) Stage III CKD Diabetes mellitus, Type 2 Iron deficiency anemia Vitamin D deficiency CAD Cardiomyopathy Pulmonary HTN Sleep apnea - CPAP Hypothyroidism HLD iron deficiency anemia Vitamin D deficiency 09/06/16 - Hospital admission Admit to OBS status under the hospitalist service for further evaluation and monitoring. Dr. Arriaza attending. Respiratory panel, CXR, UA, labs performed in ER. Draw blood cultures if temp >101.5 - take 1 from PICC and 1 from other peripheral site Accuchecks and SSI. Replace potassium. SCD's for DVT prophylaxis. Patient requests full code status. Care to return to Dr. Garza on discharge. 09/07 Admit to inpatient status. Blood cx positive x 2. Meropenem started. PICC placed about a week before patient began having chills and subjective fevers. Will DC PICC and have tip cultured. Repeat blood cultures in AM. Sotalol added for NSVT. Apprecite Dr. Johansen's consult. Accuchecks and SSI. Replace potassium. SCD's for DVT prophylaxis. <Madi Johansen - Last Filed: 09/11/17 09:08> Exam Vital signs: Temperature 97.6 F 09/08/17 07:21 Pulse Rate 81 09/08/17 10:20 Respiratory Rate 16 09/08/17 07:21 Blood Pressure 123/60 09/08/17 10:20 Pulse Oximetry 92 09/08/17 07:21 Results 09/08/17 05:07 09/08/17 05:07 Assessment and Plan - Assessment and Plan (1) Fever Status: Acute (2) Cardiomyopathy Status: Chronic (3) Presence of automatic implantable cardioverter-defibrillator Status: Chronic (4) Ventricular tachycardia Status: Acute (5) Mixed hyperlipidemia Status: Chronic (6) Type 2 diabetes mellitus without complications Status: Chronic - Attestation Attestation Narrative: 09/11/17 09:08 Recommendation After examining the patient I agree with the above assessment. I am involved in the formulation of the patient's plan of care. Hospital Course Summary Disclaimer: The visit summary below is not to be considered part of the above Progress Note.
[2017-09-08] MEDS ORDERED: NS FLUSH BAG 500ml IV PRN (01:18)
[2017-09-08] MEDS: MEROPENEM 1 GM in NS 100 ML IV SCH ×2 (01:25→08:37)
[2017-09-08] MEDS: LEVOTHYROXINE 50 MCG TAB PO SCH (06:22)
[2017-09-08] MEDS: SOTALOL 80 MG TABLET PO SCH (06:23)
[2017-09-08] MEDS: FUROSEMIDE 20 MG TABLET PO SCH (06:24)
[2017-09-08] MEDS ORDERED: ROSUVASTATIN 10 MG TABLET PO SCH (06:30)
[2017-09-08] MEDS ORDERED: ASPIRIN *EC* 81 MG TABLET PO SCH (06:30)
[2017-09-08] MEDS ORDERED: AMIODARONE 200 MG TABLET PO SCH (06:30)
[2017-09-08] MEDS ORDERED: VITAMIN B COMPLEX + C TABLET PO SCH (06:30)
[2017-09-08 07:22] VITALS: RESP 16; TEMP 97.6; O2SAT 92
[2017-09-08] MEDS: SPIRONOLACTONE 25 MG TAB PO SCH (08:31)
[2017-09-08] MEDS: METOPROLOL SUCCINATE 25 MG PO SCH (08:31)
[2017-09-08] MEDS: FERROUS GLUCONATE 324 MG TAB PO SCH (08:34)
[2017-09-08] MEDS: SALINE FLUSH 10ml SYRINGE IV SCH (08:35)
[2017-09-08] MEDS: SALINE 0.65% NASAL SPRAY 44 ML BOTTLE EA NOSTRIL SCH (08:38)
--- NOTE | 2017-09-08 09:54 | XRay Report ---
Indication: picc placement verification PROCEDURE: XR chest 1V: Encounter: Initial Comparison: September 06, 2017 Findings: Right PICC line is abnormally positioned coiled in the axillary region. Left pacemaker defibrillator again noted. Enlarged cardiac silhouette. No pneumothorax. Impression: Abnormally positioned right PICC line. Recommend removal or replacement. .
[2017-09-08 10:20] VITALS: BP 123/60; PULSE 81
--- NOTE | 2017-09-08 10:39 | Discharge Summary ---
Discharge Information Date of admission: 09/07/17 10:05 Attending Physician: Cj Arriaza IV, MD Primary care physician: Surya Garza MD - Discharge Diagnosis (1) Fever Status: Acute (2) Heart failure Status: Acute - Laboratory Labs: 09/08/17 05:07 09/08/17 05:07 - Microbiology Microbiology 09/08/17 04:57 Port/Picc Blood Culture - Preliminary Culture Initiated - Results Pending 09/08/17 05:07 Port/Picc Blood Culture - Preliminary Culture Initiated - Results Pending 09/07/17 17:48 Foreign Object Foreign Body Culture - Preliminary Culture Initiated - Results Pending History of Present Illness HPI: Patient is a 62 yo female patient with end-stage CHF who presented to [facility] to have her PICC line flushed today (she is on a milrinone drip)and was found to have a fever of 103. She was sent to the ER where she had a neg respiratory panel, WBC 15.2 with 7% bands, CXR neg for overt failure or pneumonia, neg UA and potassium of 3.3 She states she has had several days of severe chills and "shakes" but doesn't have a thermometer to check her fever. She has a dry cough. No SOA. Mild "ache" in her chest which she states she gets when she has frequent PVCs. She states her fasting BS's have been elevated for the past month. Patient is currently on a milrinone drip (320mg/400ml D5W at 2.2ml/hr) started Aug 07 (date when PICC line placed). She has a CRTD. SHe sees Dr. Fernández in (heart failure specialist) and Dr. Johansen. SHe is not on home O2. She uses CPAP at night for sleep apnea. THinks her EF is 15% and her A1C is 5.3. Objective Vital signs: Temperature 97.6 F 09/08/17 07:21 Pulse Rate 81 09/08/17 10:20 Respiratory Rate 16 09/08/17 07:21 Blood Pressure 123/60 09/08/17 10:20 Pulse Oximetry 92 09/08/17 07:21 Cardiac Ectopy: Occasional PVC's Height/Weight/BMI: Weight 116.8 kg - Constitutional Present: no acute distress - Routine HEENT Exam Head: Present: normocephalic, atraumatic Eye: Present: EOMI, PERRL ENT: Present: mucous membranes moist - Routine Respiratory Exam Present: CTA bilaterally - Routine Cardiovascular Exam Present: RRR - Routine Abdominal Exam Present: soft, normoactive bowel sounds, non distended, non tender - Routine Extremities Exam Present: no edema - Routine Neurological Exam Present: alert, oriented X3, moving all extremities Hospital Course This is a general summary of the patient's hospital course. For more details refer to the complete medical record. Hospital course: Patient admitted with fever, leukocytosis, tachycardia. Blood cx from 09/06 are positive for Klebsiella oxytoca. Meropenem was initiated. PICC was removed 09/07 and tip cultured after new PICC was placed. Blood cx repeated 09/08. Patient's BiV ICD was interrogated and showed NSVT. Dr. Johansen ordered Sotalol, but patient has refused it. Patient's blood pressure has been hypotensive at times and Lasix, Spironolactone and metoprolol succinate have been held at times. Dr. Johansen has discussed the case with Dr. Fernández at [facility], who has accepted the patient at . Patient is aware and was expecting transfer. Discharge Plan - Discharge Disposition Discharge Date: 09/08/17 Disposition: 02 Acute Care Hosp, Other *Condition: Stable for Transport Reason For Visit (Visit label in EMR): fever - Discharge Medications *Discharge Medications: No Action Rosuvastatin Calcium 10 mg PO DAILY Levothyroxine Sodium 50 mcg PO ACB Ferrous Gluconate 324 mg PO WB Aspirin [Aspirin EC] 81 mg PO DAILY Vitamin B Complex [Balanced B-100] 1 tab PO DAILY Potassium Chloride [K-Tab ER] 5 meq PO DAILY Furosemide [Lasix] 40 mg PO BID 0.9 % Sodium Chloride [Sodium Chloride] 5 - 10 ml IV BID Nitroglycerin [Nitrostat] 0.4 mg SL Q5MIN PRN #0 PRN Reason: CHEST PAIN Sodium Chloride [Saline Nasal [place]] 2 spray EA NOSTRIL DAILY Cholecalciferol (Vitamin D3) [Vitamin D3] 2,000 unit PO DAILY Metoprolol Succinate 12.5 mg PO DAILY Spironolactone [Aldactone] 12.5 mg PO DAILY Amiodarone [Pacerone] 400 mg PO DAILY Milrinone Drip [Milrinone Drip Premix] 1 dose IV DAILY - Discharge Packet/Instructions *Diet: cardiac - Referrals/Follow Up - Patient Handouts - Dismissal Complete Discharge Instructions are:: Complete Physician Narrative - Narrative Attestation Narrative: Date: 09/08/17 Time: 1020
--- NOTE | 2017-09-08 14:12 | Consult Note ---
- Consultation This is a brief note regarding decision to transfer patient to [facility] in [place] to receive a higher acuity of care. I discussed with Dr. Dionicio Johansen by phone this AM the patients run of VT last evening, positive blood cultures with Klebsiella , persistent hypotension, removal of her PICC and intermittent medical therapies due to her hypotension. He recommended the patient be transferred to a facility with a higher level of acuity of care; either to [facility] under Dr. Yogi Fernández or to [facility]. He feels she needs a IBAN to eval endocarditis with the positive BC's and close monitoring for lead/device infection of implanted AICD. I then spoke with the patient's attending physician Dr. Arriaza, he feels her septic cardiogenic shock is progressing despite antibx therapy and agrees with transfer. I called the [facility] transfer coordination center and spoke with GEREMIAS Pineda; she took clinical information and started the transfer process. Dr. Johansen called Dr. Yogi Fernández directly, Dr. Johansen notified me Dr. Fernández agreed to accept the patient at [facility] facility. I notified Dr. Arriaza of impending transfer. I called Miriam back, she gave me a room number of [id number] and stated Dr. Fernández wished the patient transferred very quickly, she suggested air transport. Given my knowledge of the pt's clinical condition ground EMS transport is adequate. I notified the [facility] dry house operator Mckayla of the transfer details. Upon my arrival to [facility] campus today the patient had been transferred per EMS to [facility].
== END 2017-09-08 11:20 | disposition short-term general hospital (02) | DRG 871 ==
LOC: ED 11:31 → MED 11:31 → SUATTDRO 15:49 → MED 16:10
PROVIDERS: ADMIT Internal Medicine; ATTEND Hospitalist